=== PATIENT | male | born 1955 | race Caucasian/White ===

== ENCOUNTER 2024-06-01 12:46 | Inpatient (IN) | payer MEDICARE, BC ==
--- NOTE | 2024-06-01 14:07 | ED ---
General Adult HPI - General Chief complaint: Recheck/Abnormal Lab/Rx Stated complaint: SOB Time Seen by Provider: 06/01/24 12:55 Source: patient Mode of arrival: ambulatory Limitations: no limitations - History of Present Illness Initial comments: 68-year-old male presents emergency department under the recommendation of his primary care doctor. Patient had seen a new primary care last week. The physician wanted to perform a low-dose CT of his chest due to his longstanding history of smoking, recent weight loss of 30 lbs, cough and exertional dyspnea. CT was performed and demonstrated large lung mass with multiple smaller nodules concerning for cancer. Patient is currently in the works of finding a arc air operator to have a biopsy performed. States that he has had worsening symptoms of shortness of breath, nonproductive cough. He states that when he sleeps at night he is awoken from sleep gasping for air. He states his if he f eels when he turns his head to the right that he has compression on his airway. CT did demonstrate some tracheal effacement from lymphadenopathy. Patient was seen in [facility] ER yesterday due to worsening symptoms and had a CTA performed of his chest. CT demonstrated no PE. There was a large lung mass measuring 4 x 4 cm at the base. Patient had additional satellite nodules and an additional larger nodule. He had peritracheal adenopathy. It was recommended that the patient be transferred at that time due to his symptoms of difficulty breathing, tachycardia and new diagnosis of suspected lung cancer. Patient wanted to talk to his primary care doctor. He spoke with his primary care abiodun santiago this morning who felt that it was important for the patient to be evaluated at the hospital due to his worsening symptoms. He denies any fevers. No history of cancer. Patient is a diabetic and states he occasionally forgets to take his medications. - Related Data Home Medications Medication Instructions Recorded Confirmed Atorvastatin Calcium [Lipitor] 40 mg PO HS 06/01/24 06/01/24 buPROPion XL [Wellbutrin XL] 150 mg PO DAILY 06/01/24 06/01/24 glipiZIDE [Glucotrol] 5 mg PO BID 06/01/24 06/01/24 metFORMIN HCL [Metformin HCl] 1,000 mg PO BID 06/01/24 06/01/24 Allergies Allergy/AdvReac Type Severity Reaction Status Date / Time No Known Allergies Allergy Verified 06/01/24 14:32 Review of Systems ROS Statement: Those systems with pertinent positive or pertinent negative responses have been documented in the HPI. ROS Other: All systems not noted in ROS Statement are negative. Past Medical History Past Medical History: Diabetes Mellitus, Hypertension History of Any Multi-Drug Resistant Organisms: None Reported Past Surgical History: No Surgical Hx Reported Past Psychological History: No Psychological Hx Reported Smoking Status: Current every day smoker Past Alcohol Use History: None Reported Past Drug Use History: None Reported General Exam Limitations: no limitations General appearance: alert, in no apparent distress Head exam: Present: atraumatic, normocephalic, normal inspection Eye exam: Present: normal appearance, PERRL, EOMI. Absent: scleral icterus, conjunctival injection, periorbital swelling ENT exam: Present: normal exam, mucous membranes moist Neck exam: Present: normal inspection. Absent: tenderness, meningismus, lymphadenopathy Respiratory exam: Present: normal lung sounds bilaterally, other (no stridor). Absent: respiratory distress, wheezes, rales, rhonchi, stridor Cardiovascular Exam: Present: normal rhythm, tachycardia, normal heart sounds. Absent: systolic murmur, diastolic murmur, rubs, gallop, clicks GI/Abdominal exam: Present: soft, normal bowel sounds. Absent: distended, tenderness, guarding, rebound, rigid Extremities exam: Present: normal inspection, full ROM, normal capillary refill. Absent: tenderness, pedal edema, joint swelling, calf tenderness Back exam: Present: normal inspection Neurological exam: Present: alert, oriented X3, CN II-XII intact Psychiatric exam: Present: normal affect, normal mood Skin exam: Present: warm, dry, intact, normal color. Absent: rash Course Vital Signs 06/01/24 06/01/24 06/01/24 12:51 14:04 14:30 Temperature 98.2 F Pulse Rate 124 H 115 H 112 H Respiratory 22 18 20 Rate Blood Pressure 169/68 120/70 133/78 O2 Sat by Pulse 96 94 L 94 L Oximetry 06/01/24 06/01/24 06/01/24 19:30 20:19 20:29 Temperature Pulse Rate 114 H 111 H 112 H Respiratory 18 Rate Blood Pressure 144/75 O2 Sat by Pulse 96 Oximetry 06/01/24 21:14 Temperature Pulse Rate 110 H Respiratory 18 Rate Blood Pressure 135/79 O2 Sat by Pulse 95 Oximetry Medical Decision Making - Medical Decision Making Was pt. sent in by a medical professional or institution (LANIE Mathis, PROFESSOR OF BUSINESS, urgent care, hospital, or care home...) When possible be specific @ -Patient was told to come to the emergency department by his primary care doctor Did you speak to anyone other than the patient for history (EMS, parent, family, police, friend...)? What history was obtained from this source @ -No Did you review nursing and triage notes (agree or disagree)? Why? @ -I reviewed and agree with nursing and triage notes Were old charts reviewed (outside hosp., previous admission, EMS record, old EKG, old radiological studies, urgent care reports/EKG's, care home records)? Report findings @ -Yes I reviewed the CT angiography which demonstrates a 4 x 4 x 3.7 spiculated mass at the posterior right lower lobe. Satellite nodules. 7 mm lef t upper lobe. No PE Differential Diagnosis (chest pain, altered mental status, abdominal pain women, abdominal pain men, vaginal bleeding, weakness, fever, dyspnea, syncope, headache, dizziness, GI bleed, back pain, seizure, CVA, palpatations, mental health, musculoskeletal)? @ -Differential Dyspnea: Coronary syndrome, arrhythmia, tamponade, asthma, COPD, pulmonary embolism, pneumonia, pneumothorax, pulmonary effusion, anaphylaxis, diabetic ketoacidosis, flailed chest, pulmonary contusion, diaphragmatic rupture, anemia, neuromuscular, this is not meant to be an all-inclusive list. EKG interpreted by me (3pts min.). @ -Yes and demonstrates sinus tachycardia with a rate of 113. ND interval 209. QRS 97. QTc of 380. No acute ST segment elevations or depressions X-rays interpreted by me (1pt min.). @ -None done CT interpreted by me (1pt min.). @ -None done U/S interpreted by me (1pt. min.). @ -None done What testing was considered but not performed or refused? (CT, X-rays, U/S, labs)? Why? @ -Chest x-ray and CT of the chest was considered however patient just had 2 CTs performed What meds were considered but not given or refused? Why? @ -None Did you discuss the management of the patient with other professionals (professionals i.e. Dr., PA, PROFESSOR OF BUSINESS, lab, RT, psych nurse, social worker health services, yoke presser, teacher, president and chief executive officer, spring encaser)? Give summary @ -Spoke with Dr. Garay for admission Was smoking cessation discussed for >3mins.? @ -No Was critical care preformed (if so, how long)? @ -No Were there social determinants of health that impacted care today? How? (Homeles sness, low income, unemployed, alcoholism, drug addiction, transportation, low edu. Level, literacy, decrease access to med. care, [facility], rehab)? @ -No Was there de-escalation of care discussed even if they declined (Discuss DNR or withdrawal of care, Hospice)? DNR status @ -No What co-morbidities impacted this encounter? (DM, HTN, Smoking, COPD, CAD, Cancer, CVA, ARF, Chemo, Hep., AIDS, mental health diagnosis, sleep apnea, morbid obesity)? @ -Smoking Was patient admitted / discharged? Hospital course, mention meds given and route, prescriptions, significant lab abnormalities, going to OR and other pertinent info. @ -Upon arrival patient seen and evaluated in room 14. Thorough history and physical exam was performed. Patient reports to difficulty breathing especially positional and when sleeping. I did review his records which demonstrates suspected lung cancer with mediastinal adenopathy. Due to worsening shortness of breath I did offer admission with pulmonology consultation to discuss when that biopsy could be performed. Patient was agreeable to. Spoke with Dr. Garay for admission Undiagnosed new problem with uncertain prognosis? @ -Yes Drug Therapy requiring intensive monitoring for toxicity (Heparin, Nitro, Insulin, Cardizem)? @ -No Were any procedures done? @ -No Diagnosis/symptom? @ -Acute dyspnea, lung mass, suspected new cancer Acute, or Chronic, or Acute on Chronic? @ -Acute Uncomplicated (without systemic symptoms) or Complicated (systemic symptoms)? @ -Complicated Side effects of treatment? @ -No Exacerbation, Progression, or Severe Exacerbation? @ -No Poses a threat to life or bodily function? How? (Chest pain, [place], [place], pneumonia, PE, COPD, DKA, ARF, appy, cholecystitis, CVA, Diverticulitis, Homicidal, Suicidal, threat to staff... and all critical care pts) @ -Yes as patient likely has advanced cancer - Lab Data Result diagrams: 06/06/24 05:39 06/06/24 05:39 Lab Results 06/01/24 06/01/24 06/01/24 Range/Units 13:48 13:48 13:48 WBC 10.5 (3.8-10.6) k/uL RBC 6.21 H (4.30-5.90) m/uL Hgb 14.4 (13.0-17.5) gm/dL Hct 45.4 (39.0-53.0) % MCV 73.0 L (80.0-100.0) fL MCH 23.1 L (25.0-35.0) pg MCHC 31.7 (31.0-37.0) g/dL RDW 15.3 (11.5-15.5) % Plt Count 332 (150-450) k/uL Estimated Plt Count (Adequate) MPV 8.0 Immature Gran % (Auto) % Absolute Nucleated RBC % Neutrophils % 76 % Lymphocytes % 14 % Monocytes % 8 % Eosinophils % 1 % Basophils % 1 % Immature Gran # (0.00-0.04) X 10*3/uL Neutrophils # 7.9 H (1.3-7.7) k/uL Lymphocytes # 1.5 (1.0-4.8) k/uL Monocytes # 0.8 (0-1.0) k/uL Eosinophils # 0.1 (0-0.7) k/uL Basophils # 0.1 (0-0.2) k/uL NRBC/100 WBC Diff (0.00-0.01) X 10*3/uL Manual Slide Review Hypochromasia Slight Microcytosis Slight Microcytosis (manual) PT 10.4 (10.0-12.5) sec INR 0.9 (<1.2) APTT 27.3 (22.0-30.0) sec Sodium 132 L (137-145) mmol/L Potassium 4.9 (3.5-5.1) mmol/L Chloride 100 (98-107) mmol/L Carbon Dioxide 23 (22-30) mmol/L Anion Gap 9 mmol/L BUN 16 (9-20) mg/dL Creatinine 0.78 (0.66-1.25) mg/dL Est GFR (CKD-EPI) (>=60) Est GFR (CKD-EPI)AfAm >90 (>60 ml/min/1.73 sqM) Est GFR (CKD-EPI)NonAf >90 (>60 ml/min/1.73 sqM) BUN/Creatinine Ratio (12.00-20.00) Ratio Glucose 416 H (74-99) mg/dL POC Glucose (mg/dL) (70-110) mg/dL POC Glu Safety Companion ID Estimated Ave Glu mg/dL mg/dL Hemoglobin A1c (<=6.0) % Plasma Lactic Acid Josh (0.7-2.0) mmol/L Calcium 10.0 (8.4-10.2) mg/dL Total Bilirubin 0.8 (0.2-1.3) mg/dL AST 16 L (17-59) U/L ALT 12 (4-49) U/L Alkaline Phosphatase 92 (38-126) U/L Troponin I (0.000-0.034) ng/mL NT-Pro-B Natriuret Pep 87 pg/mL Total Protein 7.5 (6.3-8.2) g/dL Albumin 4.0 (3.5-5.0) g/dL TSH (0.350-5.500) UIU/ML SARS-CoV-2 (PCR) (Not Detectd) 06/01/24 06/01/24 06/01/24 Range/Units 13:48 13:48 16:16 WBC (3.8-10.6) k/uL RBC (4.30-5.90) m/uL Hgb (13.0-17.5) gm/dL Hct (39.0-53.0) % MCV (80.0-100.0) fL MCH (25.0-35.0) pg MCHC (31.0-37.0) g/dL RDW (11.5-15.5) % Plt Count (150-450) k/uL Estimated Plt Count (Adequate) MPV Immature Gran % (Auto) % Absolute Nucleated RBC % Neutrophils % % Lymphocytes % % Monocytes % % Eosinophils % % Basophils % % Immature Gran # (0.00-0.04) X 10*3/uL Neutrophils # (1.3-7.7) k/uL Lymphocytes # (1.0-4.8) k/uL Monocytes # (0-1.0) k/uL Eosinophils # (0-0.7) k/uL Basophils # (0-0.2) k/uL NRBC/100 WBC Diff (0.00-0.01) X 10*3/uL Manual Slide Review Hypochromasia Microcytosis Microcytosis (manual) PT (10.0-12.5) sec INR (<1.2) APTT (22.0-30.0) sec Sodium (137-145) mmol/L Potassium (3.5-5.1) mmol/L Chloride (98-107) mmol/L Carbon Dioxide (22-30) mmol/L Anion Gap mmol/L BUN (9-20) mg/dL Creatinine (0.66-1.25) mg/dL Est GFR (CKD-EPI) (>=60) Est GFR (CKD-EPI)AfAm (>60 ml/min/1.73 sqM) Est GFR (CKD-EPI)NonAf (>60 ml/min/1.73 sqM) BUN/Creatinine Ratio (12.00-20.00) Ratio Glucose (74-99) mg/dL POC Glucose (mg/dL) (70-110) mg/dL POC Glu Safety Companion ID Estimated Ave Glu mg/dL mg/dL Hemoglobin A1c (<=6.0) % Plasma Lactic Acid Josh 2.0 (0.7-2.0) mmol/L Calcium (8.4-10.2) mg/dL Total Bilirubin (0.2-1.3) mg/dL AST (17-59) U/L ALT (4-49) U/L Alkaline Phosphatase (38-126) U/L Troponin I <0.012 (0.000-0.034) ng/mL NT-Pro-B Natriuret Pep pg/mL Total Protein (6.3-8.2) g/dL Albumin (3.5-5.0) g/dL TSH (0.350-5.500) UIU/ML SARS-CoV-2 (PCR) Not Detected (Not Detectd) 06/01/24 06/01/24 06/01/24 Range/Units 17:31 19:28 21:07 WBC (3.8-10.6) k/uL RBC (4.30-5.90) m/uL Hgb (13.0-17.5) gm/dL Hct (39.0-53.0) % MCV (80.0-100.0) fL MCH (25.0-35.0) pg MCHC (31.0-37.0) g/dL RDW (11.5-15.5) % Plt Count (150-450) k/uL Estimated Plt Count (Adequate) MPV Immature Gran % (Auto) % Absolute Nucleated RBC % Neutrophils % % Lymphocytes % % Monocytes % % Eosinophils % % Basophils % % Immature Gran # (0.00-0.04) X 10*3/uL Neutrophils # (1.3-7.7) k/uL Lymphocytes # (1.0-4.8) k/uL Monocytes # (0-1.0) k/uL Eosinophils # (0-0.7) k/uL Basophils # (0-0.2) k/uL NRBC/100 WBC Diff (0.00-0.01) X 10*3/uL Manual Slide Review Hypochromasia Microcytosis Microcytosis (manual) PT (10.0-12.5) sec INR (<1.2) APTT (22.0-30.0) sec Sodium (137-145) mmol/L Potassium (3.5-5.1) mmol/L Chloride (98-107) mmol/L Carbon Dioxide (22-30) mmol/L Anion Gap mmol/L BUN (9-20) mg/dL Creatinine (0.66-1.25) mg/dL Est GFR (CKD-EPI) (>=60) Est GFR (CKD-EPI)AfAm (>60 ml/min/1.73 sqM) Est GFR (CKD-EPI)NonAf (>60 ml/min/1.73 sqM) BUN/Creatinine Ratio (12.00-20.00) Ratio Glucose (74-99) mg/dL POC Glucose (mg/dL) 408 H 349 H 218 H (70-110) mg/dL POC Glu Safety Companion ID Ivania Chambers, Dorinda Mejia, Dorinda Estimated Ave Glu mg/dL mg/dL Hemoglobin A1c (<=6.0) % Plasma Lactic Acid Josh (0.7-2.0) mmol/L Calcium (8.4-10.2) mg/dL Total Bilirubin (0.2-1.3) mg/dL AST (17-59) U/L ALT (4-49) U/L Alkaline Phosphatase (38-126) U/L Troponin I (0.000-0.034) ng/mL NT-Pro-B Natriuret Pep pg/mL Total Protein (6.3-8.2) g/dL Albumin (3.5-5.0) g/dL TSH (0.350-5.500) UIU/ML SARS-CoV-2 (PCR) (Not Detectd) 06/01/24 06/02/24 06/02/24 Range/Units 21:58 05:56 05:56 WBC 9.13 (3.8-10.6) k/uL RBC 6.28 H (4.30-5.90) m/uL Hgb 13.8 (13.0-17.5) gm/dL Hct 44.7 (39.0-53.0) % MCV 71.2 L (80.0-100.0) fL MCH 22.0 L (25.0-35.0) pg MCHC 30.9 L (31.0-37.0) g/dL RDW 17.3 H (11.5-15.5) % Plt Count 348 (150-450) k/uL Estimated Plt Count Adequate (Adequate) MPV 10.8 Immature Gran % (Auto) 0.40 % Absolute Nucleated RBC 0 % Neutrophils % 69.7 % Lymphocytes % 17.1 % Monocytes % 11.2 % Eosinophils % 1.1 % Basophils % 0.5 % Immature Gran # 0.04 (0.00-0.04) X 10*3/uL Neutrophils # 6.36 (1.3-7.7) k/uL Lymphocytes # 1.56 (1.0-4.8) k/uL Monocytes # 1.02 H (0-1.0) k/uL Eosinophils # 0.10 (0-0.7) k/uL Basophils # 0.05 (0-0.2) k/uL NRBC/100 WBC Diff 0 (0.00-0.01) X 10*3/uL Manual Slide Review Morph Only Hypochromasia Microcytosis Microcytosis (manual) 2+ A PT (10.0-12.5) sec INR (<1.2) APTT (22.0-30.0) sec Sodium (137-145) mmol/L Potassium (3.5-5.1) mmol/L Chloride (98-107) mmol/L Carbon Dioxide (22-30) mmol/L Anion Gap mmol/L BUN (9-20) mg/dL Creatinine (0.66-1.25) mg/dL Est GFR (CKD-EPI) (>=60) Est GFR (CKD-EPI)AfAm (>60 ml/min/1.73 sqM) Est GFR (CKD-EPI)NonAf (>60 ml/min/1.73 sqM) BUN/Creatinine Ratio (12.00-20.00) Ratio Glucose (74-99) mg/dL POC Glucose (mg/dL) 193 H (70-110) mg/dL POC Glu Safety Companion ID [place] Estimated [address] Glu mg/dL 369 mg/dL Hemoglobin A1c 14.5 H (<=6.0) % Plasma Lactic Acid Josh (0.7-2.0) mmol/L Calcium (8.4-10.2) mg/dL Total Bilirubin (0.2-1.3) mg/dL AST (17-59) U/L ALT (4-49) U/L Alkaline Phosphatase (38-126) U/L Troponin I (0.000-0.034) ng/mL NT-Pro-B Natriuret Pep pg/mL Total Protein (6.3-8.2) g/dL Albumin (3.5-5.0) g/dL TSH (0.350-5.500) UIU/ML SARS-CoV-2 (PCR) (Not Detectd) 06/02/24 06/02/24 06/02/24 Range/Units 05:56 05:56 07:20 WBC (3.8-10.6) k/uL RBC (4.30-5.90) m/uL Hgb (13.0-17.5) gm/dL Hct (39.0-53.0) % MCV (80.0-100.0) fL MCH (25.0-35.0) pg MCHC (31.0-37.0) g/dL RDW (11.5-15.5) % Plt Count (150-450) k/uL Estimated Plt Count (Adequate) MPV Immature Gran % (Auto) % Absolute Nucleated RBC % Neutrophils % % Lymphocytes % % Monocytes % % Eosinophils % % Basophils % % Immature Gran # (0.00-0.04) X 10*3/uL Neutrophils # (1.3-7.7) k/uL Lymphocytes # (1.0-4.8) k/uL Monocytes # (0-1.0) k/uL Eosinophils # (0-0.7) k/uL Basophils # (0-0.2) k/uL NRBC/100 WBC Diff (0.00-0.01) X 10*3/uL Manual Slide Review Hypochromasia Microcytosis Microcytosis (manual) PT (10.0-12.5) sec INR (<1.2) APTT (22.0-30.0) sec Sodium 135 (137-145) mmol/L Potassium 4.6 (3.5-5.1) mmol/L Chloride 100 (98-107) mmol/L Carbon Dioxide 23.7 (22-30) mmol/L Anion Gap 11.30 mmol/L BUN 14.6 (9-20) mg/dL Creatinine 1.0 (0.66-1.25) mg/dL Est GFR (CKD-EPI) 83 (>=60) Est GFR (CKD-EPI)AfAm (>60 ml/min/1.73 sqM) Est GFR (CKD-EPI)NonAf (>60 ml/min/1.73 sqM) BUN/Creatinine Ratio 14.60 (12.00-20.00) Ratio Glucose 236 H (74-99) mg/dL POC Glucose (mg/dL) 256 H (70-110) mg/dL POC Glu Safety Companion ID virgilio Argueta Estimated Ave Glu mg/dL mg/dL Hemoglobin A1c (<=6.0) % Plasma Lactic Acid Josh (0.7-2.0) mmol/L Calcium 9.2 (8.4-10.2) mg/dL Total Bilirubin (0.2-1.3) mg/dL AST (17-59) U/L ALT (4-49) U/L Alkaline Phosphatase (38-126) U/L Troponin I (0.000-0.034) ng/mL NT-Pro-B Natriuret Pep pg/mL Total Protein (6.3-8.2) g/dL Albumin (3.5-5.0) g/dL TSH 2.140 (0.350-5.500) UIU/ML SARS-CoV-2 (PCR) (Not Detectd) 06/02/24 06/02/24 06/02/24 Range/Units 12:07 17:16 20:11 WBC (3.8-10.6) k/uL RBC (4.30-5.90) m/uL Hgb (13.0-17.5) gm/dL Hct (39.0-53.0) % MCV (80.0-100.0) fL MCH (25.0-35.0) pg MCHC (31.0-37.0) g/dL RDW (11.5-15.5) % Plt Count (150-450) k/uL Estimated Plt Count (Adequate) MPV Immature Gran % (Auto) % Absolute Nucleated RBC % Neutrophils % % Lymphocytes % % Monocytes % % Eosinophils % % Basophils % % Immature Gran # (0.00-0.04) X 10*3/uL Neutrophils # (1.3-7.7) k/uL Lymphocytes # (1.0-4.8) k/uL Monocytes # (0-1.0) k/uL Eosinophils # (0-0.7) k/uL Basophils # (0-0.2) k/uL NRBC/100 WBC Diff (0.00-0.01) X 10*3/uL Manual Slide Review Hypochromasia Microcytosis Microcytosis (manual) PT (10.0-12.5) sec INR (<1.2) APTT (22.0-30.0) sec Sodium (137-145) mmol/L Potassium (3.5-5.1) mmol/L Chloride (98-107) mmol/L Carbon Dioxide (22-30) mmol/L Anion Gap mmol/L BUN (9-20) mg/dL Creatinine (0.66-1.25) mg/dL Est GFR (CKD-EPI) (>=60) Est GFR (CKD-EPI)AfAm (>60 ml/min/1.73 sqM) Est GFR (CKD-EPI)NonAf (>60 ml/min/1.73 sqM) BUN/Creatinine Ratio (12.00-20.00) Ratio Glucose (74-99) mg/dL POC Glucose (mg/dL) 240 H 294 H 343 H (70-110) mg/dL POC Glu Safety Companion virgilio Stubbs, Dolly Edwards Estimated Ave Glu mg/dL mg/dL Hemoglobin A1c (<=6.0) % Plasma Lactic Acid Josh (0.7-2.0) mmol/L Calcium (8.4-10.2) mg/dL Total Bilirubin (0.2-1.3) mg/dL AST (17-59) U/L ALT (4-49) U/L Alkaline Phosphatase (38-126) U/L Troponin I (0.000-0.034) ng/mL NT-Pro-B Natriuret Pep pg/mL Total Protein (6.3-8.2) g/dL Albumin (3.5-5.0) g/dL TSH (0.350-5.500) UIU/ML SARS-CoV-2 (PCR) (Not Detectd) 06/03/24 Range/Units 07:42 WBC (3.8-10.6) k/uL RBC (4.30-5.90) m/uL Hgb (13.0-17.5) gm/dL Hct (39.0-53.0) % MCV (80.0-100.0) fL MCH (25.0-35.0) pg MCHC (31.0-37.0) g/dL RDW (11.5-15.5) % Plt Count (150-450) k/uL Estimated Plt Count (Adequate) MPV Immature Gran % (Auto) % Absolute Nucleated RBC % Neutrophils % % Lymphocytes % % Monocytes % % Eosinophils % % Basophils % % Immature Gran # (0.00-0.04) X 10*3/uL Neutrophils # (1.3-7.7) k/uL Lymphocytes # (1.0-4.8) k/uL Monocytes # (0-1.0) k/uL Eosinophils # (0-0.7) k/uL Basophils # (0-0.2) k/uL NRBC/100 WBC Diff (0.00-0.01) X 10*3/uL Manual Slide Review Hypochromasia Microcytosis Microcytosis (manual) PT (10.0-12.5) sec INR (<1.2) APTT (22.0-30.0) sec Sodium (137-145) mmol/L Potassium (3.5-5.1) mmol/L Chloride (98-107) mmol/L Carbon Dioxide (22-30) mmol/L Anion Gap mmol/L BUN (9-20) mg/dL Creatinine (0.66-1.25) mg/dL Est GFR (CKD-EPI) (>=60) Est GFR (CKD-EPI)AfAm (>60 ml/min/1.73 sqM) Est GFR (CKD-EPI)NonAf (>60 ml/min/1.73 sqM) BUN/Creatinine Ratio (12.00-20.00) Ratio Glucose (74-99) mg/dL POC Glucose (mg/dL) 305 H (70-110) mg/dL POC Glu Safety Companion ID [place] virgilio Estimated Ave Glu mg/dL mg/dL Hemoglobin A1c (<=6.0) % Plasma Lactic Acid Josh (0.7-2.0) mmol/L Calcium (8.4-10.2) mg/dL Total Bilirubin (0.2-1.3) mg/dL AST (17-59) U/L ALT (4-49) U/L Alkaline Phosphatase (38-126) U/L Troponin I (0.000-0.034) ng/mL NT-Pro-B Natriuret Pep pg/mL Total Protein (6.3-8.2) g/dL Albumin (3.5-5.0) g/dL TSH (0.350-5.500) UIU/ML SARS-CoV-2 (PCR) (Not Detectd) Disposition Clinical Impression: Lung mass, Paratracheal lymphadenopathy, Tachycardia Disposition: ADMITTED IP TO THIS [facility] Condition: Stable Is patient prescribed a controlled substance at d/c from ED?: No Time of Disposition: 14:46 Decision to Admit Reason: Admit from EC Decision Date: 06/01/24 Decision Time: 14:46
[2024-06-01 14:08] LABS: Basophils # (A) 0.1 k/uL (0-0.2); Basophils % (A) 1 %; Eosinophils # (A) 0.1 k/uL (0-0.7); Eosinophils % (A) 1 %; HCT 45.4 % (39.0-53.0); HGB 14.4 gm/dL (13.0-17.5); Hypochromasia Slight; Lymphocytes # (A) 1.5 k/uL (1.0-4.8); Lymphocytes % (A) 14 %; MCH 23.1 pg (25.0-35.0); MCHC 31.7 g/dL (31.0-37.0); Microcytosis Slight; Monocytes # (A) 0.8 k/uL (0-1.0); Monocytes % (A) 8 %; Neutrophils # (A) 7.9 k/uL (1.3-7.7); Neutrophils % (A) 76 %; Platelet Count 332 k/uL (150-450); RBC 6.21 m/uL (4.30-5.90); RDW 15.3 % (11.5-15.5); WBC 10.5 k/uL (3.8-10.6)
[2024-06-01 14:15] LABS: ALT 12 U/L (4-49); AST 16 U/L (17-59); African American GFR (CKD) >90 (>60 ml/min/1.73 sqM); Alkaline Phosphatase 92 U/L (38-126); Anion Gap 9 mmol/L; Blood Urea Nitrogen 16 mg/dL (9-20); Carbon Dioxide 23 mmol/L (22-30); Chloride 100 mmol/L (98-107); Glucose 416 mg/dL (74-99); Non-African American GFR(CKD) >90 (>60 ml/min/1.73 sqM); Potassium 4.9 mmol/L (3.5-5.1); Sodium 132 mmol/L (137-145); Total Bilirubin 0.8 mg/dL (0.2-1.3); Total Protein 7.5 g/dL (6.3-8.2)
[2024-06-01 14:23] LABS: NT-Pro-B-Type Natriuretic Pept 87 pg/mL
[2024-06-01 14:25] LABS: INR 0.9 (<1.2); Partial Thromboplastin Time 27.3 sec (22.0-30.0); Prothrombin Time 10.4 sec (10.0-12.5)
[2024-06-01] MEDS ORDERED: NALOXONE 0.4 MG/ML 1 ML VIAL IV PRN (14:46)
[2024-06-01] MEDS ORDERED: DEXTROSE 50% SYRINGE 50 ML IVP PRN ×2 (14:50)
[2024-06-01] MEDS: SODIUM CHLORIDE 0.9% 1,000 ML IV SCH (15:29)
[2024-06-01 17:32] LABS: Glucose,Whole Blood 408 mg/dL (70-110)
[2024-06-01] MEDS: INSULIN ASPART (NovoLOG) 100 UNIT/ML VIAL SQ ONE (17:46)
[2024-06-01] MEDS: INSULIN ASPART (NovoLOG) 100 UNIT/ML VIAL SQ SCH (19:05)
[2024-06-01 19:30] LABS: Glucose,Whole Blood 349 mg/dL (70-110)
[2024-06-01] MEDS: IPRATROPIUM-ALBUTEROL 3 ML NEB INHALATION SCH (20:16)
[2024-06-01 21:09] LABS: Glucose,Whole Blood 218 mg/dL (70-110)
[2024-06-01 22:00] LABS: Glucose,Whole Blood 193 mg/dL (70-110)
[2024-06-01] MEDS: ATORVASTATIN 40 MG TAB PO SCH (22:34)
[2024-06-01] MEDS: metFORMIN 500 MG TAB PO SCH (22:34)
[2024-06-01] MEDS: glipiZIDE 5 MG TAB PO SCH (22:34)
--- NOTE | 2024-06-01 23:54 | HP ---
HISTORY AND PHYSICAL A 68-year-old white male. HOME MEDICATIONS: 1. Lipitor 40 daily. 2. Wellbutrin XL 150 daily. 3. Glucotrol 5 b.i.d. 4. Metformin 1000 b.i.d. ALLERGIES: Negative. He came to the hospital apparently with some shortness of breath. He is being worked up for heart disease. PAST MEDICAL HISTORY: Diabetes mellitus, hypertension. LABORATORY DATA: Labs show sodium 132, potassium 4.9, glucose is 416 in the ER, BUN 16, creatinine 0.78. D-dimer was not done. BNP was 87. We are going to run a D-dimer on him. Troponins negative. Lactic acid 2.0. He was found to have a lung mass, paratracheal lymphadenopathy, tachycardia, transferred in here. We will put him on home medications, breathing treatments, etc. We may get the CAT scan of his lungs from [place]. Get Pulmonary to see him for possible lung biopsy as well as Oncology for possible treatment. It looks like it is a lung cancer from what I hear from the ER. PROGNOSIS: Guarded. MMODL / IJN: [id number] /
--- NOTE | 2024-06-02 00:01 | HP ---
HISTORY AND PHYSICAL HISTORY OF PRESENT ILLNESS: He came to the hospital due to smoking and possible cancer. Pulmonology has been consulted. Waiting for biopsy. He has been gasping for air, worse when he turns to the side. Came from [facility]. Waiting for Pulmonary and Oncology to see him. He has been treated for breathing issues. He has diabetes, out of control. I put him on Accu-Chek protocol. ALLERGIES: Negative. PHYSICAL EXAMINATION: VITAL SIGNS: Temperature 98.2, pulse 112 to 124, blood pressure 120s to 160s over 60s to 70s, respiratory rate 18 to 20, O2 of 94% to 96%. PAST MEDICAL HISTORY: Diabetes, hypertension. LABORATORY DATA: Sodium 132, potassium 4.9 IMPRESSION: Put him on Accu-Chek protocol. Given fluid rehydration, IV steroids. He has lung mass, paratracheal adenopathy, tachycardia, suspect dehydration. Wait for pulmonary biopsy. Consult Dr. De Leon, Dr. Feliciano also, and Dr. Pascual. PROGNOSIS: Guarded. MMODL / IJN: [id number] /
[2024-06-02] MEDS ORDERED: RX INFO: IV CONTRAST WAS GIVEN 1 EACH MISC MISCELLANE PRN (01:22)
--- NOTE | 2024-06-02 04:40 | XR ---
EXAMINATION TYPE: XR chest 1V portable DATE OF EXAM: 06/02/2024 COMPARISON: NONE HISTORY: Shortness of breath TECHNIQUE: Single frontal view of the chest is obtained. FINDINGS: . Cardiac silhouette size is mildly enlarged. Left lung is clear. There is small right p leural effusion. There is increased interstitial markings in the right lung . There is right apical o pacity causing left-sided tracheal deviation and some tracheal narrowing The osseous structures are i ntact. IMPRESSION: Mild cardiomegaly with small right pleural effusion and mild to moderate right-sided int erstitial edema. Correlate for fluid overload state. Suspicious right apical masslike opacity with ma ss effect on the trachea. Underlying mass or neoplasm needs to be considered. Correlate clinically. F ollow-up contrast enhanced chest CT is advised.
--- NOTE | 2024-06-02 04:43 | P.CNPUL ---
History of Present Illness Consult date: 06/02/24 Requesting physician: Adenike Dooley Reason for consult: lung mass Chief complaint: Lung mass reportedly noted on low-dose lung CT History of present illness: Patient is a 68-year-old white male with past medical history significant for significant diabetes mellitus, hyperlipidemia, current everyday smoker. He just recently became established with a new PCP, Dr. Villarreal. He does have a signi ficant smoking history smoking approximately 1 to 2 packs/day for almost 50 years. He is currently retired, worked [employer] for most of his life. Denies ever being diagnosed with COPD. Does report exertional dyspnea such as walking out to the mailbox and back. He reports intermittent chronic cough, with minimal sputum production. Note that the patient has had a 30 pound weight loss over the past 6 months. He is also reported increased throat fullness and difficulty breathing when he turns his head. He went to [facility] yesterday for evaluation. Reportedly the CT of his chest done, however, he presents here without any imaging. Reportedly had enlarged paratracheal lymph nodes and a large lung mass. He was discharged home, went to see his PCP, who directed him to our facility. We are working on requesting these images. Patient is currently sitting at the edge of the bed, on room air, in no acute distress. He denies any infectious-like symptoms. No fevers. Cough is chronic, intermittent, and mostly nonproductive. No chest congestion. No hemoptysis. No palpable neck masses. No observable stridor. CBC unremarkable without leukocytosis. Electrolytes unremarkable. Glucose is 416. Lactic acid 2. Normal saline infusing at 130 MLS per hour. Troponin less than 0.012. NT proBNP low. COVID-negative. He is tachycardic. Otherwise, hemodynamically stable. Review of Systems REVIEW OF SYSTEMS: CONSTITUTIONAL: Reports a 30 pound unintentional weight loss over the last 6 months. EYES: Denies change in vision. EARS, NOSE, MOUTH, THROAT: Denies headaches, denies sore throat. Admits throat fullness and positional shortness of breath when turning his head CARDIOVASCULAR: Denies chest pain, palpitations or syncopal episodes. RESPIRATORY: See HPI GASTROINTESTINAL: Denies change in appetite, abdominal pain, nausea and vomiting, or diarrhea GENITOURINARY: Denies hematuria, denies infections. MUSKULOSKELETAL: Denies pain, denies swelling. INTEGUMENTARY: Denies rash, denies eczema. NEUROLOGICAL: Denies recent memory loss, no recent seizure activity. PSYCHIATRIC: Denies anxiety, denies depression. HEMATOLOGIC/LYMPHATIC: Denies anemia, denies enlarged lymph node Past Medical History Past Medical History: Diabetes Mellitus, Hypertension History of Any Multi-Drug Resistant Organisms: None Reported Past Surgical History: No Surgical Hx Reported Past Psychological History: No Psychological Hx Reported Smoking Status: Current every day smoker Past Alcohol Use History: None Reported Past Drug Use History: None Reported Medications and Allergies Home Medications Medication Instructions Recorded Confirmed Type Atorvastatin Calcium [Lipitor] 40 mg PO HS 06/01/24 06/01/24 History buPROPion XL [Wellbutrin XL] 150 mg PO DAILY 06/01/24 06/01/24 History glipiZIDE [Glucotrol] 5 mg PO BID 06/01/24 06/01/24 History metFORMIN HCL [Metformin HCl] 1,000 mg PO BID 06/01/24 06/01/24 History Allergies Allergy/AdvReac Type Severity Reaction Status Date / Time No Known Allergies Allergy Verified 06/01/24 14:32 Physical Exam Vitals: Vital Signs Temp Pulse Pulse Resp BP BP Pulse Ox 06/02/24 01:16 98.5 F 113 H 20 136/85 91 L 06/01/24 22:51 16 06/01/24 21:30 97.5 F L 112 H 18 128/77 94 L 06/01/24 21:14 110 H 18 135/79 95 06/01/24 20:29 112 H 06/01/24 20:19 111 H 06/01/24 19:30 114 H 18 144/75 96 06/01/24 14:30 112 H 20 133/78 94 L 06/01/24 14:04 115 H 18 120/70 94 L 06/01/24 12:51 98.2 F 124 H 22 169/68 96 Intake and Output 06/01/24 06/01/24 06/02/24 14:59 22:59 06:59 Output Total 800 Balance -800 Output: Urine 800 Other: Weight 86.183 kg 86.183 kg GENERAL EXAM: Alert, 68-year-old male, well-nourished, sitting at the edge of the bed, comfortable in no apparent distress. HEAD: Normocephalic and atraumatic EYES: Normal reaction of pupils, equal size. NOSE: Clear with pink turbinates. THROAT: No erythema or exudates. NECK: No masses, no JVD. No stridor. CHEST: No chest wall deformity. LUNGS: Equal air entry with no crackles, wheeze, rhonchi or dullness. On room air. No conversational dyspnea or accessory muscle use.. CVS: S1 and S2 normal with no audible murmur, regular rhythm. No extra heart sounds ABDOMEN: No hepatosplenomegaly, active bowel sounds, no guarding or rigidity. SPINE: No scoliosis or deformity SKIN: No rashes CENTRAL NERVOUS SYSTEM: No focal deficits, tone is normal in all 4 extremities. EXTREMITIES: There is no peripheral edema, clubbing, or cyanosis. Peripheral pulses are intact. Results - Laboratory Findings CBC and BMP: 06/01/24 13:48 06/01/24 13:48 PT/INR, D-dimer PT 10.4 sec (10.0-12.5) 06/01/24 13:48 INR 0.9 (<1.2) 06/01/24 13:48 Abnormal lab findings: Abnormal Labs 06/01/24 06/01/24 06/01/24 13:48 13:48 17:31 RBC 6.21 H MCV 73.0 L MCH 23.1 L Neutrophils # 7.9 H Sodium 132 L Glucose 416 H POC Glucose (mg/dL) 408 H AST 16 L 06/01/24 06/01/24 06/01/24 19:28 21:07 21:58 RBC MCV MCH Neutrophils # Sodium Glucose POC Glucose (mg/dL) 349 H 218 H 193 H AST Assessment and Plan Assessment: Abnormal CT findings, reported lung nodules/masses found at outside facility, imaging not available at this time. Images have been requested. Unintentional 30 pound weight loss Chronic ongoing tobacco dependence, with over 25-[id number]-[id number] history Suspect underlying chronic obstructive pulmonary disease Sinus tachycardia Diabetes mellitus type 2 History of hyperlipidemia Plan: We are requesting images from [facility]. Patient reportedly had some abnormal findings. Questionable lung mass with associated lymphadenopathy. If unable to obtain outside imaging, repeat chest CT with contrast. Further recommendations are forthcoming. I have personally seen and examined the patient, performed the documentation and the assessment and plan as written. Number of minutes spent on the visit:20 Time with Patient: Greater than 30
[2024-06-02 07:21] LABS: Glucose,Whole Blood 256 mg/dL (70-110)
[2024-06-02 08:36] LABS: HCT 44.7 % (39.6-50.0); HGB 13.8 g/dL (13.0-17.0); MCHC 30.9 g/dL (32.0-37.0); MCV 71.2 FL (80.0-97.0); Mean Platelet Volume 10.8 FL (9.5-12.2); NRBC Per 100 WBC 0 X 10*3/uL (0.00-0.01); Platelet Count 348 X 10*3/uL (140-440); RBC 6.28 X 10*6/uL (4.40-5.60); RDW 17.3 % (11.5-14.5); WBC 9.13 X 10*3/uL (4.50-10.00)
--- NOTE | 2024-06-02 08:45 | CT ---
"EXAMINATION TYPE: CT chest w con DATE OF EXAM: 06/02/2024 COMPARISON: Chest x-ray 06/02/2024 HISTORY: Lung mass CT DLP: 499 mGycm, Automated exposure control for dose reduction was used. CONTRAST: Performed injected with 0 mL of Isovue 300. TECHNIQUE: Axial images were obtained at 5 mm thick sections. Reconstructed images are reviewed on [employer] computer in the coronal plane. FINDINGS: Portion of the thyroid visualized is normal. There is a lung mass in the posterior right mid lung measuring 3.4 x 4.6 cm. Multiple additional punc boo nodules are present including a 0.7 cm nodule left upper lobe, series 4, image 12, 0.4 cm periph eral nodule anterior lateral right lung. Series 4 image 27. A 1.0 cm nodule anterior to the lung mass in the superior segment right lower lobe. Series 4 image 28. There is increased linear markings with in the right lung compared to the left. Lymphangitic metastasis should be considered. There is extensive markedly enlarged lymphadenopathy with central necrosis including the superior med iastinum during 2.1 cm, the paratracheal space measuring 3.5 x 4.9 cm, pretracheal space measuring 2. 0 cm, subcarinal space measuring 1.4 cm. Bilateral hilar enlarged adenopathy is present. Additional e nlarged aortopulmonic window lymphadenopathy is present. Retrocrural adenopathy may be present. There is a small right pleural effusion. Compressive atelectasis of the right lung base is present. No enlarged mediastinal or hilar adenopathy is evident. The ascending aorta diameter at the level o f the main pulmonary artery is 4.3 cm. The main pulmonary artery diameter at the bifurcation is 2.[address] sections are obtained through the upper abdomen. There is a 3.5 x 3.0 cm slightly irregula r hypodensity within the posterior medial right lobe liver, series 3 image 49 suspicious for metastat ic lesion. IMPRESSION: 1. Posterior right lung mass with additional punctate nodularity and increased linear markings within the right lung. Multiple markedly enlarged mediastinal adenopathy is present. Findings are suspiciou s for primary metastatic lung cancer. 2. There is is a hypodense lesion within the liver suspicious for metastatic lesion. 3. Small right pleural effusion. 4. Recommend PET/CT for additional workup. 5. Ascending thoracic aortic aneurysm 4.3 cm A [place] level critical message alert has been initiated for Jean-Pierre Lynne MD via the [email or web address] 36 0 | Critical Results System on 06/02/2024 8:43 AM. This message alert has been sent to Jean-Pierre Lynne MD via the preferences provided by the clinician for the receipt of Radiology Critical Findings. [facility] ID [id number]."
[2024-06-02 08:55] LABS: Blood Urea Nitrogen 14.6 mg/dL (9.0-27.0); Calcium 9.2 mg/dL (8.7-10.3); Carbon Dioxide 23.7 mmol/L (21.6-31.8); Chloride 100 mmol/L (96-109); Glucose 236 mg/dL (70-110); Potassium 4.6 mmol/L (3.5-5.5); Sodium 135 mmol/L (135-145)
[2024-06-02 09:39] LABS: Basophils # (A) 0.05 X 10*3/uL (0.00-0.10); Basophils % (A) 0.5 %; Eosinophils % (A) 1.1 %; Lymphocytes # (A) 1.56 X 10*3/uL (0.90-5.00); Lymphocytes % (A) 17.1 %; Monocytes # (A) 1.02 X 10*3/uL (0.20-1.00); Monocytes % (A) 11.2 %; Neutrophils # (A) 6.36 X 10*3/uL (1.80-7.70); Neutrophils % (A) 69.7 %
[2024-06-02 09:40] LABS: Microcytosis (M) 2+
--- NOTE | 2024-06-02 10:41 | P.CARDCATH ---
Description of Procedure: HISTORY OF PRESENTING ILLNESS This is a pleasant 68-year-old with past medical history significant for tobacco abuse, diabetes mellitus type 2, hyperlipidemia and new lung mass. 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 He had before she has had 30 pound weight loss and had prior CT was told to monitor however more recently had CT of [facility] with findings of concern of lung cancer and therefore transferred to [facility]. Cardiology was consult with secondary abnormal EKG. EKG does show sinus rhythm with nonspecific Q waves V1 through V3 without significant ST or T wave abnormalities and prolonged AL interval. He has had sinus tachycardia with heart rates in the 105 to 115 range. He does have some shortness breath however denies any real chest pain or pressure. CT of the chest was with IV contrast the mention of ascending aortic aneurysm 4.3 cm. No mention of any PE however not dedicated PE study. He is still smoking however attempting to quit. REVIEW OF SYSTEMS At the time of my exam: CONSTITUTIONAL: Denies fever or chills. CARDIOVASCULAR: Denies chest pain, + shortness of breath, orthopnea, PND or palpitations. RESPIRATORY: Denies cough. GASTROINTESTINAL: Denies abdominal pain, diarrhea, constipation, nausea or vomiting. MUSCULOSKELETAL: Denies myalgias. NEUROLOGIC: Denies numbness, tingling or weakness. ENDOCRINE: Denies fatigue, weight change, polydipsia or polyurina. GENITOURINARY: Denies burning, hematuria or urgency with micturation. HEMATOLOGIC: Denies history of anemia or bleeding. PHYSICAL EXAMINATION Vital signs reviewed. CONSTITUTIONAL: No apparent distress. HEENT: Head is normocephalic. Pupils are equal, round. Sclerae anicteric. Mucous membranes of the mouth are moist. No JVD. No carotid bruit. CHEST EXAMINATION: Lungs are clear to auscultation. No chest wall tenderness is noted on palpation or with deep breathing. HEART EXAMINATION: Regular rate and rhythm. S1, S2 heard. No murmurs, gallops or rub. ABDOMEN: Soft, nontender. Positive bowel sounds. EXTREMITIES: 2+ peripheral pulses, no lower extremity edema and no calf tenderness. NEUROLOGIC EXAMINATION: Patient is awake, alert and oriented x3. ASSESSMENT Sinus tachycardia Lung mass with possible metastasis Uncontrolled diabetes mellitus type 2 Hyperlipidemia Tobacco abuse Acute on chronic respiratory failure possibly related to lung mass plus or minus COPD PLAN Patient does have sinus tachycardia which appears reactive secondary to cancer, anxiety. Respiratory failure. Is more related to COPD and lung cancer. Check BMP for completeness sake. Check 2-D echo. Further recommendations to follow.
[2024-06-02 12:09] LABS: Glucose,Whole Blood 240 mg/dL (70-110)
[2024-06-02] MEDS: buPROPion XL 150 MG TAB.ER.24H PO SCH (12:48)
--- NOTE | 2024-06-02 14:29 | P.CONS ---
History of Present Illness - Reason for Consult Consult date: 06/02/24 lung mass Requesting physician: Adenike Dooley - Chief Complaint SOB - History of Present Illness Patient is a 68-year-old male with past medical history significant for sig nificant diabetes mellitus, hyperlipidemia, current everyday smoker. Consult placed for new lung mass. Patient recently established care with a new PCP, Dr. Villarreal, and states he had a CT chest which found a concerning lung mass. He reports he smokes proximately 2 packs for most 50 years, currently smoking 1 pack daily. Also reporting 30 pound weight loss over the last 6 months. He has been experiencing increasing SOB over the last month, with mild productive cough. Denies hemoptysis. On admission chest x-ray showed mild cardiomegaly with small right pleural effusion and mild to moderate right-sided interstitial edema. Suspicious right apical masslike opacity with mass effect on the trachea. CT chest with contrast showed posterior right lung mass measuring 3.4 x 4.6 cm with additional punctate nodularity and increased linear markings within the right lung. Multiple markedly enlarged mediastinal adenopathy noted. Hypodense lesion within the liver measuring 3.5 x 3.0 cm also reported. Afebrile, SPO2 94% on room air. Blood counts stable Review of Systems 10 point ROS is negative except as stated in the HPI Past Medical History Past Medical History: Diabetes Mellitus, Hypertension History of Any Multi-Drug Resistant Organisms: None Reported Past Surgical History: No Surgical Hx Reported Past Psychological History: No Psychological Hx Reported Smoking Status: Current every day smoker Past Alcohol Use History: None Reported Past Drug Use History: None Reported Medications and Allergies Home Medications Medication Instructions Recorded Confirmed Type Atorvastatin Calcium [Lipitor] 40 mg PO HS 06/01/24 06/01/24 History buPROPion XL [Wellbutrin XL] 150 mg PO DAILY 06/01/24 06/01/24 History glipiZIDE [Glucotrol] 5 mg PO BID 06/01/24 06/01/24 History metFORMIN HCL [Metformin HCl] 1,000 mg PO BID 06/01/24 06/01/24 History Allergies Allergy/AdvReac Type Severity Reaction Status Date / Time No Known Allergies Allergy Verified 06/01/24 14:32 Physical Exam Vitals: Vital Signs Temp Pulse Pulse Pulse Resp BP BP 06/02/24 11:24 92 06/02/24 11:12 96 06/02/24 07:20 97.7 F 102 H 16 125/72 06/02/24 01:16 98.5 F 113 H 20 136/85 06/01/24 22:51 16 06/01/24 21:30 97.5 F L 112 H 18 128/77 06/01/24 21:14 110 H 18 135/79 06/01/24 20:29 112 H 06/01/24 20:19 111 H 06/01/24 19:30 114 H 18 144/75 06/01/24 14:30 112 H 20 133/78 06/01/24 14:04 115 H 18 120/70 Pulse Ox 06/02/24 11:24 06/02/24 11:12 06/02/24 07:20 94 L 06/02/24 01:16 91 L 06/01/24 22:51 06/01/24 21:30 94 L 06/01/24 21:14 95 06/01/24 20:29 06/01/24 20:19 06/01/24 19:30 96 06/01/24 14:30 94 L 06/01/24 14:04 94 L Intake and Output 06/01/24 06/02/24 06/02/24 22:59 06:59 14:59 Output Total 800 Balance -800 Output: Urine 800 Other: # Voids 2 Weight 86.183 kg - Constitutional General appearance: no acute distress - EENT Eyes: anicteric sclerae, EOMI ENT: hearing grossly normal - Neck Neck: no lymphadenopathy - Respiratory Respiratory: bilateral: diminished (worse in RLL) - Cardiovascular Rhythm: regular - Gastrointestinal General gastrointestinal: soft, no tenderness - Integumentary Integumentary: no cyanotic - Neurologic Neurologic: CNII-XII intact - Musculoskeletal Musculoskeletal: strength equal bilaterally - Psychiatric Psychiatric: A&O x's 3 Results CBC & Chem 7: 06/02/24 05:56 06/02/24 05:56 Labs: Abnormal Lab Results - Last 24 Hours (Table) 06/01/24 06/01/24 06/01/24 Range/Units 13:48 13:48 17:31 RBC 6.21 H (4.30-5.90) m/uL MCV 73.0 L (80.0-100.0) fL MCH 23.1 L (25.0-35.0) pg MCHC (32.0-37.0) g/dL RDW (11.5-14.5) % Neutrophils # 7.9 H (1.3-7.7) k/uL Monocytes # (0.20-1.00) X 10*3/uL Microcytosis (manual) Sodium 132 L (137-145) mmol/L Glucose 416 H (74-99) mg/dL POC Glucose (mg/dL) 408 H (70-110) mg/dL Hemoglobin A1c (<=6.0) % AST 16 L (17-59) U/L 06/01/24 06/01/24 06/01/24 Range/Units 19:28 21:07 21:58 RBC (4.30-5.90) m/uL MCV (80.0-100.0) fL MCH (25.0-35.0) pg MCHC (32.0-37.0) g/dL RDW (11.5-14.5) % Neutrophils # (1.3-7.7) k/uL Monocytes # (0.20-1.00) X 10*3/uL Microcytosis (manual) Sodium (137-145) mmol/L Glucose (74-99) mg/dL POC Glucose (mg/dL) 349 H 218 H 193 H (70-110) mg/dL Hemoglobin A1c (<=6.0) % AST (17-59) U/L 06/02/24 06/02/24 06/02/24 Range/Units 05:56 05:56 05:56 RBC 6.28 H (4.30-5.90) m/uL MCV 71.2 L (80.0-100.0) fL MCH 22.0 L (25.0-35.0) pg MCHC 30.9 L (32.0-37.0) g/dL RDW 17.3 H (11.5-14.5) % Neutrophils # (1.3-7.7) k/uL Monocytes # 1.02 H (0.20-1.00) X 10*3/uL Microcytosis (manual) 2+ A Sodium (137-145) mmol/L Glucose 236 H (74-99) mg/dL POC Glucose (mg/dL) (70-110) mg/dL Hemoglobin A1c 14.5 H (<=6.0) % AST (17-59) U/L 06/02/24 06/02/24 Range/Units 07:20 12:07 RBC (4.30-5.90) m/uL MCV (80.0-100.0) fL MCH (25.0-35.0) pg MCHC (32.0-37.0) g/dL RDW (11.5-14.5) % Neutrophils # (1.3-7.7) k/uL Monocytes # (0.20-1.00) X 10*3/uL Microcytosis (manual) Sodium (137-145) mmol/L Glucose (74-99) mg/dL POC Glucose (mg/dL) 256 H 240 H (70-110) mg/dL Hemoglobin A1c (<=6.0) % AST (17-59) U/L Chest x-ray: report reviewed CT scan - chest: report reviewed Assessment and Plan (1) Lung mass Current Visit: Yes Status: Acute Priority: High Code(s): R91.8 - OTHER NONSPECIFIC ABNORMAL FINDING OF LUNG FIELD SNOMED Code(s): 089468355 (2) Paratracheal lymphadenopathy Current Visit: Yes Status: Acute Priority: High Code(s): R59.0 - LOCALIZED ENLARGED LYMPH NODES SNOMED Code(s): 64744033 Plan: Lung mass, mediastinal LAD, liver lesion: Presented with progressing SOB x 1 month. Reports 30 lb unintentional weight loss over last 6 months. History of heavy nicotine use, smoking approx 2 packs x 50 years -On admission CT chest with contrast showed posterior right lung mass measuring 3.4 x 4.6 cm with additional punctate nodularity and increased linear markings within the right lung. Multiple markedly enlarged mediastinal adenopathy noted. Hypodense lesion within the liver measuring 3.5 x 3.0 cm -Pulmonology consulted, planning for bronchoscopy with biopsy tomorrow -Will obtain brain MRI, and plan for outpt PET CT to complete staging -Discussed scan results and concerns for metastatic disease. He was agreeable to proceed with further workup attests:I have seen and examined pt, performed H&P, developed impression and plan of care. Discussed with dictator. Agree with documentation, dictated as a scribe.
[2024-06-02 17:17] LABS: Glucose,Whole Blood 294 mg/dL (70-110)
[2024-06-02 20:12] LABS: Glucose,Whole Blood 343 mg/dL (70-110)
[2024-06-03 07:43] LABS: Glucose,Whole Blood 305 mg/dL (70-110)
[2024-06-03] MEDS: MELOXICAM 7.5 MG TAB PO SCH (08:39)
[2024-06-03] MEDS: METOPROLOL TARTRATE 25 MG TAB PO SCH (09:41)
--- NOTE | 2024-06-03 10:41 | CA ---
Transthoracic Echo Report Name: Josiah Garza Age: 68 Gender: M : 1955 Exam Date: 06/02/2024 13:28 Exam Location: [place] [facility] Ht (in): 71 Wt (lb): 190 Ordering Physician: Yonny Bashir DO ([email or web address]) Attending/Referring Phys: Deckhand Oyster Dredge Paty Granados RDCS Procedure CPT: Indications: re: SOB, cancer Cardiac Hx: Technical Quality: Fair Contrast 1: Total Dose (mL): Contrast 2: Total Dose (mL): MEASUREMENTS (Male / Female) Normal Values 2D ECHO LV Diastolic Diameter PLAX 4.1 cm 4.2 - 5.9 / 3.9 - 5.3 cm LV Systolic Diameter PLAX 2.0 cm IVS Diastolic Thickness 1.8 cm 0.6 - 1.0 / 0.6 - 0.9 cm LVPW Diastolic Thickness 1.5 cm 0.6 - 1.0 / 0.6 - 0.9 cm LV Relative Wall Thickness 0.8 RV Internal Dim ED PLAX 2.9 cm LA Volume 55.2 cm??? 18 - 58 / 22 - 52 cm??? LA Volume Index 26.4 cm???/m??? 16 - 28 cm???/m??? M-MODE Aortic Root Diameter MM 4.4 cm LA Systolic Diameter MM 3.8 cm LA Ao Ratio MM 0.9 AV Cusp Separation MM 2.2 cm DOPPLER AV Peak Velocity 136.6 cm/s AV Peak Gradient 7.5 mmHg AV Mean Velocity 79.6 cm/s AV Mean Gradient 3.1 mmHg AV Velocity Time Integral 20.6 cm AI Peak Velocity 508.1 cm/s AI Peak Gradient 103.3 mmHg AI Pressure Half Time 342.3 ms LVOT Peak Velocity 109.0 cm/s LVOT Peak Gradient 4.8 mmHg LVOT Velocity Time Integral 22.5 cm MV Area PHT 5.0 cm??? Mitral E Point Velocity 58.9 cm/s Mitral A Point Velocity 96.7 cm/s Mitral E to A Ratio 0.6 MV Deceleration Time 153.2 ms MV E' Velocity 6.9 cm/s Mitral E to MV E' Ratio 8.6 FINDINGS Left Ventricle Severely increased left ventricular wall thickness. Left ventricular cavity size normal. Normal left ventricular systolic function with no obvious regional wall motion abnormalities. Left ventricular ejection fraction is estimated at 55-60 %. Grade 1 diastolic dysfunction. Right Ventricle Normal right ventricular size and function. Right Atrium Normal right atrial size. Left Atrium Normal left atrial size. Mitral Valve Structurally normal mitral valve. Mitral valve thickened. Mild mitral annular calcification. Mild mitral regurgitation. Aortic Valve Trileaflet aortic valve. No aortic stenosis. Mild aortic regurgitation. Tricuspid Valve Structurally normal tricuspid valve. Mild tricuspid regurgitation. Pulmonic Valve Structurally normal pulmonic valve. Trace pulmonic regurgitation. Pericardium No pericardial effusion. Aorta Normal size aortic root and proximal ascending aorta. CONCLUSIONS Normal LV size and systolic function with moderate concentric LVH. Mild mitral tricuspid and aortic insufficiency. No significant pulmonary hypertension. No pericardial effusion Previewed by: Dr. Joana Smith MD (Electronically Signed) Final Date: 03 June 2024 10:40
[2024-06-03 11:42] LABS: Glucose,Whole Blood 280 mg/dL (70-110)
[2024-06-03] MEDS: IV FLUID CONTINUATION 1,000 ML IV ONE (11:53)
--- NOTE | 2024-06-03 11:58 | P.PN ---
Subjective HISTORY OF PRESENT ILLNESS: This is a pleasant 68-year-old with past medical history significant for tobacco abuse, diabetes mellitus type 2, hyperlipidemia and new lung mass. 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 He had before she has had 30 pound weight loss and had prior CT was told to monitor however more recently had CT of [facility] with findings of concern of lung cancer and therefore transferred to [facility]. Cardiology was consult with secondary abnormal EKG. EKG does show sinus rhythm with nonspecific Q waves V1 through V3 without significant ST or T wave abnormalities and prolonged [place] interval. He has had sinus tachycardia with heart rates in the 105 to 115 range. He does have some shortness breath however denies any real chest pain or pressure. CT of the chest was with IV contrast the mention of ascending aortic aneurysm 4.3 cm. No mention of any PE however not dedicated PE study. He is still smoking however attempting to quit. 06/03/2024 Patient examined this morning at the bedside. Patient currently denies chest pain or pressure. He denies shortness of breath. Telemetry reveals sinus tachycardia. Patient is scheduled to undergo bronchoscopy today with pulmonary medicine. Echocardiogram completed revealing ejection fraction 55-60% PHYSICAL EXAM: VITAL SIGNS: Reviewed. GENERAL: Well-developed in no acute distress. NECK: Supple. No JVD or thyromegaly LUNGS: Respirations even and unlabored. Lungs essentially clear to auscultation bilaterally. HEART: Regular rate and rhythm. S1 and S2 heard. EXTREMITIES: Normal range of motion. No clubbing or cyanosis. Peripheral pulses intact. No lower extremity edema ASSESSMENT: Sinus tachycardia Lung mass with possible metastasis Uncontrolled diabetes mellitus type 2 Hyperlipidemia Tobacco abuse Acute on chronic respiratory failure possibly related to lung mass plus or minus COPD PLAN: Patient scheduled for bronchoscopy today with pulmonary medicine Continue current cardiac medications Add metoprolol 25mg twice a day Continue telemetry monitoring Further recommendations pending patient course Nurse practitioner note has been reviewed by physician. Signing provider agrees with the documented findings, assessment, and plan of care. Objective - Vital Signs Vital signs: Vital Signs Temp 97.0 F L 06/03/24 11:39 Pulse 77 06/03/24 11:39 Resp 16 06/03/24 11:39 BP 153/85 06/03/24 11:39 Pulse Ox 94 L 06/03/24 11:39 FiO2 Intake & Output 06/02/24 06/03/2424 18:59 06:59 18:59 Intake Total 1999 Balance 1999 Intake: Oral 1999 Other: Voiding Method Toilet # Voids 2 - Labs CBC & Chem 7: 06/02/24 05:56 06/02/24 05:56 Labs: Abnormal Lab Results - Last 24 Hours (Table) 06/02/24 06/02/24 06/02/24 Range/Units 12:07 17:16 20:11 POC Glucose (mg/dL) 240 H 294 H 343 H (70-110) mg/dL 06/03/24 06/03/24 Range/Units 07:42 11:38 POC Glucose (mg/dL) 305 H 280 H (70-110) mg/dL
[2024-06-03] MEDS ORDERED: ePHEDrine 50 MG/ML 1 ML VIAL ONE (12:14)
[2024-06-03] MEDS ORDERED: fentaNYL (PF) 50 MCG/ML 2 ML AMP ONE (12:14)
[2024-06-03] MEDS ORDERED: GLYCOPYRROLATE 0.2 MG/ML 2 ML VIAL ONE (12:14)
[2024-06-03] MEDS ORDERED: LABETALOL 5 MG/ML VIAL MDV ONE (12:14)
[2024-06-03] MEDS ORDERED: PROPOFOL 10 MG/ML 20 ML VIAL IV ONE (12:14)
[2024-06-03] MEDS ORDERED: LIDOCAINE 1% INJ 10MG/ML (20 ML MDV) ONE (12:14)
[2024-06-03] MEDS ORDERED: SUCCINYLCHOLINE CHLORIDE 200 MG/10 ML VIAL IV ONE (12:14)
[2024-06-03] MEDS ORDERED: NALOXONE 0.4 MG/ML 1 ML VIAL ONE (12:14)
[2024-06-03] MEDS ORDERED: MIDAZOLAM 2 MG/2 ML VIAL ONE (12:14)
[2024-06-03] MEDS ORDERED: NEOSTIGMINE 1 MG/ML 10 ML VIAL ONE (12:14)
[2024-06-03] MEDS ORDERED: SUGAMMADEX SODIUM 200 MG/2 ML SDV IV ONE (12:14)
[2024-06-03] MEDS ORDERED: ROCURONIUM 10 MG/ML (5 ML VIAL) IV ONE (12:14)
--- NOTE | 2024-06-03 13:22 | P.PN ---
Subjective Progress Note Date: 06/03/24 Patient is a 68-year-old white male with past medical history significant for significant diabetes mellitus, hyperlipidemia, current everyday smoker. He just recently became established with a new PCP, Dr. Villarreal. He does have a significant smoking history smoking approximately 1 to 2 packs/day for almost 50 years. He is currently retired, worked [employer] for most of his life. Denies ever being diagnosed with COPD. Does report exertional dyspnea such as walking out to the mailbox and back. He reports intermittent chronic cough, with minimal sputum production. Note that the patient has had a 30 pound weight loss over the past 6 months. He is also reported increased throat fullness and difficulty breathing when he turns his head. He went to [facility] yesterday for evaluation. Reportedly the CT of his chest done, however, he presents here without any imaging. Reportedly had enlarged paratracheal lymph nodes and a large lung mass. He was discharged home, went to see his PCP, who directed him to our facility. We are working on requesting these images. Patient is currently sitting at the edge of the bed, on room air, in no acute distress. He denies any infectious-like symptoms. No fevers. Cough is chronic, intermittent, and mostly nonproductive. No chest congestion. No hemoptysis. No palpable neck masses. No observable stridor. CBC unremarkable without leukocytosis. Electrolytes unremarkable. Glucose is 416. Lactic acid 2. Normal saline infusing at 130 MLS per hour. Troponin less than 0.012. NT proBNP low. COVID-negative. He is tachycardic. Otherwise, hemodynamically stable. The patient is seen today 06/03/2024 in follow-up on the regular medical floor. He is awake and alert in no acute distress. He is maintaining good O2 saturations in the 90s on room air. No IV fluids. Glucose 280.he remains on DuoNeb inhalations. He denies any worsening shortness of breath, cough or congestion. No hemoptysis. Plan is for bronchoscopy with biopsies today. Objective - Vital Signs Vital signs: Vital Signs Temp 97.0 F L 06/03/24 11:39 Pulse 77 06/03/24 11:39 Resp 16 06/03/24 11:39 BP 153/85 06/03/24 11:39 Pulse Ox 94 L 06/03/24 11:39 FiO2 Intake & Output 06/02/24 06/03/24 06/03/24 18:59 06:59 18:59 Intake Total 2000 300 Balance 1999 300 Weight 86.183 kg Intake: IV 300 Oral 1999 Other: Voiding Method Toilet # Voids 2 - Exam GENERAL EXAM: Alert, pleasant 68-year-old male, well-nourished, on room air, stable, in no apparent distress. HEAD: Normocephalic and atraumatic EYES: Normal reaction of pupils, equal size. NOSE: Clear with pink turbinates. THROAT: No erythema or exudates. NECK: No masses, no JVD. No stridor. CHEST: No chest wall deformity. LUNGS: Equal air entry with no crackles, wheeze, rhonchi or dullness. CVS: S1 and S2 normal with no audible murmur, regular rhythm. No extra heart sounds ABDOMEN: No hepatosplenomegaly, active bowel sounds, no guarding or rigidity. SPINE: No scoliosis or deformity SKIN: No rashes CENTRAL NERVOUS SYSTEM: No focal deficits, tone is normal in all 4 extremities. EXTREMITIES: There is no peripheral edema, clubbing, or cyanosis. Peripheral pulses are intact. - Labs CBC & Chem 7: 06/02/24 05:56 06/02/24 05:56 Labs: Abnormal Lab Results - Last 24 Hours (Table) 06/02/24 06/02/24 06/03/24 Range/Units 17:16 20:11 07:42 POC Glucose (mg/dL) 294 H 343 H 305 H (70-110) mg/dL 06/03/24 Range/Units 11:38 POC Glucose (mg/dL) 280 H (70-110) mg/dL Assessment and Plan Assessment: Abnormal CT findings, reported lung nodules/masses found at outside facility. Bronchoscopy with biopsies performed 06/03/2024. Cytology pending Unintentional 30 pound weight loss Chronic ongoing tobacco dependence, with over [id number] history Suspect underlying chronic obstructive pulmonary disease Sinus tachycardia Diabetes mellitus type 2 History of hyperlipidemia Pplan: The patient was seen and evaluated Medications and labs reviewed Remains stable and on room air Plan is for bronchoscopy with biopsies today Cultures and pathology are pending He is cleared for discharge from the pulmonary standpoint Follow up with Dr. Chowdhury in our office in 1 week for results This patient was seen independently by the pulmonary nurse practitioner dressing pulmonary issues I have personally seen and examined the patient, performed the documentation and the assessment and plan as written. Number of minutes spent on the visit: 25.
[2024-06-03 13:24] LABS: Glucose,Whole Blood 274 mg/dL (70-110)
[2024-06-03 13:59] LABS: Glucose,Whole Blood 325 mg/dL (70-110)
[2024-06-03] MEDS: SODIUM CHLORIDE 0.9% 1,000 ML IV SCH (14:05)
[2024-06-03] MEDS: MORPHINE SULFATE 4 MG/ML SYRINGE IV PRN (14:31)
--- NOTE | 2024-06-03 14:32 | XR ---
EXAMINATION TYPE: XR chest 1V portable DATE OF EXAM: 06/03/2024 2:14 PM CLINICAL INDICATION:Male, 68 years old with history of Tube placement; COMPARISON: Chest radiographs from 06/02/2024 TECHNIQUE: XR chest 1V portable Frontal view of the chest. FINDINGS: Lungs/Pleura: There is no evidence of pleural effusion, focal consolidation, or pneumothorax. Pulmonary vascularity: Unremarkable. Heart/mediastinum: Cardiomediastinal silhouette is unremarkable. Musculoskeletal: No acute osseous pathology. Other findings: None Lines/Tubes: Endotracheal tube with distal tip 6.0 cm above the shakira. Nasogastric tube with its distal tip and side-port projecting under the diaphragm. IMPRESSION: Diffuse airspace opacities throughout the right lung with blunting of the costophrenic angle.
[2024-06-03 14:58] LABS: ABG Base Excess -4.8 mmol/L; ABG HCO3 23 mmol/L (21-25); ABG Oxygen Saturation 96.7 % (94-97); ABG PCO2 51 mmHg (35-45); ABG PH 7.26 (7.35-7.45); ABG PO2 99 mmHg (83-108); ABG TCO2 24 mmol/L (19-24); Allen Test Performed? Yes
[2024-06-03] MEDS: IPRATROPIUM-ALBUTEROL 3 ML NEB INHALATION SCH (15:04)
[2024-06-03] MEDS: LACTATED RINGERS 1,000 ML IV SCH (15:17)
--- NOTE | 2024-06-03 15:39 | FL ---
EXAMINATION TYPE: FL bronchoscopy Intraoperative/procedural fluoroscopic services were provided. Tota l fluoroscopy time is 4 seconds with a total of 2 submitted images to PACS. Please see the operative/ procedural note for further details. DAP: 0.1618 Gycm2
[2024-06-03 15:52] LABS: Glucose,Whole Blood 366 mg/dL (70-110)
[2024-06-03] MEDS: INSULIN ASPART (NovoLOG) 100 UNIT/ML VIAL SQ SCH (15:53)
[2024-06-03] MEDS: SODIUM CHLORIDE 0.9% 1,000 ML IV ONE (17:41)
[2024-06-03] MEDS: NOREPINEPHRINE 4 MG in SODIUM CHLORIDE 0.9% 250 ML IV SCH (17:50)
--- NOTE | 2024-06-03 17:53 | P.PN ---
Subjective Progress Note Date: 06/03/24 Principal diagnosis: Respiratory failure requiring reintubation post procedure status post bronchoscopy and lung biopsy Of Right lower lobe posterior mass Enlarging right paratracheal lymph node Advanced COPD emphysema History of weight loss of about 30 pounds Type 2 diabetes mellitus with hyperglycemia Dyslipidemia 06/03/2024, patient seen eval reexamined while covering for Dr. Jean-Pierre Lynne,patient seen and evaluated examined in the ICU currently intubated sedated patient is status post bronchoscopy postoperatively patient developed desaturation requiring intubation patient lightly sedated with propofol drip on full ventilator support, Objective - Vital Signs Vital signs: Vital Signs Temp 97.5 F L 06/03/24 16:00 Pulse 66 06/03/24 17:00 Resp 20 06/03/24 17:00 BP 81/57 06/03/24 17:00 Pulse Ox 99 06/03/24 17:00 FiO2 90 06/03/24 16:00 Intake & Output 06/02/24 06/03/24 06/03/24 18:59 06:59 18:59 Intake Total 1999 543.228 Output Total 10 Balance 1999 533.228 Weight 86.183 kg Intake: IV 525 LR 225 Intake, IV Titration 18.228 Amount propofoL 1,000 mg In 18.228 Empty Bag 1 bag @ 15 MCG/ KG/MIN 7.757 mls/hr IV . [id number] [facility] Rx#:[id number] Oral 1999 Output: Urine 10 Other: Voiding Method Toilet # Voids 2 1 - Exam patient intubated sedated with propofol - Constitutional General appearance: Present: average body habitus - EENT Eyes: Present: PERRLA Ears: bilateral: normal - Neck Neck: Present: normal ROM Carotids: bilateral: upstroke normal - Respiratory Respiratory: right: rales, left: CTA - Cardiovascular Rhythm: regular Heart sounds: normal: S1, S2 - Integumentary Integumentary: Present: normal - Musculoskeletal Musculoskeletal Comment(s): currently sedated propofol - Labs CBC & Chem 7: 06/02/24 05:56 06/02/24 05:56 Labs: Abnormal Lab Results - Last 24 Hours (Table) 06/02/24 06/03/24 06/03/24 Range/Units 20:11 07:42 11:38 ABG pH (7.35-7.45) ABG pCO2 (35-45) mmHg POC Glucose (mg/dL) 343 H 305 H 280 H (70-110) mg/dL 06/03/24 06/03/24 06/03/24 Range/Units 13:15 13:57 14:56 ABG pH 7.26 L (7.35-7.45) ABG pCO2 51 H (35-45) mmHg POC Glucose (mg/dL) 274 H 325 H (70-110) mg/dL 06/03/24 Range/Units 15:50 ABG pH (7.35-7.45) ABG pCO2 (35-45) mmHg POC Glucose (mg/dL) 366 H (70-110) mg/dL Assessment and Plan Assessment: Respiratory failure requiring reintubation post procedure status post bronchoscopy and lung biopsy Of Right lower lobe posterior mass Enlarging right paratracheal lymph node Advanced COPD emphysema History of weight loss of about 30 pounds Type 2 diabetes mellitus with hyperglycemia Dyslipidemia Plan: continue supportive care continue vent setting, start following once patient transferred out of the ICU Time with Patient: Greater than 30
[2024-06-03] MEDS ORDERED: INSULIN ASPART (NovoLOG) 100 UNIT/ML VIAL SQ SCH (18:00)
[2024-06-03 18:15] LABS: African American GFR (CKD) 78 (>60 ml/min/1.73 sqM); Anion Gap 7 mmol/L; Blood Urea Nitrogen 18 mg/dL (9-20); Calcium 8.3 mg/dL (8.4-10.2); Carbon Dioxide 21 mmol/L (22-30); Chloride 108 mmol/L (98-107); Glucose 281 mg/dL (74-99); Non-African American GFR(CKD) 68 (>60 ml/min/1.73 sqM); Sodium 136 mmol/L (137-145)
--- NOTE | 2024-06-03 19:54 | PCN ---
PROCEDURE NOTE PROCEDURES PERFORMED: Bronchoscopy, endobronchial transbronchial biopsy, needle biopsy with airway needle brushes right upper lobe. BAL right upper lobe. All the specimens were obtained in the right upper lobe. PREOPERATIVE DIAGNOSIS: Rule out cancer. POSTOPERATIVE DIAGNOSIS: Rule out cancer. BREAD BAKER: Dr. Chowdhury. FIRST FRUIT OR NUT PICKER: Jennifer Carrasquillo. ANESTHESIA: Provided general endotracheal anesthesia. DESCRIPTION OF PROCEDURE: The patient's procedure was done in room #1. There was informed consent and universal timeout. After the patient was connected to the anesthesia machine, and under the effects of general anesthesia, the bronchoscope was inserted through the bronchoscope adapter connected to the endotracheal tube. The bronchoscope was passed through the endotracheal tube into the trachea. The distal trachea looked normal. Tracheal shakira was sharp. On the left side, the anatomy was normal. Left upper lobe and its 2 segments, lingula and its 2 segments, and left lower lobe and its 4 segments. On the right side, the right middle lobe and right lower lobe appeared completely normal. The shakira the bronchus intermedius from the right upper lobe, appeared very thickened and had a bulge to it. In addition, more distally in the right upper lobe, the mucosa appeared to be very irregular and abnormal. Hence, we did multiple endobronchial transbronchial biopsies in the right upper lobe. We did brushes in the right upper lobe. We washed the right upper lobe, and we also did a needle biopsies of the shakira the right upper lobe from the bronchus intermedius. There was minimal bleeding. We ensured hemostasis before the bronchoscope was withdrawn. There was no immediate complication. The patient will be recovered. The patient tolerated the procedure well. No issues to report. Specimens will be sent to the laboratory for analysis. MMODL / IJN: [id number] /
[2024-06-03 20:06] LABS: Glucose,Whole Blood 220 mg/dL (70-110)
[2024-06-03] MEDS: CHLORHEXIDINE GLUCONATE 15 ML CUP MUCOUS MEM SCH (20:27)
[2024-06-04 00:16] LABS: Glucose,Whole Blood 192 mg/dL (70-110)
[2024-06-04 03:14] LABS: Appearance,BF Blood Tinged (Clear); RBC, Body Fluid 14400 /UL (0-2000)
[2024-06-04 03:31] LABS: Glucose,Whole Blood 196 mg/dL (70-110)
[2024-06-04 05:30] LABS: ABG Base Excess -5.7 mmol/L; ABG HCO3 20 mmol/L (21-25); ABG Oxygen Saturation 98.4 % (94-97); ABG PCO2 42 mmHg (35-45); ABG PO2 114 mmHg (83-108); ABG TCO2 22 mmol/L (19-24); Allen Test Performed? Yes
[2024-06-04 05:57] LABS: HCT 39.2 % (39.0-53.0); HGB 11.9 gm/dL (13.0-17.5); Hypochromasia Marked; MCH 22.7 pg (25.0-35.0); MCHC 30.4 g/dL (31.0-37.0); MCV 74.7 fL (80.0-100.0); Mean Platelet Volume 7.6; Microcytosis Slight; Platelet Count 298 k/uL (150-450); RBC 5.24 m/uL (4.30-5.90); RDW 15.2 % (11.5-15.5); WBC 10.6 k/uL (3.8-10.6)
[2024-06-04 06:08] LABS: African American GFR (CKD) 57 (>60 ml/min/1.73 sqM); Anion Gap 9 mmol/L; Blood Urea Nitrogen 22 mg/dL (9-20); Calcium 8.9 mg/dL (8.4-10.2); Carbon Dioxide 18 mmol/L (22-30); Chloride 110 mmol/L (98-107); Glucose 165 mg/dL (74-99); Non-African American GFR(CKD) 49 (>60 ml/min/1.73 sqM); Potassium 5.1 mmol/L (3.5-5.1); Sodium 137 mmol/L (137-145)
[2024-06-04 06:40] LABS: Glucose,Whole Blood 154 mg/dL (70-110)
--- NOTE | 2024-06-04 07:22 | XR ---
EXAMINATION TYPE: XR chest 1V portable DATE OF EXAM: 06/04/2024 5:06 AM CLINICAL INDICATION:Male, 68 years old with history of Tube placement; COMPARISON: Chest radiograph from one day prior. TECHNIQUE: XR chest 1V portable Frontal view of the chest. FINDINGS: Lungs/Pleura: There is no evidence of pleural effusion, focal consolidation, or pneumothorax. Pulmonary vascularity: Unremarkable. Heart/mediastinum: Cardiomediastinal silhouette is unremarkable. Musculoskeletal: No acute osseous pathology. Other findings: None Lines/Tubes: Endotracheal tube with distal tip 6.7 cm above the shakira. Nasogastric tube with its distal tip and side-port projecting under the diaphragm. IMPRESSION: 1. Improved aeration of the right lung with persistent airspace opacities with interstitial prominen ce and right pleural effusion. 2. Endotracheal tube in high position consider advancement of 3 cm for optimal placement.
[2024-06-04 08:43] LABS: Glucose,Whole Blood 173 mg/dL (70-110)
[2024-06-04] MEDS: DEXMEDETOMIDINE/0.9% NACL(PMX) 400 MCG in EMPTY BAG 1 BAG IV SCH (08:45)
--- NOTE | 2024-06-04 09:03 | XR ---
EXAMINATION TYPE: XR chest 1V portable DATE OF EXAM: 06/04/2024 8:57 AM CLINICAL INDICATION:Male, 68 years old with history of spo2 drop; COMPARISON: Chest radiographs from 06/04/2024 TECHNIQUE: XR chest 1V portable Frontal view of the chest. FINDINGS: Lungs/Pleura: Blunting of the right costophrenic angle with associated atelectasis. There is no evide nce of left pleural effusion, focal consolidation, or pneumothorax. Pulmonary vascularity: Unremarkable. Heart/mediastinum: Cardiomediastinal silhouette is unremarkable. Musculoskeletal: No acute osseous pathology. Endotracheal tube 7.1 cm above the shakira. Nasogastric tube side-port projecting over the distal esophagus. IMPRESSION: Endotracheal tube in high position consider advancement of 3 cm for optimal placement. Nasogastric tube in high position consider advancement of 8 submitted images for optimal placement. Moderate pleural effusion with associated atelectasis.
[2024-06-04] MEDS: NICOTINE 21MG/24HR PATCH TRANSDERM SCH (09:19)
--- NOTE | 2024-06-04 10:43 | P.PN ---
Subjective Progress Note Date: 06/04/24 Principal diagnosis: Abnormal chest x-ray/CT scan. Patient is a 68-year-old white male with past medical history significant for significant diabetes mellitus, hyperlipidemia, current everyday smoker. He just recently became established with a new PCP, Dr. Villarreal. He does have a significant smoking history smoking approximately 1 to 2 packs/day for almost 50 years. He is currently retired, worked [employer] for most of his life. Denies ever being diagnosed with COPD. Does report exertional dyspnea such as walking out to the mailbox and back. He reports intermittent chronic cough, with minimal sputum production. Note that the patient has had a 30 pound weight loss over the past 6 months. He is also reported increased throat fullness and difficulty breathing when he turns his head. He went to [facility] yesterday for evaluation. Reportedly the CT of his chest done, however, he presents here without any imaging. Reportedly had enlarged paratracheal lymph nodes and a large lung mass. He was discharged home, went to see his PCP, who directed him to our facility. We are working on requesting these images. Patient is currently sitting at the edge of the bed, on room air, in no acute distress. He denies any infectious-like symptoms. No fevers. Cough is chronic, intermittent, and mostly nonproductive. No chest congestion. No hemoptysis. No palpable neck masses. No observable stridor. CBC unremarkable without leukocytosis. Electrolytes unremarkable. Glucose is 416. Lactic acid 2. Normal saline infusing at 130 MLS per hour. Troponin less than 0.012. NT proBNP low. COVID-negative. He is tachycardic. Otherwise, hemodynamically stable. The patient is seen today 06/03/2024 in follow-up on the regular medical floor. He is awake and alert in no acute distress. He is maintaining good O2 saturations in the 90s on room air. No IV fluids. Glucose 280.he remains on DuoNeb inhalations. He denies any worsening shortness of breath, cough or congestion. No hemoptysis. Plan is for bronchoscopy with biopsies today. Progress note dated June 12, 2024. The patient underwent bronchoscopy yesterday, because of an abnormality noted in his right upper lobe, and he had biopsies brushings washes, etc. Everything went well during the procedure. He had general endotracheal anesthesia (GETA), and, was extubated. Apparently sometime shortly after extubation, he was noted to have some respiratory issues, and was reintubated by the [employer]IE[employer]. The patient was transferred to the intensive care unit for further monitoring and management. The patient remains on mechanical ventilator. Currently he is on volume assist-control, rate 20, tidal volume 500, FiO2 65%, PEEP of 8. Blood gases show pO2 114, pCO2 42, pH is 7.30. The patient is on propofol at 50 mcg/kg/min, LR at 75 cc an hour, saline at KVO. Tube feedings have not yet been started. The bronchoscopy was done on June 03. The patient will be placed on dexmedetomidine, and will attempt a weaning trial with pressure support and CPAP, 8 and 5 respectively. He will also get a nicotine patch as he was smoking up until the time he came to the hospital. Current labs include a white count 10.6, hemoglobin 9.9, hematocrit 39.2, and a normal platelet count. Sodium 137, potassium 5.1, chlorides 110, CO2 18, BUN 22, creatinine 1.47. Glucose is 173. Calcium is 8.9. Bronchoscopy washings are pending. The patient's chest x-ray shows a right-sided pleural effusion. Objective - Vital Signs Vital signs: Vital Signs Temp 97.4 F L 06/04/24 08:00 Pulse 85 06/04/24 09:30 Resp 28 H 06/04/24 09:30 BP 97/57 06/04/24 09:30 Pulse Ox 92 L 06/04/24 09:30 FiO2 75 06/04/24 09:30 Intake & Output 06/03/24 06/04/24 06/04/24 18:59 06:59 18:59 Intake Total 3695.000 1110.376 305.581 Output Total 10 175 130 Balance 3685.000 935.376 175.581 Weight 86.183 kg 86.9 kg Intake: IV 3600 825 225 LR 300 825 225 Sodium Chloride 0.9% 1, 3000 000 ml @ 999 mls/hr IV . Q1H1M [facility] Rx#:[id number] Intake, IV Titration 95.000 285.376 80.581 Amount Norepinephrine 4 mg In 85.376 0 Sodium Chloride 0.9% 250 ml @ 0.03 MCG/KG/MIN 9. 851 mls/hr IV .Q24H [facility] Rx#:[id number] propofoL 1,000 mg In 95.000 200.000 80.581 Empty Bag 1 bag @ 15 MCG/ KG/MIN 7.757 mls/hr IV . [id number] [facility] Rx#:[id number] Output: Urine 10 175 130 Other: Voiding Method Indwelling Catheter # Voids 1 - Exam No acute distress, patient restless on propofol, with an orally placed endotracheal tube. HEENT examination is grossly unremarkable. Neck supple. Full range of motion. No adenopathy thyromegaly or neck vein distention. Cardiovascular examination reveals regular rhythm rate. S1-S2 normal. No S3 or S4. No discernible murmur noted. Heart rate 80 bpm. Lungs reveal diffuse bilateral rhonchi. No wheezes or crackles. Breath sounds equal. Saturations are 94%. Abdomen soft bowel sounds are heard. No masses or tenderness. Extremities are intact. No cyanosis clubbing or edema. Skin is without rash or lesion. Neurologic examination cannot be assessed at this time. - Labs CBC & Chem 7: 06/04/24 05:28 06/04/24 05:28 Labs: Abnormal Lab Results - Last 24 Hours (Table) 06/03/24 06/03/24 06/03/24 Range/Units 11:38 12:30 13:15 Hgb (13.0-17.5) gm/dL MCV (80.0-100.0) fL MCH (25.0-35.0) pg MCHC (31.0-37.0) g/dL ABG pH (7.35-7.45) ABG pCO2 (35-45) mmHg ABG pO2 (83-108) mmHg ABG HCO3 (21-25) mmol/L ABG O2 Saturation (94-97) % Sodium (137-145) mmol/L Potassium (3.5-5.1) mmol/L Chloride (98-107) mmol/L Carbon Dioxide (22-30) mmol/L BUN (9-20) mg/dL Creatinine (0.66-1.25) mg/dL Glucose (74-99) mg/dL POC Glucose (mg/dL) 280 H 274 H (70-110) mg/dL Calcium (8.4-10.2) mg/dL Fluid Appearance Blood Tinged A (Clear) 06/03/24 06/03/24 06/03/24 Range/Units 13:57 14:56 15:50 Hgb (13.0-17.5) gm/dL MCV (80.0-100.0) fL MCH (25.0-35.0) pg MCHC (31.0-37.0) g/dL ABG pH 7.26 L (7.35-7.45) ABG pCO2 51 H (35-45) mmHg ABG pO2 (83-108) mmHg ABG HCO3 (21-25) mmol/L ABG O2 Saturation (94-97) % Sodium (137-145) mmol/L Potassium (3.5-5.1) mmol/L Chloride (98-107) mmol/L Carbon Dioxide (22-30) mmol/L BUN (9-20) mg/dL Creatinine (0.66-1.25) mg/dL Glucose (74-99) mg/dL POC Glucose (mg/dL) 325 H 366 H (70-110) mg/dL Calcium (8.4-10.2) mg/dL Fluid Appearance (Clear) 06/03/24 06/03/24 06/04/24 Range/Units 17:28 20:05 00:14 Hgb (13.0-17.5) gm/dL MCV (80.0-100.0) fL MCH (25.0-35.0) pg MCHC (31.0-37.0) g/dL ABG pH (7.35-7.45) ABG pCO2 (35-45) mmHg ABG pO2 (83-108) mmHg ABG HCO3 (21-25) mmol/L ABG O2 Saturation (94-97) % Sodium 136 L (137-145) mmol/L Potassium 6.0 H (3.5-5.1) mmol/L Chloride 108 H (98-107) mmol/L Carbon Dioxide 21 L (22-30) mmol/L BUN (9-20) mg/dL Creatinine (0.66-1.25) mg/dL Glucose 281 H (74-99) mg/dL POC Glucose (mg/dL) 220 H 192 H (70-110) mg/dL Calcium 8.3 L (8.4-10.2) mg/dL Fluid Appearance (Clear) 06/04/24 06/04/24 06/04/24 Range/Units 03:29 05:27 05:28 Hgb 11.9 L (13.0-17.5) gm/dL MCV 74.7 L (80.0-100.0) fL MCH 22.7 L (25.0-35.0) pg MCHC 30.4 L (31.0-37.0) g/dL ABG pH 7.30 L (7.35-7.45) ABG pCO2 (35-45) mmHg ABG pO2 114 H (83-108) mmHg ABG HCO3 20 L (21-25) mmol/L ABG O2 Saturation 98.4 H (94-97) % Sodium (137-145) mmol/L Potassium (3.5-5.1) mmol/L Chloride (98-107) mmol/L Carbon Dioxide (22-30) mmol/L BUN (9-20) mg/dL Creatinine (0.66-1.25) mg/dL Glucose (74-99) mg/dL POC Glucose (mg/dL) 196 H (70-110) mg/dL Calcium (8.4-10.2) mg/dL Fluid Appearance (Clear) 06/04/24 06/04/24 06/04/24 Range/Units 05:28 06:38 08:41 Hgb (13.0-17.5) gm/dL MCV (80.0-100.0) fL MCH (25.0-35.0) pg MCHC (31.0-37.0) g/dL ABG pH (7.35-7.45) ABG pCO2 (35-45) mmHg ABG pO2 (83-108) mmHg ABG HCO3 (21-25) mmol/L ABG O2 Saturation (94-97) % Sodium (137-145) mmol/L Potassium (3.5-5.1) mmol/L Chloride 110 H (98-107) mmol/L Carbon Dioxide 18 L (22-30) mmol/L BUN 22 H (9-20) mg/dL Creatinine 1.47 H (0.66-1.25) mg/dL Glucose 165 H (74-99) mg/dL POC Glucose (mg/dL) 154 H 173 H (70-110) mg/dL Calcium (8.4-10.2) mg/dL Fluid Appearance (Clear) Microbiology - Last 24 Hours (Table) 06/03/24 12:30 Gram Stain - Preliminary Bronchoalviolar Lavage - Right Bronchial Washings Culture - Preliminary Assessment and Plan Assessment: Acute respiratory failure, following bronchoscopy, of unclear etiology. Status post bronchoscopy and biopsies, right upper lobe, June 03, 2024. Lung mass, right upper lobe. Unintentional 30 pound weight loss. Chronic and ongoing tobacco dependence. Probable COPD. Diabetes mellitus, type II. History of hyperlipidemia. Plan: Plan dated June 04, 2024. The patient had an unexpected complication after bronchoscopy with general anesthesia. The patient was completely stable throughout the procedure. There was no pneumothorax after the procedure. For some reason, after extubation, the patient apparently developed some respiratory difficulty, and it was felt by anesthesia that the patient should be intubated. The patient was transferred to the intensive care unit for further monitoring and management. Currently, the patient is on propofol at 50 mcg/kg/min and lactated Ringer's at 75 cc an hour. Blood gases show pO2 of 114, pCO2 42, and a pH of 7.30. The patient has been given a nicotine patch, 21 mg. In addition, we will get the patient on some dexmedetomidine, to see if we can wean him from mechanical ventilation. Labs, x-rays, and all medications are reviewed. Time with Patient: Greater than 30
[2024-06-04] MEDS: CISATRACURIUM 2 MG/ML 5 ML VIAL IV ONE ×3 (11:22→11:23)
[2024-06-04] MEDS: fentaNYL (PF). 1,000 MCG in SODIUM CHLORIDE 0.9% 80 ML IV SCH (11:27)
--- NOTE | 2024-06-04 11:51 | P.PN ---
Subjective HISTORY OF PRESENT ILLNESS: This is a pleasant 68-year-old with past medical history significant for tobacco abuse, diabetes mellitus type 2, hyperlipidemia and new lung mass. 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 He had before she has had 30 pound weight loss and had prior CT was told to monitor however more recently had CT of [facility] with findings of concern of lung cancer and therefore transferred to [facility]. Cardiology was consult with secondary abnormal EKG. EKG does show sinus rhythm with nonspecific Q waves V1 through V3 without significant ST or T wave abnormalities and prolonged HI interval. He has had sinus tachycardia with heart rates in the 105 to 115 range. He does have some shortness breath however denies any real chest pain or pressure. CT of the chest was with IV contrast the mention of ascending aortic aneurysm 4.3 cm. No mention of any PE however not dedicated PE study. He is still smoking however attempting to quit. 06/03/2024 Patient examined this morning at the bedside. Patient currently denies chest pain or pressure. He denies shortness of breath. Telemetry reveals sinus tachycardia. Patient is scheduled to undergo bronchoscopy today with pulmonary medicine. Echocardiogram completed revealing ejection fraction 55-60% 06/04/2024 Patient is s/p bronchoscopy yesterday with biopsy. Patient developed some respiratory distress post procedure and he required reintubation. Patient examined this morning in the intensive care unit. Patient to attempt weaning trial today. Telemetry reveals sinus mechanism with a heart rate in the 80s. PHYSICAL EXAM: VITAL SIGNS: Reviewed. GENERAL: Well-developed in no acute distress. Currently intubated on mechanical ventilation. NECK: Supple. No JVD or thyromegaly LUNGS: Respirations even and unlabored. Lungs essentially clear to auscultation bilaterally. HEART: Regular rate and rhythm. S1 and S2 heard. EXTREMITIES: Normal range of motion. No clubbing or cyanosis. Peripheral pulses intact. No lower extremity edema ASSESSMENT: Sinus tachycardia Lung mass with possible metastasis, status post biopsy Uncontrolled diabetes mellitus type 2 Hyperlipidemia Tobacco abuse Acute on chronic respiratory failure possibly requiring mechanical ventilation PLAN: Continue ventilator management per primary medicine Continue current dose of metoprolol Continue telemetry monitoring Further recommendations pending patient course Nurse practitioner note has been reviewed by physician. Signing provider agrees with the documented findings, assessment, and plan of care. Objective - Vital Signs Vital signs: Vital Signs Temp 97.4 F L 06/04/24 08:00 Pulse 87 06/04/24 11:37 Resp 25 H 06/04/24 10:30 BP 98/59 06/04/24 10:30 Pulse Ox 94 L 06/04/24 10:30 FiO2 65 06/04/24 11:28 Intake & Output 06/03/24 06/04/24 06/04/24 18:59 06:59 18:59 Intake Total 3695.000 1110.376 407.462 Output Total 10 175 205 Balance 3685.000 935.376 202.462 Weight 86.183 kg 86.9 kg Intake: IV 3600 825 300 LR 300 825 300 Sodium Chloride 0.9% 1, 3000 000 ml @ 999 mls/hr IV . Q1H1M ONE Rx#:[id number] Intake, IV Titration 95.000 285.376 107.462 Amount Dexmedetomidine/0.9% NaCl 16.801 (Pmx) 400 mcg In Empty Bag 1 bag @ 0.2 MCG/KG/HR 4.345 mls/hr IV .Q23H1M [facility]EL Rx#:[id number] Norepinephrine 4 mg In 85.376 5.254 Sodium Chloride 0.9% 250 ml @ 0.03 MCG/KG/MIN 9. 851 mls/hr IV .Q24H MANUEL Rx#:[id number] propofoL 1,000 mg In 95.000 200.000 85.407 Empty Bag 1 bag @ 15 MCG/ KG/MIN 7.757 mls/hr IV . [id number] [facility]UEL Rx#:[id number] Output: Urine 10 175 205 Other: Voiding Method Indwelling Catheter # Voids 1 - Labs CBC & Chem 7: 06/04/24 05:28 06/04/24 05:28 Labs: Abnormal Lab Results - Last 24 Hours (Table) 06/03/24 06/03/24 06/03/24 Range/Units 12:30 13:15 13:57 Hgb (13.0-17.5) gm/dL MCV (80.0-100.0) fL MCH (25.0-35.0) pg MCHC (31.0-37.0) g/dL ABG pH (7.35-7.45) ABG pCO2 (35-45) mmHg ABG pO2 (83-108) mmHg ABG HCO3 (21-25) mmol/L ABG O2 Saturation (94-97) % Sodium (137-145) mmol/L Potassium (3.5-5.1) mmol/L Chloride (98-107) mmol/L Carbon Dioxide (22-30) mmol/L BUN (9-20) mg/dL Creatinine (0.66-1.25) mg/dL Glucose (74-99) mg/dL POC Glucose (mg/dL) 274 H 325 H (70-110) mg/dL Calcium (8.4-10.2) mg/dL Fluid Appearance Blood Tinged A (Clear) 06/03/24 06/03/24 06/03/24 Range/Units 14:56 15:50 17:28 Hgb (13.0-17.5) gm/dL MCV (80.0-100.0) fL MCH (25.0-35.0) pg MCHC (31.0-37.0) g/dL ABG pH 7.26 L (7.35-7.45) ABG pCO2 51 H (35-45) mmHg ABG pO2 (83-108) mmHg ABG HCO3 (21-25) mmol/L ABG O2 Saturation (94-97) % Sodium 136 L (137-145) mmol/L Potassium 6.0 H (3.5-5.1) mmol/L Chloride 108 H (98-107) mmol/L Carbon Dioxide 21 L (22-30) mmol/L BUN (9-20) mg/dL Creatinine (0.66-1.25) mg/dL Glucose 281 H (74-99) mg/dL POC Glucose (mg/dL) 366 H (70-110) mg/dL Calcium 8.3 L (8.4-10.2) mg/dL Fluid Appearance (Clear) 06/03/24 06/04/24 06/04/24 Range/Units 20:05 00:14 03:29 Hgb (13.0-17.5) gm/dL MCV (80.0-100.0) fL MCH (25.0-35.0) pg MCHC (31.0-37.0) g/dL ABG pH (7.35-7.45) ABG pCO2 (35-45) mmHg ABG pO2 (83-108) mmHg ABG HCO3 (21-25) mmol/L ABG O2 Saturation (94-97) % Sodium (137-145) mmol/L Potassium (3.5-5.1) mmol/L Chloride (98-107) mmol/L Carbon Dioxide (22-30) mmol/L BUN (9-20) mg/dL Creatinine (0.66-1.25) mg/dL Glucose (74-99) mg/dL POC Glucose (mg/dL) 220 H 192 H 196 H (70-110) mg/dL Calcium (8.4-10.2) mg/dL Fluid Appearance (Clear) 06/04/24 06/04/24 06/04/24 Range/Units 05:27 05:28 05:28 Hgb 11.9 L (13.0-17.5) gm/dL MCV 74.7 L (80.0-100.0) fL MCH 22.7 L (25.0-35.0) pg MCHC 30.4 L (31.0-37.0) g/dL ABG pH 7.30 L (7.35-7.45) ABG pCO2 (35-45) mmHg ABG pO2 114 H (83-108) mmHg ABG HCO3 20 L (21-25) mmol/L ABG O2 Saturation 98.4 H (94-97) % Sodium (137-145) mmol/L Potassium (3.5-5.1) mmol/L Chloride 110 H (98-107) mmol/L Carbon Dioxide 18 L (22-30) mmol/L BUN 22 H (9-20) mg/dL Creatinine 1.47 H (0.66-1.25) mg/dL Glucose 165 H (74-99) mg/dL POC Glucose (mg/dL) (70-110) mg/dL Calcium (8.4-10.2) mg/dL Fluid Appearance (Clear) 06/04/24 06/04/24 Range/Units 06:38 08:41 Hgb (13.0-17.5) gm/dL MCV (80.0-100.0) fL MCH (25.0-35.0) pg MCHC (31.0-37.0) g/dL ABG pH (7.35-7.45) ABG pCO2 (35-45) mmHg ABG pO2 (83-108) mmHg ABG HCO3 (21-25) mmol/L ABG O2 Saturation (94-97) % Sodium (137-145) mmol/L Potassium (3.5-5.1) mmol/L Chloride (98-107) mmol/L Carbon Dioxide (22-30) mmol/L BUN (9-20) mg/dL Creatinine (0.66-1.25) mg/dL Glucose (74-99) mg/dL POC Glucose (mg/dL) 154 H 173 H (70-110) mg/dL Calcium (8.4-10.2) mg/dL Fluid Appearance (Clear) Microbiology - Last 24 Hours (Table) 06/03/24 12:30 Gram Stain - Preliminary Bronchoalviolar Lavage - Right Bronchial Washings Culture - Preliminary
[2024-06-04 11:55] LABS: Glucose,Whole Blood 199 mg/dL (70-110)
[2024-06-04 12:03] LABS: Glucose,Whole Blood 202 mg/dL (70-110)
--- NOTE | 2024-06-04 12:04 | XR ---
EXAMINATION TYPE: XR chest 1V portable DATE OF EXAM: 06/04/2024 11:38 AM CLINICAL INDICATION:Male, 68 years old with history of NTG placement; [facility] COMPARISON: Chest radiographs from same day TECHNIQUE: XR chest 1V portable Frontal view of the chest. FINDINGS: Lungs/Pleura: Blunting of the right costophrenic angle with associated atelectasis. There is no evide nce of left pleural effusion, focal consolidation, or pneumothorax. Pulmonary vascularity: Unremarkable. Heart/mediastinum: Cardiomediastinal silhouette is unremarkable. Musculoskeletal: No acute osseous pathology. Endotracheal tube 5.8 cm above the shakira. Nasogastric tube side-port projecting over the distal esophagus. IMPRESSION: Endotracheal tube now 5.7 cm from the shakira in improved position. Consider advancement of 2 cm for o ptimal placement. The nasogastric tube remains with side-port near the distal esophagus. Consider advancement of 8 cm f rontal placement.
[2024-06-04 12:30] LABS: Appearance,Urine Turbid (Clear); Bacteria,Urine Rare /hpf; Bilirubin,Urine Negative (Negative); Blood,Urine Large (Negative); Color,Urine Light Yellow; Glucose,Urine (UA) Negative (Negative); Ketones,Urine Trace (Negative); Leukocyte Esterase,Urine Small (Negative); Mucus,Urine Rare /hpf; Nitrite,Urine Negative (Negative); Protein,Urine Trace (Negative); RBC,Urine >182 /hpf (0-5); Specific Gravity,Urine 1.014 (1.001-1.035); Squamous Epithelial Cell,Urine 1 /hpf (0-4); Uric Acid Crystals,Urine Many /hpf; Urobilinogen,Urine <2.0 mg/dL (<2.0); WBC,Urine 9 /hpf (0-5)
[2024-06-04 16:22] LABS: Glucose,Whole Blood 184 mg/dL (70-110)
[2024-06-04 20:07] LABS: Glucose,Whole Blood 132 mg/dL (70-110)
[2024-06-05 00:07] LABS: Glucose,Whole Blood 156 mg/dL (70-110)
[2024-06-05 03:43] LABS: Glucose,Whole Blood 150 mg/dL (70-110)
[2024-06-05 05:28] LABS: ABG Base Excess -5.7 mmol/L; ABG HCO3 21 mmol/L (21-25); ABG Oxygen Saturation 95.2 % (94-97); ABG PCO2 47 mmHg (35-45); ABG PH 7.26 (7.35-7.45); ABG PO2 80 mmHg (83-108); ABG TCO2 23 mmol/L (19-24); Allen Test Performed? Yes
[2024-06-05 06:34] LABS: HCT 37.6 % (39.0-53.0); HGB 11.4 gm/dL (13.0-17.5); Hypochromasia Marked; MCH 22.5 pg (25.0-35.0); MCHC 30.4 g/dL (31.0-37.0); MCV 74.1 fL (80.0-100.0); Mean Platelet Volume 7.1; Microcytosis Slight; Platelet Count 285 k/uL (150-450); RBC 5.08 m/uL (4.30-5.90); RDW 15.6 % (11.5-15.5); WBC 13.7 k/uL (3.8-10.6)
[2024-06-05 06:43] LABS: ALT 17 U/L (4-49); AST 35 U/L (17-59); African American GFR (CKD) 40 (>60 ml/min/1.73 sqM); Albumin 2.8 g/dL (3.5-5.0); Alkaline Phosphatase 86 U/L (38-126); Anion Gap 8 mmol/L; Blood Urea Nitrogen 25 mg/dL (9-20); Calcium 8.6 mg/dL (8.4-10.2); Carbon Dioxide 19 mmol/L (22-30); Chloride 110 mmol/L (98-107); Glucose 152 mg/dL (74-99); Non-African American GFR(CKD) 35 (>60 ml/min/1.73 sqM); Potassium 4.8 mmol/L (3.5-5.1); Sodium 137 mmol/L (137-145); Total Bilirubin 0.3 mg/dL (0.2-1.3); Total Protein 5.6 g/dL (6.3-8.2)
--- NOTE | 2024-06-05 07:02 | XR ---
EXAMINATION TYPE: XR chest 1V portable DATE OF EXAM: 06/05/2024 4:52 AM CLINICAL INDICATION:Male, 68 years old with history of Tube placement; [facility] COMPARISON: Chest radiograph from one day prior. TECHNIQUE: XR chest 1V portable Frontal view of the chest. FINDINGS: Lungs/Pleura: Blunting of the right costophrenic angle with associated atelectasis. There is no evide nce of left pleural effusion, focal consolidation, or pneumothorax. Pulmonary vascularity: Unremarkable. Heart/mediastinum: Cardiomediastinal silhouette is unremarkable. Musculoskeletal: No acute osseous pathology. Endotracheal tube 6.4 cm above the shakira. Nasogastric tube side-port projecting over the distal esophagus. IMPRESSION: Endotracheal tube now 6.4 cm from the shakira in improved position. Consider advancement of 3 cm for o ptimal placement. The nasogastric tube remains with side-port near the distal esophagus. Consider advancement of 8 cm f rontal placement.
[2024-06-05 07:58] LABS: Glucose,Whole Blood 186 mg/dL (70-110)
--- NOTE | 2024-06-05 09:49 | P.PN ---
Subjective Progress Note Date: 06/05/24 Principal diagnosis: Abnormal chest x-ray/CT scan. Patient is a 68-year-old white male with past medical history significant for significant diabetes mellitus, hyperlipidemia, current everyday smoker. He just recently became established with a new PCP, Dr. Villarreal. He does have a significant smoking history smoking approximately 1 to 2 packs/day for almost 50 years. He is currently retired, worked [employer] for most of his life. Denies ever being diagnosed with COPD. Does report exertional dyspnea such as walking out to the mailbox and back. He reports intermittent chronic cough, with minimal sputum production. Note that the patient has had a 30 pound weight loss over the past 6 months. He is also reported increased throat fullness and difficulty breathing when he turns his head. He went to [facility] yesterday for evaluation. Reportedly the CT of his chest done, however, he presents here without any imaging. Reportedly had enlarged paratracheal lymph nodes and a large lung mass. He was discharged home, went to see his PCP, who directed him to our facility. We are working on requesting these images. Patient is currently sitting at the edge of the bed, on room air, in no acute distress. He denies any infectious-like symptoms. No fevers. Cough is chronic, intermittent, and mostly nonproductive. No chest congestion. No hemoptysis. No palpable neck masses. No observable stridor. CBC unremarkable without leukocytosis. Electrolytes unremarkable. Glucose is 416. Lactic acid 2. Normal saline infusing at 130 MLS per hour. Troponin less than 0.012. NT proBNP low. COVID-negative. He is tachycardic. Otherwise, hemodynamically stable. The patient is seen today 06/03/2024 in follow-up on the regular medical floor. He is awake and alert in no acute distress. He is maintaining good O2 saturations in the 90s on room air. No IV fluids. Glucose 280.he remains on DuoNeb inhalations. He denies any worsening shortness of breath, cough or congestion. No hemoptysis. Plan is for bronchoscopy with biopsies today. Progress note dated June 04, 2024. The patient underwent bronchoscopy yesterday, because of an abnormality noted in his right upper lobe, and he had biopsies brushings washes, etc. Everything went well during the procedure. He had general endotracheal anesthesia (GETA), and, was extubated. Apparently sometime shortly after extubation, he was noted to have some respiratory issues, and was reintubated by the FRY COOK. The patient was transferred to the intensive care unit for further monitoring and management. The patient remains on mechanical ventilator. Currently he is on volume assist-control, rate 20, tidal volume 500, FiO2 65%, PEEP of 8. Blood gases show pO2 114, pCO2 42, pH is 7.30. The patient is on propofol at 50 mcg/kg/min, LR at 75 cc an hour, saline at KVO. Tube feedings have not yet been started. The bronchoscopy was done on June 03. The patient will be placed on dexmedetomidine, and will attempt a weaning trial with pressure support and CPAP, 8 and 5 respectively. He will also get a nicotine patch as he was smoking up until the time he came to the hospital. Current labs include a white count 10.6, hemoglobin 9.9, hematocrit 39.2, and a normal platelet count. Sodium 137, potassium 5.1, chlorides 110, CO2 18, BUN 22, creatinine 1.47. Glucose is 173. Calcium is 8.9. Bronchoscopy washings are pending. The patient's chest x-ray shows a right-sided pleural effusion. Progress note dated June 05, 2024. 68-year-old male status post bronchoscopy and biopsy of the right upper lobe. The patient developed respiratory distress after the procedure, required reintubation. He remains on the mechanical ventilator. He is currently on volume assist-control, rate 20, to be increased to 24, tidal volume 500, FiO2 of 65%, PEEP of 8. Blood gases show pO2 of 80, pCO2 47, pH of 7.26. The patient is on propofol at 65 mcg/kg/min, LR at 75 cc an hour, norepinephrine 6 mcg/min, and fentanyl at 1 mcg/kg/h. The patient's vital high-protein is running at 5 to 10 cc an hour, but will be increased to goal. White count 13.7, hemoglobin 11.4, hematocrit 37.6, platelet count 285,000. Sodium 137, potassium 4.8, chlorides 110, CO2 19, BUN 25, and creatinine 1.97. Glucose is 186. Albumin 2.8. Cultures are negative. Chest x-ray shows an endotracheal tube which should be advanced a couple centimeters. There is blunting of the right costophrenic angle, with associated atelectasis or infiltrate. Objective - Vital Signs Vital signs: Vital Signs Temp 98.8 F 06/05/24 04:00 Pulse 85 06/05/24 08:42 Resp 20 06/05/24 07:00 BP 102/56 06/05/24 07:00 Pulse Ox 93 L 06/05/24 07:00 FiO2 65 06/05/24 08:24 Intake & Output 06/04/24 06/05/24 06/05/24 18:59 06:59 18:59 Intake Total 4096.591 9131.235 336.968 Output Total 505 495 75 Balance 1030.155 981.235 261.968 Weight 89.8 kg Intake: IV 950 900 75 LR 900 900 75 cefTRIAXone 1 gm In 50 Sodium Chloride 0.9% 50 ml @ 100 mls/hr IVPB Q24HR [facility] Rx#:[id number] Intake, IV Titration 505.155 486.235 261.968 Amount Dexmedetomidine/0.9% NaCl 25.672 (Pmx) 400 mcg In Empty Bag 1 bag @ 0.2 MCG/KG/HR 4.345 mls/hr IV .Q23H1M [facility] Rx#:[id number] Norepinephrine 4 mg In 31.141 202.159 72.02 Sodium Chloride 0.9% 250 ml @ 0.03 MCG/KG/MIN 9. 851 mls/hr IV .Q24H [facility] Rx#:[id number] fentaNYL (PF). 1,000 mcg 109.559 84.076 94.069 In Sodium Chloride 0.9% 80 ml @ 0.5 MCG/KG/HR 4. 345 mls/hr IV .Q23H1M [facility] Rx#:[id number] propofoL 1,000 mg In 338.783 200.000 95.879 Empty Bag 1 bag @ 15 MCG/ KG/MIN 7.757 mls/hr IV . [id number] [facility]EL Rx#:[id number] Tube Feeding 50 60 Other 30 30 Output: Urine 505 495 75 Other: Voiding Method Indwelling Catheter Indwelling Catheter - Exam No acute distress, patient restless on propofol, with an orally placed endotracheal tube. HEENT examination is grossly unremarkable. Neck supple. Full range of motion. No adenopathy thyromegaly or neck vein distention. Cardiovascular examination reveals regular rhythm rate. S1-S2 normal. No S3 or S4. No discernible murmur noted. Heart rate 85 bpm. Lungs reveal diffuse bilateral rhonchi. No wheezes or crackles. Breath sounds equal. Saturations are 95 %. Abdomen soft bowel sounds are heard. No masses or tenderness. Extremities are intact. No cyanosis clubbing or edema. Skin is without rash or lesion. Neurologic examination cannot be assessed at this time. - Labs CBC & Chem 7: 06/05/24 05:17 06/05/24 05:17 Labs: Abnormal Lab Results - Last 24 Hours (Table) 06/04/24 06/04/24 06/04/24 Range/Units 11:15 11:35 11:54 WBC (3.8-10.6) k/uL Hgb (13.0-17.5) gm/dL Hct (39.0-53.0) % MCV (80.0-100.0) fL MCH (25.0-35.0) pg MCHC (31.0-37.0) g/dL RDW (11.5-15.5) % ABG pH (7.35-7.45) ABG pCO2 (35-45) mmHg ABG pO2 (83-108) mmHg Chloride (98-107) mmol/L Carbon Dioxide (22-30) mmol/L BUN (9-20) mg/dL Creatinine (0.66-1.25) mg/dL Glucose (74-99) mg/dL POC Glucose (mg/dL) 199 H (70-110) mg/dL Total Protein (6.3-8.2) g/dL Albumin (3.5-5.0) g/dL Procalcitonin 0.30 H (0.02-0.09) ng/mL Urine Protein Trace H (Negative) Urine Ketones Trace H (Negative) Urine Blood Large H (Negative) Ur Leukocyte Esterase Small H (Negative) Urine RBC >182 H (0-5) /hpf Urine WBC 9 H (0-5) /hpf Uric Acid Crystals Many H (None) /hpf Urine Bacteria Rare H (None) /hpf Urine Mucus Rare H (None) /hpf 06/04/24 06/04/24 06/04/24 Range/Units 12:02 16:21 20:06 WBC (3.8-10.6) k/uL Hgb (13.0-17.5) gm/dL Hct (39.0-53.0) % MCV (80.0-100.0) fL MCH (25.0-35.0) pg MCHC (31.0-37.0) g/dL RDW (11.5-15.5) % ABG pH (7.35-7.45) ABG pCO2 (35-45) mmHg ABG pO2 (83-108) mmHg Chloride (98-107) mmol/L Carbon Dioxide (22-30) mmol/L BUN (9-20) mg/dL Creatinine (0.66-1.25) mg/dL Glucose (74-99) mg/dL POC Glucose (mg/dL) 202 H 184 H 132 H (70-110) mg/dL Total Protein (6.3-8.2) g/dL Albumin (3.5-5.0) g/dL Procalcitonin (0.02-0.09) ng/mL Urine Protein (Negative) Urine Ketones (Negative) Urine Blood (Negative) Ur Leukocyte Esterase (Negative) Urine RBC (0-5) /hpf Urine WBC (0-5) /hpf Uric Acid Crystals (None) /hpf Urine Bacteria (None) /hpf Urine Mucus (None) /hpf 06/05/24 06/05/24 06/05/24 Range/Units 00:05 03:40 05:17 WBC 13.7 H (3.8-10.6) k/uL Hgb 11.4 L (13.0-17.5) gm/dL Hct 37.6 L (39.0-53.0) % MCV 74.1 L (80.0-100.0) fL MCH 22.5 L (25.0-35.0) pg MCHC 30.4 L (31.0-37.0) g/dL RDW 15.6 H (11.5-15.5) % ABG pH (7.35-7.45) ABG pCO2 (35-45) mmHg ABG pO2 (83-108) mmHg Chloride (98-107) mmol/L Carbon Dioxide (22-30) mmol/L BUN (9-20) mg/dL Creatinine (0.66-1.25) mg/dL Glucose (74-99) mg/dL POC Glucose (mg/dL) 156 H 150 H (70-110) mg/dL Total Protein (6.3-8.2) g/dL Albumin (3.5-5.0) g/dL Procalcitonin (0.02-0.09) ng/mL Urine Protein (Negative) Urine Ketones (Negative) Urine Blood (Negative) Ur Leukocyte Esterase (Negative) Urine RBC (0-5) /hpf Urine WBC (0-5) /hpf Uric Acid Crystals (None) /hpf Urine Bacteria (None) /hpf Urine Mucus (None) /hpf 06/05/24 06/05/24 06/05/24 Range/Units 05:17 05:26 07:57 WBC (3.8-10.6) k/uL Hgb (13.0-17.5) gm/dL Hct (39.0-53.0) % MCV (80.0-100.0) fL MCH (25.0-35.0) pg MCHC (31.0-37.0) g/dL RDW (11.5-15.5) % ABG pH 7.26 L (7.35-7.45) ABG pCO2 47 H (35-45) mmHg ABG pO2 80 L (83-108) mmHg Chloride 110 H (98-107) mmol/L Carbon Dioxide 19 L (22-30) mmol/L BUN 25 H (9-20) mg/dL Creatinine 1.97 H (0.66-1.25) mg/dL Glucose 152 H (74-99) mg/dL POC Glucose (mg/dL) 186 H (70-110) mg/dL Total Protein 5.6 L (6.3-8.2) g/dL Albumin 2.8 L (3.5-5.0) g/dL Procalcitonin (0.02-0.09) ng/mL Urine Protein (Negative) Urine Ketones (Negative) Urine Blood (Negative) Ur Leukocyte Esterase (Negative) Urine RBC (0-5) /hpf Urine WBC (0-5) /hpf Uric Acid Crystals (None) /hpf Urine Bacteria (None) /hpf Urine Mucus (None) /hpf Microbiology - Last 24 Hours (Table) 06/03/24 12:30 Gram Stain - Final Bronchoalviolar Lavage - Right Bronchial Washings Culture - Final 06/03/24 12:30 Acid Fast Bacilli Smear - Preliminary Bronchoalviolar Lavage - Right 06/04/24 07:40 Gram Stain - Preliminary Sputum Assessment and Plan Assessment: Acute respiratory failure, following bronchoscopy, of unclear etiology. S/P intubation and mechanical ventilation, June 03, 2024. Status post bronchoscopy and biopsies, right upper lobe, June 03, 2024. Lung mass, right upper lobe. Unintentional 30 pound weight loss. Chronic and ongoing tobacco dependence. Probable COPD. Diabetes mellitus, type II. History of hyperlipidemia. Plan: Plan dated June 04, 2024. The patient had an unexpected complication after bronchoscopy with general anesthesia. The patient was completely stable throughout the procedure. There was no pneumothorax after the procedure. For some reason, after extubation, the patient apparently developed some respiratory difficulty, and it was felt by anesthesia that the patient should be intubated. The patient was transferred to the intensive care unit for further monitoring and management. Currently, the patient is on propofol at 50 mcg/kg/min and lactated Ringer's at 75 cc an hour. Blood gases show pO2 of 114, pCO2 42, and a pH of 7.30. The patient has been given a nicotine patch, 21 mg. In addition, we will get the patient on some dexmedetomidine, to see if we can wean him from mechanical ventilation. Labs, x-rays, and all medications are reviewed. Plan dated June 05, 2024. The patient is currently still on the mechanical ventilator. The patient continues on propofol, norepinephrine, and fentanyl. He is also getting lactated Ringer's at 75 cc an hour. Will increase the rate on the ventilator from 20-24. Vital high-protein will be increased to goal. Labs, x-rays, medications are reviewed. The patient was started on ceftriaxone empirically. Procalcitonin level was 0.30 yesterday. We will continue to follow make recommendations along the way. Biopsy results currently are still pending. Time with Patient: Greater than 30
--- NOTE | 2024-06-05 10:22 | P.PN ---
Subjective HISTORY OF PRESENT ILLNESS: This is a pleasant 68-year-old with past medical history significant for tobacco abuse, diabetes mellitus type 2, hyperlipidemia and new lung mass. 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 He had before she has had 30 pound weight loss and had prior CT was told to monitor however more recently had CT of [facility] with findings of concern of lung cancer and therefore transferred to [facility]. Cardiology was consult with secondary abnormal EKG. EKG does show sinus rhythm with nonspecific Q waves V1 through V3 without significant ST or T wave abnormalities and prolonged AL interval. He has had sinus tachycardia with heart rates in the 105 to 115 range. He does have some shortness breath however denies any real chest pain or pressure. CT of the chest was with IV contrast the mention of ascending aortic aneurysm 4.3 cm. No mention of any PE however not dedicated PE study. He is still smoking however attempting to quit. 06/03/2024 Patient examined this morning at the bedside. Patient currently denies chest pain or pressure. He denies shortness of breath. Telemetry reveals sinus tachycardia. Patient is scheduled to undergo bronchoscopy today with pulmonary medicine. Echocardiogram completed revealing ejection fraction 55-60% 06/04/2024 Patient is s/p bronchoscopy yesterday with biopsy. Patient developed some respiratory distress post procedure and he required reintubation. Patient examined this morning in the intensive care unit. Patient to attempt weaning trial today. Telemetry reveals sinus mechanism with a heart rate in the 80s. 06/05/2024 Patient examined this morning at bedside. Patient remains sedated and intubated in the ICU. PHYSICAL EXAM: VITAL SIGNS: Reviewed. GENERAL: Well-developed in no acute distress. Currently intubated on mechanical ventilation. NECK: Supple. No JVD or thyromegaly LUNGS: Respirations even and unlabored. Lungs with rhonchi bilaterally HEART: Regular rate and rhythm. S1 and S2 heard. EXTREMITIES: Normal range of motion. No clubbing or cyanosis. Peripheral pulses intact. No lower extremity edema ASSESSMENT: Sinus tachycardia, resolved Lung mass with possible metastasis, status post biopsy Uncontrolled diabetes mellitus type 2 Hyperlipidemia Tobacco abuse Acute on chronic respiratory failure requiring mechanical ventilation PLAN: Continue ventilator management per pulmonary medicine Continue current dose of metoprolol Continue telemetry monitoring Further recommendations pending patient course Nurse practitioner note has been reviewed by physician. Signing provider agrees with the documented findings, assessment, and plan of care. Objective - Vital Signs Vital signs: Vital Signs Temp 98.5 F 06/05/24 08:00 Pulse 75 06/05/24 10:00 Resp 24 06/05/24 10:00 BP 96/55 06/05/24 10:00 Pulse Ox 94 L 06/05/24 10:00 FiO2 65 06/05/24 08:24 Intake & Output 06/04/24 06/05/24 06/05/24 18:59 06:59 18:59 Intake Total 3546.042 8481.235 641.968 Output Total 505 495 225 Balance 1030.155 981.235 416.968 Weight 89.8 kg Intake: IV 950 900 300 LR 900 900 300 cefTRIAXone 1 gm In 50 Sodium Chloride 0.9% 50 ml @ 100 mls/hr IVPB Q24HR [facility] Rx#:[id number] Intake, IV Titration 505.155 486.235 261.968 Amount Dexmedetomidine/0.9% NaCl 25.672 (Pmx) 400 mcg In Empty Bag 1 bag @ 0.2 MCG/KG/HR 4.345 mls/hr IV .Q23H1M [facility] Rx#:[id number] Norepinephrine 4 mg In 31.141 202.159 72.02 Sodium Chloride 0.9% 250 ml @ 0.03 MCG/KG/MIN 9. 851 mls/hr IV .Q24H [facility] Rx#:[id number] fentaNYL (PF). 1,000 mcg 109.559 84.076 94.069 In Sodium Chloride 0.9% 80 ml @ 0.5 MCG/KG/HR 4. 345 mls/hr IV .Q23H1M [facility] Rx#:[id number] propofoL 1,000 mg In 338.783 200.000 95.879 Empty Bag 1 bag @ 15 MCG/ KG/MIN 7.757 mls/hr IV . [id number] [facility] Rx#:[id number] Tube Feeding 50 60 50 Other 30 30 30 Output: Urine 505 495 225 Other: Voiding Method Indwelling Catheter Indwelling Catheter Indwelling Catheter - Labs CBC & Chem 7: 06/05/24 05:17 06/05/24 05:17 Labs: Abnormal Lab Results - Last 24 Hours (Table) 06/04/24 06/04/24 06/04/24 Range/Units 11:15 11:35 11:54 WBC (3.8-10.6) k/uL Hgb (13.0-17.5) gm/dL Hct (39.0-53.0) % MCV (80.0-100.0) fL MCH (25.0-35.0) pg MCHC (31.0-37.0) g/dL RDW (11.5-15.5) % ABG pH (7.35-7.45) ABG pCO2 (35-45) mmHg ABG pO2 (83-108) mmHg Chloride (98-107) mmol/L Carbon Dioxide (22-30) mmol/L BUN (9-20) mg/dL Creatinine (0.66-1.25) mg/dL Glucose (74-99) mg/dL POC Glucose (mg/dL) 199 H (70-110) mg/dL Total Protein (6.3-8.2) g/dL Albumin (3.5-5.0) g/dL Procalcitonin 0.30 H (0.02-0.09) ng/mL Urine Protein Trace H (Negative) Urine Ketones Trace H (Negative) Urine Blood Large H (Negative) Ur Leukocyte Esterase Small H (Negative) Urine RBC >182 H (0-5) /hpf Urine WBC 9 H (0-5) /hpf Uric Acid Crystals Many H (None) /hpf Urine Bacteria Rare H (None) /hpf Urine Mucus Rare H (None) /hpf 06/04/24 06/04/24 06/04/24 Range/Units 12:02 16:21 20:06 WBC (3.8-10.6) k/uL Hgb (13.0-17.5) gm/dL Hct (39.0-53.0) % MCV (80.0-100.0) fL MCH (25.0-35.0) pg MCHC (31.0-37.0) g/dL RDW (11.5-15.5) % ABG pH (7.35-7.45) ABG pCO2 (35-45) mmHg ABG pO2 (83-108) mmHg Chloride (98-107) mmol/L Carbon Dioxide (22-30) mmol/L BUN (9-20) mg/dL Creatinine (0.66-1.25) mg/dL Glucose (74-99) mg/dL POC Glucose (mg/dL) 202 H 184 H 132 H (70-110) mg/dL Total Protein (6.3-8.2) g/dL Albumin (3.5-5.0) g/dL Procalcitonin (0.02-0.09) ng/mL Urine Protein (Negative) Urine Ketones (Negative) Urine Blood (Negative) Ur Leukocyte Esterase (Negative) Urine RBC (0-5) /hpf Urine WBC (0-5) /hpf Uric Acid Crystals (None) /hpf Urine Bacteria (None) /hpf Urine Mucus (None) /hpf 06/05/24 06/05/24 06/05/24 Range/Units 00:05 03:40 05:17 WBC 13.7 H (3.8-10.6) k/uL Hgb 11.4 L (13.0-17.5) gm/dL Hct 37.6 L (39.0-53.0) % MCV 74.1 L (80.0-100.0) fL MCH 22.5 L (25.0-35.0) pg MCHC 30.4 L (31.0-37.0) g/dL RDW 15.6 H (11.5-15.5) % ABG pH (7.35-7.45) ABG pCO2 (35-45) mmHg ABG pO2 (83-108) mmHg Chloride (98-107) mmol/L Carbon Dioxide (22-30) mmol/L BUN (9-20) mg/dL Creatinine (0.66-1.25) mg/dL Glucose (74-99) mg/dL POC Glucose (mg/dL) 156 H 150 H (70-110) mg/dL Total Protein (6.3-8.2) g/dL Albumin (3.5-5.0) g/dL Procalcitonin (0.02-0.09) ng/mL Urine Protein (Negative) Urine Ketones (Negative) Urine Blood (Negative) Ur Leukocyte Esterase (Negative) Urine RBC (0-5) /hpf Urine WBC (0-5) /hpf Uric Acid Crystals (None) /hpf Urine Bacteria (None) /hpf Urine Mucus (None) /hpf 06/05/24 06/05/24 06/05/24 Range/Units 05:17 05:26 07:57 WBC (3.8-10.6) k/uL Hgb (13.0-17.5) gm/dL Hct (39.0-53.0) % MCV (80.0-100.0) fL MCH (25.0-35.0) pg MCHC (31.0-37.0) g/dL RDW (11.5-15.5) % ABG pH 7.26 L (7.35-7.45) ABG pCO2 47 H (35-45) mmHg ABG pO2 80 L (83-108) mmHg Chloride 110 H (98-107) mmol/L Carbon Dioxide 19 L (22-30) mmol/L BUN 25 H (9-20) mg/dL Creatinine 1.97 H (0.66-1.25) mg/dL Glucose 152 H (74-99) mg/dL POC Glucose (mg/dL) 186 H (70-110) mg/dL Total Protein 5.6 L (6.3-8.2) g/dL Albumin 2.8 L (3.5-5.0) g/dL Procalcitonin (0.02-0.09) ng/mL Urine Protein (Negative) Urine Ketones (Negative) Urine Blood (Negative) Ur Leukocyte Esterase (Negative) Urine RBC (0-5) /hpf Urine WBC (0-5) /hpf Uric Acid Crystals (None) /hpf Urine Bacteria (None) /hpf Urine Mucus (None) /hpf Microbiology - Last 24 Hours (Table) 06/03/24 12:30 Gram Stain - Final Bronchoalviolar Lavage - Right Bronchial Washings Culture - Final 06/03/24 12:30 Acid Fast Bacilli Smear - Preliminary Bronchoalviolar Lavage - Right 06/04/24 07:40 Gram Stain - Preliminary Sputum
[2024-06-05 11:50] LABS: Glucose,Whole Blood 169 mg/dL (70-110)
[2024-06-05 15:54] LABS: Glucose,Whole Blood 162 mg/dL (70-110)
[2024-06-05 19:51] LABS: Glucose,Whole Blood 168 mg/dL (70-110)
[2024-06-05 23:36] LABS: Glucose,Whole Blood 169 mg/dL (70-110)
[2024-06-06 03:57] LABS: Glucose,Whole Blood 126 mg/dL (70-110)
[2024-06-06 04:46] LABS: ABG Base Excess -3.7 mmol/L; ABG HCO3 23 mmol/L (21-25); ABG Oxygen Saturation 93.1 % (94-97); ABG PCO2 44 mmHg (35-45); ABG PH 7.31 (7.35-7.45); ABG PO2 68 mmHg (83-108); ABG TCO2 24 mmol/L (19-24); Allen Test Performed? Yes
[2024-06-06 06:20] LABS: HGB 10.9 gm/dL (13.0-17.5); Hypochromasia Moderate; MCH 22.8 pg (25.0-35.0); MCHC 30.4 g/dL (31.0-37.0); MCV 74.8 fL (80.0-100.0); Mean Platelet Volume 8.1; Microcytosis Slight; Platelet Count 275 k/uL (150-450); RBC 4.81 m/uL (4.30-5.90); RDW 15.8 % (11.5-15.5)
[2024-06-06 06:48] LABS: African American GFR (CKD) 44 (>60 ml/min/1.73 sqM); Anion Gap 8 mmol/L; Blood Urea Nitrogen 23 mg/dL (9-20); Calcium 8.5 mg/dL (8.4-10.2); Carbon Dioxide 19 mmol/L (22-30); Chloride 110 mmol/L (98-107); Glucose 138 mg/dL (74-99); Magnesium 1.9 mg/dL (1.6-2.3); Non-African American GFR(CKD) 38 (>60 ml/min/1.73 sqM); Potassium 4.6 mmol/L (3.5-5.1); Sodium 137 mmol/L (137-145)
--- NOTE | 2024-06-06 07:18 | P.PN ---
Subjective Progress Note Date: 06/06/24 The patient is a pleasant 68-year-old gentleman who was admitted to the hospital for biopsy of the lung for possible lung cancer with metastasis and subsequently developed respiratory failure. We consulted to see patient because of bradycardia. The echo showed normal LV systolic function June 06, 2024 The patient was seen and evaluated this morning. He is stable hemodynamically. He is not bradycardic at this point. The echo showed preserved LV systolic function. From the cardiovascular standpoint of view, we will continue the current medical regimen. No need for any further workup at this point. The examination is remarkable for stable vital signs with regular rate and rhythm and clear breathing sounds bilaterally and no edema was noted Assessment Lung mass currently under investigation Sinus bradycardia which has resolved Multiple comorbid conditions Plan Continue the current medical regimen Continue monitor the heart rate and blood pressure Further recommendation if the patient develop any more episode of bradycardia Objective - Vital Signs Vital signs: Vital Signs Temp 98.1 F 06/06/24 04:00 Pulse 90 06/06/24 07:00 Resp 24 06/06/24 07:00 BP 135/70 06/06/24 07:00 Pulse Ox 93 L 06/06/24 07:00 FiO2 65 06/06/24 04:00 Intake & Output 06/05/24 06/06/24 06/06/24 18:59 06:59 18:59 Intake Total 2105.451 1314.404 Output Total 580 719 Balance 1525.451 595.404 Intake: IV 900 1010 KVO 110 LR 900 900 Intake, IV Titration 905.451 74.404 Amount Norepinephrine 4 mg In 303.402 Sodium Chloride 0.9% 250 ml @ 0.03 MCG/KG/MIN 9. 851 mls/hr IV .Q24H [facility] Rx#:[id number] fentaNYL (PF). 1,000 mcg 193.200 In Sodium Chloride 0.9% 80 ml @ 0.5 MCG/KG/HR 4. 345 mls/hr IV .Q23H1M [facility] Rx#:[id number] propofoL 1,000 mg In 408.849 74.404 Empty Bag 1 bag @ 15 MCG/ KG/MIN 7.757 mls/hr IV . [id number] [facility] Rx#:[id number] Tube Feeding 210 130 Other 90 100 Output: Urine 580 719 Other: Voiding Method Indwelling Catheter Indwelling Catheter - Labs CBC & Chem 7: 06/06/24 05:39 06/06/24 05:39 Labs: Abnormal Lab Results - Last 24 Hours (Table) 06/04/24 06/05/24 06/05/24 Range/Units 11:35 07:57 11:49 WBC (3.8-10.6) k/uL Hgb (13.0-17.5) gm/dL Hct (39.0-53.0) % MCV (80.0-100.0) fL MCH (25.0-35.0) pg MCHC (31.0-37.0) g/dL RDW (11.5-15.5) % ABG pH (7.35-7.45) ABG pO2 (83-108) mmHg ABG O2 Saturation (94-97) % Chloride (98-107) mmol/L Carbon Dioxide (22-30) mmol/L BUN (9-20) mg/dL Creatinine (0.66-1.25) mg/dL Glucose (74-99) mg/dL POC Glucose (mg/dL) 186 H 169 H (70-110) mg/dL Procalcitonin 0.30 H (0.02-0.09) ng/mL 06/05/24 06/05/24 06/05/24 Range/Units 15:52 19:49 23:35 WBC (3.8-10.6) k/uL Hgb (13.0-17.5) gm/dL Hct (39.0-53.0) % MCV (80.0-100.0) fL MCH (25.0-35.0) pg MCHC (31.0-37.0) g/dL RDW (11.5-15.5) % ABG pH (7.35-7.45) ABG pO2 (83-108) mmHg ABG O2 Saturation (94-97) % Chloride (98-107) mmol/L Carbon Dioxide (22-30) mmol/L BUN (9-20) mg/dL Creatinine (0.66-1.25) mg/dL Glucose (74-99) mg/dL POC Glucose (mg/dL) 162 H 168 H 169 H (70-110) mg/dL Procalcitonin (0.02-0.09) ng/mL 06/06/24 06/06/24 06/06/24 Range/Units 03:55 04:44 05:39 WBC 14.0 H (3.8-10.6) k/uL Hgb 10.9 L (13.0-17.5) gm/dL Hct 36.0 L (39.0-53.0) % MCV 74.8 L (80.0-100.0) fL MCH 22.8 L (25.0-35.0) pg MCHC 30.4 L (31.0-37.0) g/dL RDW 15.8 H (11.5-15.5) % ABG pH 7.31 L (7.35-7.45) ABG pO2 68 L (83-108) mmHg ABG O2 Saturation 93.1 L (94-97) % Chloride (98-107) mmol/L Carbon Dioxide (22-30) mmol/L BUN (9-20) mg/dL Creatinine (0.66-1.25) mg/dL Glucose (74-99) mg/dL POC Glucose (mg/dL) 126 H (70-110) mg/dL Procalcitonin (0.02-0.09) ng/mL 06/06/24 Range/Units 05:39 WBC (3.8-10.6) k/uL Hgb (13.0-17.5) gm/dL Hct (39.0-53.0) % MCV (80.0-100.0) fL MCH (25.0-35.0) pg MCHC (31.0-37.0) g/dL RDW (11.5-15.5) % ABG pH (7.35-7.45) ABG pO2 (83-108) mmHg ABG O2 Saturation (94-97) % Chloride 110 H (98-107) mmol/L Carbon Dioxide 19 L (22-30) mmol/L BUN 23 H (9-20) mg/dL Creatinine 1.82 H (0.66-1.25) mg/dL Glucose 138 H (74-99) mg/dL POC Glucose (mg/dL) (70-110) mg/dL Procalcitonin (0.02-0.09) ng/mL Microbiology - Last 24 Hours (Table) 06/04/24 11:35 Blood Culture - Preliminary Blood 06/04/24 07:40 Gram Stain - Preliminary Sputum Sputum Culture - Preliminary Presumptive Staph aureus 06/03/24 12:30 Gram Stain - Final Bronchoalviolar Lavage - Right Bronchial Washings Culture - Final
--- NOTE | 2024-06-06 07:46 | XR ---
EXAMINATION TYPE: XR chest 1V portable DATE OF EXAM: 06/06/2024 COMPARISON: 06/05/2024 HISTORY: Shortness of breath TECHNIQUE: Single frontal view of the chest is obtained. FINDINGS: Bilateral infiltrate greater on the right stable. ET and NG tube stable. Small right pleur al effusion. No sizable pneumothorax. IMPRESSION: Stable infiltrate and pleural effusion unchanged from prior exam
[2024-06-06 08:44] LABS: Glucose,Whole Blood 159 mg/dL (70-110)
[2024-06-06] MEDS: HEPARIN SODIUM,PORCINE 5,000 UNIT/ML 1 ML VIAL SQ SCH (09:06)
[2024-06-06] MEDS: PANTOPRAZOLE 40 MG/10 ML VIAL IVP SCH (09:07)
[2024-06-06] MEDS: ACETAMINOPHEN TAB 325 MG TAB PO PRN (09:09)
[2024-06-06] MEDS: VANCOMYCIN 1,500 MG in SODIUM CHLORIDE 0.9% 500 ML 500 ML IVPB SCH (10:05)
[2024-06-06 10:18] LABS: Nucleated Cells, Body Fluid 100 /UL
--- NOTE | 2024-06-06 10:37 | P.PN ---
Subjective Progress Note Date: 06/06/24 Principal diagnosis: Abnormal chest x-ray/CT scan. Patient is a 68-year-old white male with past medical history significant for significant diabetes mellitus, hyperlipidemia, current everyday smoker. He just recently became established with a new PCP, Dr. Villarreal. He does have a significant smoking history smoking approximately 1 to 2 packs/day for almost 50 years. He is currently retired, worked [employer] for most of his life. Denies ever being diagnosed with COPD. Does report exertional dyspnea such as walking out to the mailbox and back. He reports intermittent chronic cough, with minimal sputum production. Note that the patient has had a 30 pound weight loss over the past 6 months. He is also reported increased throat fullness and difficulty breathing when he turns his head. He went to [facility] yesterday for evaluation. Reportedly the CT of his chest done, however, he presents here without any imaging. Reportedly had enlarged paratracheal lymph nodes and a large lung mass. He was discharged home, went to see his PCP, who directed him to our facility. We are working on requesting these images. Patient is currently sitting at the edge of the bed, on room air, in no acute distress. He denies any infectious-like symptoms. No fevers. Cough is chronic, intermittent, and mostly nonproductive. No chest congestion. No hemoptysis. No palpable neck masses. No observable stridor. CBC unremarkable without leukocytosis. Electrolytes unremarkable. Glucose is 416. Lactic acid 2. Normal saline infusing at 130 MLS per hour. Troponin less than 0.012. NT proBNP low. COVID-negative. He is tachycardic. Otherwise, hemodynamically stable. The patient is seen today 06/03/2024 in follow-up on the regular medical floor. He is awake and alert in no acute distress. He is maintaining good O2 saturations in the 90s on room air. No IV fluids. Glucose 280.he remains on DuoNeb inhalations. He denies any worsening shortness of breath, cough or congestion. No hemoptysis. Plan is for bronchoscopy with biopsies today. Progress note dated June 04, 2024. The patient underwent bronchoscopy yesterday, because of an abnormality noted in his right upper lobe, and he had biopsies brushings washes, etc. Everything went well during the procedure. He had general endotracheal anesthesia (GETA), and, was extubated. Apparently sometime shortly after extubation, he was noted to have some respiratory issues, and was reintubated by the CONSERVATION COORDINATOR. The patient was transferred to the intensive care unit for further monitoring and management. The patient remains on mechanical ventilator. Currently he is on volume assist-control, rate 20, tidal volume 500, FiO2 65%, PEEP of 8. Blood gases show pO2 114, pCO2 42, pH is 7.30. The patient is on propofol at 50 mcg/kg/min, LR at 75 cc an hour, saline at KVO. Tube feedings have not yet been started. The bronchoscopy was done on June 03. The patient will be placed on dexmedetomidine, and will attempt a weaning trial with pressure support and CPAP, 8 and 5 respectively. He will also get a nicotine patch as he was smoking up until the time he came to the hospital. Current labs include a white count 10.6, hemoglobin 9.9, hematocrit 39.2, and a normal platelet count. Sodium 137, potassium 5.1, chlorides 110, CO2 18, BUN 22, creatinine 1.47. Glucose is 173. Calcium is 8.9. Bronchoscopy washings are pending. The patient's chest x-ray shows a right-sided pleural effusion. Progress note dated June 05, 2024. 68-year-old male status post bronchoscopy and biopsy of the right upper lobe. The patient developed respiratory distress after the procedure, required reintubation. He remains on the mechanical ventilator. He is currently on volume assist-control, rate 20, to be increased to 24, tidal volume 500, FiO2 of 65%, PEEP of 8. Blood gases show pO2 of 80, pCO2 47, pH of 7.26. The patient is on propofol at 65 mcg/kg/min, LR at 75 cc an hour, norepinephrine 6 mcg/min, and fentanyl at 1 mcg/kg/h. The patient's vital high-protein is running at 5 to 10 cc an hour, but will be increased to goal. White count 13.7, hemoglobin 11.4, hematocrit 37.6, platelet count 285,000. Sodium 137, potassium 4.8, chlorides 110, CO2 19, BUN 25, and creatinine 1.97. Glucose is 186. Albumin 2.8. Cultures are negative. Chest x-ray shows an endotracheal tube which should be advanced a couple centimeters. There is blunting of the right costophrenic angle, with associated atelectasis or infiltrate. Progress note dated June 06, 2024. 68-year-old male seen today in room 257. He remains on mechanical ventilation. He is on volume assist-control, rate 24, tidal volume 500, FiO2 65%, PEEP of 8. Blood gases show pO2 of 68, pCO2 44, pH of 7.31. Patient is on propofol at 45 mcg/kg/min, LR at 75 cc an hour, norepinephrine at 6 mcg/min and fentanyl 0.5 mcg/kg/h. The patient is getting saline at KVO, and vital high-protein at 20 cc an hour. The patient is currently on Rocephin. He will get a dose of vancomycin, 1 g x 1, for suspected staph in the sputum. Current labs include a white count 14, hemoglobin 10.9, hematocrit 36, platelet count 275,000. Sodium 137, potassium 4.6, chlorides 110, CO2 19, BUN 23, creatinine 1.82. Glucose is 159. Calcium 8.5, magnesium 1.9. The sputum has been further identified as being positive for methicillin-resistant Staph aureus. Chest x-ray shows stable infiltrate and pleural effusion, on the right side. Bronchoscopy specimens are still pending. Objective - Vital Signs Vital signs: Vital Signs Temp 98.6 F 06/06/24 10:00 Pulse 86 06/06/24 10:00 Resp 24 06/06/24 10:00 BP 116/63 06/06/24 10:00 Pulse Ox 94 L 06/06/24 10:00 FiO2 65 06/06/24 08:00 Intake & Output 06/05/24 06/06/24 06/06/24 18:59 06:59 18:59 Intake Total 2105.451 9704.403 8980.412 Output Total 580 719 205 Balance 1525.451 849.404 884.412 Intake: IV 900 1010 835 KVO 110 60 LR 900 900 225 Vancomycin 1,500 mg In 500 Sodium Chloride 0.9% 500 ml 500 ml @ 166.667 mls/ hr IVPB Q24H [facility] Rx#: [id number] cefTRIAXone 1 gm In 50 Sodium Chloride 0.9% 50 ml @ 100 mls/hr IVPB Q24HR [facility] Rx#:[id number] Intake, IV Titration 905.451 328.404 254.412 Amount Norepinephrine 4 mg In 303.402 254 87.890 Sodium Chloride 0.9% 250 ml @ 0.03 MCG/KG/MIN 9. 851 mls/hr IV .Q24H [facility] Rx#:[id number] fentaNYL (PF). 1,000 mcg 193.200 72.670 In Sodium Chloride 0.9% 80 ml @ 0.5 MCG/KG/HR 4. 345 mls/hr IV .Q23H1M [facility] Rx#:[id number] propofoL 1,000 mg In 408.849 74.404 93.852 Empty Bag 1 bag @ 15 MCG/ KG/MIN 7.757 mls/hr IV . [id number] [facility] Rx#:[id number] Tube Feeding 210 130 0 Other 90 100 Output: Urine 580 719 205 Other: Voiding Method Indwelling Catheter Indwelling Catheter Indwelling Catheter - Exam No acute distress, patient restless on propofol, with an orally placed endotracheal tube. HEENT examination is grossly unremarkable. Neck supple. Full range of motion. No adenopathy thyromegaly or neck vein distention. Cardiovascular examination reveals regular rhythm rate. S1-S2 normal. No S3 or S4. No discernible murmur noted. Heart rate 86 bpm. Lungs reveal diffuse bilateral rhonchi. No wheezes or crackles. Breath sounds equal. Saturations are 94 %. Abdomen soft bowel sounds are heard. No masses or tenderness. Extremities are intact. No cyanosis clubbing or edema. Skin is without rash or lesion. Neurologic examination cannot be assessed at this time. - Labs CBC & Chem 7: 06/06/24 05:39 06/06/24 05:39 Labs: Abnormal Lab Results - Last 24 Hours (Table) 06/03/24 06/05/24 06/05/24 Range/Units 12:30 11:49 15:52 WBC (3.8-10.6) k/uL Hgb (13.0-17.5) gm/dL Hct (39.0-53.0) % MCV (80.0-100.0) fL MCH (25.0-35.0) pg MCHC (31.0-37.0) g/dL RDW (11.5-15.5) % ABG pH (7.35-7.45) ABG pO2 (83-108) mmHg ABG O2 Saturation (94-97) % Chloride (98-107) mmol/L Carbon Dioxide (22-30) mmol/L BUN (9-20) mg/dL Creatinine (0.66-1.25) mg/dL Glucose (74-99) mg/dL POC Glucose (mg/dL) 169 H 162 H (70-110) mg/dL Fluid Appearance Blood Tinged A (Clear) Fluid RBC 29254 H (0-1999) /uL 06/05/24 06/05/24 06/06/24 Range/Units 19:49 23:35 03:55 WBC (3.8-10.6) k/uL Hgb (13.0-17.5) gm/dL Hct (39.0-53.0) % MCV (80.0-100.0) fL MCH (25.0-35.0) pg MCHC (31.0-37.0) g/dL RDW (11.5-15.5) % ABG pH (7.35-7.45) ABG pO2 (83-108) mmHg ABG O2 Saturation (94-97) % Chloride (98-107) mmol/L Carbon Dioxide (22-30) mmol/L BUN (9-20) mg/dL Creatinine (0.66-1.25) mg/dL Glucose (74-99) mg/dL POC Glucose (mg/dL) 168 H 169 H 126 H (70-110) mg/dL Fluid Appearance (Clear) Fluid RBC (0-1999) /uL 06/06/24 06/06/24 06/06/24 Range/Units 04:44 05:39 05:39 WBC 14.0 H (3.8-10.6) k/uL Hgb 10.9 L (13.0-17.5) gm/dL Hct 36.0 L (39.0-53.0) % MCV 74.8 L (80.0-100.0) fL MCH 22.8 L (25.0-35.0) pg MCHC 30.4 L (31.0-37.0) g/dL RDW 15.8 H (11.5-15.5) % ABG pH 7.31 L (7.35-7.45) ABG pO2 68 L (83-108) mmHg ABG O2 Saturation 93.1 L (94-97) % Chloride 110 H (98-107) mmol/L Carbon Dioxide 19 L (22-30) mmol/L BUN 23 H (9-20) mg/dL Creatinine 1.82 H (0.66-1.25) mg/dL Glucose 138 H (74-99) mg/dL POC Glucose (mg/dL) (70-110) mg/dL Fluid Appearance (Clear) Fluid RBC (0-2000) /uL 06/06/24 Range/Units 08:43 WBC (3.8-10.6) k/uL Hgb (13.0-17.5) gm/dL Hct (39.0-53.0) % MCV (80.0-100.0) fL MCH (25.0-35.0) pg MCHC (31.0-37.0) g/dL RDW (11.5-15.5) % ABG pH (7.35-7.45) ABG pO2 (83-108) mmHg ABG O2 Saturation (94-97) % Chloride (98-107) mmol/L Carbon Dioxide (22-30) mmol/L BUN (9-20) mg/dL Creatinine (0.66-1.25) mg/dL Glucose (74-99) mg/dL POC Glucose (mg/dL) 159 H (70-110) mg/dL Fluid Appearance (Clear) Fluid RBC (0-2000) /uL Microbiology - Last 24 Hours (Table) 06/03/24 12:30 Acid Fast Bacilli Smear - Preliminary Bronchoalviolar Lavage - Right 06/03/24 12:30 Gram Stain - Final Bronchoalviolar Lavage - Right Bronchial Washings Culture - Final 06/04/24 07:40 Gram Stain - Final Sputum Sputum Culture - Final Methicillin resist S. aureus 06/04/24 11:35 Blood Culture - Preliminary Blood Assessment and Plan Assessment: Acute respiratory failure, following bronchoscopy, of unclear etiology. The patient had an uneventful procedure, and was stable throughout the procedure. He apparently had some respiratory distress, in the operating room, after extubation. S/P intubation and mechanical ventilation, June 03, 2024. Status post bronchoscopy and biopsies, right upper lobe, June 03, 2024. Methicillin-resistant Staphylococcus aureus pneumonia, right lower lobe. Lung mass, right upper lobe. Unintentional 30 pound weight loss. Chronic and ongoing tobacco dependence. Probable COPD. Diabetes mellitus, type II. History of hyperlipidemia. Plan: Plan dated June 04, 2024. The patient had an unexpected complication after bronchoscopy with general anesthesia. The patient was completely stable throughout the procedure. There was no pneumothorax after the procedure. For some reason, after extubation, the patient apparently developed some respiratory difficulty, and it was felt by anesthesia that the patient should be intubated. The patient was transferred to the intensive care unit for further monitoring and management. Currently, the patient is on propofol at 50 mcg/kg/min and lactated Ringer's at 75 cc an hour. Blood gases show pO2 of 114, pCO2 42, and a pH of 7.30. The patient has been given a nicotine patch, 21 mg. In addition, we will get the patient on some dexmedetomidine, to see if we can wean him from mechanical ventilation. Labs, x-rays, and all medications are reviewed. Plan dated June 05, 2024. The patient is currently still on the mechanical ventilator. The patient continues on propofol, norepinephrine, and fentanyl. He is also getting lactated Ringer's at 75 cc an hour. Will increase the rate on the ventilator from 20-24. Vital high-protein will be increased to goal. Labs, x-rays, medications are reviewed. The patient was started on ceftriaxone empirically. Procalcitonin level was 0.30 yesterday. We will continue to follow make recommendations along the way. Biopsy results currently are still pending. Plan dated June 06, 2024. The patient will be started on vancomycin, for methicillin-resistant Staph a ureus, in the sputum. Labs, x-rays, and all medications are reviewed. The patient's blood gases are reviewed. Ventilator settings are appropriate. The patient remains on propofol at 45 mcg/kg/min, lactated Ringer's at 75 cc an hour, norepinephrine at 6 mcg/min, and fentanyl at 0.5 mcg/kg/h. The patient is getting saline at KVO, and vital high-protein at 20 cc an hour. The patient is currently on Rocephin. Vancomycin is added. We will continue to follow, and make recommendations along the way. Prognosis is certainly guarded. Time with Patient: Greater than 30
[2024-06-06] MEDS: HYDROmorphone 1 MG/ML 1 ML SYRINGE IVP PRN (11:32)
[2024-06-06 11:37] LABS: Glucose,Whole Blood 157 mg/dL (70-110)
[2024-06-06 15:57] LABS: Glucose,Whole Blood 159 mg/dL (70-110)
--- NOTE | 2024-06-06 17:12 | P.PN ---
Subjective Progress Note Date: 06/06/24 Patient remains in the ICU, intubated and on sedation. Plan for sedation holiday today. Continues on IV abx, pathology pending. Updated family on oncological workup thus far, and POC. Objective - Vital Signs Vital signs: Vital Signs Temp 98.6 F 06/06/24 10:00 Pulse 84 06/06/24 11:21 Resp 24 06/06/24 11:00 BP 109/61 06/06/24 11:00 Pulse Ox 94 L 06/06/24 11:00 FiO2 65 06/06/24 11:09 Intake & Output 06/05/24 06/06/24 06/06/24 18:59 06:59 18:59 Intake Total 2105.451 4036.738 3767.805 Output Total 580 719 265 Balance 1525.451 849.404 955.805 Intake: IV 900 1010 930 KVO 110 80 LR 900 900 300 Vancomycin 1,500 mg In 500 Sodium Chloride 0.9% 500 ml 500 ml @ 166.667 mls/ hr IVPB Q24H [facility] Rx#: [id number] cefTRIAXone 1 gm In 50 Sodium Chloride 0.9% 50 ml @ 100 mls/hr IVPB Q24HR [facility] Rx#:[id number] Intake, IV Titration 905.451 328.404 290.805 Amount Norepinephrine 4 mg In 303.402 254 124.283 Sodium Chloride 0.9% 250 ml @ 0.03 MCG/KG/MIN 9. 851 mls/hr IV .Q24H [facility] Rx#:[id number] fentaNYL (PF). 1,000 mcg 193.200 72.670 In Sodium Chloride 0.9% 80 ml @ 0.5 MCG/KG/HR 4. 345 mls/hr IV .Q23H1M [facility] Rx#:[id number] propofoL 1,000 mg In 408.849 74.404 93.852 Empty Bag 1 bag @ 15 MCG/ KG/MIN 7.757 mls/hr IV . [id number] [facility] Rx#:[id number] Tube Feeding 210 130 0 Other 90 100 Output: Urine 580 719 265 Other: Voiding Method Indwelling Catheter Indwelling Catheter Indwelling Catheter - Constitutional General appearance: Present: average body habitus, no acute distress - Respiratory Details: ventilated breathing sounds - Cardiovascular Details: skin warm and dry - Integumentary Integumentary: Absent: cyanotic - Neurologic Neurologic Comment(s): sedated - Labs CBC & Chem 7: 06/06/24 05:39 06/06/24 05:39 Labs: Abnormal Lab Results - Last 24 Hours (Table) 06/03/24 06/05/24 06/05/24 Range/Units 12:30 11:49 15:52 WBC (3.8-10.6) k/uL Hgb (13.0-17.5) gm/dL Hct (39.0-53.0) % MCV (80.0-100.0) fL MCH (25.0-35.0) pg MCHC (31.0-37.0) g/dL RDW (11.5-15.5) % ABG pH (7.35-7.45) ABG pO2 (83-108) mmHg ABG O2 Saturation (94-97) % Chloride (98-107) mmol/L Carbon Dioxide (22-30) mmol/L BUN (9-20) mg/dL Creatinine (0.66-1.25) mg/dL Glucose (74-99) mg/dL POC Glucose (mg/dL) 169 H 162 H (70-110) mg/dL Fluid Appearance Blood Tinged A (Clear) Fluid RBC 83100 H (0-2000) /uL 06/05/24 06/05/24 06/06/24 Range/Units 19:49 23:35 03:55 WBC (3.8-10.6) k/uL Hgb (13.0-17.5) gm/dL Hct (39.0-53.0) % MCV (80.0-100.0) fL MCH (25.0-35.0) pg MCHC (31.0-37.0) g/dL RDW (11.5-15.5) % ABG pH (7.35-7.45) ABG pO2 (83-108) mmHg ABG O2 Saturation (94-97) % Chloride (98-107) mmol/L Carbon Dioxide (22-30) mmol/L BUN (9-20) mg/dL Creatinine (0.66-1.25) mg/dL Glucose (74-99) mg/dL POC Glucose (mg/dL) 168 H 169 H 126 H (70-110) mg/dL Fluid Appearance (Clear) Fluid RBC (0-1999) /uL 06/06/24 06/06/24 06/06/24 Range/Units 04:44 05:39 05:39 WBC 14.0 H (3.8-10.6) k/uL Hgb 10.9 L (13.0-17.5) gm/dL Hct 36.0 L (39.0-53.0) % MCV 74.8 L (80.0-100.0) fL MCH 22.8 L (25.0-35.0) pg MCHC 30.4 L (31.0-37.0) g/dL RDW 15.8 H (11.5-15.5) % ABG pH 7.31 L (7.35-7.45) ABG pO2 68 L (83-108) mmHg ABG O2 Saturation 93.1 L (94-97) % Chloride 110 H (98-107) mmol/L Carbon Dioxide 19 L (22-30) mmol/L BUN 23 H (9-20) mg/dL Creatinine 1.82 H (0.66-1.25) mg/dL Glucose 138 H (74-99) mg/dL POC Glucose (mg/dL) (70-110) mg/dL Fluid Appearance (Clear) Fluid RBC (0-1999) /uL 06/06/24 Range/Units 08:43 WBC (3.8-10.6) k/uL Hgb (13.0-17.5) gm/dL Hct (39.0-53.0) % MCV (80.0-100.0) fL MCH (25.0-35.0) pg MCHC (31.0-37.0) g/dL RDW (11.5-15.5) % ABG pH (7.35-7.45) ABG pO2 (83-108) mmHg ABG O2 Saturation (94-97) % Chloride (98-107) mmol/L Carbon Dioxide (22-30) mmol/L BUN (9-20) mg/dL Creatinine (0.66-1.25) mg/dL Glucose (74-99) mg/dL POC Glucose (mg/dL) 159 H (70-110) mg/dL Fluid Appearance (Clear) Fluid RBC (0-2000) /uL Microbiology - Last 24 Hours (Table) 06/03/24 12:30 Acid Fast Bacilli Smear - Preliminary Bronchoalviolar Lavage - Right 06/03/24 12:30 Gram Stain - Final Bronchoalviolar Lavage - Right Bronchial Washings Culture - Final 06/04/24 07:40 Gram Stain - Final Sputum Sputum Culture - Final Methicillin resist S. aureus 06/04/24 11:35 Blood Culture - Preliminary Blood Assessment and Plan (1) Lung mass Current Visit: Yes Status: Acute Priority: High Code(s): R91.8 - OTHER NONSPECIFIC ABNORMAL FINDING OF LUNG FIELD SNOMED Code(s): 302172371 (2) Paratracheal lymphadenopathy Current Visit: Yes Status: Acute Priority: High Code(s): R59.0 - LOCALIZED ENLARGED LYMPH NODES SNOMED Code(s): 75752528 Plan: Lung mass, mediastinal LAD, liver lesion: Presented with progressing SOB x 1 month. Reports 30 lb unintentional weight loss over last 6 months. History of heavy nicotine use, smoking approx 2 packs x 50 years -On admission CT chest with contrast showed posterior right lung mass measuring 3.4 x 4.6 cm with additional punctate nodularity and increased linear markings within the right lung. Multiple markedly enlarged mediastinal adenopathy noted. Hypodense lesion within the liver measuring 3.5 x 3.0 cm -S/p bronchoscopy, pathology pending -After bronch, pt developed resp distress, requiring re-intubation and was transferred to ICU -Will obtain brain MRI, and plan for outpt PET CT to complete staging Discussed CT findings, concerns for metastatic disease, and plan of care with family today. All questions/concerns were answered
[2024-06-06 20:08] LABS: Glucose,Whole Blood 159 mg/dL (70-110)
[2024-06-06 23:30] LABS: Glucose,Whole Blood 144 mg/dL (70-110)
--- NOTE | 2024-06-07 03:58 | XR ---
EXAM: XR Chest, 1 View CLINICAL HISTORY: [email or web address].REASON XR Reason: ET TUBE TECHNIQUE: Frontal view of the chest. COMPARISON: No relevant prior studies available. IMPRESSION: ET tube terminates 9 cm from the shakira. Right lower lobe opacity with right pleural effusion.
--- NOTE | 2024-06-07 03:58 | XR ---
EXAM: XR Chest, 1 View CLINICAL HISTORY: [email or web address].REASON XR Reason: right lower lobe pneumonia; mechanical ventilation TECHNIQUE: Frontal view of the chest. COMPARISON: 06/07/2024 IMPRESSION: Right lower lobe opacity.
[2024-06-07 04:24] LABS: Glucose,Whole Blood 139 mg/dL (70-110)
[2024-06-07 05:15] LABS: ABG Base Excess -3.3 mmol/L; ABG HCO3 23 mmol/L (21-25); ABG Oxygen Saturation 94.2 % (94-97); ABG PCO2 43 mmHg (35-45); ABG PH 7.33 (7.35-7.45); ABG PO2 72 mmHg (83-108); ABG TCO2 24 mmol/L (19-24); Allen Test Performed? Yes
[2024-06-07 07:17] LABS: Basophils # (A) 0.1 k/uL (0-0.2); Basophils % (A) 1 %; Eosinophils # (A) 0.1 k/uL (0-0.7); Eosinophils % (A) 1 %; HCT 34.1 % (39.0-53.0); HGB 10.5 gm/dL (13.0-17.5); Hypochromasia Marked; Lymphocytes # (A) 0.7 k/uL (1.0-4.8); Lymphocytes % (A) 7 %; MCH 22.9 pg (25.0-35.0); MCHC 30.6 g/dL (31.0-37.0); MCV 74.8 fL (80.0-100.0); Mean Platelet Volume 7.9; Microcytosis Slight; Monocytes # (A) 0.9 k/uL (0-1.0); Monocytes % (A) 9 %; Neutrophils # (A) 7.8 k/uL (1.3-7.7); Neutrophils % (A) 79 %; Platelet Count 261 k/uL (150-450); RBC 4.57 m/uL (4.30-5.90); RDW 15.5 % (11.5-15.5); WBC 9.9 k/uL (3.8-10.6)
--- NOTE | 2024-06-07 07:48 | P.PN ---
Subjective Progress Note Date: 06/07/24 The patient is a pleasant 68-year-old gentleman who was admitted to the hospital for biopsy of the lung for possible lung cancer with metastasis and subsequently developed respiratory failure. We consulted to see patient because of bradycardia. The echo showed normal LV systolic function June 06, 2024 The patient was seen and evaluated this morning. He is stable hemodynamically. He is not bradycardic at this point. The echo showed preserved LV systolic function. From the cardiovascular standpoint of view, we will continue the current medical regimen. No need for any further workup at this point. The examination is remarkable for stable vital signs with regular rate and rhythm and clear breathing sounds bilaterally and no edema was noted June 07, 2024 The patient was seen and evaluated this morning. He is still intubated on mechanical ventilation but he is off norepinephrine. His heart rate and pressure has been marginal and with that being said I am going to decrease the dose of metoprolol to twice daily. The examination is remarkable for regular rhythm with a distant heart sounds and clear breathing sounds bilaterally and no edema was noted Assessment Lung mass currently under investigation Initially sinus tachycardia and subsequently sinus bradycardia Multiple comorbid conditions Plan Decrease the dose of metoprolol Follow-up with the patient Objective - Vital Signs Vital signs: Vital Signs Temp 98.8 F 06/07/24 06:00 Pulse 87 06/07/24 07:00 Resp 24 06/07/24 07:00 BP 105/59 06/07/24 07:00 Pulse Ox 95 06/07/24 07:00 FiO2 70 06/07/24 06:00 Intake & Output 06/06/24 06/07/24 06/07/24 18:59 06:59 18:59 Intake Total 2086.351 1504.218 99.654 Output Total 625 675 40 Balance 1461.351 829.218 59.654 Weight 89.8 kg Intake: IV 1545 1020 85 KVO 170 120 10 LR 825 900 75 Vancomycin 1,500 mg In 500 Sodium Chloride 0.9% 500 ml 500 ml @ 166.667 mls/ hr IVPB Q24H [facility] Rx#: [id number] cefTRIAXone 1 gm In 50 Sodium Chloride 0.9% 50 ml @ 100 mls/hr IVPB Q24HR [facility] Rx#:[id number] Intake, IV Titration 471.351 384.218 4.654 Amount Norepinephrine 4 mg In 153.233 42.904 Sodium Chloride 0.9% 250 ml @ 0.03 MCG/KG/MIN 9. 851 mls/hr IV .Q24H [facility] Rx#:[id number] fentaNYL (PF). 1,000 mcg 72.670 In Sodium Chloride 0.9% 80 ml @ 0.5 MCG/KG/HR 4. 345 mls/hr IV .Q23H1M [facility] Rx#:[id number] propofoL 1,000 mg In 245.448 341.314 4.654 Empty Bag 1 bag @ 15 MCG/ KG/MIN 7.757 mls/hr IV . [id number] [facility] Rx#:[id number] Tube Feeding 40 100 10 Other 30 Output: Urine 625 675 40 Other: Voiding Method Indwelling Catheter Indwelling Catheter # Bowel Movements 0 - Labs CBC & Chem 7: 06/07/24 06:38 06/06/24 05:39 Labs: Abnormal Lab Results - Last 24 Hours (Table) 06/03/24 06/06/24 06/06/24 Range/Units 12:30 08:43 11:36 Hgb (13.0-17.5) gm/dL Hct (39.0-53.0) % MCV (80.0-100.0) fL MCH (25.0-35.0) pg MCHC (31.0-37.0) g/dL Neutrophils # (1.3-7.7) k/uL Lymphocytes # (1.0-4.8) k/uL ABG pH (7.35-7.45) ABG pO2 (83-108) mmHg POC Glucose (mg/dL) 159 H 157 H (70-110) mg/dL Fluid Appearance Blood Tinged A (Clear) Fluid RBC 71190 H (0-2000) /uL 06/06/24 06/06/24 06/06/24 Range/Units 15:56 20:06 23:28 Hgb (13.0-17.5) gm/dL Hct (39.0-53.0) % MCV (80.0-100.0) fL MCH (25.0-35.0) pg MCHC (31.0-37.0) g/dL Neutrophils # (1.3-7.7) k/uL Lymphocytes # (1.0-4.8) k/uL ABG pH (7.35-7.45) ABG pO2 (83-108) mmHg POC Glucose (mg/dL) 159 H 159 H 144 H (70-110) mg/dL Fluid Appearance (Clear) Fluid RBC (0-2000) /uL 06/07/24 06/07/24 06/07/24 Range/Units 04:22 05:10 06:38 Hgb 10.5 L (13.0-17.5) gm/dL Hct 34.1 L (39.0-53.0) % MCV 74.8 L (80.0-100.0) fL MCH 22.9 L (25.0-35.0) pg MCHC 30.6 L (31.0-37.0) g/dL Neutrophils # 7.8 H (1.3-7.7) k/uL Lymphocytes # 0.7 L (1.0-4.8) k/uL ABG pH 7.33 L (7.35-7.45) ABG pO2 72 L (83-108) mmHg POC Glucose (mg/dL) 139 H (70-110) mg/dL Fluid Appearance (Clear) Fluid RBC (0-2000) /uL Microbiology - Last 24 Hours (Table) 06/04/24 11:35 Blood Culture - Preliminary Blood 06/04/24 11:16 Gram Stain - Preliminary Sputum Sputum Culture - Preliminary Presumptive Staph aureus Corynebacterium propinquum 06/03/24 12:30 Acid Fast Bacilli Smear - Preliminary Bronchoalviolar Lavage - Right 06/03/24 12:30 Gram Stain - Final Bronchoalviolar Lavage - Right Bronchial Washings Culture - Final 06/04/24 07:40 Gram Stain - Final Sputum Sputum Culture - Final Methicillin resist S. aureus
[2024-06-07 07:57] LABS: Glucose,Whole Blood 181 mg/dL (70-110)
[2024-06-07 07:58] LABS: African American GFR (CKD) 51 (>60 ml/min/1.73 sqM); Anion Gap 8 mmol/L; Blood Urea Nitrogen 24 mg/dL (9-20); Calcium 8.6 mg/dL (8.4-10.2); Carbon Dioxide 20 mmol/L (22-30); Chloride 110 mmol/L (98-107); Glucose 160 mg/dL (74-99); Non-African American GFR(CKD) 44 (>60 ml/min/1.73 sqM); Potassium 4.8 mmol/L (3.5-5.1); Sodium 138 mmol/L (137-145)
[2024-06-07 08:29] LABS: Glucose,Whole Blood 206 mg/dL (70-110)
[2024-06-07] MEDS: FUROSEMIDE 10 MG/ML 4 ML VIAL IV STA (08:57)
[2024-06-07] MEDS: METOPROLOL TARTRATE 12.5 MG TAB PO SCH (08:58)
--- NOTE | 2024-06-07 10:22 | P.PN ---
Subjective Progress Note Date: 06/07/24 Principal diagnosis: Abnormal chest x-ray/CT scan. Patient is a 68-year-old white male with past medical history significant for significant diabetes mellitus, hyperlipidemia, current everyday smoker. He just recently became established with a new PCP, Dr. Villarreal. He does have a significant smoking history smoking approximately 1 to 2 packs/day for almost 50 years. He is currently retired, worked [employer] for most of his life. Denies ever being diagnosed with COPD. Does report exertional dyspnea such as walking out to the mailbox and back. He reports intermittent chronic cough, with minimal sputum production. Note that the patient has had a 30 pound weight loss over the past 6 months. He is also reported increased throat fullness and difficulty breathing when he turns his head. He went to [facility] yesterday for evaluation. Reportedly the CT of his chest done, however, he presents here without any imaging. Reportedly had enlarged paratracheal lymph nodes and a large lung mass. He was discharged home, went to see his PCP, who directed him to our facility. We are working on requesting these images. Patient is currently sitting at the edge of the bed, on room air, in no acute distress. He denies any infectious-like symptoms. No fevers. Cough is chronic, intermittent, and mostly nonproductive. No chest congestion. No hemoptysis. No palpable neck masses. No observable stridor. CBC unremarkable without leukocytosis. Electrolytes unremarkable. Glucose is 416. Lactic acid 2. Normal saline infusing at 130 MLS per hour. Troponin less than 0.012. NT proBNP low. COVID-negative. He is tachycardic. Otherwise, hemodynamically stable. The patient is seen today 06/03/2024 in follow-up on the regular medical floor. He is awake and alert in no acute distress. He is maintaining good O2 saturations in the 90s on room air. No IV fluids. Glucose 280.he remains on DuoNeb inhalations. He denies any worsening shortness of breath, cough or congestion. No hemoptysis. Plan is for bronchoscopy with biopsies today. Progress note dated June 04, 2024. The patient underwent bronchoscopy yesterday, because of an abnormality noted in his right upper lobe, and he had biopsies brushings washes, etc. Everything went well during the procedure. He had general endotracheal anesthesia (GETA), and, was extubated. Apparently sometime shortly after extubation, he was noted to have some respiratory issues, and was reintubated by the [employer]. The patient was transferred to the intensive care unit for further monitoring and management. The patient remains on mechanical ventilator. Currently he is on volume assist-control, rate 20, tidal volume 500, FiO2 65%, PEEP of 8. Blood gases show pO2 114, pCO2 42, pH is 7.30. The patient is on propofol at 50 mcg/kg/min, LR at 75 cc an hour, saline at KVO. Tube feedings have not yet been started. The bronchoscopy was done on June 03. The patient will be placed on dexmedetomidine, and will attempt a weaning trial with pressure support and CPAP, 8 and 5 respectively. He will also get a nicotine patch as he was smoking up until the time he came to the hospital. Current labs include a white count 10.6, hemoglobin 9.9, hematocrit 39.2, and a normal platelet count. Sodium 137, potassium 5.1, chlorides 110, CO2 18, BUN 22, creatinine 1.47. Glucose is 173. Calcium is 8.9. Bronchoscopy washings are pending. The patient's chest x-ray shows a right-sided pleural effusion. Progress note dated June 05, 2024. 68-year-old male status post bronchoscopy and biopsy of the right upper lobe. The patient developed respiratory distress after the procedure, required reintubation. He remains on the mechanical ventilator. He is currently on volume assist-control, rate 20, to be increased to 24, tidal volume 500, FiO2 of 65%, PEEP of 8. Blood gases show pO2 of 80, pCO2 47, pH of 7.26. The patient is on propofol at 65 mcg/kg/min, LR at 75 cc an hour, norepinephrine 6 mcg/min, and fentanyl at 1 mcg/kg/h. The patient's vital high-protein is running at 5 to 10 cc an hour, but will be increased to goal. White count 13.7, hemoglobin 11.4, hematocrit 37.6, platelet count 285,000. Sodium 137, potassium 4.8, chlorides 110, CO2 19, BUN 25, and creatinine 1.97. Glucose is 186. Albumin 2.8. Cultures are negative. Chest x-ray shows an endotracheal tube which should be advanced a couple centimeters. There is blunting of the right costophrenic angle, with associated atelectasis or infiltrate. Progress note dated June 06, 2024. 68-year-old male seen today in room 257. He remains on mechanical ventilation. He is on volume assist-control, rate 24, tidal volume 500, FiO2 65%, PEEP of 8. Blood gases show pO2 of 68, pCO2 44, pH of 7.31. Patient is on propofol at 45 mcg/kg/min, LR at 75 cc an hour, norepinephrine at 6 mcg/min and fentanyl 0.5 mcg/kg/h. The patient is getting saline at KVO, and vital high-protein at 20 cc an hour. The patient is currently on Rocephin. He will get a dose of vancomycin, 1 g x 1, for suspected staph in the sputum. Current labs include a white count 14, hemoglobin 10.9, hematocrit 36, platelet count 275,000. Sodium 137, potassium 4.6, chlorides 110, CO2 19, BUN 23, creatinine 1.82. Glucose is 159. Calcium 8.5, magnesium 1.9. The sputum has been further identified as being positive for methicillin-resistant Staph aureus. Chest x-ray shows stable infiltrate and pleural effusion, on the right side. Bronchoscopy specimens are still pending. Progress note dated June 07, 2024. 68-year-old male seen today in 257. The patient remains on mechanical ventilation. Settings include volume assist-control, rate 24, tidal volume 500, FiO2 70%, PEEP of 8. Blood gases show pO2 of 72, pCO2 43, and a pH of 7.33. The patient is on propofol at 50 mcg/kg/min, lactated Ringer's at 75 cc an hour, and Glucerna at 10 cc an hour, with a goal of 40. Norepinephrine is off. Sputum is revealing evidence of methicillin-resistant Staph aureus. He continues on vancomycin. Rocephin will be discontinued. We have Lasix 40 mg IV push. We will wean the FiO2, as long as saturations are 90%. Currently, white count 9.9, hemoglobin 10.5, hematocrit 34.1, platelet count is normal. Sodium 138, potassium 4.8, chlorides 110, CO2 20, BUN 24, creatinine 1.61. Glucose is 206. Calcium is 8.6. Sputum Gram stain from June 04 shows methicillin- resistant Staph aureus. Chest x-ray shows some infiltrate, atelectasis, and effusion, in the right lower lobe. Objective - Vital Signs Vital signs: Vital Signs Temp 97.9 F 06/07/24 08:00 Pulse 92 06/07/24 09:00 Resp 24 06/07/24 09:00 BP 110/58 06/07/24 09:00 Pulse Ox 96 06/07/24 09:00 FiO2 70 06/07/24 08:00 Intake & Output 06/06/24 06/07/24 06/07/24 18:59 06:59 18:59 Intake Total 2086.351 1504.218 99.654 Output Total 625 675 40 Balance 1461.351 829.218 59.654 Weight 89.8 kg Intake: IV 1545 1020 85 KVO 170 120 10 LR 825 900 75 Vancomycin 1,500 mg In 500 Sodium Chloride 0.9% 500 ml 500 ml @ 166.667 mls/ hr IVPB Q24H [facility] Rx#: [id number] cefTRIAXone 1 gm In 50 Sodium Chloride 0.9% 50 ml @ 100 mls/hr IVPB Q24HR [facility] Rx#:[id number] Intake, IV Titration 471.351 384.218 4.654 Amount Norepinephrine 4 mg In 153.233 42.904 Sodium Chloride 0.9% 250 ml @ 0.03 MCG/KG/MIN 9. 851 mls/hr IV .Q24H [facility] Rx#:[id number] fentaNYL (PF). 1,000 mcg 72.670 In Sodium Chloride 0.9% 80 ml @ 0.5 MCG/KG/HR 4. 345 mls/hr IV .Q23H1M [facility] Rx#:[id number] propofoL 1,000 mg In 245.448 341.314 4.654 Empty Bag 1 bag @ 15 MCG/ KG/MIN 7.757 mls/hr IV . [id number] [facility] Rx#:[id number] Tube Feeding 40 100 10 Other 30 Output: Urine 625 675 40 Other: Voiding Method Indwelling Catheter Indwelling Catheter # Bowel Movements 0 - Exam No acute distress, patient restless on propofol, with an orally placed endotracheal tube. HEENT examination is grossly unremarkable. Neck supple. Full range of motion. No adenopathy thyromegaly or neck vein distention. Cardiovascular examination reveals regular rhythm rate. S1-S2 normal. No S3 or S4. No discernible murmur noted. Heart rate 92 bpm. Lungs reveal diffuse bilateral rhonchi. No wheezes or crackles. Breath sounds equal. Saturations are 96 %. Abdomen soft bowel sounds are heard. No masses or tenderness. Extremities are intact. No cyanosis clubbing or edema. Skin is without rash or lesion. Neurologic examination cannot be assessed at this time. - Labs CBC & Chem 7: 06/07/24 06:38 06/07/24 06:38 Labs: Abnormal Lab Results - Last 24 Hours (Table) 06/03/24 06/06/24 06/06/24 Range/Units 12:30 11:36 15:56 Hgb (13.0-17.5) gm/dL Hct (39.0-53.0) % MCV (80.0-100.0) fL MCH (25.0-35.0) pg MCHC (31.0-37.0) g/dL Neutrophils # (1.3-7.7) k/uL Lymphocytes # (1.0-4.8) k/uL ABG pH (7.35-7.45) ABG pO2 (83-108) mmHg Chloride (98-107) mmol/L Carbon Dioxide (22-30) mmol/L BUN (9-20) mg/dL Creatinine (0.66-1.25) mg/dL Glucose (74-99) mg/dL POC Glucose (mg/dL) 157 H 159 H (70-110) mg/dL Fluid Appearance Blood Tinged A (Clear) Fluid RBC 27795 H (0-2000) /uL 06/06/24 06/06/24 06/07/24 Range/Units 20:06 23:28 04:22 Hgb (13.0-17.5) gm/dL Hct (39.0-53.0) % MCV (80.0-100.0) fL MCH (25.0-35.0) pg MCHC (31.0-37.0) g/dL Neutrophils # (1.3-7.7) k/uL Lymphocytes # (1.0-4.8) k/uL ABG pH (7.35-7.45) ABG pO2 (83-108) mmHg Chloride (98-107) mmol/L Carbon Dioxide (22-30) mmol/L BUN (9-20) mg/dL Creatinine (0.66-1.25) mg/dL Glucose (74-99) mg/dL POC Glucose (mg/dL) 159 H 144 H 139 H (70-110) mg/dL Fluid Appearance (Clear) Fluid RBC (0-2000) /uL 06/07/24 06/07/24 06/07/24 Range/Units 05:10 06:38 06:38 Hgb 10.5 L (13.0-17.5) gm/dL Hct 34.1 L (39.0-53.0) % MCV 74.8 L (80.0-100.0) fL MCH 22.9 L (25.0-35.0) pg MCHC 30.6 L (31.0-37.0) g/dL Neutrophils # 7.8 H (1.3-7.7) k/uL Lymphocytes # 0.7 L (1.0-4.8) k/uL ABG pH 7.33 L (7.35-7.45) ABG pO2 72 L (83-108) mmHg Chloride 110 H (98-107) mmol/L Carbon Dioxide 20 L (22-30) mmol/L BUN 24 H (9-20) mg/dL Creatinine 1.61 H (0.66-1.25) mg/dL Glucose 160 H (74-99) mg/dL POC Glucose (mg/dL) (70-110) mg/dL Fluid Appearance (Clear) Fluid RBC (0-1999) /uL 06/07/24 06/07/24 Range/Units 07:56 08:28 Hgb (13.0-17.5) gm/dL Hct (39.0-53.0) % MCV (80.0-100.0) fL MCH (25.0-35.0) pg MCHC (31.0-37.0) g/dL Neutrophils # (1.3-7.7) k/uL Lymphocytes # (1.0-4.8) k/uL ABG pH (7.35-7.45) ABG pO2 (83-108) mmHg Chloride (98-107) mmol/L Carbon Dioxide (22-30) mmol/L BUN (9-20) mg/dL Creatinine (0.66-1.25) mg/dL Glucose (74-99) mg/dL POC Glucose (mg/dL) 181 H 206 H (70-110) mg/dL Fluid Appearance (Clear) Fluid RBC (0-2000) /uL Microbiology - Last 24 Hours (Table) 06/04/24 11:35 Blood Culture - Preliminary Blood 06/04/24 11:16 Gram Stain - Preliminary Sputum Sputum Culture - Preliminary Presumptive Staph aureus Corynebacterium propinquum 06/03/24 12:30 Acid Fast Bacilli Smear - Preliminary Bronchoalviolar Lavage - Right 06/03/24 12:30 Gram Stain - Final Bronchoalviolar Lavage - Right Bronchial Washings Culture - Final 06/04/24 07:40 Gram Stain - Final Sputum Sputum Culture - Final Methicillin resist S. aureus Assessment and Plan Assessment: Acute respiratory failure, following bronchoscopy, of unclear etiology. The patient had an uneventful procedure, and was stable throughout the procedure. He apparently had some respiratory distress, in the operating room, after extubation. S/P intubation and mechanical ventilation, June 03, 2024. Status post bronchoscopy and biopsies, right upper lobe, June 03, 2024. Methicillin-resistant Staphylococcus aureus pneumonia, right lower lobe. Lung mass, right upper lobe. Unintentional 30 pound weight loss. Chronic and ongoing tobacco dependence. Probable COPD. Diabetes mellitus, type II. History of hyperlipidemia. Plan: Plan dated June 04, 2024. The patient had an unexpected complication after bronchoscopy with general anesthesia. The patient was completely stable throughout the procedure. There was no pneumothorax after the procedure. For some reason, after extubation, the patient apparently developed some respiratory difficulty, and it was felt by anesthesia that the patient should be intubated. The patient was transferred to the intensive care unit for further monitoring and management. Currently, the patient is on propofol at 50 mcg/kg/min and lactated Ringer's at 75 cc an hour. Blood gases show pO2 of 114, pCO2 42, and a pH of 7.30. The patient has been given a nicotine patch, 21 mg. In addition, we will get the patient on some dexmedetomidine, to see if we can wean him from mechanical ventilation. Labs, x-rays, and all medications are reviewed. Plan dated June 05, 2024. The patient is currently still on the mechanical ventilator. The patient continues on propofol, norepinephrine, and fentanyl. He is also getting lactated Ringer's at 75 cc an hour. Will increase the rate on the ventilator from 20-24. Vital high-protein will be increased to goal. Labs, x-rays, medications are reviewed. The patient was started on ceftriaxone empirically. Procalcitonin level was 0.30 yesterday. We will continue to follow make recommendations along the way. Biopsy results currently are still pending. Plan dated June 06, 2024. The patient will be started on vancomycin, for methicillin-resistant Staph aureus, in the sputum. Labs, x-rays, and all medications are reviewed. The patient's blood gases are reviewed. Ventilator settings are appropriate. The patient remains on propofol at 45 mcg/kg/min, lactated Ringer's at 75 cc an hour, norepinephrine at 6 mcg/min, and fentanyl at 0.5 mcg/kg/h. The patient is getting saline at KVO, and vital high-protein at 20 cc an hour. The patient is currently on Rocephin. Vancomycin is added. We will continue to follow, and make recommendations along the way. Prognosis is certainly guarded. Plan dated June 07, 2024. 68-year-old male seen today in room 257. He continues on mechanical ventilation. There was methicillin-resistant Staph aureus in the sputum. He continues on vancomycin. Rocephin will be discontinued. Will give him Lasix 40 mg IV push. Will wean the FiO2 his lungs and saturations are 90% or higher. The endotracheal tube will be pushed down 2 cm. He has been weaned off of norepinephrine. He continues on Glucerna. Labs, x-rays, medications are reviewed. The patient is overall prognosis remains guarded. Biopsies from the other day, still pending. Time with Patient: Greater than 30
--- NOTE | 2024-06-07 11:51 | P.PN ---
Subjective Progress Note Date: 06/07/24 Patient remains in the ICU, intubated and on sedation. Currently trying to wean off vent. Continues on IV abx, pathology pending. Counts stable Objective - Vital Signs Vital signs: Vital Signs Temp 97.9 F 06/07/24 08:00 Pulse 100 06/07/24 11:25 Resp 20 06/07/24 11:00 BP 145/71 06/07/24 11:00 Pulse Ox 92 L 06/07/24 11:00 FiO2 70 06/07/24 11:10 Intake & Output 06/06/24 06/07/24 06/07/24 18:59 06:59 18:59 Intake Total 2086.351 1692.573 1433.178 Output Total 213 931 2539 Balance 1461.351 829.218 -403.822 Weight 89.8 kg Intake: IV 1545 1020 925 KVO 170 120 50 LR 825 900 375 Vancomycin 1,500 mg In 500 500 Sodium Chloride 0.9% 500 ml 500 ml @ 166.667 mls/ hr IVPB Q24H [facility] Rx#: [id number] cefTRIAXone 1 gm In 50 Sodium Chloride 0.9% 50 ml @ 100 mls/hr IVPB Q24HR [facility] Rx#:[id number] Intake, IV Titration 471.351 384.218 101.178 Amount Norepinephrine 4 mg In 153.233 42.904 Sodium Chloride 0.9% 250 ml @ 0.03 MCG/KG/MIN 9. 851 mls/hr IV .Q24H [facility] Rx#:[id number] fentaNYL (PF). 1,000 mcg 72.670 In Sodium Chloride 0.9% 80 ml @ 0.5 MCG/KG/HR 4. 345 mls/hr IV .Q23H1M [facility] Rx#:[id number] propofoL 1,000 mg In 245.448 341.314 101.178 Empty Bag 1 bag @ 15 MCG/ KG/MIN 7.757 mls/hr IV . [id number] [facility] Rx#:[id number] Tube Feeding 40 100 50 Other 30 30 Output: Urine 510 820 8646 Other: Voiding Method Indwelling Catheter Indwelling Catheter Indwelling Catheter # Bowel Movements 0 - Constitutional General appearance: Present: no acute distress - Respiratory Details: ventilated breath sounds - Cardiovascular Details: skin warm and dry - Integumentary Integumentary: Absent: cyanotic - Labs CBC & Chem 7: 06/07/24 06:38 06/07/24 06:38 Labs: Abnormal Lab Results - Last 24 Hours (Table) 06/06/24 06/06/24 06/06/24 Range/Units 11:36 15:56 20:06 Hgb (13.0-17.5) gm/dL Hct (39.0-53.0) % MCV (80.0-100.0) fL MCH (25.0-35.0) pg MCHC (31.0-37.0) g/dL Neutrophils # (1.3-7.7) k/uL Lymphocytes # (1.0-4.8) k/uL ABG pH (7.35-7.45) ABG pO2 (83-108) mmHg Chloride (98-107) mmol/L Carbon Dioxide (22-30) mmol/L BUN (9-20) mg/dL Creatinine (0.66-1.25) mg/dL Glucose (74-99) mg/dL POC Glucose (mg/dL) 157 H 159 H 159 H (70-110) mg/dL 06/06/24 06/07/24 06/07/24 Range/Units 23:28 04:22 05:10 Hgb (13.0-17.5) gm/dL Hct (39.0-53.0) % MCV (80.0-100.0) fL MCH (25.0-35.0) pg MCHC (31.0-37.0) g/dL Neutrophils # (1.3-7.7) k/uL Lymphocytes # (1.0-4.8) k/uL ABG pH 7.33 L (7.35-7.45) ABG pO2 72 L (83-108) mmHg Chloride (98-107) mmol/L Carbon Dioxide (22-30) mmol/L BUN (9-20) mg/dL Creatinine (0.66-1.25) mg/dL Glucose (74-99) mg/dL POC Glucose (mg/dL) 144 H 139 H (70-110) mg/dL 06/07/24 06/07/24 06/07/24 Range/Units 06:38 06:38 07:56 Hgb 10.5 L (13.0-17.5) gm/dL Hct 34.1 L (39.0-53.0) % MCV 74.8 L (80.0-100.0) fL MCH 22.9 L (25.0-35.0) pg MCHC 30.6 L (31.0-37.0) g/dL Neutrophils # 7.8 H (1.3-7.7) k/uL Lymphocytes # 0.7 L (1.0-4.8) k/uL ABG pH (7.35-7.45) ABG pO2 (83-108) mmHg Chloride 110 H (98-107) mmol/L Carbon Dioxide 20 L (22-30) mmol/L BUN 24 H (9-20) mg/dL Creatinine 1.61 H (0.66-1.25) mg/dL Glucose 160 H (74-99) mg/dL POC Glucose (mg/dL) 181 H (70-110) mg/dL 06/07/24 Range/Units 08:28 Hgb (13.0-17.5) gm/dL Hct (39.0-53.0) % MCV (80.0-100.0) fL MCH (25.0-35.0) pg MCHC (31.0-37.0) g/dL Neutrophils # (1.3-7.7) k/uL Lymphocytes # (1.0-4.8) k/uL ABG pH (7.35-7.45) ABG pO2 (83-108) mmHg Chloride (98-107) mmol/L Carbon Dioxide (22-30) mmol/L BUN (9-20) mg/dL Creatinine (0.66-1.25) mg/dL Glucose (74-99) mg/dL POC Glucose (mg/dL) 206 H (70-110) mg/dL Microbiology - Last 24 Hours (Table) 06/04/24 11:16 Gram Stain - Final Sputum Sputum Culture - Final Methicillin resist S. aureus Corynebacterium propinquum 06/04/24 11:35 Blood Culture - Preliminary Blood 06/03/24 12:30 Acid Fast Bacilli Smear - Preliminary Bronchoalviolar Lavage - Right 06/03/24 12:30 Gram Stain - Final Bronchoalviolar Lavage - Right Bronchial Washings Culture - Final 06/04/24 07:40 Gram Stain - Final Sputum Sputum Culture - Final Methicillin resist S. aureus Assessment and Plan (1) Lung mass Current Visit: Yes Status: Acute Priority: High Code(s): R91.8 - OTHER NONSPECIFIC ABNORMAL FINDING OF LUNG FIELD SNOMED Code(s): 798331678 (2) Paratracheal lymphadenopathy Current Visit: Yes Status: Acute Priority: High Code(s): R59.0 - LOCALIZED ENLARGED LYMPH NODES SNOMED Code(s): 78473250 Plan: Lung mass, mediastinal LAD, liver lesion: Presented with progressing SOB x 1 month. Reports 30 lb unintentional weight loss over last 6 months. History of heavy nicotine use, smoking approx 2 packs x 50 years -On admission CT chest with contrast showed posterior right lung mass measuring 3.4 x 4.6 cm with additional punctate nodularity and increased linear markings within the right lung. Multiple markedly enlarged mediastinal adenopathy noted. Hypodense lesion within the liver measuring 3.5 x 3.0 cm -S/p bronchoscopy, pathology pending -After bronch, pt developed resp distress, requiring re-intubation and was transferred to ICU. Currently trying to wean off vent -Will obtain brain MRI, and plan for outpt PET CT to complete staging Discussed CT findings, concerns for metastatic disease, and plan of care with family.
[2024-06-07 12:01] LABS: Glucose,Whole Blood 153 mg/dL (70-110)
[2024-06-07] MEDS: METOCLOPRAMIDE 5 MG/ML 2 ML VIAL IVP SCH (12:33)
[2024-06-07 16:08] LABS: Glucose,Whole Blood 218 mg/dL (70-110)
[2024-06-07 17:56] LABS: Glucose,Whole Blood 162 mg/dL (70-110)
[2024-06-07 20:08] LABS: Glucose,Whole Blood 147 mg/dL (70-110)
--- NOTE | 2024-06-07 20:18 | PN ---
PROGRESS NOTE Remains in ICU, intubated, on sedation. Trying to wean off vent. He is on IV antibiotics. Pathology pending. OBJECTIVE: VITAL SIGNS: Blood pressure 140s/70s, O2 of 92. LUNGS: Scattered rhonchi and wheeze. HEMATOLOGY: Negative Homans. GI: Soft. LABORATORY DATA: Hemoglobin is 10.5. BUN 24. Creatinine 1.61. He has lung mass, peritracheal adenopathy, mediastinal LAD, liver lesion, status post bronchoscopy. Pathology is pending. Wean off ventilator as tolerated. Brain MRI. Outpatient PET scan. Wait for pathology. Continue to wean off the vent, continue breathing treatments, etc. Prognosis guarded. MMODL / IJN: [id number] /
[2024-06-07 23:06] LABS: Glucose,Whole Blood 159 mg/dL (70-110)
[2024-06-08 03:58] LABS: Glucose,Whole Blood 138 mg/dL (70-110)
[2024-06-08 04:32] LABS: Basophils % (A) 0 %; Eosinophils # (A) 0.1 k/uL (0-0.7); Eosinophils % (A) 2 %; HCT 32.6 % (39.0-53.0); Hypochromasia Marked; Lymphocytes # (A) 0.5 k/uL (1.0-4.8); Lymphocytes % (A) 6 %; MCH 22.3 pg (25.0-35.0); MCHC 30.8 g/dL (31.0-37.0); MCV 72.4 fL (80.0-100.0); Mean Platelet Volume 6.9; Microcytosis Moderate; Monocytes # (A) 0.8 k/uL (0-1.0); Monocytes % (A) 10 %; Neutrophils # (A) 6.3 k/uL (1.3-7.7); Neutrophils % (A) 80 %; Platelet Count 340 k/uL (150-450); RBC 4.51 m/uL (4.30-5.90); RDW 15.5 % (11.5-15.5); WBC 7.9 k/uL (3.8-10.6)
[2024-06-08 04:45] LABS: African American GFR (CKD) 58 (>60 ml/min/1.73 sqM); Anion Gap 8 mmol/L; Blood Urea Nitrogen 21 mg/dL (9-20); Calcium 8.5 mg/dL (8.4-10.2); Carbon Dioxide 21 mmol/L (22-30); Chloride 110 mmol/L (98-107); Glucose 134 mg/dL (74-99); Non-African American GFR(CKD) 50 (>60 ml/min/1.73 sqM); Potassium 3.7 mmol/L (3.5-5.1); Sodium 139 mmol/L (137-145)
[2024-06-08 05:15] LABS: ABG Base Excess -0.4 mmol/L; ABG HCO3 25 mmol/L (21-25); ABG Oxygen Saturation 98.5 % (94-97); ABG PCO2 41 mmHg (35-45); ABG PH 7.38 (7.35-7.45); ABG PO2 104 mmHg (83-108); ABG TCO2 26 mmol/L (19-24); Allen Test Performed? Yes
[2024-06-08] MEDS ORDERED: Potassium Replacement Protocol 1 EACH MISC MISCELLANE PRN (05:43)
[2024-06-08] MEDS: POTASSIUM BICARBONATE/CIT AC 20 MEQ TABLET.EFF NG-TUBE SCH (06:37)
--- NOTE | 2024-06-08 07:43 | P.PN ---
Subjective Progress Note Date: 06/08/24 The patient is a pleasant 68-year-old gentleman who was admitted to the hospital for biopsy of the lung for possible lung cancer with metastasis and subsequently developed respiratory failure. We consulted to see patient because of bradycardia. The echo showed normal LV systolic function June 06, 2024 The patient was seen and evaluated this morning. He is stable hemodynamically. He is not bradycardic at this point. The echo showed preserved LV systolic function. From the cardiovascular standpoint of view, we will continue the current medical regimen. No need for any further workup at this point. The examination is remarkable for stable vital signs with regular rate and rhythm and clear breathing sounds bilaterally and no edema was noted June 07, 2024 The patient was seen and evaluated this morning. He is still intubated on mechanical ventilation but he is off norepinephrine. His heart rate and pressure has been marginal and with that being said I am going to decrease the dose of metoprolol to twice daily. The examination is remarkable for regular rhythm with a distant heart sounds and clear breathing sounds bilaterally and no edema was noted June 08, 2024 The patient was seen and evaluated this morning. He continues to be intubated on mechanical ventilation. From a cardiovascular standpoint of view, he has been stable. He is not on any vasopressors. No issues with the heart rate or blood pressure so far. The examination is remarkable for regular rhythm with clear breathing sounds bilaterally and no edema was noted in the lower extremities Assessment Lung mass currently under investigation Initially sinus tachycardia and subsequently sinus bradycardia Multiple comorbid conditions Plan Decrease the dose of metoprolol Follow-up with the patient on as needed case Objective - Vital Signs Vital signs: Vital Signs Temp 98.1 F 06/08/24 07:00 Pulse 96 06/08/24 07:00 Resp 24 06/08/24 07:00 BP 116/63 06/08/24 07:00 Pulse Ox 97 06/08/24 07:00 FiO2 50 06/08/24 06:00 Intake & Output 06/07/24 06/08/24 06/08/24 18:59 06:59 18:59 Intake Total 8660.427 7036.566 105 Output Total 2950 1025 40 Balance -1078.822 292.566 65 Intake: IV 1460 900 75 KVO 60 LR 900 900 75 Vancomycin 1,500 mg In 500 Sodium Chloride 0.9% 500 ml 500 ml @ 166.667 mls/ hr IVPB Q24H [facility] Rx#: [id number] Intake, IV Titration 201.178 67.566 Amount propofoL 1,000 mg In 201.178 67.566 Empty Bag 1 bag @ 15 MCG/ KG/MIN 7.757 mls/hr IV . [id number] [facility] Rx#:[id number] Tube Feeding 120 260 30 Other 90 90 Output: Urine 2950 1025 40 Other: Voiding Method Indwelling Catheter Indwelling Catheter # Bowel Movements 0 - Labs CBC & Chem 7: 06/08/24 04:09 06/08/24 04:09 Labs: Abnormal Lab Results - Last 24 Hours (Table) 06/07/24 06/07/24 06/07/24 Range/Units 06:38 07:56 08:28 Hgb (13.0-17.5) gm/dL Hct (39.0-53.0) % MCV (80.0-100.0) fL MCH (25.0-35.0) pg MCHC (31.0-37.0) g/dL Lymphocytes # (1.0-4.8) k/uL ABG Total CO2 (19-24) mmol/L ABG O2 Saturation (94-97) % Chloride 110 H (98-107) mmol/L Carbon Dioxide 20 L (22-30) mmol/L BUN 24 H (9-20) mg/dL Creatinine 1.61 H (0.66-1.25) mg/dL Glucose 160 H (74-99) mg/dL POC Glucose (mg/dL) 181 H 206 H (70-110) mg/dL 06/07/24 06/07/24 06/07/24 Range/Units 11:59 16:07 17:55 Hgb (13.0-17.5) gm/dL Hct (39.0-53.0) % MCV (80.0-100.0) fL MCH (25.0-35.0) pg MCHC (31.0-37.0) g/dL Lymphocytes # (1.0-4.8) k/uL ABG Total CO2 (19-24) mmol/L ABG O2 Saturation (94-97) % Chloride (98-107) mmol/L Carbon Dioxide (22-30) mmol/L BUN (9-20) mg/dL Creatinine (0.66-1.25) mg/dL Glucose (74-99) mg/dL POC Glucose (mg/dL) 153 H 218 H 162 H (70-110) mg/dL 06/07/24 06/07/24 06/08/24 Range/Units 20:07 23:03 03:57 Hgb (13.0-17.5) gm/dL Hct (39.0-53.0) % MCV (80.0-100.0) fL MCH (25.0-35.0) pg MCHC (31.0-37.0) g/dL Lymphocytes # (1.0-4.8) k/uL ABG Total CO2 (19-24) mmol/L ABG O2 Saturation (94-97) % Chloride (98-107) mmol/L Carbon Dioxide (22-30) mmol/L BUN (9-20) mg/dL Creatinine (0.66-1.25) mg/dL Glucose (74-99) mg/dL POC Glucose (mg/dL) 147 H 159 H 138 H (70-110) mg/dL 06/08/24 06/08/24 06/08/24 Range/Units 04:09 04:09 05:05 Hgb 10.0 L (13.0-17.5) gm/dL Hct 32.6 L (39.0-53.0) % MCV 72.4 L (80.0-100.0) fL MCH 22.3 L (25.0-35.0) pg MCHC 30.8 L (31.0-37.0) g/dL Lymphocytes # 0.5 L (1.0-4.8) k/uL ABG Total CO2 26 H (19-24) mmol/L ABG O2 Saturation 98.5 H (94-97) % Chloride 110 H (98-107) mmol/L Carbon Dioxide 21 L (22-30) mmol/L BUN 21 H (9-20) mg/dL Creatinine 1.45 H (0.66-1.25) mg/dL Glucose 134 H (74-99) mg/dL POC Glucose (mg/dL) (70-110) mg/dL Microbiology - Last 24 Hours (Table) 06/04/24 11:35 Blood Culture - Preliminary Blood 06/04/24 11:16 Gram Stain - Final Sputum Sputum Culture - Final Methicillin resist S. aureus Corynebacterium propinquum
--- NOTE | 2024-06-08 07:50 | XR ---
EXAMINATION TYPE: XR chest 1V portable DATE OF EXAM: 06/08/2024 COMPARISON: 06/07/2020 HISTORY: Shortness of breath TECHNIQUE: Single frontal view of the chest is obtained. FINDINGS: ET tube and NG tube stable. 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 No pneumothorax. Arthropathy of the shoulders. Degenerative change of the spine. IMPRESSION: Stable right-sided consolidation and pleural effusion.
[2024-06-08 08:03] LABS: Glucose,Whole Blood 160 mg/dL (70-110)
[2024-06-08] MEDS: methylPREDNISolone SOD SUCCI 125 MG/2 ML VIAL IV SCH (09:26)
--- NOTE | 2024-06-08 10:22 | P.PN ---
Subjective Progress Note Date: 06/08/24 Principal diagnosis: Abnormal chest x-ray/CT scan. Patient is a 68-year-old white male with past medical history significant for significant diabetes mellitus, hyperlipidemia, current everyday smoker. He just recently became established with a new PCP, Dr. Villarreal. He does have a significant smoking history smoking approximately 1 to 2 packs/day for almost 50 years. He is currently retired, worked [employer] for most of his life. Denies ever being diagnosed with COPD. Does report exertional dyspnea such as walking out to the mailbox and back. He reports intermittent chronic cough, with minimal sputum production. Note that the patient has had a 30 pound weight loss over the past 6 months. He is also reported increased throat fullness and difficulty breathing when he turns his head. He went to [facility] yesterday for evaluation. Reportedly the CT of his chest done, however, he presents here without any imaging. Reportedly had enlarged paratracheal lymph nodes and a large lung mass. He was discharged home, went to see his PCP, who directed him to our facility. We are working on requesting these images. Patient is currently sitting at the edge of the bed, on room air, in no acute distress. He denies any infectious-like symptoms. No fevers. Cough is chronic, intermittent, and mostly nonproductive. No chest congestion. No hemoptysis. No palpable neck masses. No observable stridor. CBC unremarkable without leukocytosis. Electrolytes unremarkable. Glucose is 416. Lactic acid 2. Normal saline infusing at 130 MLS per hour. Troponin less than 0.012. NT proBNP low. COVID-negative. He is tachycardic. Otherwise, hemodynamically stable. The patient is seen today 06/03/2024 in follow-up on the regular medical floor. He is awake and alert in no acute distress. He is maintaining good O2 saturations in the 90s on room air. No IV fluids. Glucose 280.he remains on DuoNeb inhalations. He denies any worsening shortness of breath, cough or congestion. No hemoptysis. Plan is for bronchoscopy with biopsies today. Progress note dated June 04, 2024. The patient underwent bronchoscopy yesterday, because of an abnormality noted in his right upper lobe, and he had biopsies brushings washes, etc. Everything went well during the procedure. He had general endotracheal anesthesia (GETA), and, was extubated. Apparently sometime shortly after extubation, he was noted to have some respiratory issues, and was reintubated by the FARM CONTRACTOR. The patient was transferred to the intensive care unit for further monitoring and management. The patient remains on mechanical ventilator. Currently he is on volume assist-control, rate 20, tidal volume 500, FiO2 65%, PEEP of 8. Blood gases show pO2 114, pCO2 42, pH is 7.30. The patient is on propofol at 50 mcg/kg/min, LR at 75 cc an hour, saline at KVO. Tube feedings have not yet been started. The bronchoscopy was done on June 03. The patient will be placed on dexmedetomidine, and will attempt a weaning trial with pressure support and CPAP, 8 and 5 respectively. He will also get a nicotine patch as he was smoking up until the time he came to the hospital. Current labs include a white count 10.6, hemoglobin 9.9, hematocrit 39.2, and a normal platelet count. Sodium 137, potassium 5.1, chlorides 110, CO2 18, BUN 22, creatinine 1.47. Glucose is 173. Calcium is 8.9. Bronchoscopy washings are pending. The patient's chest x-ray shows a right-sided pleural effusion. Progress note dated June 05, 2024. 68-year-old male status post bronchoscopy and biopsy of the right upper lobe. The patient developed respiratory distress after the procedure, required reintubation. He remains on the mechanical ventilator. He is currently on volume assist-control, rate 20, to be increased to 24, tidal volume 500, FiO2 of 65%, PEEP of 8. Blood gases show pO2 of 80, pCO2 47, pH of 7.26. The patient is on propofol at 65 mcg/kg/min, LR at 75 cc an hour, norepinephrine 6 mcg/min, and fentanyl at 1 mcg/kg/h. The patient's vital high-protein is running at 5 to 10 cc an hour, but will be increased to goal. White count 13.7, hemoglobin 11.4, hematocrit 37.6, platelet count 285,000. Sodium 137, potassium 4.8, chlorides 110, CO2 19, BUN 25, and creatinine 1.97. Glucose is 186. Albumin 2.8. Cultures are negative. Chest x-ray shows an endotracheal tube which should be advanced a couple centimeters. There is blunting of the right costophrenic angle, with associated atelectasis or infiltrate. Progress note dated June 06, 2024. 68-year-old male seen today in room 257. He remains on mechanical ventilation. He is on volume assist-control, rate 24, tidal volume 500, FiO2 65%, PEEP of 8. Blood gases show pO2 of 68, pCO2 44, pH of 7.31. Patient is on propofol at 45 mcg/kg/min, LR at 75 cc an hour, norepinephrine at 6 mcg/min and fentanyl 0.5 mcg/kg/h. The patient is getting saline at KVO, and vital high-protein at 20 cc an hour. The patient is currently on Rocephin. He will get a dose of vancomycin, 1 g x 1, for suspected staph in the sputum. Current labs include a white count 14, hemoglobin 10.9, hematocrit 36, platelet count 275,000. Sodium 137, potassium 4.6, chlorides 110, CO2 19, BUN 23, creatinine 1.82. Glucose is 159. Calcium 8.5, magnesium 1.9. The sputum has been further identified as being positive for methicillin-resistant Staph aureus. Chest x-ray shows stable infiltrate and pleural effusion, on the right side. Bronchoscopy specimens are still pending. Progress note dated June 07, 2024. 68-year-old male seen today in 257. The patient remains on mechanical ventilation. Settings include volume assist-control, rate 24, tidal volume 500, FiO2 70%, PEEP of 8. Blood gases show pO2 of 72, pCO2 43, and a pH of 7.33. The patient is on propofol at 50 mcg/kg/min, lactated Ringer's at 75 cc an hour, and Glucerna at 10 cc an hour, with a goal of 40. Norepinephrine is off. Sputum is revealing evidence of methicillin-resistant Staph aureus. He continues on vancomycin. Rocephin will be discontinued. We have Lasix 40 mg IV push. We will wean the FiO2, as long as saturations are 90%. Currently, white count 9.9, hemoglobin 10.5, hematocrit 34.1, platelet count is normal. Sodium 138, potassium 4.8, chlorides 110, CO2 20, BUN 24, creatinine 1.61. Glucose is 206. Calcium is 8.6. Sputum Gram stain from June 04 shows methicillin- resistant Staph aureus. Chest x-ray shows some infiltrate, atelectasis, and effusion, in the right lower lobe. Progress note dated June 08, 2024. 68-year-old male seen today in room 257. He remains on mechanical ventilation. Ventilator settings include assist-control, rate 24, tidal volume 500, FiO2 50%, PEEP of 8. Blood gases show pO2 104, pCO2 41, pH is 7.38. The patient is on propofol at 40 mcg/kg/min, lactated Ringer's at 75 cc an hour, and Glucerna at goal, which is 40 cc an hour. Patient is on vancomycin for methicillin- resistant Staph aureus and the patient's sputum. His peak airway pressures 34. His Plateau pressure is 19. We had Solu-Medrol, budesonide 1 mg, and formoterol 20 mcg, twice a day. Current labs include a white count 7.9, hemoglobin 10, hematocrit 32.6, and platelet count is normal. Sodium 139, potassium 3.7, chlorides 110, CO2 21, BUN 21, and creatinine 1.45. Glucose is 160. Sputum reveals evidence of methicillin-resistant Staph aureus. The patient remains on vancomycin. Chest x-ray shows a consolidation, in the right lung base. Objective - Vital Signs Vital signs: Vital Signs Temp 98.5 F 06/08/24 08:00 Pulse 85 06/08/24 10:00 Resp 24 06/08/24 10:00 BP 111/60 06/08/24 10:00 Pulse Ox 96 06/08/24 10:00 FiO2 50 06/08/24 08:38 Intake & Output 06/07/24 06/08/24 06/08/24 18:59 06:59 18:59 Intake Total 2602.766 5599.566 930 Output Total 2950 1025 170 Balance -1078.822 392.566 760 Intake: IV 1460 900 830 KVO 60 30 LR 900 900 300 Vancomycin 1,500 mg In 500 500 Sodium Chloride 0.9% 500 ml 500 ml @ 166.667 mls/ hr IVPB Q24H [facility] Rx#: [id number] Intake, IV Titration 201.178 167.566 Amount propofoL 1,000 mg In 201.178 167.566 Empty Bag 1 bag @ 15 MCG/ KG/MIN 7.757 mls/hr IV . [id number] [facility] Rx#:[id number] Tube Feeding 120 260 70 Other 90 90 30 Output: Urine 2950 1025 170 Other: Voiding Method Indwelling Catheter Indwelling Catheter # Bowel Movements 0 - Exam No acute distress, patient restless on propofol, with an orally placed endotracheal tube. HEENT examination is grossly unremarkable. Neck supple. Full range of motion. No adenopathy thyromegaly or neck vein distention. Cardiovascular examination reveals regular rhythm rate. S1-S2 normal. No S3 or S4. No discernible murmur noted. Lungs reveal diffuse bilateral rhonchi. No wheezes or crackles. Breath sounds equal. Saturations are 96 %. Abdomen soft bowel sounds are heard. No masses or tenderness. Extremities are intact. No cyanosis clubbing or edema. Skin is without rash or lesion. Neurologic examination cannot be assessed at this time. - Labs CBC & Chem 7: 06/08/24 04:09 06/08/24 04:09 Labs: Abnormal Lab Results - Last 24 Hours (Table) 06/07/24 06/07/24 06/07/24 Range/Units 11:59 16:07 17:55 Hgb (13.0-17.5) gm/dL Hct (39.0-53.0) % MCV (80.0-100.0) fL MCH (25.0-35.0) pg MCHC (31.0-37.0) g/dL Lymphocytes # (1.0-4.8) k/uL ABG Total CO2 (19-24) mmol/L ABG O2 Saturation (94-97) % Chloride (98-107) mmol/L Carbon Dioxide (22-30) mmol/L BUN (9-20) mg/dL Creatinine (0.66-1.25) mg/dL Glucose (74-99) mg/dL POC Glucose (mg/dL) 153 H 218 H 162 H (70-110) mg/dL 06/07/24 06/07/24 06/08/24 Range/Units 20:07 23:03 03:57 Hgb (13.0-17.5) gm/dL Hct (39.0-53.0) % MCV (80.0-100.0) fL MCH (25.0-35.0) pg MCHC (31.0-37.0) g/dL Lymphocytes # (1.0-4.8) k/uL ABG Total CO2 (19-24) mmol/L ABG O2 Saturation (94-97) % Chloride (98-107) mmol/L Carbon Dioxide (22-30) mmol/L BUN (9-20) mg/dL Creatinine (0.66-1.25) mg/dL Glucose (74-99) mg/dL POC Glucose (mg/dL) 147 H 159 H 138 H (70-110) mg/dL 06/08/24 06/08/24 06/08/24 Range/Units 04:09 04:09 05:05 Hgb 10.0 L (13.0-17.5) gm/dL Hct 32.6 L (39.0-53.0) % MCV 72.4 L (80.0-100.0) fL MCH 22.3 L (25.0-35.0) pg MCHC 30.8 L (31.0-37.0) g/dL Lymphocytes # 0.5 L (1.0-4.8) k/uL ABG Total CO2 26 H (19-24) mmol/L ABG O2 Saturation 98.5 H (94-97) % Chloride 110 H (98-107) mmol/L Carbon Dioxide 21 L (22-30) mmol/L BUN 21 H (9-20) mg/dL Creatinine 1.45 H (0.66-1.25) mg/dL Glucose 134 H (74-99) mg/dL POC Glucose (mg/dL) (70-110) mg/dL 06/08/24 Range/Units 08:01 Hgb (13.0-17.5) gm/dL Hct (39.0-53.0) % MCV (80.0-100.0) fL MCH (25.0-35.0) pg MCHC (31.0-37.0) g/dL Lymphocytes # (1.0-4.8) k/uL ABG Total CO2 (19-24) mmol/L ABG O2 Saturation (94-97) % Chloride (98-107) mmol/L Carbon Dioxide (22-30) mmol/L BUN (9-20) mg/dL Creatinine (0.66-1.25) mg/dL Glucose (74-99) mg/dL POC Glucose (mg/dL) 160 H (70-110) mg/dL Microbiology - Last 24 Hours (Table) 06/04/24 11:35 Blood Culture - Preliminary Blood 06/04/24 11:16 Gram Stain - Final Sputum Sputum Culture - Final Methicillin resist S. aureus Corynebacterium propinquum Assessment and Plan Assessment: Acute respiratory failure, following bronchoscopy, of unclear etiology. The patient had an uneventful procedure, and was stable throughout the procedure. He apparently had some respiratory distress, in the operating room, after extubation. S/P intubation and mechanical ventilation, June 03, 2024. Status post bronchoscopy and biopsies, right upper lobe, June 03, 2024. Methicillin-resistant Staphylococcus aureus pneumonia, right lower lobe. Lung mass, right upper lobe. Unintentional 30 pound weight loss. Chronic and ongoing tobacco dependence. Probable COPD. Diabetes mellitus, type II. History of hyperlipidemia. Plan: Plan dated June 04, 2024. The patient had an unexpected complication after bronchoscopy with general anesthesia. The patient was completely stable throughout the procedure. There was no pneumothorax after the procedure. For some reason, after extubation, the patient apparently developed some respiratory difficulty, and it was felt by anesthesia that the patient should be intubated. The patient was transferred to the intensive care unit for further monitoring and management. Currently, the patient is on propofol at 50 mcg/kg/min and lactated Ringer's at 75 cc an hour. Blood gases show pO2 of 114, pCO2 42, and a pH of 7.30. The patient has been given a nicotine patch, 21 mg. In addition, we will get the patient on some dexmedetomidine, to see if we can wean him from mechanical ventilation. Labs, x-rays, and all medications are reviewed. Plan dated June 05, 2024. The patient is currently still on the mechanical ventilator. The patient continues on propofol, norepinephrine, and fentanyl. He is also getting lactated Ringer's at 75 cc an hour. Will increase the rate on the ventilator from 20-24. Vital high-protein will be increased to goal. Labs, x-rays, medications are reviewed. The patient was started on ceftriaxone empirically. Procalcitonin level was 0.30 yesterday. We will continue to follow make recommendations along the way. Biopsy results currently are still pending. Plan dated June 06, 2024. The patient will be started on vancomycin, for methicillin-resistant Staph aureus, in the sputum. Labs, x-rays, and all medications are reviewed. The patient's blood gases are reviewed. Ventilator settings are appropriate. The patient remains on propofol at 45 mcg/kg/min, lactated Ringer's at 75 cc an hour, norepinephrine at 6 mcg/min, and fentanyl at 0.5 mcg/kg/h. The patient is getting saline at KVO, and vital high-protein at 20 cc an hour. The patient is currently on Rocephin. Vancomycin is added. We will continue to follow, and make recommendations along the way. Prognosis is certainly guarded. Plan dated June 07, 2024. 68-year-old male seen today in room 257. He continues on mechanical ventilation. There was methicillin-resistant Staph aureus in the sputum. He continues on vancomycin. Rocephin will be discontinued. Will give him Lasix 40 mg IV push. Will wean the FiO2 his lungs and saturations are 90% or higher. The endotracheal tube will be pushed down 2 cm. He has been weaned off of norepinephrine. He continues on Glucerna. Labs, x-rays, medications are reviewed. The patient is overall prognosis remains guarded. Biopsies from the other day, still pending. Plan dated June 08, 2024. Bronchoscopy specimens, still currently pending on this patient. The patient is seen today in room 257. He remains on the ventilator. Currently he is on propofol at 40 mcg/kg/min, lactated Ringer's at 75 cc an hour, and Glucerna at goal. The patient is on vancomycin for methicillin-resistant Staph aureus pulmonary infection. The patient's peak airway pressure is 34 cm of water. The Plateau pressure is 19 cm of water. The peak to plateau difference suggest increasing airways resistance. The patient is placed on budesonide, formoterol, and Solu-Medrol. We will continue to follow the patient, make recommendations. Prognosis is guarded. Labs, x-rays, and all medications are reviewed. Time with Patient: Greater than 30
[2024-06-08 11:47] LABS: Glucose,Whole Blood 201 mg/dL (70-110)
[2024-06-08] MEDS: INSULIN ASPART (NovoLOG) 100 UNIT/ML VIAL SQ SCH (11:55)
--- NOTE | 2024-06-08 12:57 | P.PN ---
Subjective Progress Note Date: 06/08/24 Patient remains in the ICU, intubated and on sedation. Currently trying to wean off vent. Continues on IV abx, pathology pending. Counts stable Objective - Vital Signs Vital signs: Vital Signs Temp 98.5 F 06/08/24 08:00 Pulse 82 06/08/24 11:00 Resp 24 06/08/24 11:00 BP 118/65 06/08/24 11:00 Pulse Ox 97 06/08/24 11:00 FiO2 50 06/08/24 08:38 Intake & Output 06/07/24 06/08/24 06/08/24 18:59 06:59 18:59 Intake Total 3573.443 7251.566 1076.018 Output Total 2950 1025 245 Balance -1078.822 392.566 831.018 Intake: IV 1460 900 915 KVO 60 40 LR 900 900 375 Vancomycin 1,500 mg In 500 500 Sodium Chloride 0.9% 500 ml 500 ml @ 166.667 mls/ hr IVPB Q24H [facility] Rx#: [id number] Intake, IV Titration 201.178 167.566 61.018 Amount propofoL 1,000 mg In 201.178 167.566 61.018 Empty Bag 1 bag @ 15 MCG/ KG/MIN 7.757 mls/hr IV . [id number] [facility] Rx#:[id number] Tube Feeding 120 260 70 Other 90 90 30 Output: Urine 2950 1025 245 Other: Voiding Method Indwelling Catheter Indwelling Catheter Indwelling Catheter # Bowel Movements 0 - Constitutional General appearance: Present: no acute distress - Respiratory Details: ventilated breath sounds - Cardiovascular Details: skin warm and dry - Integumentary Integumentary: Absent: cyanotic - Neurologic Neurologic Comment(s): sedated - Labs CBC & Chem 7: 06/08/24 04:09 06/08/24 04:09 Labs: Abnormal Lab Results - Last 24 Hours (Table) 06/07/24 06/07/24 06/07/24 Range/Units 11:59 16:07 17:55 Hgb (13.0-17.5) gm/dL Hct (39.0-53.0) % MCV (80.0-100.0) fL MCH (25.0-35.0) pg MCHC (31.0-37.0) g/dL Lymphocytes # (1.0-4.8) k/uL ABG Total CO2 (19-24) mmol/L ABG O2 Saturation (94-97) % Chloride (98-107) mmol/L Carbon Dioxide (22-30) mmol/L BUN (9-20) mg/dL Creatinine (0.66-1.25) mg/dL Glucose (74-99) mg/dL POC Glucose (mg/dL) 153 H 218 H 162 H (70-110) mg/dL 06/07/24 06/07/24 06/08/24 Range/Units 20:07 23:03 03:57 Hgb (13.0-17.5) gm/dL Hct (39.0-53.0) % MCV (80.0-100.0) fL MCH (25.0-35.0) pg MCHC (31.0-37.0) g/dL Lymphocytes # (1.0-4.8) k/uL ABG Total CO2 (19-24) mmol/L ABG O2 Saturation (94-97) % Chloride (98-107) mmol/L Carbon Dioxide (22-30) mmol/L BUN (9-20) mg/dL Creatinine (0.66-1.25) mg/dL Glucose (74-99) mg/dL POC Glucose (mg/dL) 147 H 159 H 138 H (70-110) mg/dL 06/08/24 06/08/24 06/08/24 Range/Units 04:09 04:09 05:05 Hgb 10.0 L (13.0-17.5) gm/dL Hct 32.6 L (39.0-53.0) % MCV 72.4 L (80.0-100.0) fL MCH 22.3 L (25.0-35.0) pg MCHC 30.8 L (31.0-37.0) g/dL Lymphocytes # 0.5 L (1.0-4.8) k/uL ABG Total CO2 26 H (19-24) mmol/L ABG O2 Saturation 98.5 H (94-97) % Chloride 110 H (98-107) mmol/L Carbon Dioxide 21 L (22-30) mmol/L BUN 21 H (9-20) mg/dL Creatinine 1.45 H (0.66-1.25) mg/dL Glucose 134 H (74-99) mg/dL POC Glucose (mg/dL) (70-110) mg/dL 06/08/24 Range/Units 08:01 Hgb (13.0-17.5) gm/dL Hct (39.0-53.0) % MCV (80.0-100.0) fL MCH (25.0-35.0) pg MCHC (31.0-37.0) g/dL Lymphocytes # (1.0-4.8) k/uL ABG Total CO2 (19-24) mmol/L ABG O2 Saturation (94-97) % Chloride (98-107) mmol/L Carbon Dioxide (22-30) mmol/L BUN (9-20) mg/dL Creatinine (0.66-1.25) mg/dL Glucose (74-99) mg/dL POC Glucose (mg/dL) 160 H (70-110) mg/dL Microbiology - Last 24 Hours (Table) 06/04/24 11:35 Blood Culture - Preliminary Blood 06/04/24 11:16 Gram Stain - Final Sputum Sputum Culture - Final Methicillin resist S. aureus Corynebacterium propinquum - Imaging and Cardiology Chest x-ray: report reviewed Assessment and Plan (1) Lung mass Current Visit: Yes Status: Acute Priority: High Code(s): R91.8 - OTHER NONSPECIFIC ABNORMAL FINDING OF LUNG FIELD SNOMED Code(s): 422770877 (2) Paratracheal lymphadenopathy Current Visit: Yes Status: Acute Priority: High Code(s): R59.0 - LOCALIZED ENLARGED LYMPH NODES SNOMED Code(s): 00089648 Plan: Lung mass, mediastinal LAD, liver lesion: Presented with progressing SOB x 1 month. Reports 30 lb unintentional weight loss over last 6 months. History of heavy nicotine use, smoking approx 2 packs x 50 years -On admission CT chest with contrast showed posterior right lung mass measuring 3.4 x 4.6 cm with additional punctate nodularity and increased linear markings within the right lung. Multiple markedly enlarged mediastinal adenopathy noted. Hypodense lesion within the liver measuring 3.5 x 3.0 cm -S/p bronchoscopy, pathology pending -After bronch, pt developed resp distress, requiring re-intubation and was transferred to ICU. Currently trying to wean off vent. Continues on IV abx for pneumonia, positive sputum culture for MRSA. Pulmonary following -Will obtain brain MRI once pt is more stable, and plan for outpt PET CT to complete staging Discussed CT findings, concerns for metastatic disease, and plan of care with family.
--- NOTE | 2024-06-08 14:00 | PN ---
PROGRESS NOTE SUBJECTIVE: Status post bronchoscopy, Dr. Melgoza is currently trying to get him off the ventilator. He is on IV antibiotics. Pathology pending, stable. OBJECTIVE: VITAL SIGNS: Blood pressure 118/53, O2 97, FiO2 50, pulse 82, respiratory rate 20 to 24, and temperature 98.5. LUNGS: Scattered rhonchi. CARDIOVASCULAR: S1, S2. HEMATOLOGY: Negative for Homans. PSYCH: Fair mood and affect. GI: Soft. SKIN: Warm and dry. Sugars in mid 100s to 200, hemoglobin is 11, white count 7.9, BUN is 21, creatinine 1.45. Pretracheal lymphadenopathy, lung mass, status post biopsy respiratory distress, status post bronchoscopy. Wait for IV antibiotics for pneumonia, positive sputum culture, MRSA. Pulmonary rounding. Continue with broad-spectrum antibiotics. MRI of the brain. Metastatic workup. Await for pathology. Wean off the vent. MMODL / IJN: [id number] /
[2024-06-08 18:04] LABS: Glucose,Whole Blood 245 mg/dL (70-110)
[2024-06-08 19:44] LABS: Glucose,Whole Blood 225 mg/dL (70-110)
[2024-06-08] MEDS: FORMOTEROL FUMARATE 20 MCG/2 ML NEBU INHALATION SCH (20:01)
[2024-06-08] MEDS: BUDESONIDE 1 MG/2 ML NEBU INHALATION SCH (20:01)
[2024-06-08 22:13] LABS: African American GFR (CKD) 65 (>60 ml/min/1.73 sqM); Anion Gap 6 mmol/L; Blood Urea Nitrogen 26 mg/dL (9-20); Calcium 8.6 mg/dL (8.4-10.2); Carbon Dioxide 22 mmol/L (22-30); Chloride 110 mmol/L (98-107); Glucose 232 mg/dL (74-99); Non-African American GFR(CKD) 56 (>60 ml/min/1.73 sqM); Sodium 138 mmol/L (137-145)
[2024-06-08 23:28] LABS: Glucose,Whole Blood 241 mg/dL (70-110)
[2024-06-08] MEDS: VANCOMYCIN 1,500 MG in SODIUM CHLORIDE 0.9% 500 ML 500 ML IVPB SCH (23:54)
[2024-06-09 04:27] LABS: ABG Base Excess -0.5 mmol/L; ABG HCO3 25 mmol/L (21-25); ABG Oxygen Saturation 95.2 % (94-97); ABG PCO2 41 mmHg (35-45); ABG PH 7.39 (7.35-7.45); ABG PO2 76 mmHg (83-108); ABG TCO2 26 mmol/L (19-24); Allen Test Performed? Yes
[2024-06-09 05:26] LABS: Glucose,Whole Blood 207 mg/dL (70-110)
--- NOTE | 2024-06-09 06:56 | P.CONS ---
History of Present Illness - Reason for Consult Consult date: 06/08/24 Antibiotics Requesting physician: Jean-Pierre Lynne - Chief Complaint Increasing shortness of breath and cough on admission - History of Present Illness Patient is a 68-year-old male with a past medical history significant for diabetes mellitus and hypertension and apparently did have a lung mass that was found on a low-dose CT of the chest as surveillance for lung cancer presented to the hospital for evaluation of increasing shortness of breath and cough with the symptoms the patient has been evaluated patient was evaluated by oncology pulmonary and cardiology services patient did have a bronchoscopy with endobronchial washout and transbronchial biopsy completed on 06/03/2024 patient has been on the ventilator since his biopsy patient sputum culture finalized with MRSA prompted this infectious disease consultation. Patient did have a low-grade fever of 100.7 on 06/04/2024 otherwise the patient has been afebrile throughout his hospital stay, patient currently not tachycardic or hypotensive and is on 50% FiO2 patient did have some thick purulent secretion as reported by the nursing staff patient is currently hemodynamically stable not requiring any pressor support tolerating his tube feeds and no diarrhea has been reported patient did have elevated white count on 05/16/2021 and 06/06/2024 however the patient white count has normalized since then did have elevated BUN/creatinine though they are trending down liver isms are normal urine was mildly positive during this admission blood culture has been negative influenza RSV COVID testing has been negative patient did have multiple chest x-ray last x-ray this morning stable right-sided consolidation and effusion Review of Systems Positive points has been mentioned in HPI complete review could not be obtained because patient intubated on the vent Past Medical History Past Medical History: Diabetes Mellitus, Hypertension History of Any Multi-Drug Resistant Organisms: None Reported Past Surgical History: No Surgical Hx Reported Past Psychological History: No Psychological Hx Reported Smoking Status: Current every day smoker Past Alcohol Use History: None Reported Past Drug Use History: None Reported Medications and Allergies Home Medications Medication Instructions Recorded Confirmed Type Atorvastatin Calcium [Lipitor] 40 mg PO HS 06/01/24 06/01/24 History buPROPion XL [Wellbutrin XL] 150 mg PO DAILY 06/01/24 06/01/24 History glipiZIDE [Glucotrol] 5 mg PO BID 06/01/24 06/01/24 History metFORMIN HCL [Metformin HCl] 1,000 mg PO BID 06/01/24 06/01/24 History Allergies Allergy/AdvReac Type Severity Reaction Status Date / Time No Known Allergies Allergy Verified 06/01/24 14:32 Physical Exam Vitals: Vital Signs Temp Pulse Resp BP Pulse Ox FiO2 06/08/24 16:14 82 06/08/24 16:12 50 06/08/24 16:06 86 06/08/24 16:00 50 06/08/24 12:31 86 06/08/24 12:22 89 06/08/24 12:04 50 06/08/24 12:00 98.6 F 92 25 H 122/64 94 L 50 06/08/24 11:00 82 24 118/65 97 06/08/24 10:00 85 24 111/60 96 06/08/24 09:00 87 24 111/57 95 06/08/24 08:45 88 06/08/24 08:38 89 50 06/08/24 08:14 50 06/08/24 08:00 98.5 F 100 25 H 152/79 96 50 06/08/24 07:00 98.1 F 96 24 116/63 97 06/08/24 06:00 98.7 F 87 24 121/71 96 50 06/08/24 05:18 50 06/08/24 05:00 84 24 117/62 97 06/08/24 04:00 90 24 155/75 96 70 06/08/24 03:50 101 H 24 06/08/24 03:44 93 24 60 06/08/24 03:00 92 24 157/90 96 06/08/24 02:00 92 26 H 166/84 95 06/08/24 01:00 95 24 163/83 97 06/08/24 00:13 78 24 06/08/24 00:06 80 24 60 06/08/24 00:03 80 24 109/61 98 06/08/24 00:00 98.7 F 80 24 118/64 98 60 06/07/24 23:00 98.2 F 82 24 114/60 99 06/07/24 22:00 80 24 110/57 94 L 06/07/24 21:00 87 26 H 117/63 96 60 06/07/24 20:00 98.7 F 103 H 22 167/87 96 70 06/07/24 19:59 101 H 27 H 06/07/24 19:50 81 24 60 06/07/24 19:00 98 25 H 168/85 95 06/07/24 18:00 91 24 144/73 96 06/07/24 17:00 89 24 123/71 97 Intake and Output 06/08/24 06/08/24 06/08/24 06:59 14:59 22:59 Intake Total 0782.140 1685.421 Output Total 710 320 Balance 307.566 928.421 Intake: IV 600 1000 KVO 50 LR 600 450 Vancomycin 1,500 mg In 500 Sodium Chloride 0.9% 500 ml 500 ml @ 166.667 mls/ hr IVPB Q24H [facility] Rx#: [id number] Intake, IV Titration 167.566 98.421 Amount propofoL 1,000 mg In 167.566 98.421 Empty Bag 1 bag @ 15 MCG/ KG/MIN 7.757 mls/hr IV . [id number] [facility] Rx#:[id number] Tube Feeding 190 90 Other 60 60 Output: Urine 710 320 Other: Voiding Method Indwelling Catheter Indwelling Catheter Indwelling Catheter # Bowel Movements 0 Weight 89.8 kg GENERAL DESCRIPTION: Elderly male intubated on the vent HEENT: Shows Pallor , no scleral icterus. Oral mucous membrane is dry. NECK: Trachea central, no thyromegaly. LUNGS: Unlabored breathing. Decreased breath sounds at the base HEART: S1, S2, regular rate and rhythm. No loud murmur ABDOMEN: Soft, no tenderness , guarding or rigidity, no organomegaly EXTREMITIES: No edema of feet. SKIN: No rash, no masses palpable. NEUROLOGICAL: The patient is sedated on the vent Results CBC & Chem 7: 06/08/24 04:09 06/08/24 21:26 Labs: Abnormal Lab Results - Last 24 Hours (Table) 06/07/24 06/07/24 06/07/24 Range/Units 17:55 20:07 23:03 Hgb (13.0-17.5) gm/dL Hct (39.0-53.0) % MCV (80.0-100.0) fL MCH (25.0-35.0) pg MCHC (31.0-37.0) g/dL Lymphocytes # (1.0-4.8) k/uL ABG Total CO2 (19-24) mmol/L ABG O2 Saturation (94-97) % Chloride (98-107) mmol/L Carbon Dioxide (22-30) mmol/L BUN (9-20) mg/dL Creatinine (0.66-1.25) mg/dL Glucose (74-99) mg/dL POC Glucose (mg/dL) 162 H 147 H 159 H (70-110) mg/dL 06/08/24 06/08/24 06/08/24 Range/Units 03:57 04:09 04:09 Hgb 10.0 L (13.0-17.5) gm/dL Hct 32.6 L (39.0-53.0) % MCV 72.4 L (80.0-100.0) fL MCH 22.3 L (25.0-35.0) pg MCHC 30.8 L (31.0-37.0) g/dL Lymphocytes # 0.5 L (1.0-4.8) k/uL ABG Total CO2 (19-24) mmol/L ABG O2 Saturation (94-97) % Chloride 110 H (98-107) mmol/L Carbon Dioxide 21 L (22-30) mmol/L BUN 21 H (9-20) mg/dL Creatinine 1.45 H (0.66-1.25) mg/dL Glucose 134 H (74-99) mg/dL POC Glucose (mg/dL) 138 H (70-110) mg/dL 06/08/24 06/08/24 06/08/24 Range/Units 05:05 08:01 11:45 Hgb (13.0-17.5) gm/dL Hct (39.0-53.0) % MCV (80.0-100.0) fL MCH (25.0-35.0) pg MCHC (31.0-37.0) g/dL Lymphocytes # (1.0-4.8) k/uL ABG Total CO2 26 H (19-24) mmol/L ABG O2 Saturation 98.5 H (94-97) % Chloride (98-107) mmol/L Carbon Dioxide (22-30) mmol/L BUN (9-20) mg/dL Creatinine (0.66-1.25) mg/dL Glucose (74-99) mg/dL POC Glucose (mg/dL) 160 H 201 H (70-110) mg/dL Microbiology - Last 24 Hours (Table) 06/04/24 11:35 Blood Culture - Preliminary Blood Assessment and Plan (1) Pneumonia Current Visit: Yes Status: Acute Code(s): J18.9 - PNEUMONIA, UNSPECIFIED ORGANISM SNOMED Code(s): 558605511 (2) MRSA (methicillin resistant Staphylococcus aureus) infection Current Visit: Yes Status: Acute Code(s): A49.02 - METHICILLIN RESIS STAPH INFECTION, UNSP SITE SNOMED Code(s): 708260010 Plan: 1patient presented to hospital with abnormal CT in the outpatient setting and also having increasing shortness of breath and cough in this patient who is status post bronchoscopy and biopsy of the sputum now showing MRSA likely concerning for component of MRSA pneumonia. 2mild renal insufficiency high risk of nephrotoxicity. 3vancomycin pharmacy to dose target trough of 15 while watching kidney functio n and Vanco trough closely. We will follow on clinical condition and cultures to further adjust medication if needed Thank you for this consultation we will follow the patient along with you Dictation was produced using [email or web address] dictation software. please excuse any grammatical, word or spelling errors. Time with Patient: Greater than 30
[2024-06-09 06:57] LABS: Basophils % (A) 0 %; Eosinophils % (A) 0 %; HGB 10.7 gm/dL (13.0-17.5); Hypochromasia Marked; Lymphocytes # (A) 0.5 k/uL (1.0-4.8); Lymphocytes % (A) 5 %; MCH 22.6 pg (25.0-35.0); MCHC 30.6 g/dL (31.0-37.0); MCV 73.6 fL (80.0-100.0); Mean Platelet Volume 7.8; Microcytosis Slight; Monocytes % (A) 11 %; Neutrophils # (A) 8.1 k/uL (1.3-7.7); Neutrophils % (A) 82 %; Platelet Count 406 k/uL (150-450); RBC 4.75 m/uL (4.30-5.90); RDW 15.5 % (11.5-15.5); WBC 9.9 k/uL (3.8-10.6)
[2024-06-09 07:12] LABS: African American GFR (CKD) 69 (>60 ml/min/1.73 sqM); Anion Gap 8 mmol/L; Blood Urea Nitrogen 29 mg/dL (9-20); Calcium 8.8 mg/dL (8.4-10.2); Carbon Dioxide 22 mmol/L (22-30); Chloride 110 mmol/L (98-107); Glucose 230 mg/dL (74-99); Non-African American GFR(CKD) 60 (>60 ml/min/1.73 sqM); Potassium 4.8 mmol/L (3.5-5.1); Sodium 140 mmol/L (137-145)
--- NOTE | 2024-06-09 07:43 | XR ---
EXAMINATION TYPE: XR chest 1V portable DATE OF EXAM: 06/09/2024 COMPARISON: 06/08/2024 HISTORY: Shortness of breath TECHNIQUE: Single frontal view of the chest is obtained. FINDINGS: ET tube and NG tube stable. There is right-sided consolidation is unchanged underlying [employer] D. No pneumothorax. Arthropathy of the shoulders. Degenerative change of the spine. IMPRESSION: Stable right-sided consolidation and pleural effusion.
[2024-06-09 11:34] LABS: Glucose,Whole Blood 239 mg/dL (70-110)
--- NOTE | 2024-06-09 12:06 | P.PN ---
Subjective Progress Note Date: 06/09/24 Patient remains in the ICU, intubated and on sedation. Currently trying to wean off vent. Continues on IV abx, afebrile. Counts stable Objective - Vital Signs Vital signs: Vital Signs Temp 98.2 F 06/09/24 04:00 Pulse 76 06/09/24 08:46 Resp 24 06/09/24 07:00 BP 132/68 06/09/24 07:00 Pulse Ox 94 L 06/09/24 07:00 FiO2 50 06/09/24 11:13 Intake & Output 06/08/24 06/09/24 06/09/24 18:59 06:59 18:59 Intake Total 2008.421 1942.358 205 Output Total 635 795 75 Balance 2018.371 1564.358 130 Weight 89.8 kg Intake: IV 1510 1500 85 KVO 110 100 10 LR 900 900 75 Vancomycin 1,500 mg In 500 500 Sodium Chloride 0.9% 500 ml 500 ml @ 166.667 mls/ hr IVPB Q24H [facility] Rx#: [id number] Intake, IV Titration 198.421 202.358 100 Amount propofoL 1,000 mg In 198.421 202.358 100 Empty Bag 1 bag @ 15 MCG/ KG/MIN 7.757 mls/hr IV . [id number] [facility] Rx#:[id number] Tube Feeding 210 240 20 Other 90 Output: Urine 635 795 75 Other: Voiding Method Indwelling Catheter Indwelling Catheter # Bowel Movements 1 - Constitutional General appearance: Present: no acute distress - Respiratory Details: ventilated breath sounds - Cardiovascular Details: skin warm and dry - Neurologic Neurologic Comment(s): sedated - Labs CBC & Chem 7: 06/09/24 05:49 06/09/24 05:49 Labs: Abnormal Lab Results - Last 24 Hours (Table) 06/08/24 06/08/24 06/08/24 Range/Units 11:45 18:03 19:43 Hgb (13.0-17.5) gm/dL Hct (39.0-53.0) % MCV (80.0-100.0) fL MCH (25.0-35.0) pg MCHC (31.0-37.0) g/dL Neutrophils # (1.3-7.7) k/uL Lymphocytes # (1.0-4.8) k/uL ABG pO2 (83-108) mmHg ABG Total CO2 (19-24) mmol/L Chloride (98-107) mmol/L BUN (9-20) mg/dL Creatinine (0.66-1.25) mg/dL Glucose (74-99) mg/dL POC Glucose (mg/dL) 201 H 245 H 225 H (70-110) mg/dL 06/08/24 06/08/24 06/09/24 Range/Units 21:26 23:27 04:20 Hgb (13.0-17.5) gm/dL Hct (39.0-53.0) % MCV (80.0-100.0) fL MCH (25.0-35.0) pg MCHC (31.0-37.0) g/dL Neutrophils # (1.3-7.7) k/uL Lymphocytes # (1.0-4.8) k/uL ABG pO2 76 L (83-108) mmHg ABG Total CO2 26 H (19-24) mmol/L Chloride 110 H (98-107) mmol/L BUN 26 H (9-20) mg/dL Creatinine 1.32 H (0.66-1.25) mg/dL Glucose 232 H (74-99) mg/dL POC Glucose (mg/dL) 241 H (70-110) mg/dL 06/09/24 06/09/24 06/09/24 Range/Units 05:25 05:49 05:49 Hgb 10.7 L (13.0-17.5) gm/dL Hct 35.0 L (39.0-53.0) % MCV 73.6 L (80.0-100.0) fL MCH 22.6 L (25.0-35.0) pg MCHC 30.6 L (31.0-37.0) g/dL Neutrophils # 8.1 H (1.3-7.7) k/uL Lymphocytes # 0.5 L (1.0-4.8) k/uL ABG pO2 (83-108) mmHg ABG Total CO2 (19-24) mmol/L Chloride 110 H (98-107) mmol/L BUN 29 H (9-20) mg/dL Creatinine (0.66-1.25) mg/dL Glucose 230 H (74-99) mg/dL POC Glucose (mg/dL) 207 H (70-110) mg/dL - Imaging and Cardiology Chest x-ray: report reviewed Assessment and Plan (1) Lung mass Current Visit: Yes Status: Acute Priority: High Code(s): R91.8 - OTHER NONSPECIFIC ABNORMAL FINDING OF LUNG FIELD SNOMED Code(s): 062457470 (2) Paratracheal lymphadenopathy Current Visit: Yes Status: Acute Priority: High Code(s): R59.0 - LOCALIZED ENLARGED LYMPH NODES SNOMED Code(s): 95087567 Plan: Lung mass, mediastinal LAD, liver lesion: Presented with progressing SOB x 1 month. Reports 30 lb unintentional weight loss over last 6 months. History of heavy nicotine use, smoking approx 2 packs x 50 years -On admission CT chest with contrast showed posterior right lung mass measuring 3.4 x 4.6 cm with additional punctate nodularity and increased linear markings within the right lung. Multiple markedly enlarged mediastinal adenopathy noted. Hypodense lesion within the liver measuring 3.5 x 3.0 cm -S/p bronchoscopy. RUL brushings and lavage were non-diagnostic of malignancy. Awaiting RUL lung biopsy results -After bronch, pt developed resp distress, requiring re-intubation and was transferred to ICU. Currently trying to wean off vent. Continues on IV abx for pneumonia, positive sputum culture for MRSA. Pulmonary following -Will obtain brain MRI once pt is more stable, and plan for outpt PET CT to complete staging Family updated on findings and test results, as stated above. All questions concerns were answered
--- NOTE | 2024-06-09 12:07 | P.PN ---
Subjective Progress Note Date: 06/09/24 Principal diagnosis: Abnormal chest x-ray/CT scan. Patient is a 68-year-old white male with past medical history significant for significant diabetes mellitus, hyperlipidemia, current everyday smoker. He just recently became established with a new PCP, Dr. Villarreal. He does have a significant smoking history smoking approximately 1 to 2 packs/day for almost 50 years. He is currently retired, worked [employer] for most of his life. Denies ever being diagnosed with COPD. Does report exertional dyspnea such as walking out to the mailbox and back. He reports intermittent chronic cough, with minimal sputum production. Note that the patient has had a 30 pound weight loss over the past 6 months. He is also reported increased throat fullness and difficulty breathing when he turns his head. He went to [facility] yesterday for evaluation. Reportedly the CT of his chest done, however, he presents here without any imaging. Reportedly had enlarged paratracheal lymph nodes and a large lung mass. He was discharged home, went to see his PCP, who directed him to our facility. We are working on requesting these images. Patient is currently sitting at the edge of the bed, on room air, in no acute distress. He denies any infectious-like symptoms. No fevers. Cough is chronic, intermittent, and mostly nonproductive. No chest congestion. No hemoptysis. No palpable neck masses. No observable stridor. CBC unremarkable without leukocytosis. Electrolytes unremarkable. Glucose is 416. Lactic acid 2. Normal saline infusing at 130 MLS per hour. Troponin less than 0.012. NT proBNP low. COVID-negative. He is tachycardic. Otherwise, hemodynamically stable. The patient is seen today 06/03/2024 in follow-up on the regular medical floor. He is awake and alert in no acute distress. He is maintaining good O2 saturations in the 90s on room air. No IV fluids. Glucose 280.he remains on DuoNeb inhalations. He denies any worsening shortness of breath, cough or congestion. No hemoptysis. Plan is for bronchoscopy with biopsies today. Progress note dated June 04, 2024. The patient underwent bronchoscopy yesterday, because of an abnormality noted in his right upper lobe, and he had biopsies brushings washes, etc. Everything went well during the procedure. He had general endotracheal anesthesia (GETA), and, was extubated. Apparently sometime shortly after extubation, he was noted to have some respiratory issues, and was reintubated by the [facility]. The patient was transferred to the intensive care unit for further monitoring and management. The patient remains on mechanical ventilator. Currently he is on volume assist-control, rate 20, tidal volume 500, FiO2 65%, PEEP of 8. Blood gases show pO2 114, pCO2 42, pH is 7.30. The patient is on propofol at 50 mcg/kg/min, LR at 75 cc an hour, saline at KVO. Tube feedings have not yet been started. The bronchoscopy was done on June 03. The patient will be placed on dexmedetomidine, and will attempt a weaning trial with pressure support and CPAP, 8 and 5 respectively. He will also get a nicotine patch as he was smoking up until the time he came to the hospital. Current labs include a white count 10.6, hemoglobin 9.9, hematocrit 39.2, and a normal platelet count. Sodium 137, potassium 5.1, chlorides 110, CO2 18, BUN 22, creatinine 1.47. Glucose is 173. Calcium is 8.9. Bronchoscopy washings are pending. The patient's chest x-ray shows a right-sided pleural effusion. Progress note dated June 05, 2024. 68-year-old male status post bronchoscopy and biopsy of the right upper lobe. The patient developed respiratory distress after the procedure, required reintubation. He remains on the mechanical ventilator. He is currently on volume assist-control, rate 20, to be increased to 24, tidal volume 500, FiO2 of 65%, PEEP of 8. Blood gases show pO2 of 80, pCO2 47, pH of 7.26. The patient is on propofol at 65 mcg/kg/min, LR at 75 cc an hour, norepinephrine 6 mcg/min, and fentanyl at 1 mcg/kg/h. The patient's vital high-protein is running at 5 to 10 cc an hour, but will be increased to goal. White count 13.7, hemoglobin 11.4, hematocrit 37.6, platelet count 285,000. Sodium 137, potassium 4.8, chlorides 110, CO2 19, BUN 25, and creatinine 1.97. Glucose is 186. Albumin 2.8. Cultures are negative. Chest x-ray shows an endotracheal tube which should be advanced a couple centimeters. There is blunting of the right costophrenic angle, with associated atelectasis or infiltrate. Progress note dated June 06, 2024. 68-year-old male seen today in room 257. He remains on mechanical ventilation. He is on volume assist-control, rate 24, tidal volume 500, FiO2 65%, PEEP of 8. Blood gases show pO2 of 68, pCO2 44, pH of 7.31. Patient is on propofol at 45 mcg/kg/min, LR at 75 cc an hour, norepinephrine at 6 mcg/min and fentanyl 0.5 mcg/kg/h. The patient is getting saline at KVO, and vital high-protein at 20 cc an hour. The patient is currently on Rocephin. He will get a dose of vancomycin, 1 g x 1, for suspected staph in the sputum. Current labs include a white count 14, hemoglobin 10.9, hematocrit 36, platelet count 275,000. Sodium 137, potassium 4.6, chlorides 110, CO2 19, BUN 23, creatinine 1.82. Glucose is 159. Calcium 8.5, magnesium 1.9. The sputum has been further identified as being positive for methicillin-resistant Staph aureus. Chest x-ray shows stable infiltrate and pleural effusion, on the right side. Bronchoscopy specimens are still pending. Progress note dated June 07, 2024. 68-year-old male seen today in 257. The patient remains on mechanical ventilation. Settings include volume assist-control, rate 24, tidal volume 500, FiO2 70%, PEEP of 8. Blood gases show pO2 of 72, pCO2 43, and a pH of 7.33. The patient is on propofol at 50 mcg/kg/min, lactated Ringer's at 75 cc an hour, and Glucerna at 10 cc an hour, with a goal of 40. Norepinephrine is off. Sputum is revealing evidence of methicillin-resistant Staph aureus. He continues on vancomycin. Rocephin will be discontinued. We have Lasix 40 mg IV push. We will wean the FiO2, as long as saturations are 90%. Currently, white count 9.9, hemoglobin 10.5, hematocrit 34.1, platelet count is normal. Sodium 138, potassium 4.8, chlorides 110, CO2 20, BUN 24, creatinine 1.61. Glucose is 206. Calcium is 8.6. Sputum Gram stain from June 04 shows methicillin- resistant Staph aureus. Chest x-ray shows some infiltrate, atelectasis, and effusion, in the right lower lobe. Progress note dated June 08, 2024. 68-year-old male seen today in room 257. He remains on mechanical ventilation. Ventilator settings include assist-control, rate 24, tidal volume 500, FiO2 50%, PEEP of 8. Blood gases show pO2 104, pCO2 41, pH is 7.38. The patient is on propofol at 40 mcg/kg/min, lactated Ringer's at 75 cc an hour, and Glucerna at goal, which is 40 cc an hour. Patient is on vancomycin for methicillin- resistant Staph aureus and the patient's sputum. His peak airway pressures 34. His Plateau pressure is 19. We had Solu-Medrol, budesonide 1 mg, and formoterol 20 mcg, twice a day. Current labs include a white count 7.9, hemoglobin 10, hematocrit 32.6, and platelet count is normal. Sodium 139, potassium 3.7, chlorides 110, CO2 21, BUN 21, and creatinine 1.45. Glucose is 160. Sputum reveals evidence of methicillin-resistant Staph aureus. The patient remains on vancomycin. Chest x-ray shows a consolidation, in the right lung base. Progress note dated June 09, 2024. Patient is a 68-year-old male seen today in the ICU. He remains on mechanical ventilation. Ventilator settings include assist-control 24, tidal volume 5066, FiO2 50% and PEEP of 8. Blood gases show pO2 76, pCO2 41, pH 7.39. Patient is on propofol at 35 mcg/kg/min, lactated Ringer at 75 mill per hour, normal saline at 10 ml/h Glucerna at 20 with a goal of 40. Dietary recommended glucerna at 20 because the patient had high residuals. Continue vancomycin for MRSA in the patient's sputum. He is peak airway pressure today was 29, plateau pressure was 24, His airway resistance seemed to have improved with Solu-Medrol, budesonide 1 mg and formoterol 20 mcg twice a day. Current labs include WBC 9.9, hemoglobin 10.7, platelets 406, sodium 140, potassium 4.8,chloride 110, BUN 29, creatinine 1.25 and glucose 230. Chest x-ray shows stable right-sided consolidation and pleural effusion. We will try daily interruption of sedation today. Gram stain, culture, acid-fast bacilli in bronchoalveolar lavage are negative Objective - Vital Signs Vital signs: Vital Signs Temp 98.0 F 06/09/24 08:00 Pulse 75 06/09/24 11:26 Resp 24 06/09/24 11:00 BP 146/77 06/09/24 11:00 Pulse Ox 94 L 06/09/24 11:00 FiO2 50 06/09/24 11:13 Intake & Output 06/08/24 06/09/24 06/09/24 18:59 06:59 18:59 Intake Total 2008.421 1942.358 655 Output Total 635 795 390 Balance 7823.699 4065.358 265 Weight 89.8 kg Intake: IV 1510 1500 425 KVO 110 100 50 LR 900 900 375 Vancomycin 1,500 mg In 500 500 Sodium Chloride 0.9% 500 ml 500 ml @ 166.667 mls/ hr IVPB Q24H MANUEL Rx#: [id number] Intake, IV Titration 198.421 202.358 100 Amount propofoL 1,000 mg In 198.421 202.358 100 Empty Bag 1 bag @ 15 MCG/ KG/MIN 7.757 mls/hr IV . [id number] MANUEL Rx#:[id number] Tube Feeding 210 240 100 Other 90 30 Output: Urine 635 795 390 Other: Voiding Method Indwelling Catheter Indwelling Catheter # Bowel Movements 1 - Exam No acute distress, patient on propofol, with an orally placed endotracheal tube and on mechanical ventilator. HEENT examination is grossly unremarkable. Neck supple. Full range of motion. No adenopathy thyromegaly or neck vein distention. Cardiovascular examination reveals regular rhythm rate. S1-S2 normal. No S3 or S4. No discernible murmur noted. Lungs reveal diffuse bilateral rhonchi. No wheezes or crackles. Breath sounds equal.. Abdomen soft bowel sounds are heard. No masses or tenderness. Extremities are intact. No cyanosis clubbing or edema. Skin is without rash or lesion. Neurologic examination cannot be assessed at this time. - Labs CBC & Chem 7: 06/09/24 05:49 06/09/24 05:49 Labs: Abnormal Lab Results - Last 24 Hours (Table) 06/08/24 06/08/24 06/08/24 Range/Units 11:45 18:03 19:43 Hgb (13.0-17.5) gm/dL Hct (39.0-53.0) % MCV (80.0-100.0) fL MCH (25.0-35.0) pg MCHC (31.0-37.0) g/dL Neutrophils # (1.3-7.7) k/uL Lymphocytes # (1.0-4.8) k/uL ABG pO2 (83-108) mmHg ABG Total CO2 (19-24) mmol/L Chloride (98-107) mmol/L BUN (9-20) mg/dL Creatinine (0.66-1.25) mg/dL Glucose (74-99) mg/dL POC Glucose (mg/dL) 201 H 245 H 225 H (70-110) mg/dL 06/08/24 06/08/24 06/09/24 Range/Units 21:26 23:27 04:20 Hgb (13.0-17.5) gm/dL Hct (39.0-53.0) % MCV (80.0-100.0) fL MCH (25.0-35.0) pg MCHC (31.0-37.0) g/dL Neutrophils # (1.3-7.7) k/uL Lymphocytes # (1.0-4.8) k/uL ABG pO2 76 L (83-108) mmHg ABG Total CO2 26 H (19-24) mmol/L Chloride 110 H (98-107) mmol/L BUN 26 H (9-20) mg/dL Creatinine 1.32 H (0.66-1.25) mg/dL Glucose 232 H (74-99) mg/dL POC Glucose (mg/dL) 241 H (70-110) mg/dL 06/09/24 06/09/24 06/09/24 Range/Units 05:25 05:49 05:49 Hgb 10.7 L (13.0-17.5) gm/dL Hct 35.0 L (39.0-53.0) % MCV 73.6 L (80.0-100.0) fL MCH 22.6 L (25.0-35.0) pg MCHC 30.6 L (31.0-37.0) g/dL Neutrophils # 8.1 H (1.3-7.7) k/uL Lymphocytes # 0.5 L (1.0-4.8) k/uL ABG pO2 (83-108) mmHg ABG Total CO2 (19-24) mmol/L Chloride 110 H (98-107) mmol/L BUN 29 H (9-20) mg/dL Creatinine (0.66-1.25) mg/dL Glucose 230 H (74-99) mg/dL POC Glucose (mg/dL) 207 H (70-110) mg/dL 06/09/24 Range/Units 11:32 Hgb (13.0-17.5) gm/dL Hct (39.0-53.0) % MCV (80.0-100.0) fL MCH (25.0-35.0) pg MCHC (31.0-37.0) g/dL Neutrophils # (1.3-7.7) k/uL Lymphocytes # (1.0-4.8) k/uL ABG pO2 (83-108) mmHg ABG Total CO2 (19-24) mmol/L Chloride (98-107) mmol/L BUN (9-20) mg/dL Creatinine (0.66-1.25) mg/dL Glucose (74-99) mg/dL POC Glucose (mg/dL) 239 H (70-110) mg/dL Assessment and Plan Assessment: Acute respiratory failure, following bronchoscopy, of unclear etiology. The patient had an uneventful procedure, and was stable throughout the procedure. He apparently had some respiratory distress, in the operating room, after extubation. S/P intubation and mechanical ventilation, June 03, 2024. Status post bronchoscopy and biopsies, right upper lobe, June 03, 2024. Methicillin-resistant Staphylococcus aureus pneumonia, right lower lobe. Lung mass, right upper lobe. Unintentional 30 pound weight loss. Chronic and ongoing tobacco dependence. Probable COPD. Diabetes mellitus, type II. History of hyperlipidemia. Plan: Plan dated June 04, 2024. The patient had an unexpected complication after bronchoscopy with general anesthesia. The patient was completely stable throughout the procedure. There was no pneumothorax after the procedure. For some reason, after extubation, the patient apparently developed some respiratory difficulty, and it was felt by anesthesia that the patient should be intubated. The patient was transferred to the intensive care unit for further monitoring and management. Currently, the patient is on propofol at 50 mcg/kg/min and lactated Ringer's at 75 cc an hour. Blood gases show pO2 of 114, pCO2 42, and a pH of 7.30. The patient has been given a nicotine patch, 21 mg. In addition, we will get the patient on some dexmedetomidine, to see if we can wean him from mechanical ventilation. Labs, x-rays, and all medications are reviewed. Plan dated June 05, 2024. The patient is currently still on the mechanical ventilator. The patient continues on propofol, norepinephrine, and fentanyl. He is also getting lactated Ringer's at 75 cc an hour. Will increase the rate on the ventilator from 20-24. Vital high-protein will be increased to goal. Labs, x-rays, medications are reviewed. The patient was started on ceftriaxone empirically. Procalcitonin level was 0.30 yesterday. We will continue to follow make recommendations along the way. Biopsy results currently are still pending. Plan dated June 06, 2024. The patient will be started on vancomycin, for methicillin-resistant Staph aureus, in the sputum. Labs, x-rays, and all medications are reviewed. The patient's blood gases are reviewed. Ventilator settings are appropriate. The patient remains on propofol at 45 mcg/kg/min, lactated Ringer's at 75 cc an hour, norepinephrine at 6 mcg/min, and fentanyl at 0.5 mcg/kg/h. The patient is getting saline at KVO, and vital high-protein at 20 cc an hour. The patient is currently on Rocephin. Vancomycin is added. We will continue to follow, and make recommendations along the way. Prognosis is certainly guarded. Plan dated June 07, 2024. 68-year-old male seen today in room 257. He continues on mechanical ventilation. There was methicillin-resistant Staph aureus in the sputum. He continues on vancomycin. Rocephin will be discontinued. Will give him Lasix 40 mg IV push. Will wean the FiO2 his lungs and saturations are 90% or higher. The endotracheal tube will be pushed down 2 cm. He has been weaned off of norepinephrine. He continues on Glucerna. Labs, x-rays, medications are reviewed. The patient is overall prognosis remains guarded. Biopsies from the other day, still pending. Plan dated June 08, 2024. Bronchoscopy specimens, still currently pending on this patient. The patient is seen today in room 257. He remains on the ventilator. Currently he is on propofol at 40 mcg/kg/min, lactated Ringer's at 75 cc an hour, and Glucerna at goal. The patient is on vancomycin for methicillin-resistant Staph aureus pulmonary infection. The patient's peak airway pressure is 34 cm of water. The Plateau pressure is 19 cm of water. The peak to plateau difference suggest increasing airways resistance. The patient is placed on budesonide, formoterol, and Solu-Medrol. We will continue to follow the patient, make recommendations. Prognosis is guarded. Labs, x-rays, and all medications are reviewed. Plan dated June 09, 2024. Bronchoscopy specimens show negative gram stain, culture and AFB smear. The patient is seen today in room 257. He remains on the ventilator. Currently he is on propofol at 35 mcg/kg/min, lactated Ringer's at 75 cc an hour,normal saline at 10ml/hr and Glucerna 20 with goal of 40. The patient is on vancomycin for methicillin-resistant Staph aureus pulmonary infection. The patient's peak airway pressure is 29 cm of water. The Plateau pressure is 24 cm of water. The airways resistance has improved. The patient is on budesonide, formoterol, and Solu-Medrol. We will continue to follow the patient, make recommendations. Prognosis is guarded. Labs, x-rays, and all medications are reviewed. Critical care time is 35 minutes. Time with Patient: Greater than 30
--- NOTE | 2024-06-09 15:03 | P.PN ---
Subjective Progress Note Date: 06/09/24 Principal diagnosis: Reason for follow-up is MRSA pneumonia Patient is a 68-year-old male with a past medical history significant for diabetes mellitus and hypertension smoking recent diagnosis of lung mass status post bronchoscopy subsequently respiratory failure requiring intubation sputum positive for MRSA prompting this consultation. On today's evaluation that is 06/09/2024 the patient has been afebrile patient remains to be on the ventilator FiO2 currently at 50% still have some thick secretions through the ET patient is hemodynamically stable not requiring any pressor support no diarrhea has been reported. Patient white count normalized to 9.9 creatinine is 1.25 blood cultures pending Objective - Vital Signs Vital signs: Vital Signs Temp 98.1 F 06/09/24 12:00 Pulse 92 06/09/24 14:00 Resp 24 06/09/24 14:00 BP 150/77 06/09/24 14:00 Pulse Ox 94 L 06/09/24 14:00 FiO2 50 06/09/24 12:00 Intake & Output 06/08/24 06/09/24 06/09/24 18:59 06:59 18:59 Intake Total 2008.421 0949.304 3348.321 Output Total 635 795 680 Balance 9703.133 3921.358 510.321 Weight 89.8 kg 89.8 kg Intake: IV 1510 1500 765 KVO 110 100 90 LR 900 900 675 Vancomycin 1,500 mg In 500 500 Sodium Chloride 0.9% 500 ml 500 ml @ 166.667 mls/ hr IVPB Q24H [facility] Rx#: [id number] Intake, IV Titration 198.421 202.358 185.321 Amount propofoL 1,000 mg In 198.421 202.358 185.321 Empty Bag 1 bag @ 15 MCG/ KG/MIN 7.757 mls/hr IV . [id number] [facility] Rx#:[id number] Tube Feeding 210 240 180 Other 90 60 Output: Urine 635 795 680 Other: Voiding Method Indwelling Catheter Indwelling Catheter Indwelling Catheter # Bowel Movements 1 - Exam GENERAL DESCRIPTION: An elderly male intubated on the vent RESPIRATORY SYSTEM: Unlabored breathing , decreased breath sounds at bases HEART: S1 S2 regular rate and rhythm , ABDOMEN: Soft , no tenderness EXTREMITIES: No edema feet - Labs CBC & Chem 7: 06/09/24 05:49 06/09/24 05:49 Labs: Abnormal Lab Results - Last 24 Hours (Table) 06/08/24 06/08/24 06/08/24 Range/Units 18:03 19:43 21:26 Hgb (13.0-17.5) gm/dL Hct (39.0-53.0) % MCV (80.0-100.0) fL MCH (25.0-35.0) pg MCHC (31.0-37.0) g/dL Neutrophils # (1.3-7.7) k/uL Lymphocytes # (1.0-4.8) k/uL ABG pO2 (83-108) mmHg ABG Total CO2 (19-24) mmol/L Chloride 110 H (98-107) mmol/L BUN 26 H (9-20) mg/dL Creatinine 1.32 H (0.66-1.25) mg/dL Glucose 232 H (74-99) mg/dL POC Glucose (mg/dL) 245 H 225 H (70-110) mg/dL 06/08/24 06/09/24 06/09/24 Range/Units 23:27 04:20 05:25 Hgb (13.0-17.5) gm/dL Hct (39.0-53.0) % MCV (80.0-100.0) fL MCH (25.0-35.0) pg MCHC (31.0-37.0) g/dL Neutrophils # (1.3-7.7) k/uL Lymphocytes # (1.0-4.8) k/uL ABG pO2 76 L (83-108) mmHg ABG Total CO2 26 H (19-24) mmol/L Chloride (98-107) mmol/L BUN (9-20) mg/dL Creatinine (0.66-1.25) mg/dL Glucose (74-99) mg/dL POC Glucose (mg/dL) 241 H 207 H (70-110) mg/dL 06/09/24 06/09/24 06/09/24 Range/Units 05:49 05:49 11:32 Hgb 10.7 L (13.0-17.5) gm/dL Hct 35.0 L (39.0-53.0) % MCV 73.6 L (80.0-100.0) fL MCH 22.6 L (25.0-35.0) pg MCHC 30.6 L (31.0-37.0) g/dL Neutrophils # 8.1 H (1.3-7.7) k/uL Lymphocytes # 0.5 L (1.0-4.8) k/uL ABG pO2 (83-108) mmHg ABG Total CO2 (19-24) mmol/L Chloride 110 H (98-107) mmol/L BUN 29 H (9-20) mg/dL Creatinine (0.66-1.25) mg/dL Glucose 230 H (74-99) mg/dL POC Glucose (mg/dL) 239 H (70-110) mg/dL Assessment and Plan (1) Pneumonia Current Visit: Yes Status: Acute Code(s): J18.9 - PNEUMONIA, UNSPECIFIED ORGANISM SNOMED Code(s): 983078415 (2) MRSA (methicillin resistant Staphylococcus aureus) infection Current Visit: Yes Status: Acute Code(s): A49.02 - METHICILLIN RESIS STAPH INFECTION, UNSP SITE SNOMED Code(s): 496075817 Plan: 1patient presented to hospital with abnormal CT in the outpatient setting and also having increasing shortness of breath and cough in this patient who is status post bronchoscopy and biopsy of the sputum culture grew MRSA likely concerning for component of MRSA pneumonia. 2patient to continue with vancomycin pharmacy to dose target trough of 15 while watching kidney function and Vanco trough closely. Family at the bedside questions were answered Dictation was produced using [employer] dictation software. please excuse any grammatical, word or spelling errors. Time with Patient: Less than 30
[2024-06-09 18:01] LABS: Glucose,Whole Blood 267 mg/dL (70-110)
[2024-06-09 22:51] LABS: Glucose,Whole Blood 283 mg/dL (70-110)
--- NOTE | 2024-06-10 01:33 | PN ---
PROGRESS NOTE SUBJECTIVE: The patient got lactated Ringer's at 75 an hour, is on a mechanical ventilator. Resting comfortably. He has MRSA in the sputum, is on vancomycin. Prognosis is guarded. He is on vancomycin for MRSA Solu-Medrol and Bumex with desonide, formoterol, glucose 230. Chest x-ray shows stable right consolidation. OBJECTIVE: VITAL SIGNS: Blood pressure 146/77, O2 94, pulse 75, respiratory rate 20 to 24, and temp 98. HEENT: Normocephalic, atraumatic. CARDIOVASCULAR: S1, S2. LUNGS: Transmitted upper sounds. GI: Soft. HEMATOLOGY: Negative for Homans. ASSESSMENT AND PLAN: Acute respiratory failure following bronchoscopy, waiting for pathology, status post intubation, MRSA, lung mass, nicotine addiction. Wean off ventilator as tolerated. Continue with antibiotics. Vancomycin, propofol, Glucerna, saline, budesonide, formoterol, Solu-Medrol. Prognosis guarded. MMODL / IJN: [id number] /
[2024-06-10 04:38] LABS: ABG Base Excess 0.6 mmol/L; ABG HCO3 25 mmol/L (21-25); ABG Oxygen Saturation 93.2 % (94-97); ABG PCO2 38 mmHg (35-45); ABG PH 7.43 (7.35-7.45); ABG PO2 65 mmHg (83-108); ABG TCO2 26 mmol/L (19-24); Allen Test Performed? Yes
[2024-06-10 05:28] LABS: Glucose,Whole Blood 334 mg/dL (70-110)
[2024-06-10 05:59] LABS: Basophils % (A) 0 %; Eosinophils # (A) 0.1 k/uL (0-0.7); Eosinophils % (A) 1 %; HCT 36.9 % (39.0-53.0); HGB 11.4 gm/dL (13.0-17.5); Hypochromasia Marked; Lymphocytes # (A) 0.5 k/uL (1.0-4.8); Lymphocytes % (A) 5 %; MCH 22.5 pg (25.0-35.0); MCHC 30.8 g/dL (31.0-37.0); MCV 73.2 fL (80.0-100.0); Mean Platelet Volume 6.9; Microcytosis Slight; Monocytes # (A) 0.6 k/uL (0-1.0); Monocytes % (A) 7 %; Neutrophils # (A) 7.6 k/uL (1.3-7.7); Neutrophils % (A) 85 %; Platelet Count 425 k/uL (150-450); RBC 5.04 m/uL (4.30-5.90); RDW 15.4 % (11.5-15.5)
[2024-06-10 06:12] LABS: ALT 21 U/L (4-49); AST 32 U/L (17-59); African American GFR (CKD) 78 (>60 ml/min/1.73 sqM); Albumin 2.7 g/dL (3.5-5.0); Alkaline Phosphatase 141 U/L (38-126); Anion Gap 7 mmol/L; Blood Urea Nitrogen 35 mg/dL (9-20); Calcium 8.5 mg/dL (8.4-10.2); Carbon Dioxide 23 mmol/L (22-30); Chloride 110 mmol/L (98-107); Glucose 326 mg/dL (74-99); Non-African American GFR(CKD) 67 (>60 ml/min/1.73 sqM); Potassium 4.9 mmol/L (3.5-5.1); Sodium 140 mmol/L (137-145); Total Bilirubin 0.4 mg/dL (0.2-1.3); Total Protein 5.5 g/dL (6.3-8.2)
--- NOTE | 2024-06-10 07:46 | XR ---
EXAMINATION TYPE: XR chest 1V portable DATE OF EXAM: 06/10/2024 COMPARISON: 06/09/2024 HISTORY: Pneumonia TECHNIQUE: Single frontal view of the chest is obtained. FINDINGS: ET tube and NG tube stable. 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 No pneumothorax. Arthropathy of the shoulders. Degenerative change of the spine. Mild venous conge stion not excluded. Correlate clinically. Upper mediastinum prominent stable. The positional. Underly ing mass or adenopathy consistent with CT scan. Additional nodule seen in the left upper lobe. IMPRESSION: Stable right-sided consolidation small pleural effusion.. Right upper lobe\mediastinal m ass is stable.
--- NOTE | 2024-06-10 10:44 | P.PN ---
Subjective Progress Note Date: 06/10/24 Principal diagnosis: Abnormal chest x-ray/CT scan. Patient is a 68-year-old white male with past medical history significant for significant diabetes mellitus, hyperlipidemia, current everyday smoker. He just recently became established with a new PCP, Dr. Villarreal. He does have a significant smoking history smoking approximately 1 to 2 packs/day for almost 50 years. He is currently retired, worked [employer] for most of his life. Denies ever being diagnosed with COPD. Does report exertional dyspnea such as walking out to the mailbox and back. He reports intermittent chronic cough, with minimal sputum production. Note that the patient has had a 30 pound weight loss over the past 6 months. He is also reported increased throat fullness and difficulty breathing when he turns his head. He went to [facility] yesterday for evaluation. Reportedly the CT of his chest done, however, he presents here without any imaging. Reportedly had enlarged paratracheal lymph nodes and a large lung mass. He was discharged home, went to see his PCP, who directed him to our facility. We are working on requesting these images. Patient is currently sitting at the edge of the bed, on room air, in no acute distress. He denies any infectious-like symptoms. No fevers. Cough is chronic, intermittent, and mostly nonproductive. No chest congestion. No hemoptysis. No palpable neck masses. No observable stridor. CBC unremarkable without leukocytosis. Electrolytes unremarkable. Glucose is 416. Lactic acid 2. Normal saline infusing at 130 MLS per hour. Troponin less than 0.012. NT proBNP low. COVID-negative. He is tachycardic. Otherwise, hemodynamically stable. The patient is seen today 06/03/2024 in follow-up on the regular medical floor. He is awake and alert in no acute distress. He is maintaining good O2 saturations in the 90s on room air. No IV fluids. Glucose 280.he remains on DuoNeb inhalations. He denies any worsening shortness of breath, cough or congestion. No hemoptysis. Plan is for bronchoscopy with biopsies today. Progress note dated June 04, 2024. The patient underwent bronchoscopy yesterday, because of an abnormality noted in his right upper lobe, and he had biopsies brushings washes, etc. Everything went well during the procedure. He had general endotracheal anesthesia (GETA), and, was extubated. Apparently sometime shortly after extubation, he was noted to have some respiratory issues, and was reintubated by the [facility]. The patient was transferred to the intensive care unit for further monitoring and management. The patient remains on mechanical ventilator. Currently he is on volume assist-control, rate 20, tidal volume 500, FiO2 65%, PEEP of 8. Blood gases show pO2 114, pCO2 42, pH is 7.30. The patient is on propofol at 50 mcg/kg/min, LR at 75 cc an hour, saline at KVO. Tube feedings have not yet been started. The bronchoscopy was done on June 03. The patient will be placed on dexmedetomidine, and will attempt a weaning trial with pressure support and CPAP, 8 and 5 respectively. He will also get a nicotine patch as he was smoking up until the time he came to the hospital. Current labs include a white count 10.6, hemoglobin 9.9, hematocrit 39.2, and a normal platelet count. Sodium 137, potassium 5.1, chlorides 110, CO2 18, BUN 22, creatinine 1.47. Glucose is 173. Calcium is 8.9. Bronchoscopy washings are pending. The patient's chest x-ray shows a right-sided pleural effusion. Progress note dated June 05, 2024. 68-year-old male status post bronchoscopy and biopsy of the right upper lobe. The patient developed respiratory distress after the procedure, required reintubation. He remains on the mechanical ventilator. He is currently on volume assist-control, rate 20, to be increased to 24, tidal volume 500, FiO2 of 65%, PEEP of 8. Blood gases show pO2 of 80, pCO2 47, pH of 7.26. The patient is on propofol at 65 mcg/kg/min, LR at 75 cc an hour, norepinephrine 6 mcg/min, and fentanyl at 1 mcg/kg/h. The patient's vital high-protein is running at 5 to 10 cc an hour, but will be increased to goal. White count 13.7, hemoglobin 11.4, hematocrit 37.6, platelet count 285,000. Sodium 137, potassium 4.8, chlorides 110, CO2 19, BUN 25, and creatinine 1.97. Glucose is 186. Albumin 2.8. Cultures are negative. Chest x-ray shows an endotracheal tube which should be advanced a couple centimeters. There is blunting of the right costophrenic angle, with associated atelectasis or infiltrate. Progress note dated June 06, 2024. 68-year-old male seen today in room 257. He remains on mechanical ventilation. He is on volume assist-control, rate 24, tidal volume 500, FiO2 65%, PEEP of 8. Blood gases show pO2 of 68, pCO2 44, pH of 7.31. Patient is on propofol at 45 mcg/kg/min, LR at 75 cc an hour, norepinephrine at 6 mcg/min and fentanyl 0.5 mcg/kg/h. The patient is getting saline at KVO, and vital high-protein at 20 cc an hour. The patient is currently on Rocephin. He will get a dose of vancomycin, 1 g x 1, for suspected staph in the sputum. Current labs include a white count 14, hemoglobin 10.9, hematocrit 36, platelet count 275,000. Sodium 137, potassium 4.6, chlorides 110, CO2 19, BUN 23, creatinine 1.82. Glucose is 159. Calcium 8.5, magnesium 1.9. The sputum has been further identified as being positive for methicillin-resistant Staph aureus. Chest x-ray shows stable infiltrate and pleural effusion, on the right side. Bronchoscopy specimens are still pending. Progress note dated June 07, 2024. 68-year-old male seen today in 257. The patient remains on mechanical ventilation. Settings include volume assist-control, rate 24, tidal volume 500, FiO2 70%, PEEP of 8. Blood gases show pO2 of 72, pCO2 43, and a pH of 7.33. The patient is on propofol at 50 mcg/kg/min, lactated Ringer's at 75 cc an hour, and Glucerna at 10 cc an hour, with a goal of 40. Norepinephrine is off. Sputum is revealing evidence of methicillin-resistant Staph aureus. He continues on vancomycin. Rocephin will be discontinued. We have Lasix 40 mg IV push. We will wean the FiO2, as long as saturations are 90%. Currently, white count 9.9, hemoglobin 10.5, hematocrit 34.1, platelet count is normal. Sodium 138, potassium 4.8, chlorides 110, CO2 20, BUN 24, creatinine 1.61. Glucose is 206. Calcium is 8.6. Sputum Gram stain from June 04 shows methicillin- resistant Staph aureus. Chest x-ray shows some infiltrate, atelectasis, and effusion, in the right lower lobe. Progress note dated June 08, 2024. 68-year-old male seen today in room 257. He remains on mechanical ventilation. Ventilator settings include assist-control, rate 24, tidal volume 500, FiO2 50%, PEEP of 8. Blood gases show pO2 104, pCO2 41, pH is 7.38. The patient is on propofol at 40 mcg/kg/min, lactated Ringer's at 75 cc an hour, and Glucerna at goal, which is 40 cc an hour. Patient is on vancomycin for methicillin- resistant Staph aureus and the patient's sputum. His peak airway pressures 34. His Plateau pressure is 19. We had Solu-Medrol, budesonide 1 mg, and formoterol 20 mcg, twice a day. Current labs include a white count 7.9, hemoglobin 10, hematocrit 32.6, and platelet count is normal. Sodium 139, potassium 3.7, chlorides 110, CO2 21, BUN 21, and creatinine 1.45. Glucose is 160. Sputum reveals evidence of methicillin-resistant Staph aureus. The patient remains on vancomycin. Chest x-ray shows a consolidation, in the right lung base. Progress note dated June 09, 2024. Patient is a 68-year-old male seen today in the ICU. He remains on mechanical ventilation. Ventilator settings include assist-control rate 24, tidal volume 506 ml, FiO2 50% and PEEP of 8. Blood gases show pO2 76, pCO2 41, pH 7.39. Patient is on propofol at 35 mcg/kg/min, lactated Ringer at 75 mill per hour, normal saline at 10 ml/h Glucerna at 20 with a goal of 40. Dietary recommended glucerna at 20 because the patient had high residuals. Continue vancomycin for M RSA in the patient's sputum. He is peak airway pressure today was 29, plateau pressure was 24, His airway resistance seemed to have improved with Solu-Medrol, budesonide 1 mg and formoterol 20 mcg twice a day. Current labs include WBC 9.9, hemoglobin 10.7, platelets 406, sodium 140, potassium 4.8,chloride 110, BUN 29, creatinine 1.25 and glucose 230. Chest x-ray shows stable right-sided consolidation and pleural effusion. We will try daily interruption of sedation today. Gram stain, culture, acid-fast bacilli in bronchoalveolar lavage are negative Progress note dated June 10, 2024. Patient is a 68-year-old male seen today in the ICU, remains on mechanical ventilation. Ventilator settings include assist-control rate 24, tidal volume 504ml, FiO2 50% and PEEP 8. Blood gases show pO2 65, pCO2 38 and pH 7.43. Patient was in acute agitation during his daily interruption of sedation y . His propofol dose was escalated to 55 mcg/kg/min. Also getting lactated Ringer at 75 mill per hour, normal saline at 10 ml/h and Glucerna at 40 with goal of 40. His biopsy right upper lung lobe biopsy shows poorly differentiated adenocarcinoma, tumor is present focally within superficial lymphatic spaces which is likely from smoking. On admission CT there was a hypodense liver lesion measuring 3.5 x 3 cm which seems to be metastasized from adenocarcinoma in the lungs. He will be getting a CT brain without contrast today to see if lung adenocarcinoma has metastasized to the brain. We talked with the patient's two sons about his cancer diagnosis and the patient's prognosis has been explained. He remains on vancomycin for MRSA in the sputum culture. He is at a peak airway pressure of 26. Current labs show WBC 9, hemoglobin 11.4, platelets 425, sodium 140, potassium 4.9, chloride 110, BUN 35, creatinine 1.14 and glucose 326 with ALP 141, total protein 5.5 and albumin 2.7. He remains on budesonide, formoterol, Solu-Medrol. Objective - Vital Signs Vital signs: Vital Signs Temp 97.8 F 06/10/24 04:00 Pulse 68 06/10/24 08:26 Resp 24 06/10/24 07:00 BP 138/72 06/10/24 07:00 Pulse Ox 97 06/10/24 07:00 FiO2 50 06/10/24 08:00 Intake & Output 06/09/24 06/10/24 06/10/24 18:59 06:59 18:59 Intake Total 1712.417 5529.000 206.482 Output Total 915 800 75 Balance 708.048 840.000 131.482 Weight 89.8 kg Intake: IV 1020 1020 85 KVO 120 120 10 LR 900 900 75 Intake, IV Titration 243.048 200.000 91.482 Amount propofoL 1,000 mg In 243.048 200.000 91.482 Empty Bag 1 bag @ 15 MCG/ KG/MIN 7.757 mls/hr IV . [id number] [facility] Rx#:[id number] Tube Feeding 270 360 30 Other 90 60 Output: Urine 915 800 75 Other: Voiding Method Indwelling Catheter Indwelling Catheter - Exam No acute distress, patient on propofol, with an orally placed endotracheal tube and on mechanical ventilator. HEENT examination is grossly unremarkable. Neck supple. Full range of motion. No adenopathy thyromegaly or neck vein distention. Cardiovascular examination reveals regular rhythm rate. S1-S2 normal. No S3 or S4. No discernible murmur noted. Lungs reveal diffuse bilateral rhonchi. No wheezes or crackles. Breath sounds equal.. Abdomen soft bowel sounds are heard. No masses or tenderness. Extremities are intact. No cyanosis clubbing or edema. Skin is without rash or lesion. Neurologic examination cannot be assessed at this time. - Labs CBC & Chem 7: 06/10/24 05:38 06/10/24 05:38 Labs: Abnormal Lab Results - Last 24 Hours (Table) 06/09/24 06/09/24 06/09/24 Range/Units 11:32 18:00 22:48 Hgb (13.0-17.5) gm/dL Hct (39.0-53.0) % MCV (80.0-100.0) fL MCH (25.0-35.0) pg MCHC (31.0-37.0) g/dL Lymphocytes # (1.0-4.8) k/uL ABG pO2 (83-108) mmHg ABG Total CO2 (19-24) mmol/L ABG O2 Saturation (94-97) % Chloride (98-107) mmol/L BUN (9-20) mg/dL Glucose (74-99) mg/dL POC Glucose (mg/dL) 239 H 267 H 283 H (70-110) mg/dL Alkaline Phosphatase (38-126) U/L Total Protein (6.3-8.2) g/dL Albumin (3.5-5.0) g/dL 06/10/24 06/10/24 06/10/24 Range/Units 04:35 05:27 05:38 Hgb (13.0-17.5) gm/dL Hct (39.0-53.0) % MCV (80.0-100.0) fL MCH (25.0-35.0) pg MCHC (31.0-37.0) g/dL Lymphocytes # (1.0-4.8) k/uL ABG pO2 65 L (83-108) mmHg ABG Total CO2 26 H (19-24) mmol/L ABG O2 Saturation 93.2 L (94-97) % Chloride 110 H (98-107) mmol/L BUN 35 H (9-20) mg/dL Glucose 326 H (74-99) mg/dL POC Glucose (mg/dL) 334 H (70-110) mg/dL Alkaline Phosphatase 141 H (38-126) U/L Total Protein 5.5 L (6.3-8.2) g/dL Albumin 2.7 L (3.5-5.0) g/dL 06/10/24 Range/Units 05:38 Hgb 11.4 L (13.0-17.5) gm/dL Hct 36.9 L (39.0-53.0) % MCV 73.2 L (80.0-100.0) fL MCH 22.5 L (25.0-35.0) pg MCHC 30.8 L (31.0-37.0) g/dL Lymphocytes # 0.5 L (1.0-4.8) k/uL ABG pO2 (83-108) mmHg ABG Total CO2 (19-24) mmol/L ABG O2 Saturation (94-97) % Chloride (98-107) mmol/L BUN (9-20) mg/dL Glucose (74-99) mg/dL POC Glucose (mg/dL) (70-110) mg/dL Alkaline Phosphatase (38-126) U/L Total Protein (6.3-8.2) g/dL Albumin (3.5-5.0) g/dL Microbiology - Last 24 Hours (Table) 06/04/24 11:35 Blood Culture - Final Blood Assessment and Plan Assessment: Right lung mass biopsy positive for Adenocarcinoma of the lung Acute respiratory failure, following bronchoscopy, of unclear etiology. The patient had an uneventful procedure, and was stable throughout the procedure. He apparently had some respiratory distress, in the operating room, after extubation. S/P intubation and mechanical ventilation, June 03, 2024. Status post bronchoscopy and biopsies, right upper lobe, June 03, 2024. Methicillin-resistant Staphylococcus aureus pneumonia, right lower lobe. Unintentional 30 pound weight loss. Chronic and ongoing tobacco dependence. Probable COPD. Diabetes mellitus, type II. History of hyperlipidemia. Plan: Plan dated June 04, 2024. The patient had an unexpected complication after bronchoscopy with general anes thesia. The patient was completely stable throughout the procedure. There was no pneumothorax after the procedure. For some reason, after extubation, the patient apparently developed some respiratory difficulty, and it was felt by anesthesia that the patient should be intubated. The patient was transferred to the intensive care unit for further monitoring and management. Currently, the patient is on propofol at 50 mcg/kg/min and lactated Ringer's at 75 cc an hour. Blood gases show pO2 of 114, pCO2 42, and a pH of 7.30. The patient has been given a nicotine patch, 21 mg. In addition, we will get the patient on some dexmedetomidine, to see if we can wean him from mechanical ventilation. Labs, x-rays, and all medications are reviewed. Plan dated June 05, 2024. The patient is currently still on the mechanical ventilator. The patient continues on propofol, norepinephrine, and fentanyl. He is also getting lactated Ringer's at 75 cc an hour. Will increase the rate on the ventilator from 20-24. Vital high-protein will be increased to goal. Labs, x-rays, medications are reviewed. The patient was started on ceftriaxone empirically. Procalcitonin level was 0.30 yesterday. We will continue to follow make recommendations along the way. Biopsy results currently are still pending. Plan dated June 06, 2024. The patient will be started on vancomycin, for methicillin-resistant Staph aureus, in the sputum. Labs, x-rays, and all medications are reviewed. The patient's blood gases are reviewed. Ventilator settings are appropriate. The patient remains on propofol at 45 mcg/kg/min, lactated Ringer's at 75 cc an hour, norepinephrine at 6 mcg/min, and fentanyl at 0.5 mcg/kg/h. The patient is getting saline at KVO, and vital high-protein at 20 cc an hour. The patient is currently on Rocephin. Vancomycin is added. We will continue to follow, and make recommendations along the way. Prognosis is certainly guarded. Plan dated June 07, 2024. 68-year-old male seen today in room 257. He continues on mechanical ventilation. There was methicillin-resistant Staph aureus in the sputum. He continues on vancomycin. Rocephin will be discontinued. Will give him Lasix 40 mg IV push. Will wean the FiO2 his lungs and saturations are 90% or higher. The endotracheal tube will be pushed down 2 cm. He has been weaned off of norepinephrine. He continues on Glucerna. Labs, x-rays, medications are reviewed. The patient is overall prognosis remains guarded. Biopsies from the other day, still pending. Plan dated June 08, 2024. Bronchoscopy specimens, still currently pending on this patient. The patient is seen today in room 257. He remains on the ventilator. Currently he is on propofol at 40 mcg/kg/min, lactated Ringer's at 75 cc an hour, and Glucerna at goal. The patient is on vancomycin for methicillin-resistant Staph aureus pulmonary infection. The patient's peak airway pressure is 34 cm of water. The Plateau pressure is 19 cm of water. The peak to plateau difference suggest increasing airways resistance. The patient is placed on budesonide, formoterol, and Solu-Medrol. We will continue to follow the patient, make recommendations. Prognosis is guarded. Labs, x-rays, and all medications are reviewed. Plan dated June 09, 2024. Bronchoscopy specimens show negative gram stain, culture and AFB smear. The patient is seen today in room 257. He remains on the ventilator. Currently he is on propofol at 35 mcg/kg/min, lactated Ringer's at 75 cc an hour,normal saline at 10ml/hr and Glucerna 20 with goal of 40. The patient is on vancomycin for methicillin-resistant Staph aureus in sputum culture. The patient's peak airway pressure is 29 cm of water. The Plateau pressure is 24 cm of water. The airways resistance has improved. The patient is on budesonide, formoterol, and Solu-Medrol. We will continue to follow the patient, make recommendations. Prognosis is guarded. Labs, x-rays, and all medications are reviewed. Critical care time is 35 minutes. Plan dated May. The patient is seen today in room 257 and is currently still on the mechanical ventilator. Right lung mass biopsy positive for adenocarcinoma of lung. CT brain without contrast will be done today. With daily interruption of sedation the patient got acutely agitated and propofol was increased to 55 mcg/kg/min. Lactated Ringer at 75 cc/h, normal saline at 10 ml/h, Glucerna 40 at goal. Continue vancomycin for MRSA in sputum culture. Patient is on budesonide, formoterol and Solu-Medrol. Will continue to follow and make recommendations. Patient's diagnosis of adenocarcinoma of lung and prognosis has been explained to the family. Lab x-rays and all medications were reviewed. Critical care time is 35 minutes. Time with Patient: Greater than 30
[2024-06-10] MEDS: VANCOMYCIN TROUGH DUE 1 EACH MISC MISCELLANE ONE (10:54)
--- NOTE | 2024-06-10 11:23 | CT ---
EXAMINATION TYPE: CT brain wo con CT DLP: 1184.4 mGycm, Automated exposure control for dose reduction was used. DATE OF EXAM: 06/10/2024 11:16 AM COMPARISON: None CLINICAL INDICATION:Male, 68 years old with history of AMS, lung cancer, AMS, lung cancer TECHNIQUE: Brain: Multiple axial CT images of the brain were obtained without IV contrast. . Coronal and sagitta l reformats reviewed. FINDINGS: Brain: Extra-axial spaces: No abnormal extra-axial fluid collections. Ventricular system: Within normal limits Cerebral parenchyma: No acute intraparenchymal hemorrhage or mass effect. The schuster-white junction is well differentiated. Scattered hypoattenuating areas are seen within the periventricular white matte r. Cerebellum: Unremarkable. Mass effect: No evidence of midline shift. Intracranial vasculature: Atherosclerotic calcifications of the intracranial vessels. Soft tissues: Normal. Calvarium/osseous structures: No depressed skull fracture. Paranasal sinuses and mastoid air cells: Mild scattered paranasal sinus disease. Visualized orbits: Orbital contents are intact. Partial visualization of NG tube. Debris identified within the nasopharynx. IMPRESSION: 1. No acute intracranial process. Consider MRI if there is continued clinical concern. 2. Nonspecific white matter changes, likely secondary to chronic small vessel ischemic disease.
[2024-06-10 11:56] LABS: Glucose,Whole Blood 306 mg/dL (70-110)
--- NOTE | 2024-06-10 15:26 | P.PN ---
Subjective Progress Note Date: 06/10/24 Principal diagnosis: Reason for follow-up is MRSA pneumonia Patient is a 68-year-old male with a past medical history significant for diabetes mellitus and hypertension smoking recent diagnosis of lung mass status post bronchoscopy subsequently respiratory failure requiring intubation sputum positive for MRSA prompting this consultation. On today's evaluation that is 06/10/2024, Patient is afebrile this morning patient with history of intubated on the vent FiO2 is currently stable at 50% no significant purulent secretions through the ET patient is hemodynamically stable not requiring any pressor support and no diarrhea was reported by the nursing staff. Patient white count is 9.0 creatinine is 1.14 blood culture has been negative Objective - Vital Signs Vital signs: Vital Signs Temp 97.7 F 06/10/24 08:00 Pulse 63 06/10/24 11:57 Resp 24 06/10/24 11:00 BP 140/72 06/10/24 11:00 Pulse Ox 95 06/10/24 11:00 FiO2 50 06/10/24 11:42 Intake & Output 06/09/24 06/10/24 06/10/24 18:59 06:59 18:59 Intake Total 5645.279 6365.000 1206.482 Output Total 915 800 370 Balance 708.048 840.000 836.482 Weight 89.8 kg 89.8 kg Intake: IV 1020 1020 395 KVO 120 120 20 LR 900 900 375 Intake, IV Titration 243.048 200.000 591.482 Amount Vancomycin 1,500 mg In 500 Sodium Chloride 0.9% 500 ml 500 ml @ 166.667 mls/ hr IVPB Q16H [facility] Rx#: [id number] propofoL 1,000 mg In 243.048 200.000 91.482 Empty Bag 1 bag @ 15 MCG/ KG/MIN 7.757 mls/hr IV . [id number] [facility] Rx#:[id number] Tube Feeding 270 360 190 Other 90 60 30 Output: Urine 915 800 370 Other: Voiding Method Indwelling Catheter Indwelling Catheter Indwelling Catheter - Exam GENERAL DESCRIPTION: An elderly male intubated on the vent RESPIRATORY SYSTEM: Unlabored breathing , decreased breath sounds at bases HEART: S1 S2 regular rate and rhythm , ABDOMEN: Soft , no tenderness EXTREMITIES: No edema feet - Labs CBC & Chem 7: 06/10/24 05:38 06/10/24 05:38 Labs: Abnormal Lab Results - Last 24 Hours (Table) 06/09/24 06/09/24 06/10/24 Range/Units 18:00 22:48 04:35 Hgb (13.0-17.5) gm/dL Hct (39.0-53.0) % MCV (80.0-100.0) fL MCH (25.0-35.0) pg MCHC (31.0-37.0) g/dL Lymphocytes # (1.0-4.8) k/uL ABG pO2 65 L (83-108) mmHg ABG Total CO2 26 H (19-24) mmol/L ABG O2 Saturation 93.2 L (94-97) % Chloride (98-107) mmol/L BUN (9-20) mg/dL Glucose (74-99) mg/dL POC Glucose (mg/dL) 267 H 283 H (70-110) mg/dL Alkaline Phosphatase (38-126) U/L Total Protein (6.3-8.2) g/dL Albumin (3.5-5.0) g/dL 06/10/24 06/10/24 06/10/24 Range/Units 05:27 05:38 05:38 Hgb 11.4 L (13.0-17.5) gm/dL Hct 36.9 L (39.0-53.0) % MCV 73.2 L (80.0-100.0) fL MCH 22.5 L (25.0-35.0) pg MCHC 30.8 L (31.0-37.0) g/dL Lymphocytes # 0.5 L (1.0-4.8) k/uL ABG pO2 (83-108) mmHg ABG Total CO2 (19-24) mmol/L ABG O2 Saturation (94-97) % Chloride 110 H (98-107) mmol/L BUN 35 H (9-20) mg/dL Glucose 326 H (74-99) mg/dL POC Glucose (mg/dL) 334 H (70-110) mg/dL Alkaline Phosphatase 141 H (38-126) U/L Total Protein 5.5 L (6.3-8.2) g/dL Albumin 2.7 L (3.5-5.0) g/dL 06/10/24 Range/Units 11:55 Hgb (13.0-17.5) gm/dL Hct (39.0-53.0) % MCV (80.0-100.0) fL MCH (25.0-35.0) pg MCHC (31.0-37.0) g/dL Lymphocytes # (1.0-4.8) k/uL ABG pO2 (83-108) mmHg ABG Total CO2 (19-24) mmol/L ABG O2 Saturation (94-97) % Chloride (98-107) mmol/L BUN (9-20) mg/dL Glucose (74-99) mg/dL POC Glucose (mg/dL) 306 H (70-110) mg/dL Alkaline Phosphatase (38-126) U/L Total Protein (6.3-8.2) g/dL Albumin (3.5-5.0) g/dL Microbiology - Last 24 Hours (Table) 06/04/24 11:35 Blood Culture - Final Blood Assessment and Plan (1) Pneumonia Current Visit: Yes Status: Acute Code(s): J18.9 - PNEUMONIA, UNSPECIFIED ORGANISM SNOMED Code(s): 238895380 (2) MRSA (methicillin resistant Staphylococcus aureus) infection Current Visit: Yes Status: Acute Code(s): A49.02 - METHICILLIN RESIS STAPH INFECTION, UNSP SITE SNOMED Code(s): 171560833 Plan: 1patient presented to hospital with abnormal CT in the outpatient setting and also having increasing shortness of breath and cough in this patient who is status post bronchoscopy and biopsy of the sputum culture grew MRSA likely concerning for component of MRSA pneumonia. 2patient remains to be afebrile white count has been normal, to continue with vancomycin pharmacy to dose target trough of 15 while watching kidney function and Vanco trough closely. Dictation was produced using [employer] dictation software. please excuse any grammatical, word or spelling errors. Time with Patient: Less than 30
[2024-06-10 18:03] LABS: Glucose,Whole Blood 281 mg/dL (70-110)
[2024-06-10] MEDS: INSULIN ASPART (NovoLOG) 100 UNIT/ML VIAL SQ SCH (18:15)
--- NOTE | 2024-06-10 19:09 | P.PN ---
Subjective Progress Note Date: 06/10/24 Patient remains intubated and on sedation. Currently trying to wean off vent. Continues on IV abx, afebrile. Counts stable Objective - Vital Signs Vital signs: Vital Signs Temp 97.8 F 06/10/24 04:00 Pulse 68 06/10/24 08:26 Resp 24 06/10/24 07:00 BP 138/72 06/10/24 07:00 Pulse Ox 97 06/10/24 07:00 FiO2 50 06/10/24 08:00 Intake & Output 06/09/24 06/10/24 06/10/24 18:59 06:59 18:59 Intake Total 2681.097 8396.000 206.482 Output Total 915 800 75 Balance 708.048 840.000 131.482 Weight 89.8 kg Intake: IV 1020 1020 85 KVO 120 120 10 LR 900 900 75 Intake, IV Titration 243.048 200.000 91.482 Amount propofoL 1,000 mg In 243.048 200.000 91.482 Empty Bag 1 bag @ 15 MCG/ KG/MIN 7.757 mls/hr IV . [id number] [facility] Rx#:[id number] Tube Feeding 270 360 30 Other 90 60 Output: Urine 915 800 75 Other: Voiding Method Indwelling Catheter Indwelling Catheter - Constitutional General appearance: Present: no acute distress - Respiratory Details: ventilated breath sounds - Integumentary Integumentary: Absent: cyanotic - Neurologic Neurologic Comment(s): sedated - Labs CBC & Chem 7: 06/10/24 05:38 06/10/24 05:38 Labs: Abnormal Lab Results - Last 24 Hours (Table) 06/09/24 06/09/24 06/09/24 Range/Units 11:32 18:00 22:48 Hgb (13.0-17.5) gm/dL Hct (39.0-53.0) % MCV (80.0-100.0) fL MCH (25.0-35.0) pg MCHC (31.0-37.0) g/dL Lymphocytes # (1.0-4.8) k/uL ABG pO2 (83-108) mmHg ABG Total CO2 (19-24) mmol/L ABG O2 Saturation (94-97) % Chloride (98-107) mmol/L BUN (9-20) mg/dL Glucose (74-99) mg/dL POC Glucose (mg/dL) 239 H 267 H 283 H (70-110) mg/dL Alkaline Phosphatase (38-126) U/L Total Protein (6.3-8.2) g/dL Albumin (3.5-5.0) g/dL 06/10/24 06/10/24 06/10/24 Range/Units 04:35 05:27 05:38 Hgb (13.0-17.5) gm/dL Hct (39.0-53.0) % MCV (80.0-100.0) fL MCH (25.0-35.0) pg MCHC (31.0-37.0) g/dL Lymphocytes # (1.0-4.8) k/uL ABG pO2 65 L (83-108) mmHg ABG Total CO2 26 H (19-24) mmol/L ABG O2 Saturation 93.2 L (94-97) % Chloride 110 H (98-107) mmol/L BUN 35 H (9-20) mg/dL Glucose 326 H (74-99) mg/dL POC Glucose (mg/dL) 334 H (70-110) mg/dL Alkaline Phosphatase 141 H (38-126) U/L Total Protein 5.5 L (6.3-8.2) g/dL Albumin 2.7 L (3.5-5.0) g/dL 06/10/24 Range/Units 05:38 Hgb 11.4 L (13.0-17.5) gm/dL Hct 36.9 L (39.0-53.0) % MCV 73.2 L (80.0-100.0) fL MCH 22.5 L (25.0-35.0) pg MCHC 30.8 L (31.0-37.0) g/dL Lymphocytes # 0.5 L (1.0-4.8) k/uL ABG pO2 (83-108) mmHg ABG Total CO2 (19-24) mmol/L ABG O2 Saturation (94-97) % Chloride (98-107) mmol/L BUN (9-20) mg/dL Glucose (74-99) mg/dL POC Glucose (mg/dL) (70-110) mg/dL Alkaline Phosphatase (38-126) U/L Total Protein (6.3-8.2) g/dL Albumin (3.5-5.0) g/dL Microbiology - Last 24 Hours (Table) 06/04/24 11:35 Blood Culture - Final Blood Assessment and Plan (1) Lung mass Current Visit: Yes Status: Acute Priority: High Code(s): R91.8 - OTHER NONSPECIFIC ABNORMAL FINDING OF LUNG FIELD SNOMED Code(s): 308669556 (2) Paratracheal lymphadenopathy Current Visit: Yes Status: Acute Priority: High Code(s): R59.0 - LOCALIZED ENLARGED LYMPH NODES SNOMED Code(s): 70154768 Plan: Metastatic NSCLC: Presented with progressing SOB x 1 month. Reports 30 lb unintentional weight loss over last 6 months. History of heavy nicotine use, smoking approx 2 packs x 50 years -On admission CT chest with contrast showed posterior right lung mass measuring 3.4 x 4.6 cm with additional punctate nodularity and increased linear markings within the right lung. Multiple markedly enlarged mediastinal adenopathy noted. Hypodense lesion within the liver measuring 3.5 x 3.0 cm -S/p bronchoscopy. After bronch, pt developed resp distress, requiring re- intubation and was transferred to ICU. Currently trying to wean off vent. Continues on IV abx for pneumonia, positive sputum culture for MRSA. Pulmonary following -RUL brushings and lavage were non-diagnostic of malignancy. RUL lung transbronchial biopsy positive for poorly differentiated adenocarcinoma, favoring lung primary -CT brain without contrast showed no acute intracranial processes -Further oncological workup pending course of hospitalization. Will plan to obtain brain MRI once pt is more stable, and for outpt PET CT to complete staging Had long discussion today with family, discussing pathology results, prognosis, and possible treatment options for NSCLC. We also discussed code status, and recommended DNR, however, family would like to further discuss this prior to making a decision. All questions and concerns were answered
[2024-06-10] MEDS: INSULIN DETEMIR (LEVEMIR) 100 UNIT/ML SYR SQ SCH (21:07)
[2024-06-10 23:37] LABS: Glucose,Whole Blood 267 mg/dL (70-110)
[2024-06-11] MEDS: hydrALAZINE HCL 20 MG/ML 1 ML VIAL IVP PRN (01:29)
[2024-06-11 05:09] LABS: HCT 37.1 % (39.0-53.0); HGB 11.4 gm/dL (13.0-17.5); Hypochromasia Marked; MCH 22.2 pg (25.0-35.0); MCHC 30.7 g/dL (31.0-37.0); MCV 72.5 fL (80.0-100.0); Mean Platelet Volume 7.9; Microcytosis Moderate; Platelet Count 395 k/uL (150-450); RBC 5.11 m/uL (4.30-5.90); RDW 15.4 % (11.5-15.5); WBC 11.5 k/uL (3.8-10.6)
[2024-06-11 05:21] LABS: ABG Base Excess 2.8 mmol/L; ABG HCO3 26 mmol/L (21-25); ABG Oxygen Saturation 95.2 % (94-97); ABG PCO2 35 mmHg (35-45); ABG PH 7.48 (7.35-7.45); ABG PO2 70 mmHg (83-108); ABG TCO2 27 mmol/L (19-24); Allen Test Performed? Yes
[2024-06-11 05:26] LABS: African American GFR (CKD) >90 (>60 ml/min/1.73 sqM); Anion Gap 4 mmol/L; Blood Urea Nitrogen 36 mg/dL (9-20); Calcium 8.7 mg/dL (8.4-10.2); Carbon Dioxide 22 mmol/L (22-30); Chloride 114 mmol/L (98-107); Glucose 213 mg/dL (74-99); Non-African American GFR(CKD) 78 (>60 ml/min/1.73 sqM); Sodium 140 mmol/L (137-145)
[2024-06-11 05:37] LABS: Potassium 5.2 mmol/L (3.5-5.1)
[2024-06-11 05:47] LABS: African American GFR (CKD) 86 (>60 ml/min/1.73 sqM); Non-African American GFR(CKD) 74 (>60 ml/min/1.73 sqM)
[2024-06-11 05:57] LABS: Glucose,Whole Blood 190 mg/dL (70-110)
--- NOTE | 2024-06-11 06:38 | XR ---
EXAMINATION TYPE: XR chest 1V portable DATE OF EXAM: 06/11/2024 COMPARISON: 06/10/2024 HISTORY: Pleural effusion TECHNIQUE: Single frontal view of the chest is obtained. FINDINGS: There is an NG tube within the stomach. There is an ET tube approximately 4.4 cm above the shakira. There is stable moderate pulmonary vascular congestion and stable moderate right pleural effusion. There is no pneumothorax. The heart size is normal for the technique. The osseous structures are intact IMPRESSION: 1. ET tube 4.4 cm above the shakira. 2. NG tube within stomach. 3. No change in the acute cardiopulmonary disease as described above.
--- NOTE | 2024-06-11 09:42 | P.PN ---
Subjective Progress Note Date: 06/11/24 Principal diagnosis: Abnormal chest x-ray/CT scan. Patient is a 68-year-old white male with past medical history significant for significant diabetes mellitus, hyperlipidemia, current everyday smoker. He just recently became established with a new PCP, Dr. Villarreal. He does have a significant smoking history smoking approximately 1 to 2 packs/day for almost 50 years. He is currently retired, worked [employer] for most of his life. Denies ever being diagnosed with COPD. Does report exertional dyspnea such as walking out to the mailbox and back. He reports intermittent chronic cough, with minimal sputum production. Note that the patient has had a 30 pound weight loss over the past 6 months. He is also reported increased throat fullness and difficulty breathing when he turns his head. He went to [facility] yesterday for evaluation. Reportedly the CT of his chest done, however, he presents here without any imaging. Reportedly had enlarged paratracheal lymph nodes and a large lung mass. He was discharged home, went to see his PCP, who directed him to our facility. We are working on requesting these images. Patient is currently sitting at the edge of the bed, on room air, in no acute distress. He denies any infectious-like symptoms. No fevers. Cough is chronic, intermittent, and mostly nonproductive. No chest congestion. No hemoptysis. No palpable neck masses. No observable stridor. CBC unremarkable without leukocytosis. Electrolytes unremarkable. Glucose is 416. Lactic acid 2. Normal saline infusing at 130 MLS per hour. Troponin less than 0.012. NT proBNP low. COVID-negative. He is tachycardic. Otherwise, hemodynamically stable. The patient is seen today 06/03/2024 in follow-up on the regular medical floor. He is awake and alert in no acute distress. He is maintaining good O2 saturations in the 90s on room air. No IV fluids. Glucose 280.he remains on DuoNeb inhalations. He denies any worsening shortness of breath, cough or congestion. No hemoptysis. Plan is for bronchoscopy with biopsies today. Progress note dated June 04, 2024. The patient underwent bronchoscopy yesterday, because of an abnormality noted in his right upper lobe, and he had biopsies brushings washes, etc. Everything went well during the procedure. He had general endotracheal anesthesia (GETA), and, was extubated. Apparently sometime shortly after extubation, he was noted to have some respiratory issues, and was reintubated by the [employer]. The patient was transferred to the intensive care unit for further monitoring and management. The patient remains on mechanical ventilator. Currently he is on volume assist-control, rate 20, tidal volume 500, FiO2 65%, PEEP of 8. Blood gases show pO2 114, pCO2 42, pH is 7.30. The patient is on propofol at 50 mcg/kg/min, LR at 75 cc an hour, saline at KVO. Tube feedings have not yet been started. The bronchoscopy was done on June 03. The patient will be placed on dexmedetomidine, and will attempt a weaning trial with pressure support and CPAP, 8 and 5 respectively. He will also get a nicotine patch as he was smoking up until the time he came to the hospital. Current labs include a white count 10.6, hemoglobin 9.9, hematocrit 39.2, and a normal platelet count. Sodium 137, potassium 5.1, chlorides 110, CO2 18, BUN 22, creatinine 1.47. Glucose is 173. Calcium is 8.9. Bronchoscopy washings are pending. The patient's chest x-ray shows a right-sided pleural effusion. Progress note dated June 05, 2024. 68-year-old male status post bronchoscopy and biopsy of the right upper lobe. The patient developed respiratory distress after the procedure, required reintubation. He remains on the mechanical ventilator. He is currently on volume assist-control, rate 20, to be increased to 24, tidal volume 500, FiO2 of 65%, PEEP of 8. Blood gases show pO2 of 80, pCO2 47, pH of 7.26. The patient is on propofol at 65 mcg/kg/min, LR at 75 cc an hour, norepinephrine 6 mcg/min, and fentanyl at 1 mcg/kg/h. The patient's vital high-protein is running at 5 to 10 cc an hour, but will be increased to goal. White count 13.7, hemoglobin 11.4, hematocrit 37.6, platelet count 285,000. Sodium 137, potassium 4.8, chlorides 110, CO2 19, BUN 25, and creatinine 1.97. Glucose is 186. Albumin 2.8. Cultures are negative. Chest x-ray shows an endotracheal tube which should be advanced a couple centimeters. There is blunting of the right costophrenic angle, with associated atelectasis or infiltrate. Progress note dated June 06, 2024. 68-year-old male seen today in room 257. He remains on mechanical ventilation. He is on volume assist-control, rate 24, tidal volume 500, FiO2 65%, PEEP of 8. Blood gases show pO2 of 68, pCO2 44, pH of 7.31. Patient is on propofol at 45 mcg/kg/min, LR at 75 cc an hour, norepinephrine at 6 mcg/min and fentanyl 0.5 mcg/kg/h. The patient is getting saline at KVO, and vital high-protein at 20 cc an hour. The patient is currently on Rocephin. He will get a dose of vancomycin, 1 g x 1, for suspected staph in the sputum. Current labs include a white count 14, hemoglobin 10.9, hematocrit 36, platelet count 275,000. Sodium 137, potassium 4.6, chlorides 110, CO2 19, BUN 23, creatinine 1.82. Glucose is 159. Calcium 8.5, magnesium 1.9. The sputum has been further identified as being positive for methicillin-resistant Staph aureus. Chest x-ray shows stable infiltrate and pleural effusion, on the right side. Bronchoscopy specimens are still pending. Progress note dated June 07, 2024. 68-year-old male seen today in 257. The patient remains on mechanical ventilation. Settings include volume assist-control, rate 24, tidal volume 500, FiO2 70%, PEEP of 8. Blood gases show pO2 of 72, pCO2 43, and a pH of 7.33. The patient is on propofol at 50 mcg/kg/min, lactated Ringer's at 75 cc an hour, and Glucerna at 10 cc an hour, with a goal of 40. Norepinephrine is off. Sputum is revealing evidence of methicillin-resistant Staph aureus. He continues on vancomycin. Rocephin will be discontinued. We have Lasix 40 mg IV push. We will wean the FiO2, as long as saturations are 90%. Currently, white count 9.9, hemoglobin 10.5, hematocrit 34.1, platelet count is normal. Sodium 138, potassium 4.8, chlorides 110, CO2 20, BUN 24, creatinine 1.61. Glucose is 206. Calcium is 8.6. Sputum Gram stain from June 04 shows methicillin- resistant Staph aureus. Chest x-ray shows some infiltrate, atelectasis, and effusion, in the right lower lobe. Progress note dated June 08, 2024. 68-year-old male seen today in room 257. He remains on mechanical ventilation. Ventilator settings include assist-control, rate 24, tidal volume 500, FiO2 50%, PEEP of 8. Blood gases show pO2 104, pCO2 41, pH is 7.38. The patient is on propofol at 40 mcg/kg/min, lactated Ringer's at 75 cc an hour, and Glucerna at goal, which is 40 cc an hour. Patient is on vancomycin for methicillin- resistant Staph aureus and the patient's sputum. His peak airway pressures 34. His Plateau pressure is 19. We had Solu-Medrol, budesonide 1 mg, and formoterol 20 mcg, twice a day. Current labs include a white count 7.9, hemoglobin 10, hematocrit 32.6, and platelet count is normal. Sodium 139, potassium 3.7, chlorides 110, CO2 21, BUN 21, and creatinine 1.45. Glucose is 160. Sputum reveals evidence of methicillin-resistant Staph aureus. The patient remains on vancomycin. Chest x-ray shows a consolidation, in the right lung base. Progress note dated June 09, 2024. Patient is a 68-year-old male seen today in the ICU. He remains on mechanical ventilation. Ventilator settings include assist-control rate 24, tidal volume 506 ml, FiO2 50% and PEEP of 8. Blood gases show pO2 76, pCO2 41, pH 7.39. Patient is on propofol at 35 mcg/kg/min, lactated Ringer at 75 mill per hour, normal saline at 10 ml/h Glucerna at 20 with a goal of 40. Dietary recommended glucerna at 20 because the patient had high residuals. Continue vancomycin for M RSA in the patient's sputum. He is peak airway pressure today was 29, plateau pressure was 24, His airway resistance seemed to have improved with Solu-Medrol, budesonide 1 mg and formoterol 20 mcg twice a day. Current labs include WBC 9.9, hemoglobin 10.7, platelets 406, sodium 140, potassium 4.8,chloride 110, BUN 29, creatinine 1.25 and glucose 230. Chest x-ray shows stable right-sided consolidation and pleural effusion. We will try daily interruption of sedation today. Gram stain, culture, acid-fast bacilli in bronchoalveolar lavage are negative Progress note dated June 10, 2024. Patient is a 68-year-old male seen today in the ICU, remains on mechanical ventilation. Ventilator settings include assist-control rate 24, tidal volume 504ml, FiO2 50% and PEEP 8. Blood gases show pO2 65, pCO2 38 and pH 7.43. Patient was in acute agitation during his daily interruption of sedation y esterday. His propofol dose was escalated to 55 mcg/kg/min. Also getting lactated Ringer at 75 mill per hour, normal saline at 10 ml/h and Glucerna at 40 with goal of 40. His biopsy right upper lung lobe biopsy shows poorly differentiated adenocarcinoma, tumor is present focally within superficial lymphatic spaces which is likely from smoking. On admission CT there was a hypodense liver lesion measuring 3.5 x 3 cm which seems to be metastasized from adenocarcinoma in the lungs. He will be getting a CT brain without contrast today to see if lung adenocarcinoma has metastasized to the brain. We talked with the patient's two sons about his cancer diagnosis and the patient's prognosis has been explained. He remains on vancomycin for MRSA in the sputum culture. He is at a peak airway pressure of 26. Current labs show WBC 9, hemoglobin 11.4, platelets 425, sodium 140, potassium 4.9, chloride 110, BUN 35, creatinine 1.14 and glucose 326 with ALP 141, total protein 5.5 and albumin 2.7. He remains on budesonide, formoterol, Solu-Medrol. Progress note dated June 11, 2024. 68-year-old male seen today in the ICU, remains on ventilation. Ventilator settings include assist-control rate 24, tidal volume 500, FiO2 50% and PEEP 8. Blood gases show a pO2 of 70, pCO2 35 and pH 7.48. Brain CT does not show any acute intracranial process, shows some nonspecific white matter changes s econdary to chronic small vessel ischemic disease. The chest x-ray does not show any new changes, there is stable moderate right pleural effusion and pulmonary vascular congestion. The patient was in acute agitation during his daily interruption of sedation yesterday. His propofol is now 55 mcg/kg/min. He is getting lactated Ringer at 75 MLS per hour, normal saline KVO and Glucerna at goal of 40. His blood pressure is 161 x 78 and was put on hydralazine as needed. He continues to be on vancomycin for MRSA on sputum culture. He is also on Solu-Medrol, budesonide, formoterol and DuoNeb. His labs show WBC 11.5, hemoglobin 11.4, platelets 95, sodium 140, potassium 5.2, chloride 114, BUN 36, creatinine 1 and glucose 213. Family is still deciding about the plan going forward. They were given number of options. DNR would be appropriate. Comfort care was of another option. Continue treatment can also be an option yet again. Labs x-rays and medications are reviewed. Prognosis is very poor. Objective - Vital Signs Vital signs: Vital Signs Temp 98.3 F 06/11/24 08:00 Pulse 73 06/11/24 09:00 Resp 24 06/11/24 09:00 BP 161/78 06/11/24 09:00 Pulse Ox 95 06/11/24 09:00 FiO2 50 06/11/24 09:04 Intake & Output 06/10/24 06/11/24 06/11/24 18:59 06:59 18:59 Intake Total 2421.654 2233.732 457.646 Output Total 870 1135 315 Balance 8911.481 5920.732 142.646 Weight 89.8 kg 99.3 kg Intake: IV 1075 1433 255 KVO 100 110 30 LR 975 825 225 Vancomycin 1,500 mg In 498 Sodium Chloride 0.9% 500 ml 500 ml @ 166.667 mls/ hr IVPB Q24H [facility] Rx#: [id number] Intake, IV Titration 746.654 350.732 92.646 Amount Vancomycin 1,500 mg In 500 Sodium Chloride 0.9% 500 ml 500 ml @ 166.667 mls/ hr IVPB Q16H [facility] Rx#: [id number] propofoL 1,000 mg In 246.654 350.732 92.646 Empty Bag 1 bag @ 15 MCG/ KG/MIN 7.757 mls/hr IV . [id number] [facility] Rx#:[id number] Tube Feeding 510 360 80 Other 90 90 30 Output: Urine 870 1135 315 Other: Voiding Method Indwelling Catheter Indwelling Catheter Indwelling Catheter # Bowel Movements 1 - Exam No acute distress, patient on propofol, with an orally placed endotracheal tube and on mechanical ventilator. HEENT examination is grossly unremarkable. Neck supple. Full range of motion. No adenopathy thyromegaly or neck vein distention. Cardiovascular examination reveals regular rhythm rate. S1-S2 normal. No S3 or S4. No discernible murmur noted. Lungs reveal diffuse bilateral rhonchi. No wheezes or crackles. Breath sounds equal.. Abdomen soft bowel sounds are heard. No masses or tenderness. Extremities are intact. No cyanosis clubbing or edema. Skin is without rash or lesion. Neurologic examination cannot be assessed at this time. - Labs CBC & Chem 7: 06/11/24 04:38 06/11/24 04:38 Labs: Abnormal Lab Results - Last 24 Hours (Table) 06/10/24 06/10/24 06/10/24 Range/Units 11:55 18:02 23:36 WBC (3.8-10.6) k/uL Hgb (13.0-17.5) gm/dL Hct (39.0-53.0) % MCV (80.0-100.0) fL MCH (25.0-35.0) pg MCHC (31.0-37.0) g/dL ABG pH (7.35-7.45) ABG pO2 (83-108) mmHg ABG HCO3 (21-25) mmol/L ABG Total CO2 (19-24) mmol/L Potassium (3.5-5.1) mmol/L Chloride (98-107) mmol/L BUN (9-20) mg/dL Glucose (74-99) mg/dL POC Glucose (mg/dL) 306 H 281 H 267 H (70-110) mg/dL 06/11/24 06/11/24 06/11/24 Range/Units 04:38 04:38 05:16 WBC 11.5 H (3.8-10.6) k/uL Hgb 11.4 L (13.0-17.5) gm/dL Hct 37.1 L (39.0-53.0) % MCV 72.5 L (80.0-100.0) fL MCH 22.2 L (25.0-35.0) pg MCHC 30.7 L (31.0-37.0) g/dL ABG pH 7.48 H (7.35-7.45) ABG pO2 70 L (83-108) mmHg ABG HCO3 26 H (21-25) mmol/L ABG Total CO2 27 H (19-24) mmol/L Potassium 5.2 H (3.5-5.1) mmol/L Chloride 114 H (98-107) mmol/L BUN 36 H (9-20) mg/dL Glucose 213 H (74-99) mg/dL POC Glucose (mg/dL) (70-110) mg/dL 06/11/24 Range/Units 05:56 WBC (3.8-10.6) k/uL Hgb (13.0-17.5) gm/dL Hct (39.0-53.0) % MCV (80.0-100.0) fL MCH (25.0-35.0) pg MCHC (31.0-37.0) g/dL ABG pH (7.35-7.45) ABG pO2 (83-108) mmHg ABG HCO3 (21-25) mmol/L ABG Total CO2 (19-24) mmol/L Potassium (3.5-5.1) mmol/L Chloride (98-107) mmol/L BUN (9-20) mg/dL Glucose (74-99) mg/dL POC Glucose (mg/dL) 190 H (70-110) mg/dL Assessment and Plan Assessment: Right lung mass biopsy positive for Adenocarcinoma of the lung Acute respiratory failure, following bronchoscopy, of unclear etiology. The patient had an uneventful procedure, and was stable throughout the procedure. He apparently had some respiratory distress, in the operating room, after extubation. S/P intubation and mechanical ventilation, June 03, 2024. Status post bronchoscopy and biopsies, right upper lobe, June 03, 2024. Methicillin-resistant Staphylococcus aureus pneumonia, right lower lobe. Unintentional 30 pound weight loss. Chronic and ongoing tobacco dependence. Probable COPD. Diabetes mellitus, type II. History of hyperlipidemia. Plan: Plan dated June 04, 2024. The patient had an unexpected complication after bronchoscopy with general anesthesia. The patient was completely stable throughout the procedure. There was no pneumothorax after the procedure. For some reason, after extubation, the patient apparently developed some respiratory difficulty, and it was felt by anesthesia that the patient should be intubated. The patient was transferred to the intensive care unit for further monitoring and management. Currently, the patient is on propofol at 50 mcg/kg/min and lactated Ringer's at 75 cc an hour. Blood gases show pO2 of 114, pCO2 42, and a pH of 7.30. The patient has been given a nicotine patch, 21 mg. In addition, we will get the patient on some dexmedetomidine, to see if we can wean him from mechanical ventilation. Labs, x-rays, and all medications are reviewed. Plan dated June 05, 2024. The patient is currently still on the mechanical ventilator. The patient continues on propofol, norepinephrine, and fentanyl. He is also getting lactated Ringer's at 75 cc an hour. Will increase the rate on the ventilator from 20-24. Vital high-protein will be increased to goal. Labs, x-rays, medications are reviewed. The patient was started on ceftriaxone empirically. Procalcitonin level was 0.30 yesterday. We will continue to follow make recommendations along the way. Biopsy results currently are still pending. Plan dated June 06, 2024. The patient will be started on vancomycin, for methicillin-resistant Staph aureus, in the sputum. Labs, x-rays, and all medications are reviewed. The patient's blood gases are reviewed. Ventilator settings are appropriate. The patient remains on propofol at 45 mcg/kg/min, lactated Ringer's at 75 cc an hour, norepinephrine at 6 mcg/min, and fentanyl at 0.5 mcg/kg/h. The patient is getting saline at KVO, and vital high-protein at 20 cc an hour. The patient is currently on Rocephin. Vancomycin is added. We will continue to follow, and make recommendations along the way. Prognosis is certainly guarded. Plan dated June 07, 2024. 68-year-old male seen today in room 257. He continues on mechanical ventilation. There was methicillin-resistant Staph aureus in the sputum. He continues on vancomycin. Rocephin will be discontinued. Will give him Lasix 40 mg IV push. Will wean the FiO2 his lungs and saturations are 90% or higher. The endotracheal tube will be pushed down 2 cm. He has been weaned off of norepinephrine. He continues on Glucerna. Labs, x-rays, medications are reviewed. The patient is overall prognosis remains guarded. Biopsies from the other day, still pending. Plan dated June 08, 2024. Bronchoscopy specimens, still currently pending on this patient. The patient is seen today in room 257. He remains on the ventilator. Currently he is on propofol at 40 mcg/kg/min, lactated Ringer's at 75 cc an hour, and Glucerna at goal. The patient is on vancomycin for methicillin-resistant Staph aureus p ulmonary infection. The patient's peak airway pressure is 34 cm of water. The Plateau pressure is 19 cm of water. The peak to plateau difference suggest increasing airways resistance. The patient is placed on budesonide, formoterol, and Solu-Medrol. We will continue to follow the patient, make recommendations. Prognosis is guarded. Labs, x-rays, and all medications are reviewed. Plan dated June 09, 2024. Bronchoscopy specimens show negative gram stain, culture and AFB smear. The patient is seen today in room 257. He remains on the ventilator. Currently he is on propofol at 35 mcg/kg/min, lactated Ringer's at 75 cc an hour,normal saline at 10ml/hr and Glucerna 20 with goal of 40. The patient is on vancomycin for methicillin-resistant Staph aureus in sputum culture. The patient's peak airway pressure is 29 cm of water. The Plateau pressure is 24 cm of water. The airways resistance has improved. The patient is on budesonide, formoterol, and Solu-Medrol. We will continue to follow the patient, make recommendations. Prognosis is guarded. Labs, x-rays, and all medications are reviewed. Critical care time is 35 minutes. Plan dated May. The patient is seen today in room 257 and is currently still on the mechanical ventilator. Right lung mass biopsy positive for adenocarcinoma of lung. CT brain without contrast will be done today. With daily interruption of sedation the patient got acutely agitated and propofol was increased to 55 mcg/kg/min. Lactated Ringer at 75 cc/h, normal saline at 10 ml/h, Glucerna 40 at goal. Continue vancomycin for MRSA in sputum culture. Patient is on budesonide, formoterol and Solu-Medrol. Will continue to follow and make recommendations. Patient's diagnosis of adenocarcinoma of lung and prognosis has been explained to the family. Lab x-rays and all medications were reviewed. Critical care time is 35 minutes. Plan dated June 11, 2024. The patient was seen today in room 257 and is currently still on the mechanical ventilator. Right lung mass biopsy positive for adenocarcinoma of the lung. CT brain did not show any acute intracranial process. With daily interruption of sedation yesterday the patient got acutely agitated. Propofol at 55 mcg/kg/min. Lactated Ringer at 75 cc/h. Normal saline at KVO. Glycerin 40 at goal. Vancomycin for MRSA on sputum culture. Continue budesonide, formoterol and S shivani-Medrol and DuoNeb. Patient's family still deciding the plan going forward. Labs, x-rays and all medications were reviewed. Prognosis is guarded. Will follow and make recommendations. Critical care time is 35 minutes. Time with Patient: Greater than 30
[2024-06-11 11:31] LABS: Glucose,Whole Blood 193 mg/dL (70-110)
--- NOTE | 2024-06-11 13:46 | P.PN ---
Subjective Progress Note Date: 06/11/24 Principal diagnosis: Reason for follow-up is MRSA pneumonia Patient is a 68-year-old male with a past medical history significant for diabetes mellitus and hypertension smoking recent diagnosis of lung mass status post bronchoscopy subsequently respiratory failure requiring intubation sputum positive for MRSA prompting this consultation. On today's evaluation that is 06/11/2024,the patient continues to be afebrile the patient remains to be debated on the right FiO2 is currently stable at 50% no significant purulent secretion through the ET patient did not tolerate CPAP very well this morning per the nursing staff tolerating his tube feeds no diarrhea reported. The patient white count is 11.5, creatinine 1.0 blood culture negative Objective - Vital Signs Vital signs: Vital Signs Temp 98.9 F 06/11/24 12:00 Pulse 76 06/11/24 13:00 Resp 26 H 06/11/24 13:00 BP 155/81 06/11/24 13:00 Pulse Ox 96 06/11/24 13:00 FiO2 50 06/11/24 13:00 Intake & Output 06/10/24 06/11/24 06/11/24 18:59 06:59 18:59 Intake Total 2421.654 2233.732 946.551 Output Total 870 1135 870 Balance 5561.405 0731.732 76.551 Weight 89.8 kg 99.3 kg Intake: IV 1075 1433 595 KVO 100 110 70 LR 975 825 525 Vancomycin 1,500 mg In 498 Sodium Chloride 0.9% 500 ml 500 ml @ 166.667 mls/ hr IVPB Q24H [facility] Rx#: [id number] Intake, IV Titration 746.654 350.732 101.551 Amount Vancomycin 1,500 mg In 500 Sodium Chloride 0.9% 500 ml 500 ml @ 166.667 mls/ hr IVPB Q16H [facility] Rx#: [id number] propofoL 1,000 mg In 246.654 350.732 101.551 Empty Bag 1 bag @ 15 MCG/ KG/MIN 7.757 mls/hr IV . [id number] [facility] Rx#:[id number] Tube Feeding 510 360 160 Other 90 90 90 Output: Urine 870 1135 870 Other: Voiding Method Indwelling Catheter Indwelling Catheter Indwelling Catheter # Bowel Movements 1 - Exam GENERAL DESCRIPTION: An elderly male intubated on the vent RESPIRATORY SYSTEM: Unlabored breathing , decreased breath sounds at bases HEART: S1 S2 regular rate and rhythm , ABDOMEN: Soft , no tenderness EXTREMITIES: No edema feet - Labs CBC & Chem 7: 06/11/24 04:38 06/11/24 04:38 Labs: Abnormal Lab Results - Last 24 Hours (Table) 06/10/24 06/10/24 06/11/24 Range/Units 18:02 23:36 04:38 WBC 11.5 H (3.8-10.6) k/uL Hgb 11.4 L (13.0-17.5) gm/dL Hct 37.1 L (39.0-53.0) % MCV 72.5 L (80.0-100.0) fL MCH 22.2 L (25.0-35.0) pg MCHC 30.7 L (31.0-37.0) g/dL ABG pH (7.35-7.45) ABG pO2 (83-108) mmHg ABG HCO3 (21-25) mmol/L ABG Total CO2 (19-24) mmol/L Potassium (3.5-5.1) mmol/L Chloride (98-107) mmol/L BUN (9-20) mg/dL Glucose (74-99) mg/dL POC Glucose (mg/dL) 281 H 267 H (70-110) mg/dL 06/11/24 06/11/24 06/11/24 Range/Units 04:38 05:16 05:56 WBC (3.8-10.6) k/uL Hgb (13.0-17.5) gm/dL Hct (39.0-53.0) % MCV (80.0-100.0) fL MCH (25.0-35.0) pg MCHC (31.0-37.0) g/dL ABG pH 7.48 H (7.35-7.45) ABG pO2 70 L (83-108) mmHg ABG HCO3 26 H (21-25) mmol/L ABG Total CO2 27 H (19-24) mmol/L Potassium 5.2 H (3.5-5.1) mmol/L Chloride 114 H (98-107) mmol/L BUN 36 H (9-20) mg/dL Glucose 213 H (74-99) mg/dL POC Glucose (mg/dL) 190 H (70-110) mg/dL 06/11/24 Range/Units 11:30 WBC (3.8-10.6) k/uL Hgb (13.0-17.5) gm/dL Hct (39.0-53.0) % MCV (80.0-100.0) fL MCH (25.0-35.0) pg MCHC (31.0-37.0) g/dL ABG pH (7.35-7.45) ABG pO2 (83-108) mmHg ABG HCO3 (21-25) mmol/L ABG Total CO2 (19-24) mmol/L Potassium (3.5-5.1) mmol/L Chloride (98-107) mmol/L BUN (9-20) mg/dL Glucose (74-99) mg/dL POC Glucose (mg/dL) 193 H (70-110) mg/dL Assessment and Plan (1) Pneumonia Current Visit: Yes Status: Acute Code(s): J18.9 - PNEUMONIA, UNSPECIFIED ORGANISM SNOMED Code(s): 896383576 (2) MRSA (methicillin resistant Staphylococcus aureus) infection Current Visit: Yes Status: Acute Code(s): A49.02 - METHICILLIN RESIS STAPH INFECTION, UNSP SITE SNOMED Code(s): 195443990 Plan: 1patient presented to hospital with abnormal CT in the outpatient setting and a lso having increasing shortness of breath and cough in this patient who is status post bronchoscopy and biopsy of the sputum culture grew MRSA likely concerning for component of MRSA pneumonia. 2patient remains to be afebrile white count has been normal and blood culture has been negative 3patient to continue with vancomycin pharmacy to dose target trough of 15 while watching kidney function and Vanco trough closely. Dictation was produced using [employer] dictation software. please excuse any g rammatical, word or spelling errors. Time with Patient: Less than 30
[2024-06-11 17:11] LABS: Glucose,Whole Blood 278 mg/dL (70-110)
[2024-06-11 19:55] LABS: Glucose,Whole Blood 205 mg/dL (70-110)
[2024-06-11 23:32] LABS: Glucose,Whole Blood 243 mg/dL (70-110)
--- NOTE | 2024-06-12 00:08 | PN ---
PROGRESS NOTE SUBJECTIVE: This is a 68-year-old white male who remains on his MRSA pneumonia, diabetes mellitus, status post bronchoscopy. FiO2 stable at 50% through ET tube, CPAP. White count 1.5, creatinine 1.0. Blood culture negative. Vital signs reviewed. White count 11.5, hemoglobin is 11.4, sodium 140, potassium 5.2. ASSESSMENT: MRSA pneumonia, acute respiratory failure, status post bronchoscopy for pneumonia and pulmonary mass. Remains on broad-spectrum antibiotics. Wean vent as tolerated. MMODL / IJN: [id number] /
[2024-06-12 05:03] LABS: Glucose,Whole Blood 253 mg/dL (70-110)
[2024-06-12 05:23] LABS: ABG Base Excess 3.7 mmol/L; ABG HCO3 28 mmol/L (21-25); ABG Oxygen Saturation 98.1 % (94-97); ABG PCO2 38 mmHg (35-45); ABG PH 7.47 (7.35-7.45); ABG PO2 97 mmHg (83-108); ABG TCO2 29 mmol/L (19-24); Allen Test Performed? Yes
--- NOTE | 2024-06-12 06:40 | XR ---
EXAMINATION TYPE: XR chest 1V portable DATE OF EXAM: 06/12/2024 COMPARISON: 06/11/2024 HISTORY: Respiratory evaluation TECHNIQUE: Single frontal view of the chest is obtained. FINDINGS: The ET tube is 3.7 cm above the shakira. There is an NG tube within the stomach. There is no change in the right-sided pulmonary vascular congestion and moderate pleural effusion. There is no left effusion. There is no pneumothorax. IMPRESSION: Acute cardiopulmonary disease with no interval change. ET tube 3.7 cm above the shakira.
[2024-06-12 07:06] LABS: HCT 34.1 % (39.0-53.0); HGB 10.8 gm/dL (13.0-17.5); Hypochromasia Moderate; MCH 22.4 pg (25.0-35.0); MCHC 31.5 g/dL (31.0-37.0); MCV 71.2 fL (80.0-100.0); Mean Platelet Volume 6.7; Microcytosis Moderate; Platelet Count 469 k/uL (150-450); RDW 15.5 % (11.5-15.5); WBC 10.6 k/uL (3.8-10.6)
[2024-06-12 07:22] LABS: ALT 27 U/L (4-49); AST 26 U/L (17-59); African American GFR (CKD) 88 (>60 ml/min/1.73 sqM); Albumin 2.6 g/dL (3.5-5.0); Alkaline Phosphatase 103 U/L (38-126); Anion Gap 5 mmol/L; Blood Urea Nitrogen 35 mg/dL (9-20); Calcium 8.5 mg/dL (8.4-10.2); Carbon Dioxide 24 mmol/L (22-30); Chloride 110 mmol/L (98-107); Glucose 241 mg/dL (74-99); Non-African American GFR(CKD) 76 (>60 ml/min/1.73 sqM); Potassium 4.8 mmol/L (3.5-5.1); Sodium 139 mmol/L (137-145); Total Bilirubin 0.3 mg/dL (0.2-1.3); Total Protein 5.4 g/dL (6.3-8.2)
--- NOTE | 2024-06-12 11:04 | P.PN ---
Subjective Progress Note Date: 06/12/24 Principal diagnosis: Abnormal chest x-ray/CT scan. Patient is a 68-year-old white male with past medical history significant for significant diabetes mellitus, hyperlipidemia, current everyday smoker. He just recently became established with a new PCP, Dr. Villarreal. He does have a significant smoking history smoking approximately 1 to 2 packs/day for almost 50 years. He is currently retired, worked [employer] for most of his life. Denies ever being diagnosed with COPD. Does report exertional dyspnea such as walking out to the mailbox and back. He reports intermittent chronic cough, with minimal sputum production. Note that the patient has had a 30 pound weight loss over the past 6 months. He is also reported increased throat fullness and difficulty breathing when he turns his head. He went to [facility] yesterday for evaluation. Reportedly the CT of his chest done, however, he presents here without any imaging. Reportedly had enlarged paratracheal lymph nodes and a large lung mass. He was discharged home, went to see his PCP, who directed him to our facility. We are working on requesting these images. Patient is currently sitting at the edge of the bed, on room air, in no acute distress. He denies any infectious-like symptoms. No fevers. Cough is chronic, intermittent, and mostly nonproductive. No chest congestion. No hemoptysis. No palpable neck masses. No observable stridor. CBC unremarkable without leukocytosis. Electrolytes unremarkable. Glucose is 416. Lactic acid 2. Normal saline infusing at 130 MLS per hour. Troponin less than 0.012. NT proBNP low. COVID-negative. He is tachycardic. Otherwise, hemodynamically stable. The patient is seen today 06/03/2024 in follow-up on the regular medical floor. He is awake and alert in no acute distress. He is maintaining good O2 saturations in the 90s on room air. No IV fluids. Glucose 280.he remains on DuoNeb inhalations. He denies any worsening shortness of breath, cough or congestion. No hemoptysis. Plan is for bronchoscopy with biopsies today. Progress note dated June 04, 2024. The patient underwent bronchoscopy yesterday, because of an abnormality noted in his right upper lobe, and he had biopsies brushings washes, etc. Everything went well during the procedure. He had general endotracheal anesthesia (GETA), and, was extubated. Apparently sometime shortly after extubation, he was noted to have some respiratory issues, and was reintubated by the [employer]. The patient was transferred to the intensive care unit for further monitoring and management. The patient remains on mechanical ventilator. Currently he is on volume assist-control, rate 20, tidal volume 500, FiO2 65%, PEEP of 8. Blood gases show pO2 114, pCO2 42, pH is 7.30. The patient is on propofol at 50 mcg/kg/min, LR at 75 cc an hour, saline at KVO. Tube feedings have not yet been started. The bronchoscopy was done on June 03. The patient will be placed on dexmedetomidine, and will attempt a weaning trial with pressure support and CPAP, 8 and 5 respectively. He will also get a nicotine patch as he was smoking up until the time he came to the hospital. Current labs include a white count 10.6, hemoglobin 9.9, hematocrit 39.2, and a normal platelet count. Sodium 137, potassium 5.1, chlorides 110, CO2 18, BUN 22, creatinine 1.47. Glucose is 173. Calcium is 8.9. Bronchoscopy washings are pending. The patient's chest x-ray shows a right-sided pleural effusion. Progress note dated June 05, 2024. 68-year-old male status post bronchoscopy and biopsy of the right upper lobe. The patient developed respiratory distress after the procedure, required reintubation. He remains on the mechanical ventilator. He is currently on volume assist-control, rate 20, to be increased to 24, tidal volume 500, FiO2 of 65%, PEEP of 8. Blood gases show pO2 of 80, pCO2 47, pH of 7.26. The patient is on propofol at 65 mcg/kg/min, LR at 75 cc an hour, norepinephrine 6 mcg/min, and fentanyl at 1 mcg/kg/h. The patient's vital high-protein is running at 5 to 10 cc an hour, but will be increased to goal. White count 13.7, hemoglobin 11.4, hematocrit 37.6, platelet count 285,000. Sodium 137, potassium 4.8, chlorides 110, CO2 19, BUN 25, and creatinine 1.97. Glucose is 186. Albumin 2.8. Cultures are negative. Chest x-ray shows an endotracheal tube which should be advanced a couple centimeters. There is blunting of the right costophrenic angle, with associated atelectasis or infiltrate. Progress note dated June 06, 2024. 68-year-old male seen today in room 257. He remains on mechanical ventilation. He is on volume assist-control, rate 24, tidal volume 500, FiO2 65%, PEEP of 8. Blood gases show pO2 of 68, pCO2 44, pH of 7.31. Patient is on propofol at 45 mcg/kg/min, LR at 75 cc an hour, norepinephrine at 6 mcg/min and fentanyl 0.5 mcg/kg/h. The patient is getting saline at KVO, and vital high-protein at 20 cc an hour. The patient is currently on Rocephin. He will get a dose of vancomycin, 1 g x 1, for suspected staph in the sputum. Current labs include a white count 14, hemoglobin 10.9, hematocrit 36, platelet count 275,000. Sodium 137, potassium 4.6, chlorides 110, CO2 19, BUN 23, creatinine 1.82. Glucose is 159. Calcium 8.5, magnesium 1.9. The sputum has been further identified as being positive for methicillin-resistant Staph aureus. Chest x-ray shows stable infiltrate and pleural effusion, on the right side. Bronchoscopy specimens are still pending. Progress note dated June 07, 2024. 68-year-old male seen today in 257. The patient remains on mechanical ventilation. Settings include volume assist-control, rate 24, tidal volume 500, FiO2 70%, PEEP of 8. Blood gases show pO2 of 72, pCO2 43, and a pH of 7.33. The patient is on propofol at 50 mcg/kg/min, lactated Ringer's at 75 cc an hour, and Glucerna at 10 cc an hour, with a goal of 40. Norepinephrine is off. Sputum is revealing evidence of methicillin-resistant Staph aureus. He continues on vancomycin. Rocephin will be discontinued. We have Lasix 40 mg IV push. We will wean the FiO2, as long as saturations are 90%. Currently, white count 9.9, hemoglobin 10.5, hematocrit 34.1, platelet count is normal. Sodium 138, potassium 4.8, chlorides 110, CO2 20, BUN 24, creatinine 1.61. Glucose is 206. Calcium is 8.6. Sputum Gram stain from June 04 shows methicillin- resistant Staph aureus. Chest x-ray shows some infiltrate, atelectasis, and effusion, in the right lower lobe. Progress note dated June 08, 2024. 68-year-old male seen today in room 257. He remains on mechanical ventilation. Ventilator settings include assist-control, rate 24, tidal volume 500, FiO2 50%, PEEP of 8. Blood gases show pO2 104, pCO2 41, pH is 7.38. The patient is on propofol at 40 mcg/kg/min, lactated Ringer's at 75 cc an hour, and Glucerna at goal, which is 40 cc an hour. Patient is on vancomycin for methicillin- resistant Staph aureus and the patient's sputum. His peak airway pressures 34. His Plateau pressure is 19. We had Solu-Medrol, budesonide 1 mg, and formoterol 20 mcg, twice a day. Current labs include a white count 7.9, hemoglobin 10, hematocrit 32.6, and platelet count is normal. Sodium 139, potassium 3.7, chlorides 110, CO2 21, BUN 21, and creatinine 1.45. Glucose is 160. Sputum reveals evidence of methicillin-resistant Staph aureus. The patient remains on vancomycin. Chest x-ray shows a consolidation, in the right lung base. Progress note dated June 09, 2024. Patient is a 68-year-old male seen today in the ICU. He remains on mechanical ventilation. Ventilator settings include assist-control rate 24, tidal volume 506 ml, FiO2 50% and PEEP of 8. Blood gases show pO2 76, pCO2 41, pH 7.39. Patient is on propofol at 35 mcg/kg/min, lactated Ringer at 75 mill per hour, normal saline at 10 ml/h Glucerna at 20 with a goal of 40. Dietary recommended glucerna at 20 because the patient had high residuals. Continue vancomycin for M RSA in the patient's sputum. He is peak airway pressure today was 29, plateau pressure was 24, His airway resistance seemed to have improved with Solu-Medrol, budesonide 1 mg and formoterol 20 mcg twice a day. Current labs include WBC 9.9, hemoglobin 10.7, platelets 406, sodium 140, potassium 4.8,chloride 110, BUN 29, creatinine 1.25 and glucose 230. Chest x-ray shows stable right-sided consolidation and pleural effusion. We will try daily interruption of sedation today. Gram stain, culture, acid-fast bacilli in bronchoalveolar lavage are negative Progress note dated June 10, 2024. Patient is a 68-year-old male seen today in the ICU, remains on mechanical ventilation. Ventilator settings include assist-control rate 24, tidal volume 504ml, FiO2 50% and PEEP 8. Blood gases show pO2 65, pCO2 38 and pH 7.43. Patient was in acute agitation during his daily interruption of sedation y esterday. His propofol dose was escalated to 55 mcg/kg/min. Also getting lactated Ringer at 75 mill per hour, normal saline at 10 ml/h and Glucerna at 40 with goal of 40. His biopsy right upper lung lobe biopsy shows poorly differentiated adenocarcinoma, tumor is present focally within superficial lymphatic spaces which is likely from smoking. On admission CT there was a hypodense liver lesion measuring 3.5 x 3 cm which seems to be metastasized from adenocarcinoma in the lungs. He will be getting a CT brain without contrast today to see if lung adenocarcinoma has metastasized to the brain. We talked with the patient's two sons about his cancer diagnosis and the patient's prognosis has been explained. He remains on vancomycin for MRSA in the sputum culture. He is at a peak airway pressure of 26. Current labs show WBC 9, hemoglobin 11.4, platelets 425, sodium 140, potassium 4.9, chloride 110, BUN 35, creatinine 1.14 and glucose 326 with ALP 141, total protein 5.5 and albumin 2.7. He remains on budesonide, formoterol, Solu-Medrol. Progress note dated June 11, 2024. 68-year-old male seen today in the ICU, remains on ventilation. Ventilator settings include assist-control rate 24, tidal volume 500, FiO2 50% and PEEP 8. Blood gases show a pO2 of 70, pCO2 35 and pH 7.48. Brain CT does not show any acute intracranial process, shows some nonspecific white matter changes s econdary to chronic small vessel ischemic disease. The chest x-ray does not show any new changes, there is stable moderate right pleural effusion and pulmonary vascular congestion. The patient was in acute agitation during his daily interruption of sedation yesterday. His propofol is now 55 mcg/kg/min. He is getting lactated Ringer at 75 MLS per hour, normal saline KVO and Glucerna at goal of 40. His blood pressure is 161 x 78 and was put on hydralazine as needed. He continues to be on vancomycin for MRSA on sputum culture. He is also on Solu-Medrol, budesonide, formoterol and DuoNeb. His labs show WBC 11.5, hemoglobin 11.4, platelets 95, sodium 140, potassium 5.2, chloride 114, BUN 36, creatinine 1 and glucose 213. Family is still deciding about the plan going forward. They were given number of options. DNR would be appropriate. Comfort care was of another option. Continue treatment can also be an option yet again. Labs x-rays and medications are reviewed. Prognosis is very poor. Progress note dated June 12, 2024. 68-year-old male seen again in room 257. The patient remains critically ill, on the mechanical ventilator. Current settings include volume assist-control, rate 24, tidal volume 500, FiO2 50%, PEEP of 8. Blood gases show pO2 of 97, pCO2 38, pH 7.47. The patient is on lactated Ringer's at 75 cc an hour, propofol at 50 mcg/kg/min, 0.9010 cc an hour, Glucerna at goal, which is 40 cc an hour. The sputum had evidence of methicillin-resistant Staph aureus. The patient is on vancomycin. The patient was recently on pressure support and CPAP for about an hour and a half or so, became very agitated, with increasing heart rate, blood pressure, and lower saturations. The patient was placed back on the ventilator. Current labs include a white count of 10.6, hemoglobin 10.8, hematocrit 34.1, platelet count 469,000. Sodium 139, potassium 4.8, chlorides 110, CO2 24, BUN 35, creatinine 1.03. Albumin is 2.6. Sputum was positive for methicillin-r esistant Staph aureus. The patient continues on vancomycin. Chest x-ray is largely unchanged. Objective - Vital Signs Vital signs: Vital Signs Temp 99.0 F 06/12/24 08:00 Pulse 102 H 06/12/24 10:00 Resp 29 H 06/12/24 10:00 BP 168/95 06/12/24 10:00 Pulse Ox 96 06/12/24 10:00 FiO2 50 06/12/24 09:37 Intake & Output 06/11/24 06/12/24 06/12/24 18:59 06:59 18:59 Intake Total 2511.061 8739.195 595.319 Output Total 1540 1600 430 Balance 195.452 247.195 165.319 Weight 102.2 kg Intake: IV 1020 1020 340 KVO 120 120 40 LR 900 900 300 Intake, IV Titration 275.452 267.195 95.319 Amount propofoL 1,000 mg In 275.452 267.195 95.319 Empty Bag 1 bag @ 15 MCG/ KG/MIN 7.757 mls/hr IV . [id number] [facility] Rx#:[id number] Tube Feeding 310 470 160 Other 130 90 Output: Urine 1540 1600 430 Other: Voiding Method Indwelling Catheter Indwelling Catheter Indwelling Catheter # Bowel Movements 1 - Exam No acute distress, patient restless on propofol, with an orally placed endotracheal tube. HEENT examination is grossly unremarkable. Neck supple. Full range of motion. No adenopathy thyromegaly or neck vein distention. Cardiovascular examination reveals regular rhythm rate. S1-S2 normal. No S3 or S4. No discernible murmur noted. Heart sounds are distant. Heart rate 102 bpm. Lungs reveal diffuse bilateral rhonchi. No wheezes or crackles. Breath sounds equal. Saturations are 97 %. Abdomen soft bowel sounds are heard. No masses or tenderness. Extremities are intact. No cyanosis clubbing or edema. Skin is without rash or lesion. Neurologic examination cannot be assessed at this time. - Labs CBC & Chem 7: 06/12/24 06:52 06/12/24 06:52 Labs: Abnormal Lab Results - Last 24 Hours (Table) 06/11/24 06/11/24 06/11/24 Range/Units 11:30 17:10 19:53 Hgb (13.0-17.5) gm/dL Hct (39.0-53.0) % MCV (80.0-100.0) fL MCH (25.0-35.0) pg Plt Count (150-450) k/uL ABG pH (7.35-7.45) ABG HCO3 (21-25) mmol/L ABG Total CO2 (19-24) mmol/L ABG O2 Saturation (94-97) % Chloride (98-107) mmol/L BUN (9-20) mg/dL Glucose (74-99) mg/dL POC Glucose (mg/dL) 193 H 278 H 205 H (70-110) mg/dL Total Protein (6.3-8.2) g/dL Albumin (3.5-5.0) g/dL 06/11/24 06/12/24 06/12/24 Range/Units 23:31 05:01 05:20 Hgb (13.0-17.5) gm/dL Hct (39.0-53.0) % MCV (80.0-100.0) fL MCH (25.0-35.0) pg Plt Count (150-450) k/uL ABG pH 7.47 H (7.35-7.45) ABG HCO3 28 H (21-25) mmol/L ABG Total CO2 29 H (19-24) mmol/L ABG O2 Saturation 98.1 H (94-97) % Chloride (98-107) mmol/L BUN (9-20) mg/dL Glucose (74-99) mg/dL POC Glucose (mg/dL) 243 H 253 H (70-110) mg/dL Total Protein (6.3-8.2) g/dL Albumin (3.5-5.0) g/dL 06/12/24 06/12/24 Range/Units 06:52 06:52 Hgb 10.8 L (13.0-17.5) gm/dL Hct 34.1 L (39.0-53.0) % MCV 71.2 L (80.0-100.0) fL MCH 22.4 L (25.0-35.0) pg Plt Count 469 H (150-450) k/uL ABG pH (7.35-7.45) ABG HCO3 (21-25) mmol/L ABG Total CO2 (19-24) mmol/L ABG O2 Saturation (94-97) % Chloride 110 H (98-107) mmol/L BUN 35 H (9-20) mg/dL Glucose 241 H (74-99) mg/dL POC Glucose (mg/dL) (70-110) mg/dL Total Protein 5.4 L (6.3-8.2) g/dL Albumin 2.6 L (3.5-5.0) g/dL Assessment and Plan Assessment: Acute respiratory failure, following bronchoscopy, of unclear etiology. The patient had an uneventful procedure, and was stable throughout the procedure. He apparently had some respiratory distress, in the operating room, after extubation. S/P intubation and mechanical ventilation, June 03, 2024. Status post bronchoscopy and biopsies, right upper lobe, June 03, 2024, positive for poorly differentiated adenocarcinoma. Methicillin-resistant Staphylococcus aureus pneumonia, right lower lobe. Lung mass, right upper lobe. Unintentional 30 pound weight loss. Chronic and ongoing tobacco dependence. Probable COPD. Diabetes mellitus, type II. History of hyperlipidemia. Plan: Plan dated June 04, 2024. The patient had an unexpected complication after bronchoscopy with general anesthesia. The patient was completely stable throughout the procedure. There was no pneumothorax after the procedure. For some reason, after extubation, the patient apparently developed some respiratory difficulty, and it was felt by anesthesia that the patient should be intubated. The patient was transferred to the intensive care unit for further monitoring and management. Currently, the patient is on propofol at 50 mcg/kg/min and lactated Ringer's at 75 cc an hour. Blood gases show pO2 of 114, pCO2 42, and a pH of 7.30. The patient has been given a nicotine patch, 21 mg. In addition, we will get the patient on some dexmedetomidine, to see if we can wean him from mechanical ventilation. Labs, x-rays, and all medications are reviewed. Plan dated June 05, 2024. The patient is currently still on the mechanical ventilator. The patient continues on propofol, norepinephrine, and fentanyl. He is also getting lactated Ringer's at 75 cc an hour. Will increase the rate on the ventilator from 20-24. Vital high-protein will be increased to goal. Labs, x-rays, medic ations are reviewed. The patient was started on ceftriaxone empirically. Procalcitonin level was 0.30 yesterday. We will continue to follow make recommendations along the way. Biopsy results currently are still pending. Plan dated June 06, 2024. The patient will be started on vancomycin, for methicillin-resistant Staph aureus, in the sputum. Labs, x-rays, and all medications are reviewed. The patient's blood gases are reviewed. Ventilator settings are appropriate. The patient remains on propofol at 45 mcg/kg/min, lactated Ringer's at 75 cc an hour, norepinephrine at 6 mcg/min, and fentanyl at 0.5 mcg/kg/h. The patient is getting saline at KVO, and vital high-protein at 20 cc an hour. The patient is currently on Rocephin. Vancomycin is added. We will continue to follow, and lindsay sierra recommendations along the way. Prognosis is certainly guarded. Plan dated June 07, 2024. 68-year-old male seen today in room 257. He continues on mechanical ventilation. There was methicillin-resistant Staph aureus in the sputum. He continues on vancomycin. Rocephin will be discontinued. Will give him Lasix 40 mg IV push. Will wean the FiO2 his lungs and saturations are 90% or higher. The endotracheal tube will be pushed down 2 cm. He has been weaned off of norepinephrine. He continues on Glucerna. Labs, x-rays, medications are reviewed. The patient is overall prognosis remains guarded. Biopsies from the other day, still pending. Plan dated June 08, 2024. Bronchoscopy specimens, still currently pending on this patient. The patient is seen today in room 257. He remains on the ventilator. Currently he is on propofol at 40 mcg/kg/min, lactated Ringer's at 75 cc an hour, and Glucerna at goal. The patient is on vancomycin for methicillin-resistant Staph aureus pulmonary infection. The patient's peak airway pressure is 34 cm of water. The Plateau pressure is 19 cm of water. The peak to plateau difference suggest increasing airways resistance. The patient is placed on budesonide, formoterol, and Solu-Medrol. We will continue to follow the patient, make recommendations. Prognosis is guarded. Labs, x-rays, and all medications are reviewed. Plan dated June 12, 2024. With talking to the family about CODE STATUS. They are still mulling it over. Medical oncology also spoke to the family about CODE STATUS, and the likelihood that this represents metastatic non-small cell lung cancer. The patient continues on tube feedings. Labs, x-rays, and medications are reviewed. We will continue to follow the patient, make recommendations. Blood gases show pO2 of 97, pCO2 38, pH is 7.47. Some mild metabolic alkalosis. The patient is getting lactated Ringer's, propofol, saline at 10 cc an hour, and Glucerna at goal. We will continue to follow the patient, make recommendations. Prognosis is poor. Time with Patient: Greater than 30
[2024-06-12 11:59] LABS: Glucose,Whole Blood 219 mg/dL (70-110)
[2024-06-12 18:13] LABS: Glucose,Whole Blood 225 mg/dL (70-110)
[2024-06-12 23:25] LABS: Glucose,Whole Blood 234 mg/dL (70-110)
--- NOTE | 2024-06-13 03:24 | PN ---
PROGRESS NOTE SUBJECTIVE: The patient remains on the vent in ICU status post bronchoscopy for pulmonary mass. He remains critically ill, is on the vent. He is on broad-spectrum antibiotics for possible pneumonia. Vancomycin, CPAP. He is agitated with increased heart rate, blood pressure, lower sats. We tried to wean him on CPAP. Chest x-ray unchanged. OBJECTIVE: VITAL SIGNS: Blood pressure 168/95, respiratory rate 29, pulse 102. HEENT: Normocephalic, atraumatic. He is on propofol. CARDIOVASCULAR: S1, S2. LUNGS: Reveal diffuse bilateral rhonchi. Saturations 97. ABDOMEN: Soft. EXTREMITIES: No edema. NEUROLOGIC: Cranial nerves intact. LABORATORY DATA: White count is 10.6, hemoglobin is 10.8, BUN is 35, creatinine 1.03. ASSESSMENT: Acute respiratory failure, status post bronchoscopy. He has been intubated for the last 10 days, MRSA pneumonia right lower lobe. Bronchoscopies are positive for poorly differentiated adenocarcinoma, weight loss, nicotine addiction, COPD, diabetes mellitus, dyslipidemia. Code status by Dr. Chowdhury with the family due to metastatic non- small lung cancer, on tube feedings. Mild metabolic alkalosis, LR. Prognosis is guarded. Continue tube feedings. Please see further orders. MMODL / IJN: [id number] /
[2024-06-13 04:59] LABS: ABG Base Excess 4.4 mmol/L; ABG HCO3 28 mmol/L (21-25); ABG Oxygen Saturation 97.4 % (94-97); ABG PCO2 38 mmHg (35-45); ABG PH 7.48 (7.35-7.45); ABG PO2 85 mmHg (83-108); ABG TCO2 29 mmol/L (19-24); Allen Test Performed? Yes
[2024-06-13 05:42] LABS: Glucose,Whole Blood 250 mg/dL (70-110)
[2024-06-13 06:51] LABS: HGB 10.7 gm/dL (13.0-17.5); Hypochromasia Marked; MCH 22.1 pg (25.0-35.0); MCHC 30.5 g/dL (31.0-37.0); MCV 72.4 fL (80.0-100.0); Mean Platelet Volume 6.9; Microcytosis Moderate; Platelet Count 446 k/uL (150-450); RBC 4.83 m/uL (4.30-5.90); RDW 15.4 % (11.5-15.5); WBC 12.5 k/uL (3.8-10.6)
[2024-06-13 06:59] LABS: African American GFR (CKD) >90 (>60 ml/min/1.73 sqM); Anion Gap 4 mmol/L; Blood Urea Nitrogen 36 mg/dL (9-20); Calcium 8.5 mg/dL (8.4-10.2); Carbon Dioxide 25 mmol/L (22-30); Chloride 108 mmol/L (98-107); Glucose 241 mg/dL (74-99); Non-African American GFR(CKD) 78 (>60 ml/min/1.73 sqM); Potassium 4.9 mmol/L (3.5-5.1); Sodium 137 mmol/L (137-145)
--- NOTE | 2024-06-13 07:56 | P.PN ---
Subjective Progress Note Date: 06/12/24 Principal diagnosis: Reason for follow-up is MRSA pneumonia Patient is a 68-year-old male with a past medical history significant for diabetes mellitus and hypertension smoking recent diagnosis of lung mass status post bronchoscopy subsequently respiratory failure requiring intubation sputum positive for MRSA prompting this consultation. On today's evaluation that is 06/12/2024,the patient remains to be afebrile, patient is on the ventilator FiO2 is currently stable at 50% no significant purulent secretions through the ET patient is hemodynamically stable not req uiring any pressor support tolerating his tube feeds and no diarrhea has been reported. Patient white count normalized to 10.6 creatinine 1.03 Objective - Vital Signs Vital signs: Vital Signs Temp 98.9 F 06/12/24 16:00 Pulse 74 06/12/24 16:29 Resp 24 06/12/24 16:00 BP 143/68 06/12/24 16:00 Pulse Ox 97 06/12/24 16:00 FiO2 50 06/12/24 16:25 Intake & Output 06/11/24 06/12/24 06/12/24 18:59 06:59 18:59 Intake Total 0914.028 9850.195 1522.771 Output Total 1540 1600 970 Balance 195.452 247.195 552.771 Weight 102.2 kg Intake: IV 1020 1020 850 KVO 120 120 100 LR 900 900 750 Intake, IV Titration 275.452 267.195 212.771 Amount propofoL 1,000 mg In 275.452 267.195 212.771 Empty Bag 1 bag @ 15 MCG/ KG/MIN 7.757 mls/hr IV . [id number] [facility] Rx#:[id number] Tube Feeding 310 470 400 Other 130 90 60 Output: Urine 1540 1600 970 Other: Voiding Method Indwelling Catheter Indwelling Catheter Indwelling Catheter # Bowel Movements 1 - Exam GENERAL DESCRIPTION: An elderly male intubated on the vent RESPIRATORY SYSTEM: Unlabored breathing , decreased breath sounds at bases HEART: S1 S2 regular rate and rhythm , ABDOMEN: Soft , no tenderness EXTREMITIES: No edema feet - Labs CBC & Chem 7: 06/13/24 05:56 06/13/24 05:56 Labs: Abnormal Lab Results - Last 24 Hours (Table) 06/11/24 06/11/24 06/12/24 Range/Units 19:53 23:31 05:01 Hgb (13.0-17.5) gm/dL Hct (39.0-53.0) % MCV (80.0-100.0) fL MCH (25.0-35.0) pg Plt Count (150-450) k/uL ABG pH (7.35-7.45) ABG HCO3 (21-25) mmol/L ABG Total CO2 (19-24) mmol/L ABG O2 Saturation (94-97) % Chloride (98-107) mmol/L BUN (9-20) mg/dL Glucose (74-99) mg/dL POC Glucose (mg/dL) 205 H 243 H 253 H (70-110) mg/dL Total Protein (6.3-8.2) g/dL Albumin (3.5-5.0) g/dL 06/12/24 06/12/24 06/12/24 Range/Units 05:20 06:52 06:52 Hgb 10.8 L (13.0-17.5) gm/dL Hct 34.1 L (39.0-53.0) % MCV 71.2 L (80.0-100.0) fL MCH 22.4 L (25.0-35.0) pg Plt Count 469 H (150-450) k/uL ABG pH 7.47 H (7.35-7.45) ABG HCO3 28 H (21-25) mmol/L ABG Total CO2 29 H (19-24) mmol/L ABG O2 Saturation 98.1 H (94-97) % Chloride 110 H (98-107) mmol/L BUN 35 H (9-20) mg/dL Glucose 241 H (74-99) mg/dL POC Glucose (mg/dL) (70-110) mg/dL Total Protein 5.4 L (6.3-8.2) g/dL Albumin 2.6 L (3.5-5.0) g/dL 06/12/24 Range/Units 11:58 Hgb (13.0-17.5) gm/dL Hct (39.0-53.0) % MCV (80.0-100.0) fL MCH (25.0-35.0) pg Plt Count (150-450) k/uL ABG pH (7.35-7.45) ABG HCO3 (21-25) mmol/L ABG Total CO2 (19-24) mmol/L ABG O2 Saturation (94-97) % Chloride (98-107) mmol/L BUN (9-20) mg/dL Glucose (74-99) mg/dL POC Glucose (mg/dL) 219 H (70-110) mg/dL Total Protein (6.3-8.2) g/dL Albumin (3.5-5.0) g/dL Assessment and Plan (1) Pneumonia Current Visit: Yes Status: Acute Code(s): J18.9 - PNEUMONIA, UNSPECIFIED ORGANISM SNOMED Code(s): 118961955 (2) MRSA (methicillin resistant Staphylococcus aureus) infection Current Visit: Yes Status: Acute Code(s): A49.02 - METHICILLIN RESIS STAPH INFECTION, UNSP SITE SNOMED Code(s): 987863669 Plan: 1patient presented to hospital with abnormal CT in the outpatient setting and also having increasing shortness of breath and cough in this patient who is status post bronchoscopy and biopsy of the sputum culture grew MRSA likely concerning for component of MRSA pneumonia. 2patient remains to be afebrile white count has normalized and the blood culture has been negative 3we will continue patient on vancomycin pharmacy to dose while monitoring his kidney function closely Dictation was produced using [employer] dictation software. please excuse any grammatical, word or spelling errors. Time with Patient: Less than 30
--- NOTE | 2024-06-13 08:04 | XR ---
EXAMINATION TYPE: XR chest 1V portable DATE OF EXAM: 06/13/2024 4:38 AM CLINICAL INDICATION:Male, 68 years old with history of respiratory status; COMPARISON: Chest radiographs from 06/12/2024. TECHNIQUE: XR chest 1V portable Frontal view of the chest. FINDINGS: Lungs/Pleura: There is no evidence of pleural effusion, focal consolidation, or pneumothorax. Pulmonary vascularity: Unremarkable. Heart/mediastinum: Cardiomediastinal silhouette is unremarkable. Musculoskeletal: No acute osseous pathology. Other findings: None Lines/Tubes: Endotracheal tube with distal tip 4.6 cm above the shakira. Nasogastric tube with its distal tip and side-port projecting under the diaphragm. IMPRESSION: 1. Stable exam with right pleural effusion associated atelectasis. 2. Stable support tubes.
[2024-06-13] MEDS: DEXMEDETOMIDINE/0.9% NACL(PMX) 400 MCG in EMPTY BAG 1 BAG IV SCH (09:49)
--- NOTE | 2024-06-13 11:17 | P.PN ---
Subjective Progress Note Date: 06/13/24 Patient seen in ICU, he was extubated this morning. Is restless and slightly agitated. SPO2 low 90s on high flow nasal cannula Objective - Vital Signs Vital signs: Vital Signs Temp 98.5 F 06/13/24 04:00 Pulse 78 06/13/24 08:34 Resp 24 06/13/24 07:00 BP 133/64 06/13/24 07:00 Pulse Ox 97 06/13/24 07:00 FiO2 50 06/13/24 08:20 Intake & Output 06/12/24 06/13/24 06/13/24 18:59 06:59 18:59 Intake Total 5250.321 4492.655 217.243 Output Total 1190 1105 125 Balance 751.971 3762.655 92.243 Weight 102.6 kg Intake: IV 1020 1520 85 KVO 120 120 10 LR 900 900 75 Vancomycin 1,500 mg In 500 Sodium Chloride 0.9% 500 ml 500 ml @ 166.667 mls/ hr IVPB Q24H [facility] Rx#: [id number] Intake, IV Titration 212.771 241.655 92.243 Amount Dexmedetomidine/0.9% NaCl 1.881 (Pmx) 400 mcg In Empty Bag 1 bag @ 0.2 MCG/KG/HR 5.13 mls/hr IV .[id number] [facility] Rx#:[id number] propofoL 1,000 mg In 212.771 241.655 90.362 Empty Bag 1 bag @ 15 MCG/ KG/MIN 7.757 mls/hr IV . [id number] [facility] Rx#:[id number] Tube Feeding 480 480 40 Other 120 120 Output: Urine 1190 1105 125 Other: Voiding Method Indwelling Catheter Indwelling Catheter # Bowel Movements 3 1 - Constitutional General appearance: Present: mild distress - EENT ENT: Present: hearing grossly normal - Respiratory Details: breathing labored - Cardiovascular Details: skin warm and dry - Integumentary Integumentary: Absent: cyanotic - Neurologic Neurologic Comment(s): restless, agitated - Labs CBC & Chem 7: 06/13/24 05:56 06/13/24 05:56 Labs: Abnormal Lab Results - Last 24 Hours (Table) 07/28/24 07/28/24 07/28/24 Range/Units 11:58 18:12 23:24 WBC (3.8-10.6) k/uL Hgb (13.0-17.5) gm/dL Hct (39.0-53.0) % MCV (80.0-100.0) fL MCH (25.0-35.0) pg MCHC (31.0-37.0) g/dL ABG pH (7.35-7.45) ABG HCO3 (21-25) mmol/L ABG Total CO2 (19-24) mmol/L ABG O2 Saturation (94-97) % Chloride (98-107) mmol/L BUN (9-20) mg/dL Glucose (74-99) mg/dL POC Glucose (mg/dL) 219 H 225 H 234 H (70-110) mg/dL 06/13/24 06/13/24 06/13/24 Range/Units 04:58 05:40 05:56 WBC (3.8-10.6) k/uL Hgb (13.0-17.5) gm/dL Hct (39.0-53.0) % MCV (80.0-100.0) fL MCH (25.0-35.0) pg MCHC (31.0-37.0) g/dL ABG pH 7.48 H (7.35-7.45) ABG HCO3 28 H (21-25) mmol/L ABG Total CO2 29 H (19-24) mmol/L ABG O2 Saturation 97.4 H (94-97) % Chloride 108 H (98-107) mmol/L BUN 36 H (9-20) mg/dL Glucose 241 H (74-99) mg/dL POC Glucose (mg/dL) 250 H (70-110) mg/dL 06/13/24 Range/Units 05:56 WBC 12.5 H (3.8-10.6) k/uL Hgb 10.7 L (13.0-17.5) gm/dL Hct 35.0 L (39.0-53.0) % MCV 72.4 L (80.0-100.0) fL MCH 22.1 L (25.0-35.0) pg MCHC 30.5 L (31.0-37.0) g/dL ABG pH (7.35-7.45) ABG HCO3 (21-25) mmol/L ABG Total CO2 (19-24) mmol/L ABG O2 Saturation (94-97) % Chloride (98-107) mmol/L BUN (9-20) mg/dL Glucose (74-99) mg/dL POC Glucose (mg/dL) (70-110) mg/dL Assessment and Plan (1) Lung mass Current Visit: Yes Status: Acute Priority: High Code(s): R91.8 - OTHER NONSPECIFIC ABNORMAL FINDING OF LUNG FIELD SNOMED Code(s): 142698617 (2) Paratracheal lymphadenopathy Current Visit: Yes Status: Acute Priority: High Code(s): R59.0 - LOCALIZED ENLARGED LYMPH NODES SNOMED Code(s): 28397730 (3) Adenocarcinoma of lung Current Visit: Yes Status: Acute Priority: High Code(s): C34.90 - MALIGNANT NEOPLASM OF UNSP PART OF UNSP BRONCHUS OR LUNG SNOMED Code(s): 645517081 Plan: Metastatic NSCLC: Presented with progressing SOB x 1 month. Reports 30 lb unintentional weight loss over last 6 months. History of heavy nicotine use, smoking approx 2 packs x 50 years -On admission CT chest with contrast showed posterior right lung mass measuring 3.4 x 4.6 cm with additional punctate nodularity and increased linear markings within the right lung. Multiple markedly enlarged mediastinal adenopathy noted. Hypodense lesion within the liver measuring 3.5 x 3.0 cm -S/p bronchoscopy. After bronch, pt developed resp distress, requiring re- intubation and was transferred to ICU. Currently trying to wean off vent. Continues on IV abx for pneumonia, positive sputum culture for MRSA. Pulmonary following -RUL brushings and lavage were non-diagnostic of malignancy. RUL lung transbronchial biopsy positive for poorly differentiated adenocarcinoma, favoring lung primary -CT brain without contrast showed no acute intracranial processes -Will plan to obtain brain MRI once pt is more stable, and for outpt PET CT to complete staging Pathology results and oncology POC has been discussed in detail. All questions and concerns were answered Dr. fosterests:I have seen and examined pt, performed H&P, developed impression and plan of care. Discussed with dictator. Agree with documentation, dictated as a scribe.
[2024-06-13] MEDS ORDERED: IPRATROPIUM-ALBUTEROL 3 ML NEB INHALATION PRN (11:30)
[2024-06-13 11:35] LABS: Glucose,Whole Blood 214 mg/dL (70-110)
[2024-06-13] MEDS: IPRATROPIUM-ALBUTEROL 3 ML NEB INHALATION SCH (11:45)
[2024-06-13] MEDS ORDERED: LORazepam 2 MG/ML INJ IV PRN (12:21)
[2024-06-13] MEDS ORDERED: bisacodyL 10 MG SUPP RECTAL PRN (12:22)
--- NOTE | 2024-06-13 12:54 | P.PN ---
Subjective Progress Note Date: 06/13/24 Principal diagnosis: Acute hypoxic respiratory failure, secondary to right lung mass and MRSA right lower lobe pneumonia with underlying COPD/acute exacerbation Patient is a 68-year-old white male with past medical history significant for significant diabetes mellitus, hyperlipidemia, current everyday smoker. He just recently became established with a new PCP, Dr. Villarreal. He does have a significant smoking history smoking approximately 1 to 2 packs/day for almost 50 years. He is currently retired, worked [employer] for most of his life. Denies ever being diagnosed with COPD. Does report exertional dyspnea such as walking out to the mailbox and back. He reports intermittent chronic cough, with minimal sputum production. Note that the patient has had a 30 pound weight loss over the past 6 months. He is also reported increased throat fullness and difficulty breathing when he turns his head. He went to [facility] yesterday for evaluation. Reportedly the CT of his chest done, however, he presents here without any imaging. Reportedly had enlarged paratracheal lymph nodes and a large lung mass. He was discharged home, went to see his PCP, who directed him to our facility. We are working on requesting these images. Patient is currently sitting at the edge of the bed, on room air, in no acute distress. He denies any infectious-like symptoms. No fevers. Cough is chronic, intermittent, and mostly nonproductive. No chest congestion. No hemoptysis. No palpable neck masses. No observable stridor. CBC unremarkable without leukocytosis. Electrolytes unremarkable. Glucose is 416. Lactic acid 2. Normal saline infusing at 130 MLS per hour. Troponin less than 0.012. NT proBNP low. COVID-negative. He is tachycardic. Otherwise, hemodynamically stable. Progress note dated June 11, 2024. 68-year-old male seen today in the ICU, remains on ventilation. Ventilator settings include assist-control rate 24, tidal volume 500, FiO2 50% and PEEP 8. Blood gases show a pO2 of 70, pCO2 35 and pH 7.48. Brain CT does not show any acute intracranial process, shows some nonspecific white matter changes secondary to chronic small vessel ischemic disease. The chest x-ray does not show any new changes, there is stable moderate right pleural effusion and pulmonary vascular congestion. The patient was in acute agitation during his daily interruption of sedation yesterday. His propofol is now 55 mcg/kg/min. He is getting lactated Ringer at 75 MLS per hour, normal saline KVO and Glucerna at goal of 40. His blood pressure is 161 x 78 and was put on hydralazine as needed. He continues to be on vancomycin for MRSA on sputum culture. He is also on Solu-Medrol, budesonide, formoterol and DuoNeb. His labs show WBC 11.5, hemoglobin 11.4, platelets 95, sodium 140, potassium 5.2, chloride 114, BUN 36, creatinine 1 and glucose 213. Family is still deciding about the plan going forward. They were given number of options. DNR would be appropriate. Comfort care was of another option. Continue treatment can also be an option yet again. Labs x-rays and medications are reviewed. Prognosis is very poor. Progress note dated June 12, 2024. 68-year-old male seen again in room 257. The patient remains critically ill, on the mechanical ventilator. Current settings include volume assist-control, rate 24, tidal volume 500, FiO2 50%, PEEP of 8. Blood gases show pO2 of 97, pCO2 38, pH 7.47. The patient is on lactated Ringer's at 75 cc an hour, propofol at 50 mcg/kg/min, 0.9010 cc an hour, Glucerna at goal, which is 40 cc an hour. The sputum had evidence of methicillin-resistant Staph aureus. The patient is on vancomycin. The patient was recently on pressure support and CPAP for about an hour and a half or so, became very agitated, with increasing heart rate, blood pressure, and lower saturations. The patient was placed back on the ventilator. Current labs include a white count of 10.6, hemoglobin 10.8, hematocrit 34.1, platelet count 469,000. Sodium 139, potassium 4.8, chlorides 110, CO2 24, BUN 35, creatinine 1.03. Albumin is 2.6. Sputum was positive for methicillin- resistant Staph aureus. The patient continues on vancomycin. Chest x-ray is largely unchanged. Patient was reevaluated today 06/13/2024, remains in the ICU intubated and mechanically ventilated. Patient is on assist-control rate of 24 tidal volume 500 FiO2 50% and PEEP of 8 ABG showed a pO2 of 85 pCO2 38 pH of 7.48. Patient is arousable, follows simple instructions, seems to be a bit calm, his weaning parameters were reviewed, he had a tidal volume of 482, rate of 20 RSBI of 44 vitals Of 1.16 and nephro -15 and there was also a positive cuff leak. Patient is on vancomycin for MRSA in the sputum, he is on propofol at 40 and LR at 75 cc/h. Hence I went ahead and recommended a short trial of pressure support of 8 and CPAP. I was in the ICU all along, came back while the patient was on pressure support and CPAP, seem to be doing well, and I will go ahead and proceed to extubating the patient. His CODE STATUS has already been changed to DNR CODE STATUS, and according to the son the patient is not to be reintubated if his condition gets any worse. Patient does have history of extreme agitation and alcohol use, and most likely post extubation may require to be placed on Precedex. Labs today showed WC count 12.5 hemoglobin 10.7 electrolytes are normal BUN is 36 creatinine 1.0, chest x-ray showed mostly right pleural effusion with associated atelectasis. Objective - Vital Signs Vital signs: Vital Signs Temp 98.5 F 06/13/24 04:00 Pulse 78 06/13/24 08:34 Resp 24 06/13/24 07:00 BP 133/64 06/13/24 07:00 Pulse Ox 97 06/13/24 07:00 FiO2 50 06/13/24 08:20 Intake & Output 06/12/24 06/13/24 06/13/24 18:59 06:59 18:59 Intake Total 2849.734 6542.655 240.627 Output Total 1190 1105 125 Balance 271.516 1050.655 115.627 Weight 102.6 kg 102.6 kg Intake: IV 1020 1520 85 KVO 120 120 10 LR 900 900 75 Vancomycin 1,500 mg In 500 Sodium Chloride 0.9% 500 ml 500 ml @ 166.667 mls/ hr IVPB Q24H [facility] Rx#: [id number] Intake, IV Titration 212.771 241.655 115.627 Amount Dexmedetomidine/0.9% NaCl 25.265 (Pmx) 400 mcg In Empty Bag 1 bag @ 0.2 MCG/KG/HR 5.13 mls/hr IV .[id number] [facility] Rx#:[id number] propofoL 1,000 mg In 212.771 241.655 90.362 Empty Bag 1 bag @ 15 MCG/ KG/MIN 7.757 mls/hr IV . [id number] [facility] Rx#:[id number] Tube Feeding 480 480 40 Other 120 120 Output: Urine 1190 1105 125 Other: Voiding Method Indwelling Catheter Indwelling Catheter # Bowel Movements 3 1 - Exam General: The patient is awake and alert, in no distress, intubated and mechanically ventilated Skin: Skin is warm and dry and no rashes or lesions are noted. Eye: Pupils are equal, round and reactive to light, extra-ocular movements are intact; there is normal conjunctiva bilaterally. Ears, nose, mouth and throat: There are moist mucous membranes and no oral lesions. Neck: The neck is supple, there is no tenderness or JVD. Cardiovascular: There is a regular rate and rhythm. No murmur, rub or gallop is appreciated. Respiratory: Diminished breath sounds at the bases no crackles rhonchi or wheezes Gastrointestinal: Soft, non-distended, non-tender abdomen without masses or organomegaly noted. There is no rebound or guarding present. Bowel sounds are unremarkable. Back: There is no tenderness to palpation in the midline. There is no obvious deformity. Musculoskeletal: Normal ROM, no tenderness, There is no pedal edema. There is no calf tenderness or swelling. No cords were appreciated. Neurological: Alert and oriented x 3 no gross focal deficit Psychiatric: Normal mood affect and normal mental status examination - Labs CBC & Chem 7: 06/13/24 05:56 06/13/24 05:56 Labs: Abnormal Lab Results - Last 24 Hours (Table) 06/12/24 06/12/24 06/13/24 Range/Units 18:12 23:24 04:58 WBC (3.8-10.6) k/uL Hgb (13.0-17.5) gm/dL Hct (39.0-53.0) % MCV (80.0-100.0) fL MCH (25.0-35.0) pg MCHC (31.0-37.0) g/dL ABG pH 7.48 H (7.35-7.45) ABG HCO3 28 H (21-25) mmol/L ABG Total CO2 29 H (19-24) mmol/L ABG O2 Saturation 97.4 H (94-97) % Chloride (98-107) mmol/L BUN (9-20) mg/dL Glucose (74-99) mg/dL POC Glucose (mg/dL) 225 H 234 H (70-110) mg/dL 06/13/24 06/13/24 06/13/24 Range/Units 05:40 05:56 05:56 WBC 12.5 H (3.8-10.6) k/uL Hgb 10.7 L (13.0-17.5) gm/dL Hct 35.0 L (39.0-53.0) % MCV 72.4 L (80.0-100.0) fL MCH 22.1 L (25.0-35.0) pg MCHC 30.5 L (31.0-37.0) g/dL ABG pH (7.35-7.45) ABG HCO3 (21-25) mmol/L ABG Total CO2 (19-24) mmol/L ABG O2 Saturation (94-97) % Chloride 108 H (98-107) mmol/L BUN 36 H (9-20) mg/dL Glucose 241 H (74-99) mg/dL POC Glucose (mg/dL) 250 H (70-110) mg/dL 06/13/24 Range/Units 11:34 WBC (3.8-10.6) k/uL Hgb (13.0-17.5) gm/dL Hct (39.0-53.0) % MCV (80.0-100.0) fL MCH (25.0-35.0) pg MCHC (31.0-37.0) g/dL ABG pH (7.35-7.45) ABG HCO3 (21-25) mmol/L ABG Total CO2 (19-24) mmol/L ABG O2 Saturation (94-97) % Chloride (98-107) mmol/L BUN (9-20) mg/dL Glucose (74-99) mg/dL POC Glucose (mg/dL) 214 H (70-110) mg/dL Assessment and Plan Assessment: Impression: Acute hypoxic respiratory failure following bronchoscopy, requiring intubation mechanical ventilation on June 03 2024. 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 MRSA pneumonia/right lower lobe contributing to his respiratory failure, patient is now on vancomycin. 30 pound weight loss secondary to underlying malignancy/lung CA Chronic obstructive pulmonary disease Tobacco dependence syndrome Type 2 diabetes Dyslipidemia Recommendation: Continue ventilatory support Patient will be given a short weaning trial with pressure support and CPAP while up at bedside Patient will remain on antibiotics/vancomycin for his MRSA pneumonia Continue bronchodilators Discussed his condition and his overall status with the son at bedside. If the patient passes the weaning parameters, will proceed to extubation. In the meantime continue ventilatory support, nutritional support, hemodynamic support if needed. CODE STATUS will be changed to DNR CODE STATUS based on family's wishes. Patient remains critically ill, Will continue to follow and monitor in the ICU. Trickle care time is over 30-minute Time with Patient: Greater than 30
[2024-06-13] MEDS: VANCOMYCIN TROUGH DUE 1 EACH MISC MISCELLANE ONE (15:55)
[2024-06-13 16:16] LABS: Glucose,Whole Blood 106 mg/dL (70-110)
[2024-06-13] MEDS: INSULIN ASPART (NovoLOG) 100 UNIT/ML VIAL SQ SCH (17:57)
[2024-06-13 20:52] LABS: Glucose,Whole Blood 239 mg/dL (70-110)
--- NOTE | 2024-06-14 01:44 | PN ---
PROGRESS NOTE SUBJECTIVE: This is a 68-year-old white male, status post extubation today. Temperature 97.8, pulse 97, blood pressure 153/74, 95 high-flow. White count is 12.5, hemoglobin is 10.7, BUN is 36, creatinine 1.0. Waiting for biopsies to come back. Oncology saw him for cancer. Peritracheal lymphadenopathy, adenocarcinoma of the lung, status post respiratory failure. He is on IV antibiotics for pneumonia, positive sputum for MRSA pneumonia. Poorly differentiated adenocarcinoma lung primary. MRI of the brain once more if PET scan outpatient. Continue current treatment. Possible discharge home and wean down his oxygen levels. MMODL / IJN: [id number] /
[2024-06-14 06:09] LABS: HGB 12.3 gm/dL (13.0-17.5); Hypochromasia Marked; MCH 21.7 pg (25.0-35.0); MCHC 30.1 g/dL (31.0-37.0); MCV 72.3 fL (80.0-100.0); Mean Platelet Volume 6.4; Microcytosis Moderate; Platelet Count 471 k/uL (150-450); RBC 5.67 m/uL (4.30-5.90); RDW 15.5 % (11.5-15.5); WBC 18.7 k/uL (3.8-10.6)
[2024-06-14 06:25] LABS: Glucose,Whole Blood 132 mg/dL (70-110)
[2024-06-14 06:29] LABS: African American GFR (CKD) >90 (>60 ml/min/1.73 sqM); Anion Gap 7 mmol/L; Blood Urea Nitrogen 32 mg/dL (9-20); Calcium 9.1 mg/dL (8.4-10.2); Carbon Dioxide 23 mmol/L (22-30); Chloride 108 mmol/L (98-107); Glucose 133 mg/dL (74-99); Non-African American GFR(CKD) 83 (>60 ml/min/1.73 sqM); Potassium 4.3 mmol/L (3.5-5.1); Sodium 138 mmol/L (137-145)
--- NOTE | 2024-06-14 08:09 | XR ---
EXAMINATION TYPE: XR chest 1V portable DATE OF EXAM: 06/14/2024 5:20 AM CLINICAL INDICATION:Male, 68 years old with history of follow-up post extubation; [facility] COMPARISON: Chest radiograph from one day prior. TECHNIQUE: XR chest 1V portable Frontal view of the chest. FINDINGS: Lungs/Pleura: No evidence of focal consolidation or pneumothorax. Blunting of the right costophrenic angle is present. Left pleural effusion. Pulmonary vascularity: Mild pulmonary vascular congestion. Heart/mediastinum: Cardiomediastinal silhouette is enlarged and stable. Musculoskeletal: No acute osseous pathology. IMPRESSION: Moderate pleural effusion with associated atelectasis. Pulmonary edema with cardiomegaly.
[2024-06-14 11:21] LABS: Glucose,Whole Blood 158 mg/dL (70-110)
--- NOTE | 2024-06-14 12:55 | P.PN ---
Subjective Progress Note Date: 06/14/24 Principal diagnosis: Acute hypoxic respiratory failure, secondary to right lung mass and MRSA right lower lobe pneumonia with underlying COPD/acute exacerbation Patient is a 68-year-old white male with past medical history significant for significant diabetes mellitus, hyperlipidemia, current everyday smoker. He just recently became established with a new PCP, Dr. Villarreal. He does have a significant smoking history smoking approximately 1 to 2 packs/day for almost 50 years. He is currently retired, worked [employer] for most of his life. Denies ever being diagnosed with COPD. Does report exertional dyspnea such as walking out to the mailbox and back. He reports intermittent chronic cough, with minimal sputum production. Note that the patient has had a 30 pound weight loss over the past 6 months. He is also reported increased throat fullness and difficulty breathing when he turns his head. He went to [facility] yesterday for evaluation. Reportedly the CT of his chest done, however, he presents here without any imaging. Reportedly had enlarged paratracheal lymph nodes and a large lung mass. He was discharged home, went to see his PCP, who directed him to our facility. We are working on requesting these images. Patient is currently sitting at the edge of the bed, on room air, in no acute distress. He denies any infectious-like symptoms. No fevers. Cough is chronic, intermittent, and mostly nonproductive. No chest congestion. No hemoptysis. No palpable neck masses. No observable stridor. CBC unremarkable without leukocytosis. Electrolytes unremarkable. Glucose is 416. Lactic acid 2. Normal saline infusing at 130 MLS per hour. Troponin less than 0.012. NT proBNP low. COVID-negative. He is tachycardic. Otherwise, hemodynamically stable. Progress note dated June 11, 2024. 68-year-old male seen today in the ICU, remains on ventilation. Ventilator settings include assist-control rate 24, tidal volume 500, FiO2 50% and PEEP 8. Blood gases show a pO2 of 70, pCO2 35 and pH 7.48. Brain CT does not show any acute intracranial process, shows some nonspecific white matter changes secondary to chronic small vessel ischemic disease. The chest x-ray does not show any new changes, there is stable moderate right pleural effusion and pulmonary vascular congestion. The patient was in acute agitation during his daily interruption of sedation yesterday. His propofol is now 55 mcg/kg/min. He is getting lactated Ringer at 75 MLS per hour, normal saline KVO and Glucerna at goal of 40. His blood pressure is 161 x 78 and was put on hydralazine as needed. He continues to be on vancomycin for MRSA on sputum culture. He is also on Solu-Medrol, budesonide, formoterol and DuoNeb. His labs show WBC 11.5, hemoglobin 11.4, platelets 95, sodium 140, potassium 5.2, chloride 114, BUN 36, creatinine 1 and glucose 213. Family is still deciding about the plan going forward. They were given number of options. DNR would be appropriate. Comfort care was of another option. Continue treatment can also be an option yet again. Labs x-rays and medications are reviewed. Prognosis is very poor. Progress note dated June 12, 2024. 68-year-old male seen again in room 257. The patient remains critically ill, on the mechanical ventilator. Current settings include volume assist-control, rate 24, tidal volume 500, FiO2 50%, PEEP of 8. Blood gases show pO2 of 97, pCO2 38, pH 7.47. The patient is on lactated Ringer's at 75 cc an hour, propofol at 50 mcg/kg/min, 0.9010 cc an hour, Glucerna at goal, which is 40 cc an hour. The sputum had evidence of methicillin-resistant Staph aureus. The patient is on vancomycin. The patient was recently on pressure support and CPAP for about an hour and a half or so, became very agitated, with increasing heart rate, blood pressure, and lower saturations. The patient was placed back on the ventilator. Current labs include a white count of 10.6, hemoglobin 10.8, hematocrit 34.1, platelet count 469,000. Sodium 139, potassium 4.8, chlorides 110, CO2 24, BUN 35, creatinine 1.03. Albumin is 2.6. Sputum was positive for methicillin- resistant Staph aureus. The patient continues on vancomycin. Chest x-ray is largely unchanged. Patient was reevaluated today 06/13/2024, remains in the ICU intubated and mechanically ventilated. Patient is on assist-control rate of 24 tidal volume 500 FiO2 50% and PEEP of 8 ABG showed a pO2 of 85 pCO2 38 pH of 7.48. Patient is arousable, follows simple instructions, seems to be a bit calm, his weaning parameters were reviewed, he had a tidal volume of 482, rate of 20 RSBI of 44 vitals Of 1.16 and nephro -15 and there was also a positive cuff leak. Patient is on vancomycin for MRSA in the sputum, he is on propofol at 40 and LR at 75 cc/h. Hence I went ahead and recommended a short trial of pressure support of 8 and CPAP. I was in the ICU all along, came back while the patient was on pressure support and CPAP, seem to be doing well, and I will go ahead and proceed to extubating the patient. His CODE STATUS has already been changed to DNR CODE STATUS, and according to the son the patient is not to be reintubated if his condition gets any worse. Patient does have history of extreme agitation and alcohol use, and most likely post extubation may require to be placed on Precedex. Labs today showed WC count 12.5 hemoglobin 10.7 electrolytes are normal BUN is 36 creatinine 1.0, chest x-ray showed mostly right pleural effusion with associated atelectasis. Patient was seen today on 06/14/2024, patient was extubated yesterday, looks very comfortable, does not seem to be in distress, he did require a short course of t reatment with Precedex to control his agitation, today he is off Precedex, sitting at the bedside chair, in no distress WBC count is 18.7 hemoglobin 12.3 basic metabolic profile is normal renal profile is normal BUN is 32 creatinine 0.96, chest x-ray showed atelectasis and right-sided pleural effusion with pulmonary edema and cardiomegaly. Will try a gentle course of diuresis on this patient considering his chest x-ray findings. Urine remains positive for MRSA, patient is on vancomycin. Objective - Vital Signs Vital signs: Vital Signs Temp 98.0 F 06/14/24 08:00 Pulse 101 H 06/14/24 11:00 Resp 25 H 06/14/24 11:00 BP 157/84 06/14/24 09:00 Pulse Ox 97 06/14/24 11:00 FiO2 50 06/13/24 08:20 Intake & Output 06/13/24 06/14/24 06/14/24 18:59 06:59 18:59 Intake Total 1670.116 900 680 Output Total 1480 2335 925 Balance 190.116 -1435 -245 Weight 102.6 kg 101.8 kg Intake: IV 1440 900 680 KVO 40 LR 75 Lactated Ringers 1,000 ml 825 900 180 @ 10 mls/hr IV .Q24H [facility] Rx#:[id number] Vancomycin 1,500 mg In 500 500 Sodium Chloride 0.9% 500 ml 500 ml @ 166.667 mls/ hr IVPB Q16H [facility] Rx#: [id number] Intake, IV Titration 120.116 Amount Dexmedetomidine/0.9% NaCl 29.754 (Pmx) 400 mcg In Empty Bag 1 bag @ 0.2 MCG/KG/HR 5.13 mls/hr IV .[id number] [facility] Rx#:[id number] propofoL 1,000 mg In 90.362 Empty Bag 1 bag @ 15 MCG/ KG/MIN 7.757 mls/hr IV . [id number] [facility] Rx#:[id number] Tube Feeding 80 Other 30 Output: Urine 1480 2335 925 Other: Voiding Method Indwelling Catheter Indwelling Catheter Indwelling Catheter # Bowel Movements 1 - Exam General: The patient is awake and alert, in no distress, on 9 L nasal cannula, O2 sat is 97% Skin: Skin is warm and dry and no rashes or lesions are noted. Eye: Pupils are equal, round and reactive to light, extra-ocular movements are intact; there is normal conjunctiva bilaterally. Ears, nose, mouth and throat: There are moist mucous membranes and no oral lesions. Neck: The neck is supple, there is no tenderness or JVD. Cardiovascular: There is a regular rate and rhythm. No murmur, rub or gallop is appreciated. Respiratory: Diminished breath sounds at the bases no crackles rhonchi or wheezes Gastrointestinal: Soft, non-distended, non-tender abdomen without masses or organomegaly noted. There is no rebound or guarding present. Bowel sounds are unremarkable. Back: There is no tenderness to palpation in the midline. There is no obvious deformity. Musculoskeletal: Normal ROM, no tenderness, There is no pedal edema. There is no calf tenderness or swelling Neurological: Alert and oriented x 3 no gross focal deficit Psychiatric: Normal mood affect and normal mental status examination - Labs CBC & Chem 7: 06/14/24 05:32 06/14/24 05:32 Labs: Abnormal Lab Results - Last 24 Hours (Table) 06/13/24 06/14/24 06/14/24 Range/Units 20:51 05:32 05:32 WBC 18.7 H (3.8-10.6) k/uL Hgb 12.3 L (13.0-17.5) gm/dL MCV 72.3 L (80.0-100.0) fL MCH 21.7 L (25.0-35.0) pg MCHC 30.1 L (31.0-37.0) g/dL Plt Count 471 H (150-450) k/uL Chloride 108 H (98-107) mmol/L BUN 32 H (9-20) mg/dL Glucose 133 H (74-99) mg/dL POC Glucose (mg/dL) 239 H (70-110) mg/dL 06/14/24 06/14/24 Range/Units 06:24 11:19 WBC (3.8-10.6) k/uL Hgb (13.0-17.5) gm/dL MCV (80.0-100.0) fL MCH (25.0-35.0) pg MCHC (31.0-37.0) g/dL Plt Count (150-450) k/uL Chloride (98-107) mmol/L BUN (9-20) mg/dL Glucose (74-99) mg/dL POC Glucose (mg/dL) 132 H 158 H (70-110) mg/dL Microbiology - Last 24 Hours (Table) 06/03/24 12:30 Fungal Culture - Preliminary Bronchoalviolar Lavage - Right 06/03/24 12:30 Acid Fast Bacilli Smear - Preliminary Bronchoalviolar Lavage - Right Acid Fast Bacilli Culture - Preliminary Assessment and Plan Assessment: Impression: Acute hypoxic respiratory failure following bronchoscopy, requiring intubation mechanical ventilation on June 03 2024. 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 MRSA pneumonia/right lower lobe contributing to his respiratory failure, patient is now on vancomycin. Moderate size left-sided pleural effusion, probably malignant unless told otherwise 30 pound weight loss secondary to underlying malignancy/lung CA Chronic obstructive pulmonary disease Tobacco dependence syndrome Type 2 diabetes Dyslipidemia Recommendation: Continue to monitor in the ICU for the next 24 hours Continue vancomycin for presumptive MRSA pneumonia Continue bronchodilators CODE STATUS will be changed to DNR CODE STATUS based on family's wishes. Long-term prognosis remains relatively poor and guarded Will continue to follow Time with Patient: Less than 30
[2024-06-14] MEDS: FUROSEMIDE 10 MG/ML 4 ML VIAL IV SCH (13:42)
[2024-06-14] MEDS: FUROSEMIDE 10 MG/ML 4 ML VIAL ONE (13:48)
--- NOTE | 2024-06-14 15:10 | P.PN ---
Subjective Progress Note Date: 06/13/24 Principal diagnosis: Reason for follow-up is MRSA pneumonia Patient is a 68-year-old male with a past medical history significant for diabetes mellitus and hypertension smoking recent diagnosis of lung mass status post bronchoscopy subsequently respiratory failure requiring intubation sputum positive for MRSA prompting this consultation. On today's evaluation that is 06/13/2024, the patient has been extubated this morning he is currently breathing comfortably on 11 L nasal cannula oxygen patient is slightly lethargic but able to answer questions denies any chest pain or worsening cough no vomiting or diarrhea has been reported Patient white count is 12.5 and creatinine 1.0 Objective - Vital Signs Vital signs: Vital Signs Temp 98.5 F 06/13/24 04:00 Pulse 78 06/13/24 08:34 Resp 24 06/13/24 07:00 BP 133/64 06/13/24 07:00 Pulse Ox 97 06/13/24 07:00 FiO2 50 06/13/24 08:20 Intake & Output 06/12/24 06/13/24 06/13/24 18:59 06:59 18:59 Intake Total 6457.866 3287.655 217.243 Output Total 1190 1105 125 Balance 017.698 0440.655 92.243 Weight 102.6 kg 102.6 kg Intake: IV 1020 1520 85 KVO 120 120 10 LR 900 900 75 Vancomycin 1,500 mg In 500 Sodium Chloride 0.9% 500 ml 500 ml @ 166.667 mls/ hr IVPB Q24H [facility] Rx#: [id number] Intake, IV Titration 212.771 241.655 92.243 Amount Dexmedetomidine/0.9% NaCl 1.881 (Pmx) 400 mcg In Empty Bag 1 bag @ 0.2 MCG/KG/HR 5.13 mls/hr IV .[id number] [facility] Rx#:[id number] propofoL 1,000 mg In 212.771 241.655 90.362 Empty Bag 1 bag @ 15 MCG/ KG/MIN 7.757 mls/hr IV . [id number] [facility] Rx#:[id number] Tube Feeding 480 480 40 Other 120 120 Output: Urine 1190 1105 125 Other: Voiding Method Indwelling Catheter Indwelling Catheter # Bowel Movements 3 1 - Exam GENERAL DESCRIPTION: An elderly male lying in bed no distress RESPIRATORY SYSTEM: Unlabored breathing , coarse breath sounds bilaterally HEART: S1 S2 regular rate and rhythm , ABDOMEN: Soft , no tenderness EXTREMITIES: No edema feet - Labs CBC & Chem 7: 06/14/24 05:32 06/14/24 05:32 Labs: Abnormal Lab Results - Last 24 Hours (Table) 06/12/24 06/12/24 06/13/24 Range/Units 18:12 23:24 04:58 WBC (3.8-10.6) k/uL Hgb (13.0-17.5) gm/dL Hct (39.0-53.0) % MCV (80.0-100.0) fL MCH (25.0-35.0) pg MCHC (31.0-37.0) g/dL ABG pH 7.48 H (7.35-7.45) ABG HCO3 28 H (21-25) mmol/L ABG Total CO2 29 H (19-24) mmol/L ABG O2 Saturation 97.4 H (94-97) % Chloride (98-107) mmol/L BUN (9-20) mg/dL Glucose (74-99) mg/dL POC Glucose (mg/dL) 225 H 234 H (70-110) mg/dL 06/13/24 06/13/24 06/13/24 Range/Units 05:40 05:56 05:56 WBC 12.5 H (3.8-10.6) k/uL Hgb 10.7 L (13.0-17.5) gm/dL Hct 35.0 L (39.0-53.0) % MCV 72.4 L (80.0-100.0) fL MCH 22.1 L (25.0-35.0) pg MCHC 30.5 L (31.0-37.0) g/dL ABG pH (7.35-7.45) ABG HCO3 (21-25) mmol/L ABG Total CO2 (19-24) mmol/L ABG O2 Saturation (94-97) % Chloride 108 H (98-107) mmol/L BUN 36 H (9-20) mg/dL Glucose 241 H (74-99) mg/dL POC Glucose (mg/dL) 250 H (70-110) mg/dL 06/13/24 Range/Units 11:34 WBC (3.8-10.6) k/uL Hgb (13.0-17.5) gm/dL Hct (39.0-53.0) % MCV (80.0-100.0) fL MCH (25.0-35.0) pg MCHC (31.0-37.0) g/dL ABG pH (7.35-7.45) ABG HCO3 (21-25) mmol/L ABG Total CO2 (19-24) mmol/L ABG O2 Saturation (94-97) % Chloride (98-107) mmol/L BUN (9-20) mg/dL Glucose (74-99) mg/dL POC Glucose (mg/dL) 214 H (70-110) mg/dL Assessment and Plan (1) Pneumonia Current Visit: Yes Status: Acute Code(s): J18.9 - PNEUMONIA, UNSPECIFIED ORGANISM SNOMED Code(s): 189492413 (2) MRSA (methicillin resistant Staphylococcus aureus) infection Current Visit: Yes Status: Acute Code(s): A49.02 - METHICILLIN RESIS STAPH INFECTION, UNSP SITE SNOMED Code(s): 707382856 Plan: 1patient presented to hospital with abnormal CT in the outpatient setting and also having increasing shortness of breath and cough in this patient who is status post bronchoscopy and biopsy of the sputum culture grew MRSA likely concerning for component of MRSA pneumonia. 2patient remains to be afebrile white count mild elevated however blood cultures negative 3patient has shown improvement as the patient has been extubated we will continue vancomycin pharmacy to dose while monitoring his kidney function closely Dictation was produced using [employer] dictation software. please excuse any grammatical, word or spelling errors. Time with Patient: Less than 30
--- NOTE | 2024-06-14 15:11 | P.PN ---
Subjective Progress Note Date: 06/14/24 Principal diagnosis: Reason for follow-up is MRSA pneumonia Patient is a 68-year-old male with a past medical history significant for diabetes mellitus and hypertension smoking recent diagnosis of lung mass status post bronchoscopy subsequently respiratory failure requiring intubation sputum positive for MRSA prompting this consultation. On today's evaluation that is 06/14/2024, Patient is afebrile patient is currently on 9 L current oxygen and denies having any worsening shortness of breath, the patient denies any chest pain or cough, the patient denies any naus ea vomiting did not have any abdominal pain and no diarrhea. Patient white count is 18.7 creatinine 0.96 Objective - Vital Signs Vital signs: Vital Signs Temp 98.0 F 06/14/24 08:00 Pulse 125 H 06/14/24 13:00 Resp 31 H 06/14/24 13:00 BP 172/87 06/14/24 13:00 Pulse Ox 97 06/14/24 11:00 FiO2 50 06/13/24 08:20 Intake & Output 06/13/24 06/14/24 06/14/24 18:59 06:59 18:59 Intake Total 1670.116 900 680 Output Total 1480 2335 925 Balance 190.116 -1435 -245 Weight 102.6 kg 101.8 kg Intake: IV 1440 900 680 KVO 40 LR 75 Lactated Ringers 1,000 ml 825 900 180 @ 10 mls/hr IV .Q24H [facility] Rx#:[id number] Vancomycin 1,500 mg In 500 500 Sodium Chloride 0.9% 500 ml 500 ml @ 166.667 mls/ hr IVPB Q16H [facility] Rx#: [id number] Intake, IV Titration 120.116 Amount Dexmedetomidine/0.9% NaCl 29.754 (Pmx) 400 mcg In Empty Bag 1 bag @ 0.2 MCG/KG/HR 5.13 mls/hr IV .[id number] [facility] Rx#:[id number] propofoL 1,000 mg In 90.362 Empty Bag 1 bag @ 15 MCG/ KG/MIN 7.757 mls/hr IV . [id number] [facility] Rx#:[id number] Tube Feeding 80 Other 30 Output: Urine 1480 2335 925 Other: Voiding Method Indwelling Catheter Indwelling Catheter Indwelling Catheter # Bowel Movements 1 - Exam GENERAL DESCRIPTION: An elderly male lying in bed no distress RESPIRATORY SYSTEM: Unlabored breathing , coarse breath sounds bilaterally HEART: S1 S2 regular rate and rhythm , ABDOMEN: Soft , no tenderness EXTREMITIES: No edema feet - Labs CBC & Chem 7: 06/14/24 05:32 06/14/24 05:32 Labs: Abnormal Lab Results - Last 24 Hours (Table) 06/13/24 06/14/24 06/14/24 Range/Units 20:51 05:32 05:32 WBC 18.7 H (3.8-10.6) k/uL Hgb 12.3 L (13.0-17.5) gm/dL MCV 72.3 L (80.0-100.0) fL MCH 21.7 L (25.0-35.0) pg MCHC 30.1 L (31.0-37.0) g/dL Plt Count 471 H (150-450) k/uL Chloride 108 H (98-107) mmol/L BUN 32 H (9-20) mg/dL Glucose 133 H (74-99) mg/dL POC Glucose (mg/dL) 239 H (70-110) mg/dL 06/14/24 06/14/24 Range/Units 06:24 11:19 WBC (3.8-10.6) k/uL Hgb (13.0-17.5) gm/dL MCV (80.0-100.0) fL MCH (25.0-35.0) pg MCHC (31.0-37.0) g/dL Plt Count (150-450) k/uL Chloride (98-107) mmol/L BUN (9-20) mg/dL Glucose (74-99) mg/dL POC Glucose (mg/dL) 132 H 158 H (70-110) mg/dL Microbiology - Last 24 Hours (Table) 06/03/24 12:30 Fungal Culture - Preliminary Bronchoalviolar Lavage - Right 06/03/24 12:30 Acid Fast Bacilli Smear - Preliminary Bronchoalviolar Lavage - Right Acid Fast Bacilli Culture - Preliminary Assessment and Plan (1) Pneumonia Current Visit: Yes Status: Acute Code(s): J18.9 - PNEUMONIA, UNSPECIFIED ORGANISM SNOMED Code(s): 216796919 (2) MRSA (methicillin resistant Staphylococcus aureus) infection Current Visit: Yes Status: Acute Code(s): A49.02 - METHICILLIN RESIS STAPH INFECTION, UNSP SITE SNOMED Code(s): 857032414 Plan: 1patient presented to hospital with abnormal CT in the outpatient setting and also having increasing shortness of breath and cough in this patient who is status post bronchoscopy and biopsy of the sputum culture grew MRSA likely concerning for component of MRSA pneumonia. 2patient remains to be afebrile white count mild elevated questionably steroid related we will monitor closely 3patient to continue vancomycin pharmacy to dose while monitoring his kidney function closely Dictation was produced using [employer] dictation software. please excuse any grammatical, word or spelling errors. Time with Patient: Less than 30
--- NOTE | 2024-06-14 18:49 | P.PN ---
Subjective Progress Note Date: 06/14/24 Principal diagnosis: Acute resp failure, lung mass Pt up in chair, hoarse, SOB with speaking but happy to be out of bed. No documented fever, denies nausea, abd discomfort. He is anxious to get up and moving around. He is tolerating some oral intake Objective - Vital Signs Vital signs: Vital Signs Temp 98.0 F 06/14/24 08:00 Pulse 90 06/14/24 09:00 Resp 27 H 06/14/24 09:00 BP 157/84 06/14/24 09:00 Pulse Ox 95 06/14/24 09:00 FiO2 50 06/13/24 08:20 Intake & Output 06/13/24 06/14/24 06/14/24 18:59 06:59 18:59 Intake Total 1670.116 900 650 Output Total 1480 2335 375 Balance 190.116 -1435 275 Weight 102.6 kg 101.8 kg Intake: IV 1440 900 650 KVO 40 LR 75 Lactated Ringers 1,000 ml 825 900 150 @ 10 mls/hr IV .Q24H [facility] Rx#:[id number] Vancomycin 1,500 mg In 500 500 Sodium Chloride 0.9% 500 ml 500 ml @ 166.667 mls/ hr IVPB Q16H [facility] Rx#: [id number] Intake, IV Titration 120.116 Amount Dexmedetomidine/0.9% NaCl 29.754 (Pmx) 400 mcg In Empty Bag 1 bag @ 0.2 MCG/KG/HR 5.13 mls/hr IV .[id number] [facility] Rx#:[id number] propofoL 1,000 mg In 90.362 Empty Bag 1 bag @ 15 MCG/ KG/MIN 7.757 mls/hr IV . [id number] [facility] Rx#:[id number] Tube Feeding 80 Other 30 Output: Urine 1480 2335 375 Other: Voiding Method Indwelling Catheter Indwelling Catheter Indwelling Catheter # Bowel Movements 1 - Constitutional General appearance: Present: average body habitus, cooperative, no acute distress - EENT EENT Comment(s): hoarse voice Eyes: Present: anicteric sclerae, EOMI ENT: Present: hearing grossly normal - Respiratory Details: resp mildly labored at rest, SOB when speaking few words - Cardiovascular Rhythm: regular - Peripheral edema leg Peripheral Edema: bilateral: 1+ - Integumentary Integumentary: Present: normal - Neurologic Neurologic: Present: CNII-XII intact (grossly) - Musculoskeletal Musculoskeletal: Present: generalized weakness - Psychiatric Psychiatric: Present: A&O x's 3, appropriate affect, intact judgment & insight - Labs CBC & Chem 7: 06/14/24 05:32 06/14/24 05:32 Labs: Abnormal Lab Results - Last 24 Hours (Table) 06/13/24 06/13/24 06/14/24 Range/Units 11:34 20:51 05:32 WBC (3.8-10.6) k/uL Hgb (13.0-17.5) gm/dL MCV (80.0-100.0) fL MCH (25.0-35.0) pg MCHC (31.0-37.0) g/dL Plt Count (150-450) k/uL Chloride 108 H (98-107) mmol/L BUN 32 H (9-20) mg/dL Glucose 133 H (74-99) mg/dL POC Glucose (mg/dL) 214 H 239 H (70-110) mg/dL 06/14/24 06/14/24 Range/Units 05:32 06:24 WBC 18.7 H (3.8-10.6) k/uL Hgb 12.3 L (13.0-17.5) gm/dL MCV 72.3 L (80.0-100.0) fL MCH 21.7 L (25.0-35.0) pg MCHC 30.1 L (31.0-37.0) g/dL Plt Count 471 H (150-450) k/uL Chloride (98-107) mmol/L BUN (9-20) mg/dL Glucose (74-99) mg/dL POC Glucose (mg/dL) 132 H (70-110) mg/dL Microbiology - Last 24 Hours (Table) 06/03/24 12:30 Fungal Culture - Preliminary Bronchoalviolar Lavage - Right 06/03/24 12:30 Acid Fast Bacilli Smear - Preliminary Bronchoalviolar Lavage - Right Acid Fast Bacilli Culture - Preliminary - Imaging and Cardiology Chest x-ray: report reviewed Assessment and Plan (1) Lung mass Current Visit: Yes Status: Acute Priority: High Code(s): R91.8 - OTHER NONSPECIFIC ABNORMAL FINDING OF LUNG FIELD SNOMED Code(s): 891230520 (2) Paratracheal lymphadenopathy Current Visit: Yes Status: Acute Priority: High Code(s): R59.0 - LOCALIZED ENLARGED LYMPH NODES SNOMED Code(s): 20183696 Plan: Metastatic NSCLC -CT chest with contrast showed posterior right lung mass measuring 3.4 x 4.6 cm with additional punctate nodularity and increased linear markings within the right lung. Multiple markedly enlarged mediastinal adenopathy noted. Hypodense lesion within the liver measuring 3.5 x 3.0 cm -S/P bronchoscopy. Post bronch he required re-intubation due to resp distress. He is now off vent. Sitting in chair. -Continues on IV abx for pneumonia, positive sputum culture for MRSA. Pulmonary following -RUL brushings and lavage were non-diagnostic of malignancy. RUL lung transbronchial biopsy positive for poorly differentiated adenocarcinoma, favoring lung primary -CT brain without contrast showed no acute intracranial processes -Pending brain MRI once pt is more stable. Staging PET CT outpt to complete staging -Request for specimen to be sent for NGS, PDL1 testing. Final treatment recommendations based on results. F/U in clinic 2-3 weeks. attests:I have seen and examined pt, performed H&P, developed impression and plan of care. Discussed with dictator. Agree with documentation, dictated as a scribe.
[2024-06-14 19:59] LABS: Glucose,Whole Blood 240 mg/dL (70-110)
--- NOTE | 2024-06-14 23:19 | CT ---
EXAMINATION TYPE: CT brain wo con, CT facial bones wo con CT DLP: 1184 mGycm, Automated exposure control for dose reduction was used. DATE OF EXAM: 06/14/2024 10:44 PM COMPARISON: 06/10/2024. CLINICAL INDICATION:Male, 68 years old with history of fall, TECHNIQUE: Brain: Axial CT images of the brain were obtained with coronal and sagittal reformats created and rev iewed. Facial: Axial imaging of the facial structures with sagittal coronal reformats. Contrast used: None. Oral contrast used: None. FINDINGS: Brain: Extra-axial spaces: No abnormal extra-axial fluid collections. Ventricular system: Dilatation in proportion to cerebral atrophy. Cerebral parenchyma: Cerebral atrophy. No acute intraparenchymal hemorrhage or mass effect. The schuster -white junction is well differentiated. Scattered hypoattenuating areas are seen within the white mat ter. Cerebellum: Unremarkable. Mass effect: No evidence of midline shift. Intracranial vasculature: Atherosclerotic calcifications of the intracranial vessels. Soft tissues: Normal. Calvarium/osseous structures: No depressed skull fracture. Paranasal sinuses and mastoid air cells: Mild scattered paranasal sinus disease. Visualized orbits: Orbital contents are intact. Facial structures: No evidence for facial fracture. No significant paranasal sinus disease. The tempo ral bones and middle ears are unremarkable. Atherosclerosis of the intracranial arterial vasculature. The globes and orbits are intact. IMPRESSION: 1. No acute intracranial process. 2. Nonspecific white matter changes, likely secondary to chronic small vessel ischemic disease. 3. No evidence for facial fracture.
--- NOTE | 2024-06-15 02:53 | PN ---
PROGRESS NOTE SUBJECTIVE: White male, has been sitting up in his chair, status post extubation. He apparently fell off his chair and got a little cut on his face. He is going to get a CAT scan of his head and brain and orbits tonight due to the fall. Apparently, he does not have any apparent injuries or lacerations. OBJECTIVE: VITAL SIGNS: Blood pressure 150s to 140s systolic over 78 to 90. Heart rate is 107, respiratory rate 12 to 14, oxygen was 94%, on 9 L. LUNGS: Scattered rhonchi and wheeze. HEMATOLOGY: Negative Homans. GI: Soft. NEUROLOGIC: Cranial nerves are intact. Face CT, brain CT were reviewed. CT of the brain shows he has normal facial structures. Showed no fractures changes. No acute fractures. ASSESSMENT: Methicillin-resistant Staphylococcus aureus pneumonia, status post respiratory failure, ventilator wean, chronic obstructive pulmonary disease, Methicillin-resistant Staphylococcus aureus pneumonia. Prognosis guarded, chronic obstructive pulmonary disease exacerbation, prognosis guarded. Please see further orders. Steroids and antibiotics. Prognosis guarded. MMODL / IJN: [id number] /
[2024-06-15 06:01] LABS: HCT 40.3 % (39.0-53.0); HGB 12.5 gm/dL (13.0-17.5); Hypochromasia Moderate; MCHC 30.9 g/dL (31.0-37.0); MCV 71.1 fL (80.0-100.0); Mean Platelet Volume 6.4; Microcytosis Moderate; Platelet Count 452 k/uL (150-450); RBC 5.67 m/uL (4.30-5.90); RDW 15.3 % (11.5-15.5); WBC 14.9 k/uL (3.8-10.6)
[2024-06-15 06:21] LABS: African American GFR (CKD) 86 (>60 ml/min/1.73 sqM); Anion Gap 7 mmol/L; Blood Urea Nitrogen 36 mg/dL (9-20); Calcium 9.1 mg/dL (8.4-10.2); Carbon Dioxide 27 mmol/L (22-30); Chloride 102 mmol/L (98-107); Glucose 239 mg/dL (74-99); Non-African American GFR(CKD) 74 (>60 ml/min/1.73 sqM); Potassium 4.1 mmol/L (3.5-5.1); Sodium 136 mmol/L (137-145)
[2024-06-15 06:24] LABS: Glucose,Whole Blood 221 mg/dL (70-110)
--- NOTE | 2024-06-15 08:26 | XR ---
EXAMINATION TYPE: XR chest 1V portable DATE OF EXAM: 06/15/2024 5:51 AM CLINICAL INDICATION:Male, 68 years old with history of acute hypoxemic respiratory failure; lung canc er; COMPARISON: Chest radiographs from 06/14/2024 TECHNIQUE: XR chest 1V portable Frontal view of the chest. FINDINGS: Lungs/Pleura: Small right pleural effusion with associated atelectasis. There is no evidence of left pleural effusion, focal consolidation, or pneumothorax. Pulmonary vascularity: Unremarkable. Heart/mediastinum: Cardiomediastinal silhouette is unremarkable. Musculoskeletal: No acute osseous pathology. Other findings: None IMPRESSION: Stable exam, Small right pleural effusion with associated atelectasis.
[2024-06-15 11:09] LABS: Glucose,Whole Blood 145 mg/dL (70-110)
--- NOTE | 2024-06-15 11:41 | P.PN ---
Subjective Progress Note Date: 06/15/24 Principal diagnosis: Acute hypoxic respiratory failure, secondary to right lung mass and MRSA right lower lobe pneumonia with underlying COPD/acute exacerbation Patient is a 68-year-old white male with past medical history significant for significant diabetes mellitus, hyperlipidemia, current everyday smoker. He just recently became established with a new PCP, Dr. Villarreal. He does have a significant smoking history smoking approximately 1 to 2 packs/day for almost 50 years. He is currently retired, worked [employer] for most of his life. Denies ever being diagnosed with COPD. Does report exertional dyspnea such as walking out to the mailbox and back. He reports intermittent chronic cough, with minimal sputum production. Note that the patient has had a 30 pound weight loss over the past 6 months. He is also reported increased throat fullness and difficulty breathing when he turns his head. He went to [facility] yesterday for evaluation. Reportedly the CT of his chest done, however, he presents here without any imaging. Reportedly had enlarged paratracheal lymph nodes and a large lung mass. He was discharged home, went to see his PCP, who directed him to our facility. We are working on requesting these images. Patient is currently sitting at the edge of the bed, on room air, in no acute distress. He denies any infectious-like symptoms. No fevers. Cough is chronic, intermittent, and mostly nonproductive. No chest congestion. No hemoptysis. No palpable neck masses. No observable stridor. CBC unremarkable without leukocytosis. Electrolytes unremarkable. Glucose is 416. Lactic acid 2. Normal saline infusing at 130 MLS per hour. Troponin less than 0.012. NT proBNP low. COVID-negative. He is tachycardic. Otherwise, hemodynamically stable. Progress note dated June 11, 2024. 68-year-old male seen today in the ICU, remains on ventilation. Ventilator settings include assist-control rate 24, tidal volume 500, FiO2 50% and PEEP 8. Blood gases show a pO2 of 70, pCO2 35 and pH 7.48. Brain CT does not show any acute intracranial process, shows some nonspecific white matter changes secondary to chronic small vessel ischemic disease. The chest x-ray does not show any new changes, there is stable moderate right pleural effusion and pulmonary vascular congestion. The patient was in acute agitation during his daily interruption of sedation yesterday. His propofol is now 55 mcg/kg/min. He is getting lactated Ringer at 75 MLS per hour, normal saline KVO and Glucerna at goal of 40. His blood pressure is 161 x 78 and was put on hydralazine as needed. He continues to be on vancomycin for MRSA on sputum culture. He is also on Solu-Medrol, budesonide, formoterol and DuoNeb. His labs show WBC 11.5, hemoglobin 11.4, platelets 95, sodium 140, potassium 5.2, chloride 114, BUN 36, creatinine 1 and glucose 213. Family is still deciding about the plan going forward. They were given number of options. DNR would be appropriate. Comfort care was of another option. Continue treatment can also be an option yet again. Labs x-rays and medications are reviewed. Prognosis is very poor. Progress note dated June 12, 2024. 68-year-old male seen again in room 257. The patient remains critically ill, on the mechanical ventilator. Current settings include volume assist-control, rate 24, tidal volume 500, FiO2 50%, PEEP of 8. Blood gases show pO2 of 97, pCO2 38, pH 7.47. The patient is on lactated Ringer's at 75 cc an hour, propofol at 50 mcg/kg/min, 0.9010 cc an hour, Glucerna at goal, which is 40 cc an hour. The sputum had evidence of methicillin-resistant Staph aureus. The patient is on vancomycin. The patient was recently on pressure support and CPAP for about an hour and a half or so, became very agitated, with increasing heart rate, blood pressure, and lower saturations. The patient was placed back on the ventilator. Current labs include a white count of 10.6, hemoglobin 10.8, hematocrit 34.1, platelet count 469,000. Sodium 139, potassium 4.8, chlorides 110, CO2 24, BUN 35, creatinine 1.03. Albumin is 2.6. Sputum was positive for methicillin- resistant Staph aureus. The patient continues on vancomycin. Chest x-ray is largely unchanged. Patient was reevaluated today 06/13/2024, remains in the ICU intubated and mechanically ventilated. Patient is on assist-control rate of 24 tidal volume 500 FiO2 50% and PEEP of 8 ABG showed a pO2 of 85 pCO2 38 pH of 7.48. Patient is arousable, follows simple instructions, seems to be a bit calm, his weaning parameters were reviewed, he had a tidal volume of 482, rate of 20 RSBI of 44 vitals Of 1.16 and nephro -15 and there was also a positive cuff leak. Patient is on vancomycin for MRSA in the sputum, he is on propofol at 40 and LR at 75 cc/h. Hence I went ahead and recommended a short trial of pressure support of 8 and CPAP. I was in the ICU all along, came back while the patient was on pressure support and CPAP, seem to be doing well, and I will go ahead and proceed to extubating the patient. His CODE STATUS has already been changed to DNR CODE STATUS, and according to the son the patient is not to be reintubated if his condition gets any worse. Patient does have history of extreme agitation and alcohol use, and most likely post extubation may require to be placed on Precedex. Labs today showed WC count 12.5 hemoglobin 10.7 electrolytes are normal BUN is 36 creatinine 1.0, chest x-ray showed mostly right pleural effusion with associated atelectasis. Patient was seen today on 06/14/2024, patient was extubated yesterday, looks very comfortable, does not seem to be in distress, he did require a short course of t reatment with Precedex to control his agitation, today he is off Precedex, sitting at the bedside chair, in no distress WBC count is 18.7 hemoglobin 12.3 basic metabolic profile is normal renal profile is normal BUN is 32 creatinine 0.96, chest x-ray showed atelectasis and right-sided pleural effusion with pulmonary edema and cardiomegaly. Will try a gentle course of diuresis on this patient considering his chest x-ray findings. Urine remains positive for MRSA, patient is on vancomycin. Patient was evaluated today on 06/15/24, patient remains in the ICU, he became quite agitated yesterday, had to be placed on Precedex. Remains on Precedex at 0.2 mcg/kg/h. Patient also received Lasix yesterday for symptoms of being shortness of breath, apparently the patient felt better breathing goodson. Today he is in the ICU, he is supposed to have another repeat swallow evaluation, patient is feeling failed his swallow eval yesterday. I am considering placing the patient on Seroquel, however he needs to pass the swallow evaluation before we started Seroquel. In the meantime the patient remains on Precedex at 0.2 mcg/kg/h, he is not requiring any pressors, seems to be very comfortable and not in any distress today, nonetheless he remains on 9 L high flow nasal cannula. PCL is 14.9 hemoglobin 12.5 basic metabolic profile is normal renal profile is normal Objective - Vital Signs Vital signs: Vital Signs Temp 97.8 F 06/15/24 08:00 Pulse 89 06/15/24 11:00 Resp 22 06/15/24 11:00 BP 123/66 06/15/24 11:00 Pulse Ox 92 L 06/15/24 11:00 FiO2 50 06/13/24 08:20 Intake & Output 06/14/24 06/15/24 06/15/24 18:59 06:59 18:59 Intake Total 681 518 Output Total 4800 3550 1375 Balance -8474 -3055 -6082 Intake: IV 681 498 Lactated Ringers 1,000 ml 181 @ 10 mls/hr IV .Q24H MANUEL Rx#:[id number] Vancomycin 1,500 mg In 500 498 Sodium Chloride 0.9% 500 ml 500 ml @ 166.667 mls/ hr IVPB Q16H MANUEL Rx#: [id number] Intake, IV Titration 0 20 Amount Dexmedetomidine/0.9% NaCl 0 (Pmx) 400 mcg In Empty Bag 1 bag @ 0.2 MCG/KG/HR 5.13 mls/hr IV .[id number] MANUEL Rx#:[id number] Lactated Ringers 1,000 ml 20 @ 10 mls/hr IV .Q24H MANUEL Rx#:[id number] Output: Urine 4800 3550 1375 Other: Voiding Method Indwelling Catheter Indwelling Catheter Indwelling Catheter - Exam General: The patient is awake and alert, on 6 L high flow nasal cannula with O2 saturation 92% Skin: Skin is warm and dry and no rashes or lesions are noted. Eye: Pupils are equal, round and reactive to light, extra-ocular movements are intact; there is normal conjunctiva bilaterally. Ears, nose, mouth and throat: There are moist mucous membranes and no oral lesions. Neck: The neck is supple, there is no tenderness or JVD. Cardiovascular: There is a regular rate and rhythm. No murmur, rub or gallop is appreciated. Respiratory: Diminished breath sounds at the bases no crackles rhonchi or wheezes Gastrointestinal: Soft, non-distended, non-tender abdomen without masses or organomegaly noted. There is no rebound or guarding present. Bowel sounds are unremarkable. Back: There is no tenderness to palpation in the midline. There is no obvious deformity. Musculoskeletal: Normal ROM, no tenderness, There is no pedal edema. Neurological: Alert and oriented x 3 no gross focal deficit Psychiatric: Normal mood affect and normal mental status examination - Labs CBC & Chem 7: 06/15/24 05:30 06/15/24 05:30 Labs: Abnormal Lab Results - Last 24 Hours (Table) 06/14/24 06/15/24 06/15/24 Range/Units 19:58 05:30 05:30 WBC 14.9 H (3.8-10.6) k/uL Hgb 12.5 L (13.0-17.5) gm/dL MCV 71.1 L (80.0-100.0) fL MCH 22.0 L (25.0-35.0) pg MCHC 30.9 L (31.0-37.0) g/dL Plt Count 452 H (150-450) k/uL Sodium 136 L (137-145) mmol/L BUN 36 H (9-20) mg/dL Glucose 239 H (74-99) mg/dL POC Glucose (mg/dL) 240 H (70-110) mg/dL 06/15/24 06/15/24 Range/Units 06:22 11:07 WBC (3.8-10.6) k/uL Hgb (13.0-17.5) gm/dL MCV (80.0-100.0) fL MCH (25.0-35.0) pg MCHC (31.0-37.0) g/dL Plt Count (150-450) k/uL Sodium (137-145) mmol/L BUN (9-20) mg/dL Glucose (74-99) mg/dL POC Glucose (mg/dL) 221 H 145 H (70-110) mg/dL Assessment and Plan Assessment: Impression: Acute hypoxic respiratory failure following bronchoscopy, requiring intubation mechanical ventilation on June 03 2024. 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 MRSA pneumonia/right lower lobe contributing to his respiratory failure, patient is now on vancomycin. Moderate size left-sided pleural effusion, probably malignant unless told otherwise 30 pound weight loss secondary to underlying malignancy/lung CA Chronic obstructive pulmonary disease Tobacco dependence syndrome Type 2 diabetes Dyslipidemia Recommendation: Continue Precedex for now and continue to monitor in the ICU Repeat swallow evaluation today, and if tolerated we could potentially place the patient on Seroquel and discontinue Precedex. Continue vancomycin for presumptive MRSA pneumonia Continue bronchodilators Long-term prognosis remains relatively poor and guarded Will continue to follow Time with Patient: Less than 30
--- NOTE | 2024-06-15 13:21 | PN ---
PROGRESS NOTE SUBJECTIVE: He fell out of bed, he underwent some CAT scans as he fell out of bed, he slumped on the floor out of the chair. Face CT, brain CT shows no fractures. Repeat chest x-ray shows small right pleural effusion, otherwise stable exam. He is sitting up in the chair, sleeping in the chair most of the day and I guess he slid last night. His pulse is 87, blood pressure 127/70, respiratory rate 16 to 18, O2 is 93% on 6 L versus 9 the other day. MRSA pneumonia, COPD, pulmonary mass was positive for cancer. was seen for this. Continue current treatment. Status post ventilator, wean off oxygen as tolerated, PT OT. PROGNOSIS: Guarded. He is in ICU. MMODL / IJN: [id number] /
[2024-06-15 13:42] VITALS: BMI 31.3
[2024-06-15 17:39] LABS: Glucose,Whole Blood 201 mg/dL (70-110)
[2024-06-15 21:21] LABS: Glucose,Whole Blood 206 mg/dL (70-110)
[2024-06-16 07:06] LABS: Glucose,Whole Blood 239 mg/dL (70-110)
[2024-06-16 07:12] LABS: Basophils % (A) 0 %; Eosinophils # (A) 0.1 k/uL (0-0.7); Eosinophils % (A) 0 %; HCT 38.4 % (39.0-53.0); HGB 11.9 gm/dL (13.0-17.5); Hypochromasia Moderate; Lymphocytes # (A) 0.6 k/uL (1.0-4.8); Lymphocytes % (A) 5 %; MCH 22.1 pg (25.0-35.0); MCV 71.4 fL (80.0-100.0); Mean Platelet Volume 6.8; Microcytosis Moderate; Monocytes % (A) 8 %; Neutrophils # (A) 10.7 k/uL (1.3-7.7); Neutrophils % (A) 87 %; Platelet Count 389 k/uL (150-450); RBC 5.38 m/uL (4.30-5.90); RDW 15.1 % (11.5-15.5); WBC 12.4 k/uL (3.8-10.6)
[2024-06-16 07:23] LABS: African American GFR (CKD) >90 (>60 ml/min/1.73 sqM); Anion Gap 4 mmol/L; Blood Urea Nitrogen 41 mg/dL (9-20); Calcium 8.6 mg/dL (8.4-10.2); Carbon Dioxide 30 mmol/L (22-30); Chloride 101 mmol/L (98-107); Glucose 202 mg/dL (74-99); Non-African American GFR(CKD) 90 (>60 ml/min/1.73 sqM); Sodium 135 mmol/L (137-145)
[2024-06-16 07:25] LABS: Potassium 5.5 mmol/L (3.5-5.1)
--- NOTE | 2024-06-16 08:22 | XR ---
EXAMINATION TYPE: XR chest 1V portable DATE OF EXAM: 06/16/2024 5:50 AM CLINICAL INDICATION:Male, 68 years old with history of acute hypoxemic respiratory failure; lung canc er; [facility] COMPARISON: Chest radiograph from one day prior. TECHNIQUE: XR chest 1V portable Frontal view of the chest. FINDINGS: Lungs/Pleura: Small right pleural effusion with associated atelectasis. There is no evidence of left pleural effusion, focal consolidation, or pneumothorax. Pulmonary vascularity: Unremarkable. Heart/mediastinum: Cardiomediastinal silhouette is unremarkable. Musculoskeletal: No acute osseous pathology. Other findings: None IMPRESSION: Stable exam, Small right pleural effusion with associated atelectasis.
[2024-06-16] MEDS ORDERED: LORazepam 2 MG/ML INJ IV PRN (08:57)
[2024-06-16 11:40] LABS: Glucose,Whole Blood 330 mg/dL (70-110)
--- NOTE | 2024-06-16 12:30 | P.PN ---
Subjective Progress Note Date: 06/16/24 Principal diagnosis: Acute hypoxic respiratory failure, secondary to right lung mass and MRSA right lower lobe pneumonia with underlying COPD/acute exacerbation Patient is a 68-year-old white male with past medical history significant for significant diabetes mellitus, hyperlipidemia, current everyday smoker. He just recently became established with a new PCP, Dr. Villarreal. He does have a significant smoking history smoking approximately 1 to 2 packs/day for almost 50 years. He is currently retired, worked [employer] for most of his life. Denies ever being diagnosed with COPD. Does report exertional dyspnea such as walking out to the mailbox and back. He reports intermittent chronic cough, with minimal sputum production. Note that the patient has had a 30 pound weight loss over the past 6 months. He is also reported increased throat fullness and difficulty breathing when he turns his head. He went to [facility] yesterday for evaluation. Reportedly the CT of his chest done, however, he presents here without any imaging. Reportedly had enlarged paratracheal lymph nodes and a large lung mass. He was discharged home, went to see his PCP, who directed him to our facility. We are working on requesting these images. Patient is currently sitting at the edge of the bed, on room air, in no acute distress. He denies any infectious-like symptoms. No fevers. Cough is chronic, intermittent, and mostly nonproductive. No chest congestion. No hemoptysis. No palpable neck masses. No observable stridor. CBC unremarkable without leukocytosis. Electrolytes unremarkable. Glucose is 416. Lactic acid 2. Normal saline infusing at 130 MLS per hour. Troponin less than 0.012. NT proBNP low. COVID-negative. He is tachycardic. Otherwise, hemodynamically stable. Progress note dated June 11, 2024. 68-year-old male seen today in the ICU, remains on ventilation. Ventilator settings include assist-control rate 24, tidal volume 500, FiO2 50% and PEEP 8. Blood gases show a pO2 of 70, pCO2 35 and pH 7.48. Brain CT does not show any acute intracranial process, shows some nonspecific white matter changes secondary to chronic small vessel ischemic disease. The chest x-ray does not show any new changes, there is stable moderate right pleural effusion and pulmonary vascular congestion. The patient was in acute agitation during his daily interruption of sedation yesterday. His propofol is now 55 mcg/kg/min. He is getting lactated Ringer at 75 MLS per hour, normal saline KVO and Glucerna at goal of 40. His blood pressure is 161 x 78 and was put on hydralazine as needed. He continues to be on vancomycin for MRSA on sputum culture. He is also on Solu-Medrol, budesonide, formoterol and DuoNeb. His labs show WBC 11.5, hemoglobin 11.4, platelets 95, sodium 140, potassium 5.2, chloride 114, BUN 36, creatinine 1 and glucose 213. Family is still deciding about the plan going forward. They were given number of options. DNR would be appropriate. Comfort care was of another option. Continue treatment can also be an option yet again. Labs x-rays and medications are reviewed. Prognosis is very poor. Progress note dated June 12, 2024. 68-year-old male seen again in room 257. The patient remains critically ill, on the mechanical ventilator. Current settings include volume assist-control, rate 24, tidal volume 500, FiO2 50%, PEEP of 8. Blood gases show pO2 of 97, pCO2 38, pH 7.47. The patient is on lactated Ringer's at 75 cc an hour, propofol at 50 mcg/kg/min, 0.9010 cc an hour, Glucerna at goal, which is 40 cc an hour. The sputum had evidence of methicillin-resistant Staph aureus. The patient is on vancomycin. The patient was recently on pressure support and CPAP for about an hour and a half or so, became very agitated, with increasing heart rate, blood pressure, and lower saturations. The patient was placed back on the ventilator. Current labs include a white count of 10.6, hemoglobin 10.8, hematocrit 34.1, platelet count 469,000. Sodium 139, potassium 4.8, chlorides 110, CO2 24, BUN 35, creatinine 1.03. Albumin is 2.6. Sputum was positive for methicillin- resistant Staph aureus. The patient continues on vancomycin. Chest x-ray is largely unchanged. Patient was reevaluated today 06/13/2024, remains in the ICU intubated and mechanically ventilated. Patient is on assist-control rate of 24 tidal volume 500 FiO2 50% and PEEP of 8 ABG showed a pO2 of 85 pCO2 38 pH of 7.48. Patient is arousable, follows simple instructions, seems to be a bit calm, his weaning parameters were reviewed, he had a tidal volume of 482, rate of 20 RSBI of 44 vitals Of 1.16 and nephro -15 and there was also a positive cuff leak. Patient is on vancomycin for MRSA in the sputum, he is on propofol at 40 and LR at 75 cc/h. Hence I went ahead and recommended a short trial of pressure support of 8 and CPAP. I was in the ICU all along, came back while the patient was on pressure support and CPAP, seem to be doing well, and I will go ahead and proceed to extubating the patient. His CODE STATUS has already been changed to DNR CODE STATUS, and according to the son the patient is not to be reintubated if his condition gets any worse. Patient does have history of extreme agitation and alcohol use, and most likely post extubation may require to be placed on Precedex. Labs today showed WC count 12.5 hemoglobin 10.7 electrolytes are normal BUN is 36 creatinine 1.0, chest x-ray showed mostly right pleural effusion with associated atelectasis. Patient was seen today on 06/14/2024, patient was extubated yesterday, looks very comfortable, does not seem to be in distress, he did require a short course of t reatment with Precedex to control his agitation, today he is off Precedex, sitting at the bedside chair, in no distress WBC count is 18.7 hemoglobin 12.3 basic metabolic profile is normal renal profile is normal BUN is 32 creatinine 0.96, chest x-ray showed atelectasis and right-sided pleural effusion with pulmonary edema and cardiomegaly. Will try a gentle course of diuresis on this patient considering his chest x-ray findings. Urine remains positive for MRSA, patient is on vancomycin. Patient was evaluated today on 06/15/24, patient remains in the ICU, he became quite agitated yesterday, had to be placed on Precedex. Remains on Precedex at 0.2 mcg/kg/h. Patient also received Lasix yesterday for symptoms of being shortness of breath, apparently the patient felt better breathing goodson. Today he is in the ICU, he is supposed to have another repeat swallow evaluation, patient is feeling failed his swallow eval yesterday. I am considering placing the patient on Seroquel, however he needs to pass the swallow evaluation before we started Seroquel. In the meantime the patient remains on Precedex at 0.2 mcg/kg/h, he is not requiring any pressors, seems to be very comfortable and not in any distress today, nonetheless he remains on 9 L high flow nasal cannula. PCL is 14.9 hemoglobin 12.5 basic metabolic profile is normal renal profile is normal Patient was evaluated today on 06/16/2024, seems to be comfortable, not in any distress, however the patient remains on Precedex. He failed his swallow evaluation again, and the recommendation is to keep him n.p.o., hence will utilize Ativan 0.5 mg every 4 hours as needed and will try to discontinue Precedex today. Once the patient is able to take oral medications, we can start the patient on Seroquel. In the meantime patient is improving, he tolerated the extubation well over the last few days. And intermittently had episodes of agitations responded well to Precedex.Patient is on 4 L nasal cannula, asymptomatic, not in distress. BC count is 12.4 hemoglobin 11.9 basic metabolic profile is normal potassium is a bit elevated at 5.5. BUN is 41 creatinine 0.88 Objective - Vital Signs Vital signs: Vital Signs Temp 96.4 F L 06/16/24 04:00 Pulse 96 06/16/24 12:14 Resp 38 H 06/16/24 11:00 BP 141/72 06/16/24 11:00 Pulse Ox 93 L 06/16/24 11:00 FiO2 50 06/13/24 08:20 Intake & Output 06/15/24 06/16/24 06/16/24 18:59 06:59 18:59 Intake Total 600 110 636.694 Output Total 2220 3090 1490 Balance -1620 -2980 -853.306 Weight 101.8 kg Intake: IV 500 110 560 Lactated Ringers 1,000 ml 110 60 @ 10 mls/hr IV .Q24H [facility] Rx#:[id number] Vancomycin 1,500 mg In 500 500 Sodium Chloride 0.9% 500 ml 500 ml @ 166.667 mls/ hr IVPB Q16H [facility] Rx#: [id number] Intake, IV Titration 100 76.694 Amount Dexmedetomidine/0.9% NaCl 100 76.694 (Pmx) 400 mcg In Empty Bag 1 bag @ 0.2 MCG/KG/HR 5.13 mls/hr IV .[id number] [facility] Rx#:[id number] Output: Urine 2220 3090 1490 Other: Voiding Method Indwelling Catheter Indwelling Catheter Indwelling Catheter - Exam General: The patient is awake and alert, on4L high flow nasal cannula Skin: Skin is warm and dry and no rashes or lesions are noted. Eye: Pupils are equal, round and reactive to light, extra-ocular movements are intact; there is normal conjunctiva bilaterally. Ears, nose, mouth and throat: There are moist mucous membranes and no oral lesions. Neck: The neck is supple, there is no tenderness or JVD. Cardiovascular: There is a regular rate and rhythm. No murmur, rub or gallop is appreciated. Respiratory: Diminished breath sounds at the bases no crackles rhonchi or wheezes Gastrointestinal: Soft, non-distended, non-tender abdomen without masses or organomegaly noted. There is no rebound or guarding present. Bowel sounds are unremarkable. Back: There is no tenderness to palpation in the midline. There is no obvious deformity. Musculoskeletal: Normal ROM, no tenderness, There is no pedal edema. Neurological: Alert and oriented x 3 no gross focal deficit Psychiatric: Normal mood affect and normal mental status examination - Labs CBC & Chem 7: 06/16/24 06:18 06/16/24 06:18 Labs: Abnormal Lab Results - Last 24 Hours (Table) 06/15/24 06/15/24 06/16/24 Range/Units 17:37 21:19 06:18 WBC 12.4 H (3.8-10.6) k/uL Hgb 11.9 L (13.0-17.5) gm/dL Hct 38.4 L (39.0-53.0) % MCV 71.4 L (80.0-100.0) fL MCH 22.1 L (25.0-35.0) pg Neutrophils # 10.7 H (1.3-7.7) k/uL Lymphocytes # 0.6 L (1.0-4.8) k/uL Sodium (137-145) mmol/L Potassium (3.5-5.1) mmol/L BUN (9-20) mg/dL Glucose (74-99) mg/dL POC Glucose (mg/dL) 201 H 206 H (70-110) mg/dL 06/16/24 06/16/24 06/16/24 Range/Units 06:18 07:04 11:39 WBC (3.8-10.6) k/uL Hgb (13.0-17.5) gm/dL Hct (39.0-53.0) % MCV (80.0-100.0) fL MCH (25.0-35.0) pg Neutrophils # (1.3-7.7) k/uL Lymphocytes # (1.0-4.8) k/uL Sodium 135 L (137-145) mmol/L Potassium 5.5 H (3.5-5.1) mmol/L BUN 41 H (9-20) mg/dL Glucose 202 H (74-99) mg/dL POC Glucose (mg/dL) 239 H 330 H (70-110) mg/dL Assessment and Plan Assessment: Impression: Acute hypoxic respiratory failure following bronchoscopy, requiring intubation mechanical ventilation on June 03 2024. 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 MRSA pneumonia/right lower lobe contributing to his respiratory failure, patient is now on vancomycin. Moderate size left-sided pleural effusion, probably malignant unless told otherwise 30 pound weight loss secondary to underlying malignancy/lung CA Chronic obstructive pulmonary disease Tobacco dependence syndrome Type 2 diabetes Dyslipidemia Recommendation: Attempt to taper and discontinue Precedex, in the meantime the patient will be placed on Ativan 0.5 mg IV push every 4 hours as needed Keep patient n.p.o. for now since he failed his repeat swallow evaluation Continue vancomycin for presumptive MRSA pneumonia Continue bronchodilators Long-term prognosis remains relatively poor and guarded Will continue to follow Time with Patient: Less than 30
--- NOTE | 2024-06-16 13:12 | P.PN ---
Subjective Progress Note Date: 06/15/24 Principal diagnosis: Reason for follow-up is MRSA pneumonia Patient is a 68-year-old male with a past medical history significant for diabetes mellitus and hypertension smoking recent diagnosis of lung mass status post bronchoscopy subsequently respiratory failure requiring intubation sputum positive for MRSA prompting this consultation. On today's evaluation that is 06/15/2024, patient has been afebrile, patient is breathing comfortably and is currently on 5 L nasal oxygen patient denies having any worsening cough no chest pain shortness of breath, patient denies nausea vomiting or diarrhea and no abdominal pain, mention feeling slightly better. Patient white count is down to 14.9, creatinine 1.05 Objective - Vital Signs Vital signs: Vital Signs Temp 97.8 F 06/15/24 08:00 Pulse 109 H 06/15/24 13:00 Resp 35 H 06/15/24 13:00 BP 132/69 06/15/24 13:00 Pulse Ox 90 L 06/15/24 13:00 FiO2 50 06/13/24 08:20 Intake & Output 06/14/24 06/15/24 06/15/24 18:59 06:59 18:59 Intake Total 681 518 Output Total 4800 3550 1775 Balance -0284 -1412 -1663 Intake: IV 681 498 Lactated Ringers 1,000 ml 181 @ 10 mls/hr IV .Q24H [facility] Rx#:[id number] Vancomycin 1,500 mg In 500 498 Sodium Chloride 0.9% 500 ml 500 ml @ 166.667 mls/ hr IVPB Q16H [facility] Rx#: [id number] Intake, IV Titration 0 20 Amount Dexmedetomidine/0.9% NaCl 0 (Pmx) 400 mcg In Empty Bag 1 bag @ 0.2 MCG/KG/HR 5.13 mls/hr IV .[id number] [facility] Rx#:[id number] Lactated Ringers 1,000 ml 20 @ 10 mls/hr IV .Q24H [facility] Rx#:[id number] Output: Urine 4800 3550 1775 Other: Voiding Method Indwelling Catheter Indwelling Catheter Indwelling Catheter - Exam GENERAL DESCRIPTION: An elderly male lying in bed no distress RESPIRATORY SYSTEM: Unlabored breathing , coarse breath sounds bilaterally HEART: S1 S2 regular rate and rhythm , ABDOMEN: Soft , no tenderness EXTREMITIES: No edema feet - Labs CBC & Chem 7: 06/16/24 06:18 06/16/24 06:18 Labs: Abnormal Lab Results - Last 24 Hours (Table) 06/14/24 06/15/24 06/15/24 Range/Units 19:58 05:30 05:30 WBC 14.9 H (3.8-10.6) k/uL Hgb 12.5 L (13.0-17.5) gm/dL MCV 71.1 L (80.0-100.0) fL MCH 22.0 L (25.0-35.0) pg MCHC 30.9 L (31.0-37.0) g/dL Plt Count 452 H (150-450) k/uL Sodium 136 L (137-145) mmol/L BUN 36 H (9-20) mg/dL Glucose 239 H (74-99) mg/dL POC Glucose (mg/dL) 240 H (70-110) mg/dL 06/15/24 06/15/24 Range/Units 06:22 11:07 WBC (3.8-10.6) k/uL Hgb (13.0-17.5) gm/dL MCV (80.0-100.0) fL MCH (25.0-35.0) pg MCHC (31.0-37.0) g/dL Plt Count (150-450) k/uL Sodium (137-145) mmol/L BUN (9-20) mg/dL Glucose (74-99) mg/dL POC Glucose (mg/dL) 221 H 145 H (70-110) mg/dL Assessment and Plan (1) Pneumonia Current Visit: Yes Status: Acute Code(s): J18.9 - PNEUMONIA, UNSPECIFIED ORGANISM SNOMED Code(s): 742094955 (2) MRSA (methicillin resistant Staphylococcus aureus) infection Current Visit: Yes Status: Acute Code(s): A49.02 - METHICILLIN RESIS STAPH INFECTION, UNSP SITE SNOMED Code(s): 122220276 Plan: 1patient presented to hospital with abnormal CT in the outpatient setting and also having increasing shortness of breath and cough in this patient who is status post bronchoscopy and biopsy of the sputum culture grew MRSA likely concerning for component of MRSA pneumonia. 2patient remains to be afebrile white count is trending down and will be monitored closely 3patient to continue vancomycin pharmacy to dose, continue supportive care Family at the bedside questions were answered Dictation was produced using [employer] dictation software. please excuse any grammatical, word or spelling errors. Time with Patient: Less than 30
--- NOTE | 2024-06-16 13:13 | P.PN ---
Subjective Progress Note Date: 06/16/24 Principal diagnosis: Reason for follow-up is MRSA pneumonia Patient is a 68-year-old male with a past medical history significant for diabetes mellitus and hypertension smoking recent diagnosis of lung mass status post bronchoscopy subsequently respiratory failure requiring intubation sputum positive for MRSA prompting this consultation. On today's evaluation that is 06/16/2024, Patient is afebrile this morning patient denies having any chest pain shortness of breath did have occasional cough but not bring up any sputum, the patient is breathing comfortably and c urrently on 4 L current oxygen, patient denies any abdominal pain no diarrhea no nausea no vomiting. Patient white count is down to 12.4, creatinine 0.88 Objective - Vital Signs Vital signs: Vital Signs Temp 96.4 F L 06/16/24 04:00 Pulse 96 06/16/24 12:14 Resp 38 H 06/16/24 11:00 BP 141/72 06/16/24 11:00 Pulse Ox 93 L 06/16/24 11:00 FiO2 50 06/13/24 08:20 Intake & Output 06/15/24 06/16/24 06/16/24 18:59 06:59 18:59 Intake Total 600 110 638.831 Output Total 2220 3090 1490 Balance -1620 -2980 -851.169 Weight 101.8 kg Intake: IV 500 110 560 Lactated Ringers 1,000 ml 110 60 @ 10 mls/hr IV .Q24H [facility] Rx#:[id number] Vancomycin 1,500 mg In 500 500 Sodium Chloride 0.9% 500 ml 500 ml @ 166.667 mls/ hr IVPB Q16H [facility] Rx#: [id number] Intake, IV Titration 100 78.831 Amount Dexmedetomidine/0.9% NaCl 100 78.831 (Pmx) 400 mcg In Empty Bag 1 bag @ 0.2 MCG/KG/HR 5.13 mls/hr IV .[id number] [facility] Rx#:[id number] Output: Urine 2220 3090 1490 Other: Voiding Method Indwelling Catheter Indwelling Catheter Indwelling Catheter - Exam GENERAL DESCRIPTION: An elderly male lying in bed no distress RESPIRATORY SYSTEM: Unlabored breathing , coarse breath sounds bilaterally HEART: S1 S2 regular rate and rhythm , ABDOMEN: Soft , no tenderness EXTREMITIES: No edema feet - Labs CBC & Chem 7: 06/16/24 06:18 06/16/24 06:18 Labs: Abnormal Lab Results - Last 24 Hours (Table) 06/15/24 06/15/24 06/16/24 Range/Units 17:37 21:19 06:18 WBC 12.4 H (3.8-10.6) k/uL Hgb 11.9 L (13.0-17.5) gm/dL Hct 38.4 L (39.0-53.0) % MCV 71.4 L (80.0-100.0) fL MCH 22.1 L (25.0-35.0) pg Neutrophils # 10.7 H (1.3-7.7) k/uL Lymphocytes # 0.6 L (1.0-4.8) k/uL Sodium (137-145) mmol/L Potassium (3.5-5.1) mmol/L BUN (9-20) mg/dL Glucose (74-99) mg/dL POC Glucose (mg/dL) 201 H 206 H (70-110) mg/dL 06/16/24 06/16/24 06/16/24 Range/Units 06:18 07:04 11:39 WBC (3.8-10.6) k/uL Hgb (13.0-17.5) gm/dL Hct (39.0-53.0) % MCV (80.0-100.0) fL MCH (25.0-35.0) pg Neutrophils # (1.3-7.7) k/uL Lymphocytes # (1.0-4.8) k/uL Sodium 135 L (137-145) mmol/L Potassium 5.5 H (3.5-5.1) mmol/L BUN 41 H (9-20) mg/dL Glucose 202 H (74-99) mg/dL POC Glucose (mg/dL) 239 H 330 H (70-110) mg/dL Assessment and Plan (1) Pneumonia Current Visit: Yes Status: Acute Code(s): J18.9 - PNEUMONIA, UNSPECIFIED ORGANISM SNOMED Code(s): 058840691 (2) MRSA (methicillin resistant Staphylococcus aureus) infection Current Visit: Yes Status: Acute Code(s): A49.02 - METHICILLIN RESIS STAPH INFECTION, UNSP SITE SNOMED Code(s): 816076838 Plan: 1patient presented to hospital with abnormal CT in the outpatient setting and also having increasing shortness of breath and cough in this patient who is status post bronchoscopy and biopsy of the sputum culture grew MRSA likely concerning for component of MRSA pneumonia. 2patient remains to be afebrile white count is trending down and will be monitored closely 3patient did have some clinical improvement to continue vancomycin kidney function is being monitored closely Family at the bedside questions were answered Dictation was produced using [employer] dictation software. please excuse any grammatical, word or spelling errors. Time with Patient: Less than 30
[2024-06-16] MEDS: QUEtiapine 50 MG TAB PO SCH (13:26)
[2024-06-16 16:15] LABS: Glucose,Whole Blood 244 mg/dL (70-110)
--- NOTE | 2024-06-16 20:31 | P.PN ---
Subjective Progress Note Date: 06/16/24 Principal diagnosis: Acute resp failure, lung mass Pt up in chair, voice is getting clearer, he is drinking, he did get up today. Objective - Vital Signs Vital signs: Vital Signs Temp 97.4 F L 06/16/24 12:00 Pulse 117 H 06/16/24 13:00 Resp 24 06/16/24 13:00 BP 156/77 06/16/24 13:00 Pulse Ox 90 L 06/16/24 13:00 FiO2 50 06/13/24 08:20 Intake & Output 06/15/24 06/16/24 06/16/24 18:59 06:59 18:59 Intake Total 600 110 648.831 Output Total 2220 3090 1690 Balance -1620 -2980 -1041.169 Weight 101.8 kg Intake: IV 500 110 570 Lactated Ringers 1,000 ml 110 70 @ 10 mls/hr IV .Q24H [facility] Rx#:[id number] Vancomycin 1,500 mg In 500 500 Sodium Chloride 0.9% 500 ml 500 ml @ 166.667 mls/ hr IVPB Q16H [facility] Rx#: [id number] Intake, IV Titration 100 78.831 Amount Dexmedetomidine/0.9% NaCl 100 78.831 (Pmx) 400 mcg In Empty Bag 1 bag @ 0.2 MCG/KG/HR 5.13 mls/hr IV .[id number] [facility] Rx#:[id number] Output: Urine 2220 3090 1690 Other: Voiding Method Indwelling Catheter Indwelling Catheter Indwelling Catheter - Constitutional General appearance: Present: average body habitus, cooperative, mild distress - EENT Eyes: Present: anicteric sclerae, EOMI ENT: Present: hearing grossly normal - Respiratory Respiratory: bilateral: diminished - Cardiovascular Rhythm: regular Abnormal Heart Sounds: Absent: systolic murmur, diastolic murmur, rub, S3 Gallop, S4 Gallop, click, other - Peripheral edema leg Peripheral Edema: bilateral: Trace - Gastrointestinal General gastrointestinal: Present: normal bowel sounds, soft - Integumentary Integumentary: Present: normal - Neurologic Neurologic: Present: CNII-XII intact - Musculoskeletal Musculoskeletal: Present: generalized weakness, strength equal bilaterally - Psychiatric Psychiatric: Present: A&O x's 3, appropriate affect, intact judgment & insight - Labs CBC & Chem 7: 06/16/24 06:18 06/16/24 15:22 Labs: Abnormal Lab Results - Last 24 Hours (Table) 06/15/24 06/15/24 06/16/24 Range/Units 17:37 21:19 06:18 WBC 12.4 H (3.8-10.6) k/uL Hgb 11.9 L (13.0-17.5) gm/dL Hct 38.4 L (39.0-53.0) % MCV 71.4 L (80.0-100.0) fL MCH 22.1 L (25.0-35.0) pg Neutrophils # 10.7 H (1.3-7.7) k/uL Lymphocytes # 0.6 L (1.0-4.8) k/uL Sodium (137-145) mmol/L Potassium (3.5-5.1) mmol/L BUN (9-20) mg/dL Glucose (74-99) mg/dL POC Glucose (mg/dL) 201 H 206 H (70-110) mg/dL 06/16/24 06/16/24 06/16/24 Range/Units 06:18 07:04 11:39 WBC (3.8-10.6) k/uL Hgb (13.0-17.5) gm/dL Hct (39.0-53.0) % MCV (80.0-100.0) fL MCH (25.0-35.0) pg Neutrophils # (1.3-7.7) k/uL Lymphocytes # (1.0-4.8) k/uL Sodium 135 L (137-145) mmol/L Potassium 5.5 H (3.5-5.1) mmol/L BUN 41 H (9-20) mg/dL Glucose 202 H (74-99) mg/dL POC Glucose (mg/dL) 239 H 330 H (70-110) mg/dL - Imaging and Cardiology Chest x-ray: report reviewed CT Scan - head: report reviewed Assessment and Plan (1) Lung mass Current Visit: Yes Status: Acute Priority: High Code(s): R91.8 - OTHER NONSPECIFIC ABNORMAL FINDING OF LUNG FIELD SNOMED Code(s): 031724544 (2) Paratracheal lymphadenopathy Current Visit: Yes Status: Acute Priority: High Code(s): R59.0 - LOCALIZED ENLARGED LYMPH NODES SNOMED Code(s): 39692794 Plan: Metastatic NSCLC -CT chest with contrast showed posterior right lung mass measuring 3.4 x 4.6 cm with additional punctate nodularity and increased linear markings within the right lung. Multiple markedly enlarged mediastinal adenopathy noted. Hypodense lesion within the liver measuring 3.5 x 3.0 cm -S/P bronchoscopy. Post bronch he required re-intubation due to resp distress. He cont to improve. -Continues on IV abx for pneumonia, positive sputum culture for MRSA. Pulmonary following -RUL brushings and lavage were non-diagnostic of malignancy. RUL lung transbronchial biopsy positive for poorly differentiated adenocarcinoma, favoring lung primary -CT brain without contrast showed no acute intracranial processes -MRI brain ordered. Staging PET CT SCHED FOR 06/30 AT 2:45 at [facility] to complete staging -Request for specimen to be sent for NGS, PDL1 testing. Final treatment recommendations based on results. F/U in clinic 07/05 AT 2PM. -All of the above was reviewed with pt daughter at bedside. She and pt agree with plan attests:I have seen and examined pt, performed H&P, developed impression and plan of care. Discussed with dictator. Agree with documentation, dictated as a scribe. Time with Patient: Greater than 30 (counseling and coordinating care)
[2024-06-16 20:49] LABS: Glucose,Whole Blood 236 mg/dL (70-110)
[2024-06-17 06:04] LABS: Basophils % (A) 0 %; Eosinophils % (A) 0 %; HCT 41.2 % (39.0-53.0); HGB 13.1 gm/dL (13.0-17.5); Hypochromasia Slight; Lymphocytes # (A) 0.8 k/uL (1.0-4.8); Lymphocytes % (A) 5 %; MCH 22.3 pg (25.0-35.0); MCHC 31.8 g/dL (31.0-37.0); MCV 70.2 fL (80.0-100.0); Mean Platelet Volume 6.5; Microcytosis Moderate; Monocytes # (A) 1.4 k/uL (0-1.0); Monocytes % (A) 8 %; Neutrophils # (A) 15.4 k/uL (1.3-7.7); Neutrophils % (A) 87 %; Platelet Count 453 k/uL (150-450); RBC 5.87 m/uL (4.30-5.90); RDW 14.9 % (11.5-15.5); WBC 17.7 k/uL (3.8-10.6)
[2024-06-17 06:33] LABS: African American GFR (CKD) 77 (>60 ml/min/1.73 sqM); Anion Gap 8 mmol/L; Blood Urea Nitrogen 35 mg/dL (9-20); Calcium 9.5 mg/dL (8.4-10.2); Carbon Dioxide 30 mmol/L (22-30); Chloride 100 mmol/L (98-107); Glucose 103 mg/dL (74-99); Non-African American GFR(CKD) 66 (>60 ml/min/1.73 sqM); Potassium 3.8 mmol/L (3.5-5.1); Sodium 138 mmol/L (137-145)
--- NOTE | 2024-06-17 08:19 | XR ---
EXAMINATION TYPE: XR chest 1V portable DATE OF EXAM: 06/17/2024 5:07 AM CLINICAL INDICATION:Male, 68 years old with history of acute resp insufficiency; [facility] COMPARISON: Chest radiograph from one day prior. TECHNIQUE: XR chest 1V portable Frontal view of the chest. FINDINGS: Lungs/Pleura: Small right pleural effusion with associated atelectasis. There is no evidence of left pleural effusion, focal consolidation, or pneumothorax. Pulmonary vascularity: Unremarkable. Heart/mediastinum: Cardiomediastinal silhouette is unremarkable. Musculoskeletal: No acute osseous pathology. Other findings: None IMPRESSION: Stable exam, Small right pleural effusion with associated atelectasis.
[2024-06-17 08:47] LABS: Glucose,Whole Blood 294 mg/dL (70-110)
--- NOTE | 2024-06-17 10:04 | MR ---
EXAMINATION TYPE: MR brain wo/w con DATE OF EXAM: 06/17/2024 9:53 AM CLINICAL INDICATION:Male, 68 years old with history of Staging, metastatic NSCLC; PHH, Metastatic NSC LC, staging COMPARISON: 06/14/2024 TECHNIQUE: Multi planar, multi sequence imaging was performed through the brain including: T1, T2, In version recovery, susceptibility weighted imaging and gradient echo imaging and Diffusion weighted im aging. The patient was then given intravenous contrast and multi planar, T1 fat-saturation images wer e obtained. IV Contrast: 9 cc Gadavist FINDINGS: The schuster-white junctions, ventricular system, basal cisterns appear unremarkable. Diffusion-weighted imaging shows no evidence of restricted diffusion to suggest acute/subacute infarct. Intracranial ar terial flow voids are maintained. Midline structures show no abnormality. Scattered foci of high T2 s ignal intensity are seen within the periventricular white matter. The susceptibility weighted images do not reveal any evidence for micro-hemorrhage. After administration of gadolinium, no abnormal enha ncement is seen. The bone marrow signal is within normal limits. Paranasal sinuses and mastoid air cells: No significant paranasal sinus disease. Visualized orbits: Orbital contents are intact. IMPRESSION: 1. No evidence of intracranial mass, acute/subacute infarct, or abnormal enhancement. 2. Nonspecific white matter changes, likely related to small vessel ischemic disease.
[2024-06-17 11:46] LABS: Glucose,Whole Blood 231 mg/dL (70-110)
--- NOTE | 2024-06-17 11:55 | P.PN ---
Subjective Progress Note Date: 06/17/24 Principal diagnosis: Acute hypoxic respiratory failure, secondary to right lung mass and MRSA right lower lobe pneumonia with underlying COPD/acute exacerbation Patient is a 68-year-old white male with past medical history significant for significant diabetes mellitus, hyperlipidemia, current everyday smoker. He just recently became established with a new PCP, Dr. Villarreal. He does have a significant smoking history smoking approximately 1 to 2 packs/day for almost 50 years. He is currently retired, worked [employer] for most of his life. Denies ever being diagnosed with COPD. Does report exertional dyspnea such as walking out to the mailbox and back. He reports intermittent chronic cough, with minimal sputum production. Note that the patient has had a 30 pound weight loss over the past 6 months. He is also reported increased throat fullness and difficulty breathing when he turns his head. He went to [facility] yesterday for evaluation. Reportedly the CT of his chest done, however, he presents here without any imaging. Reportedly had enlarged paratracheal lymph nodes and a large lung mass. He was discharged home, went to see his PCP, who directed him to our facility. We are working on requesting these images. Patient is currently sitting at the edge of the bed, on room air, in no acute distress. He denies any infectious-like symptoms. No fevers. Cough is chronic, intermittent, and mostly nonproductive. No chest congestion. No hemoptysis. No palpable neck masses. No observable stridor. CBC unremarkable without leukocytosis. Electrolytes unremarkable. Glucose is 416. Lactic acid 2. Normal saline infusing at 130 MLS per hour. Troponin less than 0.012. NT proBNP low. COVID-negative. He is tachycardic. Otherwise, hemodynamically stable. Progress note dated June 11, 2024. 68-year-old male seen today in the ICU, remains on ventilation. Ventilator settings include assist-control rate 24, tidal volume 500, FiO2 50% and PEEP 8. Blood gases show a pO2 of 70, pCO2 35 and pH 7.48. Brain CT does not show any acute intracranial process, shows some nonspecific white matter changes secondary to chronic small vessel ischemic disease. The chest x-ray does not show any new changes, there is stable moderate right pleural effusion and pulmonary vascular congestion. The patient was in acute agitation during his daily interruption of sedation yesterday. His propofol is now 55 mcg/kg/min. He is getting lactated Ringer at 75 MLS per hour, normal saline KVO and Glucerna at goal of 40. His blood pressure is 161 x 78 and was put on hydralazine as needed. He continues to be on vancomycin for MRSA on sputum culture. He is also on Solu-Medrol, budesonide, formoterol and DuoNeb. His labs show WBC 11.5, hemoglobin 11.4, platelets 95, sodium 140, potassium 5.2, chloride 114, BUN 36, creatinine 1 and glucose 213. Family is still deciding about the plan going forward. They were given number of options. DNR would be appropriate. Comfort care was of another option. Continue treatment can also be an option yet again. Labs x-rays and medications are reviewed. Prognosis is very poor. Progress note dated June 12, 2024. 68-year-old male seen again in room 257. The patient remains critically ill, on the mechanical ventilator. Current settings include volume assist-control, rate 24, tidal volume 500, FiO2 50%, PEEP of 8. Blood gases show pO2 of 97, pCO2 38, pH 7.47. The patient is on lactated Ringer's at 75 cc an hour, propofol at 50 mcg/kg/min, 0.9010 cc an hour, Glucerna at goal, which is 40 cc an hour. The sputum had evidence of methicillin-resistant Staph aureus. The patient is on vancomycin. The patient was recently on pressure support and CPAP for about an hour and a half or so, became very agitated, with increasing heart rate, blood pressure, and lower saturations. The patient was placed back on the ventilator. Current labs include a white count of 10.6, hemoglobin 10.8, hematocrit 34.1, platelet count 469,000. Sodium 139, potassium 4.8, chlorides 110, CO2 24, BUN 35, creatinine 1.03. Albumin is 2.6. Sputum was positive for methicillin- resistant Staph aureus. The patient continues on vancomycin. Chest x-ray is largely unchanged. Patient was reevaluated today 06/13/2024, remains in the ICU intubated and mechanically ventilated. Patient is on assist-control rate of 24 tidal volume 500 FiO2 50% and PEEP of 8 ABG showed a pO2 of 85 pCO2 38 pH of 7.48. Patient is arousable, follows simple instructions, seems to be a bit calm, his weaning parameters were reviewed, he had a tidal volume of 482, rate of 20 RSBI of 44 vitals Of 1.16 and nephro -15 and there was also a positive cuff leak. Patient is on vancomycin for MRSA in the sputum, he is on propofol at 40 and LR at 75 cc/h. Hence I went ahead and recommended a short trial of pressure support of 8 and CPAP. I was in the ICU all along, came back while the patient was on pressure support and CPAP, seem to be doing well, and I will go ahead and proceed to extubating the patient. His CODE STATUS has already been changed to DNR CODE STATUS, and according to the son the patient is not to be reintubated if his condition gets any worse. Patient does have history of extreme agitation and alcohol use, and most likely post extubation may require to be placed on Precedex. Labs today showed WC count 12.5 hemoglobin 10.7 electrolytes are normal BUN is 36 creatinine 1.0, chest x-ray showed mostly right pleural effusion with associated atelectasis. Patient was seen today on 06/14/2024, patient was extubated yesterday, looks very comfortable, does not seem to be in distress, he did require a short course of t reatment with Precedex to control his agitation, today he is off Precedex, sitting at the bedside chair, in no distress WBC count is 18.7 hemoglobin 12.3 basic metabolic profile is normal renal profile is normal BUN is 32 creatinine 0.96, chest x-ray showed atelectasis and right-sided pleural effusion with pulmonary edema and cardiomegaly. Will try a gentle course of diuresis on this patient considering his chest x-ray findings. Urine remains positive for MRSA, patient is on vancomycin. Patient was evaluated today on 06/15/24, patient remains in the ICU, he became quite agitated yesterday, had to be placed on Precedex. Remains on Precedex at 0.2 mcg/kg/h. Patient also received Lasix yesterday for symptoms of being shortness of breath, apparently the patient felt better breathing goodson. Today he is in the ICU, he is supposed to have another repeat swallow evaluation, patient is feeling failed his swallow eval yesterday. I am considering placing the patient on Seroquel, however he needs to pass the swallow evaluation before we started Seroquel. In the meantime the patient remains on Precedex at 0.2 mcg/kg/h, he is not requiring any pressors, seems to be very comfortable and not in any distress today, nonetheless he remains on 9 L high flow nasal cannula. PCL is 14.9 hemoglobin 12.5 basic metabolic profile is normal renal profile is normal Patient was evaluated today on 06/16/2024, seems to be comfortable, not in any distress, however the patient remains on Precedex. He failed his swallow evaluation again, and the recommendation is to keep him n.p.o., hence will utilize Ativan 0.5 mg every 4 hours as needed and will try to discontinue Precedex today. Once the patient is able to take oral medications, we can start the patient on Seroquel. In the meantime patient is improving, he tolerated the extubation well over the last few days. And intermittently had episodes of agitations responded well to Precedex.Patient is on 4 L nasal cannula, asymptomatic, not in distress. BC count is 12.4 hemoglobin 11.9 basic metabolic profile is normal potassium is a bit elevated at 5.5. BUN is 41 creatinine 0.88 Reevaluated today on 06/17/2024, patient is doing better today, off Precedex, on Seroquel, on 2 L nasal cannula, remains on Lasix 40 mg twice daily remains on vancomycin for MRSA in the sputum. Chest x-ray continues to show chronic right lower lobe masslike consolidation in the right lower lobe with some evidence of interstitial edema bilaterally. MRI of the brain is unremarkable is 17.7 hemoglobin 13.1 electrolytes are normal BUN is 35 creatinine 1.15 Objective - Vital Signs Vital signs: Vital Signs Temp 98.0 F 06/17/24 01:52 Pulse 106 H 06/17/24 08:32 Resp 16 06/17/24 01:52 BP 150/90 06/17/24 01:52 Pulse Ox 95 06/17/24 08:14 FiO2 50 06/13/24 08:20 Intake & Output 06/16/24 06/17/24 06/17/24 18:59 06:59 18:59 Intake Total 930.233 6319 Output Total 1942 2150 Balance -1296.169 -1150 Weight 101.8 kg 85.5 kg Intake: IV 570 500 Lactated Ringers 1,000 ml 70 @ 10 mls/hr IV .Q24H MANUEL Rx#:[id number] Vancomycin 1,500 mg In 500 500 Sodium Chloride 0.9% 500 ml 500 ml @ 166.667 mls/ hr IVPB Q16H MANUEL Rx#: [id number] Intake, IV Titration 78.831 Amount Dexmedetomidine/0.9% NaCl 78.831 (Pmx) 400 mcg In Empty Bag 1 bag @ 0.2 MCG/KG/HR 5.13 mls/hr IV .[id number] MANUEL Rx#:[id number] Oral 500 Output: Urine 1945 2150 Other: Voiding Method Indwelling Catheter Indwelling Catheter # Voids 1 # Bowel Movements 1 - Exam General: The patient is awake and alert, on 2 L nasal cannula Skin: Skin is warm and dry and no rashes or lesions are noted. Eye: Pupils are equal, round and reactive to light, extra-ocular movements are intact; there is normal conjunctiva bilaterally. Ears, nose, mouth and throat: There are moist mucous membranes and no oral lesions. Neck: The neck is supple, there is no tenderness or JVD. Cardiovascular: There is a regular rate and rhythm. No murmur, rub or gallop is appreciated. Respiratory: Diminished breath sounds at the bases no crackles rhonchi or wheezes Gastrointestinal: Soft nontender no megaly no rebound no guarding positive bowel sounds Back: There is no tenderness to palpation in the midline. There is no obvious deformity. Musculoskeletal: Normal ROM, no tenderness, There is no pedal edema. Neurological: Alert and oriented x 3 no gross focal deficit Psychiatric: Normal mood affect and normal mental status examination - Labs CBC & Chem 7: 06/17/24 05:30 06/17/24 05:30 Labs: Abnormal Lab Results - Last 24 Hours (Table) 06/16/24 06/16/24 06/17/24 Range/Units 16:13 20:48 05:30 WBC 17.7 H (3.8-10.6) k/uL MCV 70.2 L (80.0-100.0) fL MCH 22.3 L (25.0-35.0) pg Plt Count 453 H (150-450) k/uL Neutrophils # 15.4 H (1.3-7.7) k/uL Lymphocytes # 0.8 L (1.0-4.8) k/uL Monocytes # 1.4 H (0-1.0) k/uL BUN (9-20) mg/dL Glucose (74-99) mg/dL POC Glucose (mg/dL) 244 H 236 H (70-110) mg/dL 06/17/24 06/17/24 06/17/24 Range/Units 05:30 08:45 11:45 WBC (3.8-10.6) k/uL MCV (80.0-100.0) fL MCH (25.0-35.0) pg Plt Count (150-450) k/uL Neutrophils # (1.3-7.7) k/uL Lymphocytes # (1.0-4.8) k/uL Monocytes # (0-1.0) k/uL BUN 35 H (9-20) mg/dL Glucose 103 H (74-99) mg/dL POC Glucose (mg/dL) 294 H 231 H (70-110) mg/dL Assessment and Plan Assessment: Impression: Acute hypoxic respiratory failure following bronchoscopy, requiring intubation mechanical ventilation on June 03 2024. 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 MRSA pneumonia/right lower lobe contributing to his respiratory failure, patient is now on vancomycin. Moderate size left-sided pleural effusion, probably malignant unless told otherwise 30 pound weight loss secondary to underlying malignancy/lung CA Chronic obstructive pulmonary disease Tobacco dependence syndrome Type 2 diabetes Dyslipidemia Recommendation: Continue present supportive care measures Transfer to medical surgical floor once a bed is available Advance diet as tolerated Continue vancomycin for presumptive MRSA pneumonia Continue bronchodilators MRI of the brain was reviewed Long-term prognosis remains relatively poor and guarded Will continue to follow Time with Patient: Less than 30
--- NOTE | 2024-06-17 13:25 | P.PN ---
Subjective Progress Note Date: 06/17/24 Patient seen in ICU, continues to show improvement. He is ambulating in room. Oncology POC discussed. Plan is for discharge to inpt rehab pending placement/approval Objective - Vital Signs Vital signs: Vital Signs Temp 97.6 F 06/17/24 08:00 Pulse 112 H 06/17/24 12:12 Resp 20 06/17/24 08:00 BP 144/83 06/17/24 08:00 Pulse Ox 95 06/17/24 08:14 FiO2 50 06/13/24 08:20 Intake & Output 06/16/24 06/17/24 06/17/24 18:59 06:59 18:59 Intake Total 824.144 8923 Output Total 1944 2149 Balance -1296.169 -1150 Weight 101.8 kg 85.5 kg Intake: IV 570 500 Lactated Ringers 1,000 ml 70 @ 10 mls/hr IV .Q24H MANUEL Rx#:[id number] Vancomycin 1,500 mg In 500 500 Sodium Chloride 0.9% 500 ml 500 ml @ 166.667 mls/ hr IVPB Q16H MANUEL Rx#: [id number] Intake, IV Titration 78.831 Amount Dexmedetomidine/0.9% NaCl 78.831 (Pmx) 400 mcg In Empty Bag 1 bag @ 0.2 MCG/KG/HR 5.13 mls/hr IV .[id number] MANUEL Rx#:[id number] Oral 500 Output: Urine 1944 2149 Other: Voiding Method Indwelling Catheter Indwelling Catheter # Voids 1 # Bowel Movements 1 - Constitutional General appearance: Present: average body habitus, no acute distress - EENT Eyes: Present: anicteric sclerae, EOMI ENT: Present: hearing grossly normal - Respiratory Details: breathing even and unlabored - Cardiovascular Details: well perfused - Psychiatric Psychiatric: Present: A&O x's 3 - Labs CBC & Chem 7: 06/17/24 05:30 06/17/24 05:30 Labs: Abnormal Lab Results - Last 24 Hours (Table) 06/16/24 06/16/24 06/17/24 Range/Units 16:13 20:48 05:30 WBC 17.7 H (3.8-10.6) k/uL MCV 70.2 L (80.0-100.0) fL MCH 22.3 L (25.0-35.0) pg Plt Count 453 H (150-450) k/uL Neutrophils # 15.4 H (1.3-7.7) k/uL Lymphocytes # 0.8 L (1.0-4.8) k/uL Monocytes # 1.4 H (0-1.0) k/uL BUN (9-20) mg/dL Glucose (74-99) mg/dL POC Glucose (mg/dL) 244 H 236 H (70-110) mg/dL 06/17/24 06/17/24 06/17/24 Range/Units 05:30 08:45 11:45 WBC (3.8-10.6) k/uL MCV (80.0-100.0) fL MCH (25.0-35.0) pg Plt Count (150-450) k/uL Neutrophils # (1.3-7.7) k/uL Lymphocytes # (1.0-4.8) k/uL Monocytes # (0-1.0) k/uL BUN 35 H (9-20) mg/dL Glucose 103 H (74-99) mg/dL POC Glucose (mg/dL) 294 H 231 H (70-110) mg/dL Assessment and Plan (1) Lung mass Current Visit: Yes Status: Acute Priority: High Code(s): R91.8 - OTHER NONSPECIFIC ABNORMAL FINDING OF LUNG FIELD SNOMED Code(s): 809762423 (2) Paratracheal lymphadenopathy Current Visit: Yes Status: Acute Priority: High Code(s): R59.0 - LOCALIZED ENLARGED LYMPH NODES SNOMED Code(s): 30106007 (3) Adenocarcinoma of lung Current Visit: Yes Status: Acute Priority: High Code(s): C34.90 - MALIGNAN T NEOPLASM OF UNSP PART OF UNSP BRONCHUS OR LUNG SNOMED Code(s): 619846287 Plan: Metastatic NSCLC -CT chest with contrast showed posterior right lung mass measuring 3.4 x 4.6 cm with additional punctate nodularity and increased linear markings within the right lung. Multiple markedly enlarged mediastinal adenopathy noted. Hypodense lesion within the liver measuring 3.5 x 3.0 cm -S/P bronchoscopy. Post bronch he required re-intubation due to resp distress. He cont to improve. -Continues on IV abx for pneumonia, positive sputum culture for MRSA. Pulmonary following -RUL brushings and lavage were non-diagnostic of malignancy. RUL lung transbronchial biopsy positive for poorly differentiated adenocarcinoma, favoring lung primary -CT brain without contrast showed no acute intracranial processes -MRI brain ordered. Negative for intracranial mass or abnormal enhancement, Staging PET CT SCHED FOR 06/30 AT 2:45 at [facility] to complete staging -Request for specimen to be sent for NGS, PDL1 testing. Final treatment rec ommendations based on results. F/U in clinic 07/05 AT 2PM. -All of the above was reviewed with pt and daughter at bedside. She and pt agree with plan
[2024-06-17] MEDS: VANCOMYCIN TROUGH DUE 1 EACH MISC MISCELLANE ONE (15:45)
[2024-06-17] MEDS: VANCOMYCIN 1,250 MG in SODIUM CHLORIDE 0.9% 250 ML IVPB SCH (16:22)
--- NOTE | 2024-06-17 16:41 | P.PN ---
Subjective Progress Note Date: 06/17/24 Principal diagnosis: Reason for follow-up is MRSA pneumonia Patient is a 68-year-old male with a past medical history significant for diabetes mellitus and hypertension smoking recent diagnosis of lung mass status post bronchoscopy subsequently respiratory failure requiring intubation sputum positive for MRSA prompting this consultation. On today's evaluation that is 06/17/2024,the patient denies any fever or any chills, patient is breathing comfortably on 2 L current oxygen, the patient denies chest pain shortness of breath and no significant cough or sputum pr oduction, patient denies abdominal pain, no nausea vomiting or diarrhea. Patient white count is 17.7, creatinine is 1.15 Objective - Vital Signs Vital signs: Vital Signs Temp 97.6 F 06/17/24 14:00 Pulse 96 06/17/24 15:37 Resp 16 06/17/24 14:00 BP 125/59 06/17/24 14:00 Pulse Ox 92 L 06/17/24 14:00 FiO2 50 06/13/24 08:20 Intake & Output 06/16/24 06/17/24 06/17/24 18:59 06:59 18:59 Intake Total 082.009 9943 Output Total 1944 2149 2500 Balance -1296.169 -1150 -2500 Weight 101.8 kg 85.5 kg Intake: IV 570 500 Lactated Ringers 1,000 ml 70 @ 10 mls/hr IV .Q24H [facility]UEL Rx#:[id number] Vancomycin 1,500 mg In 500 500 Sodium Chloride 0.9% 500 ml 500 ml @ 166.667 mls/ hr IVPB Q16H [facility] Rx#: [id number] Intake, IV Titration 78.831 Amount Dexmedetomidine/0.9% NaCl 78.831 (Pmx) 400 mcg In Empty Bag 1 bag @ 0.2 MCG/KG/HR 5.13 mls/hr IV .[id number] [facility]UEL Rx#:[id number] Oral 500 Output: Urine 1944 2149 2500 Other: Voiding Method Indwelling Catheter Indwelling Catheter # Voids 1 # Bowel Movements 1 - Exam GENERAL DESCRIPTION: An elderly male lying in bed no distress RESPIRATORY SYSTEM: Unlabored breathing , coarse breath sounds bilaterally HEART: S1 S2 regular rate and rhythm , ABDOMEN: Soft , no tenderness EXTREMITIES: No edema feet - Labs CBC & Chem 7: 06/17/24 05:30 06/17/24 05:30 Labs: Abnormal Lab Results - Last 24 Hours (Table) 06/16/24 06/17/24 06/17/24 Range/Units 20:48 05:30 05:30 WBC 17.7 H (3.8-10.6) k/uL MCV 70.2 L (80.0-100.0) fL MCH 22.3 L (25.0-35.0) pg Plt Count 453 H (150-450) k/uL Neutrophils # 15.4 H (1.3-7.7) k/uL Lymphocytes # 0.8 L (1.0-4.8) k/uL Monocytes # 1.4 H (0-1.0) k/uL BUN 35 H (9-20) mg/dL Glucose 103 H (74-99) mg/dL POC Glucose (mg/dL) 236 H (70-110) mg/dL 06/17/24 06/17/24 Range/Units 08:45 11:45 WBC (3.8-10.6) k/uL MCV (80.0-100.0) fL MCH (25.0-35.0) pg Plt Count (150-450) k/uL Neutrophils # (1.3-7.7) k/uL Lymphocytes # (1.0-4.8) k/uL Monocytes # (0-1.0) k/uL BUN (9-20) mg/dL Glucose (74-99) mg/dL POC Glucose (mg/dL) 294 H 231 H (70-110) mg/dL Assessment and Plan (1) Pneumonia Current Visit: Yes Status: Acute Code(s): J18.9 - PNEUMONIA, UNSPECIFIED ORGANISM SNOMED Code(s): 022672280 (2) MRSA (methicillin resistant Staphylococcus aureus) infection Current Visit: Yes Status: Acute Code(s): A49.02 - METHICILLIN RESIS STAPH INFECTION, UNSP SITE SNOMED Code(s): 304431003 Plan: 1patient presented to hospital with abnormal CT in the outpatient setting and also having increasing shortness of breath and cough in this patient who is status post bronchoscopy and biopsy of the sputum culture grew MRSA likely concerning for component of MRSA pneumonia. 2patient remains to be afebrile white count is elevated more likely steroid related 3patient did have some clinical improvement to continue vancomycin while inpatient will transition to Bactrim DS on discharge cannot use Zyvox because of the Wellbutrin the patient is on Dictation was produced using [employer] dictation software. please excuse any grammatical, word or spelling errors. Time with Patient: Less than 30
[2024-06-17 16:51] LABS: Glucose,Whole Blood 464 mg/dL (70-110)
[2024-06-17 20:38] LABS: Glucose,Whole Blood 427 mg/dL (70-110)
[2024-06-17] MEDS: INSULIN DETEMIR (LEVEMIR) 100 UNIT/ML SYR SQ SCH (21:42)
[2024-06-17 23:40] LABS: Glucose,Whole Blood 323 mg/dL (70-110)
--- NOTE | 2024-06-18 01:12 | PN ---
PROGRESS NOTE SUBJECTIVE: This is a 68-year-old white male. He has been weaned off the vent. He has been sitting up in a chair. Wean off oxygen over the last few days. He is in ICU, pending discharge, inpatient rehab, pending placement approval. OBJECTIVE: VITAL SIGNS: Temp 97.6, pulse 112, respiratory rate 18 to 20, blood pressure is 140s over 80s, O2 95. HEENT: Normocephalic, atraumatic. LUNGS: Nonlabored, well-perfused. PSYCH: Alert and oriented x3. LABORATORY DATA: White count 17.7, hemoglobin 13.1. He has lung mass, paratracheal adenopathy, adenocarcinoma of the lung. He has a lesion within the liver, status post bronchoscopy. MRSA pneumonia antibiotics status post bronchoscopy, poorly differentiated adenocarcinoma. CT is negative. MRI of the brain is ordered. CAT scan is being done on 06/30 Outpatient [facility]. PROGNOSIS: Guarded. MMODL / IJN: [id number] /
[2024-06-18 05:23] LABS: Glucose,Whole Blood 168 mg/dL (70-110)
[2024-06-18 06:35] LABS: Glucose,Whole Blood 161 mg/dL (70-110)
[2024-06-18 06:49] LABS: African American GFR (CKD) 80 (>60 ml/min/1.73 sqM); Non-African American GFR(CKD) 69 (>60 ml/min/1.73 sqM)
[2024-06-18] MEDS: FUROSEMIDE 40 MG TAB PO SCH (08:18)
[2024-06-18] MEDS: ALPRAZolam 0.5 MG TAB PO SCH (08:18)
[2024-06-18] MEDS ORDERED: LORazepam 1 MG TAB PO PRN (10:02)
[2024-06-18 10:10] VITALS: BP 158/83; PULSE 98; RESP 20; TEMP 97.7
--- NOTE | 2024-06-18 10:30 | P.PN ---
Subjective Progress Note Date: 06/18/24 Principal diagnosis: Acute hypoxic respiratory failure, secondary to right lung adenocarcinoma MRSA right lower lobe pneumonia with underlying COPD/acute exacerbation Patient is a 68-year-old white male with past medical history significant for significant diabetes mellitus, hyperlipidemia, current everyday smoker. He just recently became established with a new PCP, Dr. Villarreal. He does have a significant smoking history smoking approximately 1 to 2 packs/day for almost 50 years. He is currently retired, worked [employer] for most of his life. Denies ever being diagnosed with COPD. Does report exertional dyspnea such as walking out to the mailbox and back. He reports intermittent chronic cough, with minimal sputum production. Note that the patient has had a 30 pound weight loss over the past 6 months. He is also reported increased throat fullness and difficulty b reathing when he turns his head. He went to [facility] yesterday for evaluation. Reportedly the CT of his chest done, however, he presents here without any imaging. Reportedly had enlarged paratracheal lymph nodes and a large lung mass. He was discharged home, went to see his PCP, who directed him to our facility. We are working on requesting these images. Patient is currently sitting at the edge of the bed, on room air, in no acute distress. He denies any infectious-like symptoms. No fevers. Cough is chronic, intermittent, and mostly nonproductive. No chest congestion. No hemoptysis. No palpable neck masses. No observable stridor. CBC unremarkable without leukocytosis. Electrolytes unremarkable. Glucose is 416. Lactic acid 2. Normal saline infusing at 130 MLS per hour. Troponin less than 0.012. NT proBNP low. COVID-negative. He is tachycardic. Otherwise, hemodynamically stable. Progress note dated June 11, 2024. 68-year-old male seen today in the ICU, remains on ventilation. Ventilator settings include assist-control rate 24, tidal volume 500, FiO2 50% and PEEP 8. Blood gases show a pO2 of 70, pCO2 35 and pH 7.48. Brain CT does not show any acute intracranial process, shows some nonspecific white matter changes secondary to chronic small vessel ischemic disease. The chest x-ray does not show any new changes, there is stable moderate right pleural effusion and pulmonary vascular congestion. The patient was in acute agitation during his daily interruption of sedation yesterday. His propofol is now 55 mcg/kg/min. He is getting lactated Ringer at 75 MLS per hour, normal saline KVO and Glucerna at goal of 40. His blood pressure is 161 x 78 and was put on hydralazine as needed. He continues to be on vancomycin for MRSA on sputum culture. He is also on Solu-Medrol, budesonide, formoterol and DuoNeb. His labs show WBC 11.5, hemoglobin 11.4, platelets 95, sodium 140, potassium 5.2, chloride 114, BUN 36, creatinine 1 and glucose 213. Family is still deciding about the plan going forward. They were given number of options. DNR would be appropriate. Comfort care was of another option. Continue treatment can also be an option yet again. Labs x-rays and medications are reviewed. Prognosis is very poor. Progress note dated June 12, 2024. 68-year-old male seen again in room 257. The patient remains critically ill, on the mechanical ventilator. Current settings include volume assist-control, rate 24, tidal volume 500, FiO2 50%, PEEP of 8. Blood gases show pO2 of 97, pCO2 38, pH 7.47. The patient is on lactated Ringer's at 75 cc an hour, propofol at 50 mcg/kg/min, 0.9010 cc an hour, Glucerna at goal, which is 40 cc an hour. The sputum had evidence of methicillin-resistant Staph aureus. The patient is on vancomycin. The patient was recently on pressure support and CPAP for about an hour and a half or so, became very agitated, with increasing heart rate, blood pressure, and lower saturations. The patient was placed back on the ventilator. Current labs include a white count of 10.6, hemoglobin 10.8, hematocrit 34.1, platelet count 469,000. Sodium 139, potassium 4.8, chlorides 110, CO2 24, BUN 35, creatinine 1.03. Albumin is 2.6. Sputum was positive for methicillin- resistant Staph aureus. The patient continues on vancomycin. Chest x-ray is largely unchanged. Patient was reevaluated today 06/13/2024, remains in the ICU intubated and mechanically ventilated. Patient is on assist-control rate of 24 tidal volume 500 FiO2 50% and PEEP of 8 ABG showed a pO2 of 85 pCO2 38 pH of 7.48. Patient is arousable, follows simple instructions, seems to be a bit calm, his weaning parameters were reviewed, he had a tidal volume of 482, rate of 20 RSBI of 44 vitals Of 1.16 and nephro -15 and there was also a positive cuff leak. Patient is on vancomycin for MRSA in the sputum, he is on propofol at 40 and LR at 75 cc/h. Hence I went ahead and recommended a short trial of pressure support of 8 and CPAP. I was in the ICU all along, came back while the patient was on pressure support and CPAP, seem to be doing well, and I will go ahead and proceed to extubating the patient. His CODE STATUS has already been changed to DNR CODE STATUS, and according to the son the patient is not to be reintubated i f his condition gets any worse. Patient does have history of extreme agitation and alcohol use, and most likely post extubation may require to be placed on Precedex. Labs today showed WC count 12.5 hemoglobin 10.7 electrolytes are normal BUN is 36 creatinine 1.0, chest x-ray showed mostly right pleural effusion with associated atelectasis. Patient was seen today on 06/14/2024, patient was extubated yesterday, looks very comfortable, does not seem to be in distress, he did require a short course of treatment with Precedex to control his agitation, today he is off Precedex, sitting at the bedside chair, in no distress WBC count is 18.7 hemoglobin 12.3 basic metabolic profile is normal renal profile is normal BUN is 32 creatinine 0.96, chest x-ray showed atelectasis and right-sided pleural effusion with pulmonary edema and cardiomegaly. Will try a gentle course of diuresis on this patient considering his chest x-ray findings. Urine remains positive for MRSA, patient is on vancomycin. Patient was evaluated today on 06/15/24, patient remains in the ICU, he became quite agitated yesterday, had to be placed on Precedex. Remains on Precedex at 0.2 mcg/kg/h. Patient also received Lasix yesterday for symptoms of being shortness of breath, apparently the patient felt better breathing goodson. Today he is in the ICU, he is supposed to have another repeat swallow evaluation, patient is feeling failed his swallow eval yesterday. I am considering placing the patient on Seroquel, however he needs to pass the swallow evaluation before we started Seroquel. In the meantime the patient remains on Precedex at 0.2 mcg/kg/h, he is not requiring any pressors, seems to be very comfortable and not in any distress today, nonetheless he remains on 9 L high flow nasal cannula. PCL is 14.9 hemoglobin 12.5 basic metabolic profile is normal renal profile is normal Patient was evaluated today on 06/16/2024, seems to be comfortable, not in any distress, however the patient remains on Precedex. He failed his swallow evaluation again, and the recommendation is to keep him n.p.o., hence will u tilize Ativan 0.5 mg every 4 hours as needed and will try to discontinue Precedex today. Once the patient is able to take oral medications, we can start the patient on Seroquel. In the meantime patient is improving, he tolerated the extubation well over the last few days. And intermittently had episodes of agitations responded well to Precedex.Patient is on 4 L nasal cannula, asymptomatic, not in distress. BC count is 12.4 hemoglobin 11.9 basic metabolic profile is normal potassium is a bit elevated at 5.5. BUN is 41 creatinine 0.88 Reevaluated today on 06/17/2024, patient is doing better today, off Precedex, on Seroquel, on 2 L nasal cannula, remains on Lasix 40 mg twice daily remains on vancomycin for MRSA in the sputum. Chest x-ray continues to show chronic right lower lobe masslike consolidation in the right lower lobe with some evidence of interstitial edema bilaterally. MRI of the brain is unremarkable is 17.7 hemoglobin 13.1 electrolytes are normal BUN is 35 creatinine 1.15 Patient was reevaluated today on 06/18/2024, patient is requesting to be discharged home. Intermittently agitated, he is now off Precedex, remains on Seroquel 50 mg twice daily today we added Xanax. Remains on vancomycin for MRSA in the sputum/MRSA pneumonia pulmonary goodson the patient is feeling better, breathing easier. Remains on oxygen at 2 L/min. WBC count is 17.7 hemoglobin is 13.1 electrolytes are normal BUN is 35 creatinine 1.11 Objective - Vital Signs Vital signs: Vital Signs Temp 97.7 F 06/18/24 08:00 Pulse 82 08/03/24 10:01 Resp 20 06/18/24 08:00 BP 158/83 06/18/24 08:00 Pulse Ox 86 L 06/18/24 10:01 FiO2 50 06/13/24 08:20 Intake & Output 06/17/24 06/18/24 06/18/24 18:59 06:59 18:59 Intake Total 200 Output Total 3500 650 Balance -3300 -650 Weight 84 kg Intake: Oral 200 Output: Urine 3500 650 Other: Voiding Method Indwelling Catheter Indwelling Catheter Indwelling Catheter # Voids 1 1 1 - Exam General: The patient is awake and alert, anxious on 2 L nasal cannula Skin: Skin is warm and dry and no rashes or lesions are noted. Eye: Pupils are equal, round and reactive to light, extra-ocular movements are intact; there is normal conjunctiva bilaterally. Ears, nose, mouth and throat: There are moist mucous membranes and no oral lesions. Neck: The neck is supple, there is no tenderness or JVD. Cardiovascular: There is a regular rate and rhythm. No murmur, rub or gallop is appreciated. Respiratory: Diminished breath sounds at the bases no crackles rhonchi or wheezes Gastrointestinal: Soft nontender no megaly no rebound no guarding positive bowel sounds Back: There is no tenderness to palpation in the midline. There is no obvious deformity. Musculoskeletal: Normal ROM, no tenderness, There is no pedal edema. Neurological: Alert and oriented x 3 no gross focal deficit Psychiatric: Anxious mood affect and normal mental status examination - Labs CBC & Chem 7: 06/17/24 05:30 06/18/24 05:42 Labs: Abnormal Lab Results - Last 24 Hours (Table) 06/17/24 06/17/24 06/17/24 Range/Units 11:45 16:50 20:36 POC Glucose (mg/dL) 231 H 464 H 427 H (70-110) mg/dL 06/17/24 06/18/24 06/18/24 Range/Units 23:39 05:21 06:34 POC Glucose (mg/dL) 323 H 168 H 161 H (70-110) mg/dL Assessment and Plan Assessment: Impression: Acute hypoxic respiratory failure following bronchoscopy, requiring intubation mechanical ventilation on June 03 2024. 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 MRSA pneumonia/right lower lobe contributing to his respiratory failure, patient is now on vancomycin. Moderate size left-sided pleural effusion, probably malignant unless told otherwise 30 pound weight loss secondary to underlying malignancy/lung CA Chronic obstructive pulmonary disease Tobacco dependence syndrome Type 2 diabetes Dyslipidemia Recommendation: Continue present supportive care measures Could consider discharging the patient home since is insisting on going home, however the patient needs to be cleared by different consultants on the case Advance diet as tolerated Continue vancomycin for presumptive MRSA pneumonia Continue bronchodilators Long-term prognosis remains relatively poor and guarded Will continue to follow Time with Patient: Less than 30
[2024-06-18 11:49] LABS: Glucose,Whole Blood 511 mg/dL (70-110)
[2024-06-18 12:05] LABS: Glucose,Whole Blood 488 mg/dL (70-110)
[2024-06-18] MEDS: HALOPERIDOL LACTATE 5 MG/ML 1 ML VIAL IM STA (12:20)
--- NOTE | 2024-06-18 15:53 | P.PN ---
Subjective Progress Note Date: 06/18/24 Principal diagnosis: Reason for follow-up is MRSA pneumonia Patient is a 68-year-old male with a past medical history significant for diabetes mellitus and hypertension smoking recent diagnosis of lung mass status post bronchoscopy subsequently respiratory failure requiring intubation sputum positive for MRSA prompting this consultation. On today's evaluation that is 06/18/2024,the patient remains to be afebrile, patient got agitated this morning and tried to leave AGAINST MEDICAL ADVICE subsequently patient has been brought back to the unit however the patient r efused to go back to his room patient wants to go home mention he will feel better today because home he denies having any chest pain or worsening cough no vomiting or diarrhea has been reported. Patient did have a creatinine 1.11 Vanco trough was 20.7 Objective - Vital Signs Vital signs: Vital Signs Temp 97.7 F 06/18/24 08:00 Pulse 82 06/18/24 10:01 Resp 20 06/18/24 08:00 BP 158/83 06/18/24 08:00 Pulse Ox 86 L 06/18/24 10:01 FiO2 50 06/13/24 08:20 Intake & Output 06/17/24 06/18/24 06/18/24 18:59 06:59 18:59 Intake Total 200 Output Total 3500 650 Balance -3300 -650 Weight 84 kg Intake: Oral 200 Output: Urine 3500 650 Other: Voiding Method Indwelling Catheter Indwelling Catheter Indwelling Catheter # Voids 1 1 1 - Labs CBC & Chem 7: 06/17/24 05:30 06/18/24 05:42 Labs: Abnormal Lab Results - Last 24 Hours (Table) 06/17/24 06/17/24 06/17/24 Range/Units 16:50 20:36 23:39 POC Glucose (mg/dL) 464 H 427 H 323 H (70-110) mg/dL 06/18/24 06/18/24 06/18/24 Range/Units 05:21 06:34 11:48 POC Glucose (mg/dL) 168 H 161 H 511 H* (70-110) mg/dL 06/18/24 Range/Units 12:03 POC Glucose (mg/dL) 488 H (70-110) mg/dL Assessment and Plan (1) Pneumonia Current Visit: Yes Status: Acute Code(s): J18.9 - PNEUMONIA, UNSPECIFIED ORGANISM SNOMED Code(s): 384243559 (2) MRSA (methicillin resistant Staphylococcus aureus) infection Current Visit: Yes Status: Acute Code(s): A49.02 - METHICILLIN RESIS STAPH INFECTION, UNSP SITE SNOMED Code(s): 827247320 Plan: 1patient presented to hospital with abnormal CT in the outpatient setting and also having increasing shortness of breath and cough in this patient who is status post bronchoscopy and biopsy of the sputum culture grew MRSA likely concerning for component of MRSA pneumonia. 2patient remains to be afebrile patient seem to have shown some clinical improvement however has been insisting on going home today currently the nursing staff is working on home O2 arrangement as the patient is on Wellbutrin Zyvox cannot be used we will send a prescription for Bactrim DS to his pharmacy son at the bedside he has been advised to get a portable O2 monitor and if noticed to be hypoxemic or worsening shortness of breath to take him to the ER right away Dictation was produced using [employer] dictation software. please excuse any grammatical, word or spelling errors. Time with Patient: Less than 30
[2024-06-18] MEDS ORDERED: methylPREDNISolone SOD SUCCI 40 MG/ML 1 ML VIAL IV SCH (16:00)
--- NOTE | 2024-07-11 12:39 | CDI ---
Documentation Clarification Form Date: 07/11/2024 12:28:00 PM From: Nora Ardon Phone: Admit Date: 06/03/2024 10:27:00 AM Patient Name: Josiah Garza Visit Number: [id number] Discharge Date: 06/18/2024 06:50:00 PM ATTENTION: The Clinical Documentation Specialists (CDI) and [facility] Coding Staff appreciate your assistance in clarifying documentation. Please respond to the clarification below the line at the bottom and electronically sign. The CDI & [facility] Coding staff will review the response and follow-up if needed. Please note: Queries are made part of the Legal Health Record. If you have any questions, please contact the author of this message via ITS. Doctor/Provider: Josiah Chowdhury Your patient is receiving the following: Norepinephrine4 mg per order and Progress Notes. Please clarify what diagnosis is being treated. History/Risk Factors: 68yo M, A/CHRF now on home O2, RUL adenocarcinoma w liver mets, PNAMRSA w ACOPD, NIDDMII uncontrolled, HLD, smoker Clinical indicators: BP81/ 17:00 Treatment: 06/03/2024, patient seen eval reexamined while covering forDr. Jean-Pierre Lynne, patient seen and evaluated examined in the ICU currently intubated sedated patient isstatus postbronchoscopypostoperatively patient developed desaturation requiring intubation patient lightly sedated with propofol drip on full ventilatorsupport, What diagnosis are you treating with Norepinephrine4 mg? [ ] Shock (please specify type) [ ] Hypotension due to (please specify cause) [ ] Other, please specify [ X] Unable to determine (Template Last Reviewed: December 2020) MTDD
== END 2024-06-18 18:50 | disposition home or self-care (01) | DRG 166 ==
LOC: EC 12:46 → 5NMEDONC 14:49 → OBSVTOIN 06-03 10:27 → 2SICU 06-03 13:33
PROVIDERS: ADMIT Family Medicine; ATTEND Family Medicine
PROC: 3E033XZ Introduction of Vasopressor into Peripheral Vein, Percutaneous Approach (ICD-10-PCS; 2024-06-03)
PROC: 0BBC8ZX Excision of Right Upper Lung Lobe, Via Natural or Artificial Opening Endoscopic, Diagnostic (ICD-10-PCS; principal; 2024-06-03 12:00)
PROC: 0B9C8ZX Drainage of Right Upper Lung Lobe, Via Natural or Artificial Opening Endoscopic, Diagnostic (ICD-10-PCS; 2024-06-03 12:00)
PROC: 5A1955Z Respiratory Ventilation, Greater than 96 Consecutive Hours (ICD-10-PCS; 2024-06-03 12:00)
PROC: 0BH18EZ Insertion of Endotracheal Airway into Trachea, Via Natural or Artificial Opening Endoscopic (ICD-10-PCS; 2024-06-03 12:00)
PROC: 3E0G76Z Introduction of Nutritional Substance into Upper GI, Via Natural or Artificial Opening (ICD-10-PCS; 2024-06-05)
DX: C34.11 Malignant neoplasm of upper lobe, right bronchus or lung (principal); J15.212 Pneumonia due to Methicillin resistant Staphylococcus aureus; J96.21 Acute and chronic respiratory failure with hypoxia; E87.3 Alkalosis; J91.0 Malignant pleural effusion; C78.7 Secondary malignant neoplasm of liver and intrahepatic bile duct; J44.0 Chronic obstructive pulmonary disease with (acute) lower respiratory infection; J44.1 Chronic obstructive pulmonary disease with (acute) exacerbation; I11.9 Hypertensive heart disease without heart failure; I71.21 Aneurysm of the ascending aorta, without rupture; Z99.81 Dependence on supplemental oxygen; E11.65 Type 2 diabetes mellitus with hyperglycemia; Z66 Do not resuscitate; R63.4 Abnormal weight loss; F17.210 Nicotine dependence, cigarettes, uncomplicated; E78.5 Hyperlipidemia, unspecified; Z79.84 Long term (current) use of oral hypoglycemic drugs; T38.3X6A Underdosing of insulin and oral hypoglycemic [antidiabetic] drugs, initial encounter; T46.6X6A Underdosing of antihyperlipidemic and antiarteriosclerotic drugs, initial encounter; S01.81XA Laceration without foreign body of other part of head, initial encounter; T43.296A Underdosing of other antidepressants, initial encounter; W07.XXXA Fall from chair, initial encounter; Y92.230 Patient room in hospital as the place of occurrence of the external cause; Z91.138 Patient's unintentional underdosing of medication regimen for other reason; R00.1 Bradycardia, unspecified; R49.0 Dysphonia; R94.4 Abnormal results of kidney function studies; R00.0 Tachycardia, unspecified; R45.1 Restlessness and agitation; Z68.25 Body mass index [BMI] 25.0-25.9, adult; Z79.899 Other long term (current) drug therapy; Z11.52 Encounter for screening for COVID-19
CPT/HCPCS: 31623; 31624; 31628; 31629; 36415; 36600; 70450; 70486; 70553; 71045; 71260; 80048; 80053; 80202; 81001; 82565; 82805; 83036; 83605; 83735; 83880; 84132; 84145; 84443; 84484; 85025; 85027; 85610; 85730; 87040; 87070; 87077; 87102; 87116; 87186; 87205; 87206; 87496; 87498; 87502; 87529; 87634; 87635; 87798; 88104; 88108; 88305; 88341; 88342; 89050; 93005; 93306; 94002; 94003; 94640; 94667; 96360; 96361; 99285

== ENCOUNTER 2024-06-20 18:13 | Observation (INO) | payer MEDICARE, BC ==
[2024-06-20] MEDS ORDERED: NON FORMULARY DRUG PO ONE (18:43)
[2024-06-20] MEDS ORDERED: INSULIN ASPART (NovoLOG) 100 UNIT/ML VIAL SQ ONE (21:22)
[2024-06-20] MEDS ORDERED: METOPROLOL TARTRATE 12.5 MG TAB ONE (21:24)
[2024-06-20] MEDS ORDERED: BUDESONIDE 0.5 MG/2 ML NEBU ONE (21:30)
[2024-06-21] MEDS ORDERED: INSULIN DETEMIR (LEVEMIR) 100 UNIT/ML SYR SQ ONE (22:55)
[2024-06-22] MEDS ORDERED: INSULIN ASPART (NovoLOG) 100 UNIT/ML VIAL SQ ONE ×3 (06:48→17:16)
[2024-06-22] MEDS ORDERED: BUDESONIDE 0.5 MG/2 ML NEBU ONE (07:48)
[2024-06-22] MEDS ORDERED: ATORVASTATIN 20 MG TAB ONE ×2 (10:35→21:51)
[2024-06-22] MEDS ORDERED: NICOTINE 21MG/24HR PATCH TRANSDERM ONE (10:35)
[2024-06-22] MEDS ORDERED: predniSONE 20 MG TAB ONE ×2 (10:36→21:52)
[2024-06-22] MEDS ORDERED: METOPROLOL TARTRATE 25 MG TAB ONE ×2 (10:37→21:52)
[2024-06-22] MEDS ORDERED: SULFAMETHOX-TMP 800-160MG 1 EACH TAB ONE (10:40)
[2024-06-22] MEDS ORDERED: buPROPion XL 300 MG TAB.ER.24H PO ONE (10:41)
[2024-06-22] MEDS ORDERED: FUROSEMIDE 20 MG TAB ONE (10:41)
[2024-06-22] MEDS ORDERED: glipiZIDE 10 MG TAB ONE ×2 (10:42→21:52)
[2024-06-22] MEDS ORDERED: QUEtiapine 50 MG TAB ONE (10:43)
[2024-06-22] MEDS ORDERED: QUEtiapine 25 MG TAB ONE (21:52)
[2024-06-23] MEDS ORDERED: INSULIN ASPART (NovoLOG) 100 UNIT/ML VIAL SQ ONE ×4 (06:45→21:38)
[2024-06-23] MEDS ORDERED: NICOTINE 21MG/24HR PATCH TRANSDERM ONE (09:54)
[2024-06-23] MEDS ORDERED: METOPROLOL TARTRATE 25 MG TAB ONE ×2 (09:54→20:34)
[2024-06-23] MEDS ORDERED: ATORVASTATIN 20 MG TAB ONE ×2 (09:54→20:34)
[2024-06-23] MEDS ORDERED: glipiZIDE 10 MG TAB ONE ×2 (09:55→20:34)
[2024-06-23] MEDS ORDERED: QUEtiapine 25 MG TAB ONE ×2 (09:55→20:35)
[2024-06-23] MEDS ORDERED: buPROPion XL 300 MG TAB.ER.24H PO ONE ×2 (09:55→10:15)
[2024-06-23] MEDS ORDERED: predniSONE 20 MG TAB ONE ×2 (09:55→20:34)
[2024-06-23] MEDS ORDERED: FUROSEMIDE 20 MG TAB ONE (09:56)
[2024-06-23] MEDS ORDERED: IPRATROPIUM-ALBUTEROL 3 ML NEB ONE (23:59)
[2024-06-23] MEDS ORDERED: BUDESONIDE 0.5 MG/2 ML NEBU ONE (23:59)
[2024-06-24] MEDS ORDERED: INSULIN ASPART (NovoLOG) 100 UNIT/ML VIAL SQ ONE ×4 (06:51→22:29)
[2024-06-24] MEDS ORDERED: glipiZIDE 10 MG TAB ONE ×2 (07:53→22:28)
[2024-06-24] MEDS ORDERED: NICOTINE 21MG/24HR PATCH TRANSDERM ONE (07:53)
[2024-06-24] MEDS ORDERED: buPROPion XL 300 MG TAB.ER.24H PO ONE (07:53)
[2024-06-24] MEDS ORDERED: predniSONE 20 MG TAB ONE (07:53)
[2024-06-24] MEDS ORDERED: METOPROLOL TARTRATE 25 MG TAB ONE ×2 (07:53→22:37)
[2024-06-24] MEDS ORDERED: QUEtiapine 25 MG TAB ONE ×2 (07:54→22:28)
[2024-06-24] MEDS ORDERED: FUROSEMIDE 20 MG TAB ONE (07:54)
[2024-06-24] MEDS ORDERED: BUDESONIDE 0.5 MG/2 ML NEBU ONE ×2 (09:31→20:23)
[2024-06-24] MEDS ORDERED: IPRATROPIUM-ALBUTEROL 3 ML NEB ONE ×3 (09:31→23:59)
[2024-06-24] MEDS ORDERED: ATORVASTATIN 20 MG TAB ONE (22:28)
[2024-06-25] MEDS ORDERED: predniSONE 20 MG TAB ONE ×2 (08:06→21:10)
[2024-06-25] MEDS ORDERED: FUROSEMIDE 40 MG TAB ONE (08:08)
[2024-06-25] MEDS ORDERED: METOPROLOL TARTRATE 25 MG TAB ONE ×2 (08:11→21:10)
[2024-06-25] MEDS ORDERED: glipiZIDE 10 MG TAB ONE ×2 (08:13→21:11)
[2024-06-25] MEDS ORDERED: NICOTINE 21MG/24HR PATCH TRANSDERM ONE (08:14)
[2024-06-25] MEDS ORDERED: INSULIN ASPART (NovoLOG) 100 UNIT/ML VIAL SQ ONE ×3 (12:41→21:11)
[2024-06-25] MEDS ORDERED: ACETAMINOPHEN TAB 500 MG TAB ONE (12:45)
[2024-06-25] MEDS ORDERED: IPRATROPIUM-ALBUTEROL 3 ML NEB ONE (19:44)
[2024-06-25] MEDS ORDERED: BUDESONIDE 0.5 MG/2 ML NEBU ONE (19:44)
[2024-06-25] MEDS ORDERED: ATORVASTATIN 20 MG TAB ONE (21:09)
[2024-06-26] MEDS ORDERED: INSULIN ASPART (NovoLOG) 100 UNIT/ML VIAL SQ ONE ×4 (06:41→21:08)
[2024-06-26] MEDS ORDERED: IPRATROPIUM-ALBUTEROL 3 ML NEB ONE ×3 (07:45→15:36)
[2024-06-26] MEDS ORDERED: BUDESONIDE 0.5 MG/2 ML NEBU ONE (07:46)
[2024-06-26] MEDS ORDERED: NICOTINE 21MG/24HR PATCH TRANSDERM ONE (08:34)
[2024-06-26] MEDS ORDERED: FUROSEMIDE 40 MG TAB ONE (08:34)
[2024-06-26] MEDS ORDERED: predniSONE 20 MG TAB ONE ×2 (08:35→21:06)
[2024-06-26] MEDS ORDERED: METOPROLOL TARTRATE 25 MG TAB ONE ×2 (08:35→21:06)
[2024-06-26] MEDS ORDERED: glipiZIDE 10 MG TAB ONE ×2 (08:35→21:07)
[2024-06-26] MEDS ORDERED: ATORVASTATIN 20 MG TAB ONE (21:04)
[2024-06-27] MEDS ORDERED: INSULIN ASPART (NovoLOG) 100 UNIT/ML VIAL SQ ONE ×4 (06:44→21:56)
[2024-06-27] MEDS ORDERED: IPRATROPIUM-ALBUTEROL 3 ML NEB ONE (08:36)
[2024-06-27] MEDS ORDERED: BUDESONIDE 0.5 MG/2 ML NEBU ONE (08:36)
[2024-06-27] MEDS ORDERED: FUROSEMIDE 40 MG TAB ONE (08:51)
[2024-06-27] MEDS ORDERED: METOPROLOL TARTRATE 25 MG TAB ONE ×2 (08:51→21:55)
[2024-06-27] MEDS ORDERED: predniSONE 20 MG TAB ONE ×2 (08:51→21:55)
[2024-06-27] MEDS ORDERED: buPROPion XL 300 MG TAB.ER.24H PO ONE (08:51)
[2024-06-27] MEDS ORDERED: glipiZIDE 5 MG TAB ONE (08:51)
[2024-06-27] MEDS ORDERED: NICOTINE 21MG/24HR PATCH TRANSDERM ONE (08:51)
[2024-06-27] MEDS ORDERED: QUEtiapine 25 MG TAB ONE (08:51)
[2024-06-27] MEDS ORDERED: ATORVASTATIN 20 MG TAB ONE (21:55)
[2024-06-27] MEDS ORDERED: glipiZIDE 10 MG TAB ONE (21:55)
[2024-06-28] MEDS ORDERED: NICOTINE 21MG/24HR PATCH TRANSDERM ONE (09:11)
[2024-06-28] MEDS ORDERED: METOPROLOL TARTRATE 25 MG TAB ONE (09:12)
[2024-06-28] MEDS ORDERED: buPROPion XL 300 MG TAB.ER.24H PO ONE (09:13)
[2024-06-28] MEDS ORDERED: predniSONE 20 MG TAB ONE (09:13)
[2024-06-28] MEDS ORDERED: QUEtiapine 25 MG TAB ONE (09:13)
[2024-06-28] MEDS ORDERED: glipiZIDE 10 MG TAB ONE (09:13)
[2024-06-28] MEDS ORDERED: FUROSEMIDE 40 MG TAB ONE (09:22)
[2024-06-28] MEDS ORDERED: INSULIN ASPART (NovoLOG) 100 UNIT/ML VIAL SQ ONE (15:58)
[2024-06-29] MEDS ORDERED: GABAPENTIN 400 MG CAP ONE (09:12)
[2024-06-29] MEDS ORDERED: cefTRIAXone 2 GM VIAL ONE (09:14)
[2024-06-29] MEDS ORDERED: MORPHINE SULFATE 4 MG/ML SYRINGE ONE ×2 (09:28→14:11)
[2024-06-29] MEDS ORDERED: INSULIN ASPART (NovoLOG) 100 UNIT/ML VIAL SQ ONE ×2 (12:10→16:48)
[2024-06-29] MEDS ORDERED: methylPREDNISolone SOD SUCCI 125 MG/2 ML VIAL ONE ×2 (12:10→18:33)
--- NOTE | 2024-07-27 16:43 | XR ---
Site ID [id number] Josiah Adorno ID [id number] EXAMINATION TYPE: XR 3 view right shoulder DATE OF EXAM: 06/25/2024 12:36 PM CLINICAL INDICATION: Pain COMPARISON: THIS EXAM WAS READ DURING PACS DOWNTIME, NO PRIORS AVAILABLE. TECHNIQUE: 3 view right shoulder examined in AP, internally rotated and scapular Y projections. FINDINGS: Right Upper lung masslike opacity measuring upper lung mass measuring 42 x 33 mm. No evidence of acute osseous pathology, joint dislocation, or soft tissue swelling. The remaining por tions of the visualized chest are unremarkable. Degeneration changes of the acromion, distal clavicle with osteophyte formation. There is osteophyte formation of the glenoid and humeral head. There is j oint space narrowing of glenohumeral joint. IMPRESSION: 1. No acute osseous pathology. 2. Mild shoulder osteoarthrosis. 3. Right upper lung masslike opacity further evaluation with CT chest recommended.
--- NOTE | 2024-08-06 20:12 | XR ---
EXAMINATION TYPE: XR chest 1V portable DATE OF EXAM: 08/06/2024 COMPARISON: 06/17/2024 INDICATION: Short of breath TECHNIQUE: Single frontal view of the chest is obtained. FINDINGS: The heart size is normal. The pulmonary vasculature is prominent. Diffuse infiltrates of the right lung. A small to moderate right pleural effusion is present. IMPRESSION: 1. Diffuse increased right lung markings worsening from comparison. Correlate for pneumonia or atypic al pulmonary edema. 2. Small to moderate right pleural effusion [facility], , 08/06/2024 8:10 PM
--- NOTE | 2024-08-08 13:27 | FL ---
"Josiah Garza : 1955 EXAMINATION: XR dynamic swallow study, modified barium DATE: 06/22/2024 11:38 AM COMPARISON: No priors available during downtime HISTORY: 68-year-old male history of lung cancer status post chemoradiation and intubation, rule out aspiration. Total fluoroscopy time: 2 minutes 30 seconds. Total images: None, real-time fluoroscopy support was provided to speech pathology. Total DAP: 30 mGycm2 TECHNIQUE: Deglutition study is performed utilizing thin liquid barium, honey and nectar thick liqui d barium, barium thick pudding, and barium coated cracker. FINDINGS: There is gross silent aspiration with thin liquids. This is not improved with chin tuck man euver. Trace to mild silent aspiration is seen with nectar liquid, honey liquid, and pureed consisten cy. Deep penetration with solids. There is moderate to severe vallecular residuals and mild piriform sinus residuals. Swallowing was mildly delayed. Decreased posterior pharyngeal wall peristalsis also noted. IMPRESSION: 1. Gross silent aspiration with thin liquid. Trace to mild silent aspiration with the other liquid an d pureed consistency. Deep penetration with solids. 2. Prominent residuals, delayed swallow, and decreased pharyngeal peristalsis. Please refer to speech therapist notes for further details if necessary. Dictated by Dr. Kev Sandoval"
== END 2024-06-28 18:43 | disposition home or self-care (01) ==
LOC: 5NMEDONC 18:13
PROVIDERS: ADMIT Family Medicine; ATTEND Family Medicine
DX: J44.1 Chronic obstructive pulmonary disease with (acute) exacerbation (principal); J96.21 Acute and chronic respiratory failure with hypoxia; J44.0 Chronic obstructive pulmonary disease with (acute) lower respiratory infection; J15.212 Pneumonia due to Methicillin resistant Staphylococcus aureus; C34.31 Malignant neoplasm of lower lobe, right bronchus or lung; E11.65 Type 2 diabetes mellitus with hyperglycemia; F32.A Depression, unspecified; R49.0 Dysphonia; F45.8 Other somatoform disorders; Z79.51 Long term (current) use of inhaled steroids; Z79.84 Long term (current) use of oral hypoglycemic drugs; Z79.899 Other long term (current) drug therapy
CPT/HCPCS: 71045; 74230; 80053; 83036; 83605; 84145; 85025; 94640; 94760; 99285

== ENCOUNTER → 2024-06-30 | Outpatient (CLI) | payer MEDICARE, BC ==
--- NOTE | 2024-07-28 10:20 | PE ---
Patient: Josiah Garza Ordering Physician: Unknown, Unknown ID: [id number] Phone, Pager: Phone: N/A Pager: N/A : 1955 Age/Gender: 68Y, M Primary Location: N/A Procedure: PETCT SKULL TO THI Study Date: 06/30/2024 3:42:50 PM EXAMINATION TYPE: PET CT fusion skull to thigh DATE OF EXAM: 07/05/2024 CLINICAL INDICATION: Lung cancer TECHNIQUE: Following the intravenous administration of 11.6 mCi of F-18 FDG, whole body images are performed from the skull base to the midthigh. Images are reviewed on the computer in the coronal, a xial, and sagittal planes. Reconstructed rotating images are created on independent workstation and reviewed on the computer. A non-contrast CT is performed in conjunction with the PET scan. Glucose level 65 mg/dL CT DLP: 486 mGycm, Automated exposure control for dose reduction was used. COMPARISON: CT 06/02/2024, PET/CT None, MRI: None FINDINGS: Mediastinal SUV mean is 1.3. Hepatic parenchyma SUV mean is 1.3. SKULL BASE AND NECK: * Right neck conglomerate lymph nodes which extend up around the cervical spine max SUV 22.5. CHEST, MEDIASTINUM, AND HILAR REGION: * Right lower lung mass max SUV 14.9 measuring 36 x 30 mm. * Conglomerate lymphadenopathy extending down the mediastinum right low paratracheal max SUV 29.6, r ight high paratracheal and prevascular space max SUV 31.2. * Periaortic lymph nodes in the mediastinum also present in the distal esophagus max SUV 11.22. * There is intralobular septal thickening with edema throughout the right lung with trace left pleur al effusion. ABDOMEN AND PELVIS: * Multiple low-density areas in the liver concerning for metastatic disease. Largest measuring Right hepatic lobe low-density mass measuring up to 37 mm max SUV 17.3. There is at least 8 lesions in the liver. * Focal uptake within the right adrenal gland max SUV 11.6. MUSCULOSKELETAL STRUCTURES: No suspicious radiotracer activity. Muscle strain/muscle use physiologic uptake seen within the neck. OTHER CT: Atherosclerosis of the carotid bifurcations and throughout the arterial vasculature. Prosta tomegaly. Moderate to large amount stool throughout the colon. Infrarenal abdominal aortic ectasia up to 26 mm. IMPRESSION: Right lower lung mass measuring 36 mm with metastatic disease to the mediastinum extending up into th e right neck as well as at least 8 lesions within the liver and a single lesion within the right adre nal gland. 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
== END | disposition home or self-care (01) ==
LOC: RADPETMAIN 14:45
PROVIDERS: ATTEND Internal Medicine Hematology & Oncology
DX: C34.11 Malignant neoplasm of upper lobe, right bronchus or lung (principal); C78.7 Secondary malignant neoplasm of liver and intrahepatic bile duct; C79.71 Secondary malignant neoplasm of right adrenal gland; J90 Pleural effusion, not elsewhere classified
CPT/HCPCS: 78815; A9552

== ENCOUNTER → 2024-08-04 | Outpatient (CLI) | payer MEDICARE, BC ==
--- NOTE | 2024-08-04 17:49 | MR ---
EXAMINATION TYPE: MR brain wo/w con DATE OF EXAM: 08/04/2024 COMPARISON: 06/17/2024 HISTORY: Hallucinations, hx of cancer CONTRAST: Performed utilizing 7 mL intravenous Gadavist gadolinium contrast. TECHNIQUE: Multiplanar, multiecho imaging on a 3.0 Sade magnet is performed through the brain. Stud y is performed within 24 hours of arrival to the hospital. The craniovertebral junction is normal. The pituitary is normal. Diffusion-weighted imaging is performed. No abnormal hyperintensity is present to suggest an acute i ntracranial infarct or acute ischemic change. There are multiple scattered punctate areas of hyperintensity on T2 and Inversion Recovery weighted s equences which are non-specific but can be related to chronic white matter microvascular ischemic jerald nges. Reference lesion anterior right frontal lobe measures 1.4 cm. Series 601 image 45. Previous measurem ent 1.5 cm. Reference lesion anterior left frontal lobe subcortical white matter 1.0 cm. Series 601 image 44, sta ble from comparison. Ventricles and sulci are appropriate for the patient age. No suspicious enhancement is evident. No suspicious vasogenic edema is identified. IMPRESSION: 1. Multiple deep white matter punctate hyperintensities which are nonspecific but can be related to m icrovascular ischemic change. Findings appear stable from comparison. 2. No suspicious changes to suggest new metastatic lesions. [facility], , 08/04/2024 5:47 PM
== END | disposition home or self-care (01) ==
LOC: RADMRIMAIN 14:04
PROVIDERS: ATTEND Internal Medicine Hematology & Oncology
DX: C34.11 Malignant neoplasm of upper lobe, right bronchus or lung
CPT/HCPCS: 70553